=== PATIENT | female | born 1940 | race Caucasian/White ===

== ENCOUNTER 2017-09-29 11:06 | Inpatient (IN) | payer MEDICARE ==
[2017-09-29] MEDS ORDERED: ONDANSETRON 4 MG/2 ML VIAL IVP STA (12:08)
[2017-09-29] MEDS ORDERED: SODIUM CHLORIDE 0.9% 1,000 ML IV STA (12:08)
--- NOTE | 2017-09-29 12:16 | ED ---
General Adult HPI <Federico Dominguez - Last Filed: 09/29/17 15:16> - General Source: patient, family, RN notes reviewed Mode of arrival: wheelchair <Jet Dinero - Last Filed: 09/29/17 16:21> - General Chief complaint: Nausea/Vomiting/Diarrhea Stated complaint: vomiting; diarrhea; weakness Time Seen by Provider: 09/29/17 12:01 - History of Present Illness Initial comments: Patient 76-year-old female presented to the emergency room today with a chief complaint of symptoms of nausea vomiting diarrhea that started yesterday after she took Cymbalta. She states this is the first time she states this medication. She states that after she took it. Feeling nauseated and had episodes of diarrhea throughout the night. Patient states no specific abdominal pain. She states to all the vomiting she had some increased back pain due to history of chronic back pain. Patient denies any other complaints at this time. Patient denies any recent fever, chills, shortness of breath, chest pain, numbness or tingling, dysuria or hematuria, constipation, headaches or visual changes, or any other complaints. (Jet Dinero) - Related Data Home Medications Medication Instructions Recorded Confirmed Allopurinol [Zyloprim] 100 mg PO BID 11/03/14 09/29/17 Cetirizine HCl [Zyrtec] 10 mg PO DAILY 11/03/14 09/29/17 HYDROcodone/APAP 10-325MG [[place] 1 tab PO QID 11/03/14 09/29/17 10-325] Isosorbide Mononitrate ER [Imdur] 30 mg PO DAILY 11/03/14 09/29/17 Nitroglycerin Sl Tabs [Nitrostat] 0.4 mg SUBLINGUAL Q5M PRN 11/03/14 09/29/17 Ranitidine HCl [Zantac] 75 mg PO DAILY 11/03/14 09/29/17 Apixaban [Eliquis] 2.5 mg PO BID 02/02/15 09/29/17 Hydrochlorothiazide 25 mg PO DAILY 02/02/15 09/29/17 Aspirin EC [Ecotrin Low Dose] 81 mg PO DAILY 11/10/15 09/29/17 Atorvastatin Calcium [Lipitor] 80 mg PO DAILY 07/20/16 06/09/18 Furosemide [Lasix] 40 mg PO BID 11/10/15 09/29/17 Previous Rx's Medication Instructions Recorded Lisinopril [Prinivil] 20 mg PO DAILY #0 11/05/14 Allergies Allergy/AdvReac Type Severity Reaction Status Date / Time acetaminophen Allergy Unknown Verified 09/29/17 15:34 [From Darvocet-N] codeine phosphate Allergy Hallucinati Verified 09/29/17 15:34 [From Tylenol-Codeine #3] ons meperidine HCl [From Demerol] Allergy CHEST Verified 09/29/17 15:34 PAIN/Hallucinations propoxyphene Allergy Unknown Verified 09/29/17 15:34 [From Darvocet-N] Review of Systems ROS Other: All systems not noted in ROS Statement are negative. <Federico Dominguez - Last Filed: 09/29/17 15:16> ROS Other: All systems not noted in ROS Statement are negative. <Jet Dinero - Last Filed: 09/29/17 16:21> ROS Statement: Those systems with pertinent positive or pertinent negative responses have been documented in the HPI. Past Medical History Past Medical History: Chest Pain / Angina, GERD/Reflux, Hyperlipidemia, Hypertension, Pneumonia Additional Past Medical History / Comment(s): gout, neuropathy, hx migraines, irregular heartbeat, SOB, arthritis History of Any Multi-Drug Resistant Organisms: None Reported Past Surgical History: Cholecystectomy, Heart Catheterization With Stent, Hysterectomy Additional Past Surgical History / Comment(s): shane cataracts Past Anesthesia/Blood Transfusion Reactions: Motion Sickness, Postoperative Nausea & Vomiting (PONV) Date of Last Stent Placement:: unknown Past Psychological History: No Psychological Hx Reported Smoking Status: Never smoker Past Alcohol Use History: None Reported Past Drug Use History: None Reported - Past Family History Mother Family Medical History: Cancer Sister(s) Family Medical History: Deep Vein Thrombosis (DVT) Brother(s) Family Medical History: Pulmonary Embolus <Jet Dinero - Last Filed: 09/29/17 16:21> General Exam <Federico Dominguez - Last Filed: 09/29/17 15:16> <Jet Dinero - Last Filed: 09/29/17 16:21> - General Exam Comments Initial Comments: General: The patient is awake and alert, in mild distress Eye: Pupils are equal, round and reactive to light, extra-ocular movements are intact. No nystagmus. There is normal conjunctiva bilaterally. No signs of icterus. Ears, nose, mouth and throat: There are moist mucous membranes and no oral lesions. Neck: The neck is supple, there is no tenderness or JVD. Cardiovascular: There is a regular rate and rhythm. No murmur, rub or gallop is appreciated. Respiratory: Lungs are clear to auscultation, respirations are non-labored, breath sounds are equal. No wheezes, stridor, rales, or rhonchi. Gastrointestinal: Soft, non-distended, non-tender abdomen without masses or organomegaly noted. There is no rebound or guarding present. No CVA tenderness. Musculoskeletal: Normal ROM, no tenderness. Strength 5/5. Sensation intact. Pulses equal bilaterally 2+. Neurological: A&O x 3. CN II-XII intact, There are no obvious motor or sensory deficits. Coordination appears grossly intact. Speech is normal. Skin: Skin is warm and dry and no rashes or lesions are noted. Psychiatric: Cooperative, appropriate mood & affect, normal judgment. (Jet Dinero) Course <Federico Dominguez - Last Filed: 09/29/17 15:16> <Jet Dinero - Last Filed: 09/29/17 16:21> Vital Signs 09/29/17 09/29/17 09/29/17 11:41 13:10 15:51 Temperature 98.1 F 97.8 F Pulse Rate 108 H 98 99 Respiratory 22 19 19 Rate Blood Pressure 172/85 151/94 158/78 O2 Sat by Pulse 95 97 98 Oximetry - Reevaluation(s) Reevaluation #1: 09/29/17 14:41 I proceeded [id number] evaluation patient did discuss findings with her patient will be admitted I did discuss case Dr. Guaman and urology will be consulted. (Federico Dominguez) Reevaluation #2: 09/29/17 15:[address] West of the consult. (Federico Dominguez) EKG Findings - EKG Comments: EKG Findings:: EKG performed at 1258: Shows atrial fibrillation at 91 bpm. QRS 100. QT/QTC 372/457. Compared to a previous EKG on 11/03/2014 showing similar findings. <Jet Dinero - Last Filed: 09/29/17 16:21> Medical Decision Making - Lab Data Result diagrams: 09/29/17 12:30 09/29/17 12:30 <Federico Dominguez - Last Filed: 09/29/17 15:16> - Lab Data Result diagrams: 09/29/17 12:30 09/29/17 12:30 <Jet Dinero - Last Filed: 09/29/17 16:21> - Medical Decision Making CT abdomen and pelvis reviewed and shows 1. There is a 5 cm mass involving the lower pole left kidney suspicious for renal cell carcinoma. 2. Nonobstructing lower pole 5 mm left renal calculus. 3. Mild wall thickening of the stomach with few prominent small bowel loops particularly within the upper abdomen as read by radiologist Dr. Valencia. Case discussed and seen by internal physician Dr. Dominguez. He discuss case with admitting physician Dr. Guaman. Patient will be admitted to the hospital for symptoms of nausea vomiting and for further evaluation of kidney mass. (Jet Dinero) - Lab Data Lab Results 09/29/17 09/29/17 09/29/17 Range/Units 12:30 12:30 12:30 WBC 11.4 H (3.8-10.6) k/uL RBC 4.61 (3.80-5.40) m/uL Hgb 15.7 (11.4-16.0) gm/dL Hct 45.7 (34.0-46.0) % MCV 99.0 (80.0-100.0) fL MCH 34.1 (25.0-35.0) pg MCHC 34.4 (31.0-37.0) g/dL RDW 14.5 (11.5-15.5) % Plt Count 271 (150-450) k/uL Neutrophils % 90 % Lymphocytes % 6 % Monocytes % 3 % Eosinophils % 1 % Basophils % 0 % Neutrophils # 10.3 H (1.3-7.7) k/uL Lymphocytes # 0.6 L (1.0-4.8) k/uL Monocytes # 0.3 (0-1.0) k/uL Eosinophils # 0.1 (0-0.7) k/uL Basophils # 0.0 (0-0.2) k/uL PT (9.0-12.0) sec INR (<1.2) APTT (22.0-30.0) sec Sodium 141 (137-145) mmol/L Potassium 3.6 (3.5-5.1) mmol/L Chloride 100 (98-107) mmol/L Carbon Dioxide 25 (22-30) mmol/L Anion Gap 16 mmol/L BUN 17 (7-17) mg/dL Creatinine 0.73 (0.52-1.04) mg/dL Est GFR (CKD-EPI)AfAm >90 (>60 ml/min/1.73 sqM) Est GFR (CKD-EPI)NonAf 80 (>60 ml/min/1.73 sqM) Glucose 157 H (74-99) mg/dL Calcium 10.3 H (8.4-10.2) mg/dL Total Bilirubin 1.1 (0.2-1.3) mg/dL AST 27 (14-36) U/L ALT 29 (9-52) U/L Alkaline Phosphatase 147 H (38-126) U/L Total Creatine Kinase 74 (30-135) U/L CK-MB (CK-2) 1.6 (0.0-2.4) ng/mL CK-MB (CK-2) Rel Index 2.2 Troponin I <0.012 (0.000-0.034) ng/mL Total Protein 8.5 H (6.3-8.2) g/dL Albumin 4.9 (3.5-5.0) g/dL 09/29/17 Range/Units 12:30 WBC (3.8-10.6) k/uL RBC (3.80-5.40) m/uL Hgb (11.4-16.0) gm/dL Hct (34.0-46.0) % MCV (80.0-100.0) fL MCH (25.0-35.0) pg MCHC (31.0-37.0) g/dL RDW (11.5-15.5) % Plt Count (150-450) k/uL Neutrophils % % Lymphocytes % % Monocytes % % Eosinophils % % Basophils % % Neutrophils # (1.3-7.7) k/uL Lymphocytes # (1.0-4.8) k/uL Monocytes # (0-1.0) k/uL Eosinophils # (0-0.7) k/uL Basophils # (0-0.2) k/uL PT 10.7 (9.0-12.0) sec INR 1.1 (<1.2) APTT 22.7 (22.0-30.0) sec Sodium (137-145) mmol/L Potassium (3.5-5.1) mmol/L Chloride (98-107) mmol/L Carbon Dioxide (22-30) mmol/L Anion Gap mmol/L BUN (7-17) mg/dL Creatinine (0.52-1.04) mg/dL Est GFR (CKD-EPI)AfAm (>60 ml/min/1.73 sqM) Est GFR (CKD-EPI)NonAf (>60 ml/min/1.73 sqM) Glucose (74-99) mg/dL Calcium (8.4-10.2) mg/dL Total Bilirubin (0.2-1.3) mg/dL AST (14-36) U/L ALT (9-52) U/L Alkaline Phosphatase (38-126) U/L Total Creatine Kinase (30-135) U/L CK-MB (CK-2) (0.0-2.4) ng/mL CK-MB (CK-2) Rel Index Troponin I (0.000-0.034) ng/mL Total Protein (6.3-8.2) g/dL Albumin (3.5-5.0) g/dL Disposition <Federico Dominguez - Last Filed: 09/29/17 15:16> Is patient prescribed a controlled substance at d/c from ED?: No Time of Disposition: 14:50 <Jet Dinero - Last Filed: 09/29/17 16:21> Clinical Impression: Kidney mass, Nausea & vomiting Disposition: ADMITTED IP TO THIS HOSP Condition: Good
[2017-09-29 12:46] LABS: Basophils % (A) 0 %; Eosinophils # (A) 0.1 k/uL (0-0.7); Eosinophils % (A) 1 %; HCT 45.7 % (34.0-46.0); HGB 15.7 gm/dL (11.4-16.0); Lymphocytes # (A) 0.6 k/uL (1.0-4.8); Lymphocytes % (A) 6 %; MCH 34.1 pg (25.0-35.0); MCHC 34.4 g/dL (31.0-37.0); Monocytes # (A) 0.3 k/uL (0-1.0); Monocytes % (A) 3 %; Neutrophils # (A) 10.3 k/uL (1.3-7.7); Neutrophils % (A) 90 %; Platelet Count 271 k/uL (150-450); RBC 4.61 m/uL (3.80-5.40); RDW 14.5 % (11.5-15.5); WBC 11.4 k/uL (3.8-10.6)
--- NOTE | 2017-09-29 12:52 | XR ---
EXAMINATION TYPE: XR chest 2V DATE OF EXAM: 09/29/2017 COMPARISON: 11/10/2015 HISTORY: Nausea and vomiting for 2 days TECHNIQUE: Frontal and lateral views of the chest are obtained. FINDINGS: There is no focal air space opacity, pleural effusion, or pneumothorax seen. The cardiome diastinal silhouette is upper limits of normal. The osseous structures are intact. Mild acromio cla vicular arthropathy is seen bilaterally. Moderate multilevel degenerative changes of the thoracic spi ne are noted. Cholecystectomy clips reside within the right upper quadrant IMPRESSION: No acute cardiopulmonary process.
[2017-09-29 12:55] LABS: ALT 29 U/L (9-52); AST 27 U/L (14-36); Albumin 4.9 g/dL (3.5-5.0); Alkaline Phosphatase 147 U/L (38-126); Anion Gap 16 mmol/L; Blood Urea Nitrogen 17 mg/dL (7-17); Calcium 10.3 mg/dL (8.4-10.2); Carbon Dioxide 25 mmol/L (22-30); Chloride 100 mmol/L (98-107); Glucose 157 mg/dL (74-99); Potassium 3.6 mmol/L (3.5-5.1); Sodium 141 mmol/L (137-145); Total Bilirubin 1.1 mg/dL (0.2-1.3); Total Protein 8.5 g/dL (6.3-8.2)
[2017-09-29 12:56] LABS: INR 1.1 (<1.2); Partial Thromboplastin Time 22.7 sec (22.0-30.0); Prothrombin Time 10.7 sec (9.0-12.0)
--- NOTE | 2017-09-29 12:59 | XR ---
EXAMINATION TYPE: XR KUB DATE OF EXAM: 09/29/2017 12:48 PM CLINICAL HISTORY: Abdominal pain TECHNIQUE: Single supine KUB image of the abdomen is obtained. COMPARISON: None. FINDINGS: Scattered gas is seen in non-distended small bowel loops. Gas and fecal material is seen in non-distended colon. Evaluation for pneumoperitoneum is limited on the supine image. Cholecystectomy clips reside within the right upper quadrant. The lung bases are clear and the osseous structures ar e intact. IMPRESSION: Nonobstructive bowel gas pattern.
[2017-09-29 13:08] LABS: Creatine Kinase 74 U/L (30-135)
[2017-09-29] MEDS ORDERED: MORPHINE SULFATE 2 MG/ML SYRINGE IVP STA (13:16)
[2017-09-29 13:21] LABS: Creatine Kinase MB 1.6 ng/mL (0.0-2.4); Troponin I <0.012 ng/mL (0.000-0.034)
--- NOTE | 2017-09-29 14:28 | CT ---
EXAMINATION TYPE: CT abdomen pelvis w con DATE OF EXAM: 09/29/2017 COMPARISON: None HISTORY: Generalized pain, nausea, vomiting, diarrhea CT DLP: 1655 mGycm Automated exposure control for dose reduction was used. CONTRAST: CT scan of the abdomen pelvis is performed with IV Contrast, patient injected with 100 mL of Isovue 3 00. FINDINGS- LUNG BASES-subsegmental changes involving both lung bases suggestive of atelectasis or scarring. The heart is enlarged.. LIVER/GB-surgical clip in the gallbladder fossa compatible with previous cholecystectomy. PANCREAS- No gross abnormality is seen. SPLEEN- No gross abnormality is seen. ADRENALS-thickening of the left adrenal gland be associated with hyperplasia. KIDNEYS/BLADDER-there is a large mass involving the lower pole the left kidney measuring 5 cm. There is a 5 mm left renal calculus with no hydronephrosis.. BOWEL- no bowel dilatation. Mild wall thickening the stomach and be associated with gastroenteritis. There are few prominent small bowel loops. LYMPH NODES- No greater than 1cm abdominal or pelvic lymph nodes are appreciated. OSSEOUS STRUCTURES-hypertrophic and degenerative change of the spine. Diffuse circumferential disc bu lging L4-L5 with grade 1 anterolisthesis and facet arthropathy and severe canal stenosis. No destruct monico lesions are seen.. OTHER- atherosclerotic change of aorta. No evidence of aneurysm. IMPRESSION- 1. There is a 5 cm mass involving the lower pole the left kidney suspicious for renal cell carcinoma. 2. Nonobstructing lower pole 5 mm left renal calculus. 3. Mild wall thickening of the stomach with a few prominent small bowel loops particularly within the upper abdomen. Correlate for gastroenteritis.
[2017-09-29] MEDS ORDERED: LORazepam 2 MG/ML INJ IV PRN (14:53)
[2017-09-29] MEDS ORDERED: NALOXONE 0.4 MG/ML 1 ML VIAL IV PRN (14:53)
[2017-09-29] MEDS ORDERED: SODIUM CHLORIDE 0.9% 1,000 ML IV ONE (14:53)
[2017-09-29] MEDS ORDERED: DICYCLOMINE 10 MG/ML 2 ML AMP IM STA (15:05)
[2017-09-29 16:05] LABS: Appearance,Urine Clear (Clear); Bilirubin,Urine Negative (Negative); Blood,Urine Small (Negative); Color,Urine Light Yellow; Glucose,Urine (UA) Negative (Negative); Ketones,Urine Negative (Negative); Leukocyte Esterase,Urine Large (Negative); Mucus,Urine Rare /hpf; Nitrite,Urine Positive (Negative); Protein,Urine Negative (Negative); RBC,Urine 5 /hpf (0-5); Specific Gravity,Urine 1.034 (1.001-1.035); Squamous Epithelial Cell,Urine <1 /hpf (0-4); Urobilinogen,Urine <2.0 mg/dL (<2.0); WBC,Urine 36 /hpf (0-5)
[2017-09-29] MEDS ORDERED: NITROGLYCERIN SL TABS 0.4 MG TAB SUBLINGUAL PRN (17:08)
[2017-09-29 17:21] VITALS: BMI 36.3
[2017-09-29] MEDS: MORPHINE SULFATE 2 MG/ML SYRINGE IV PRN (17:37)
[2017-09-29 17:43] LABS: Amylase 49 U/L (30-110); Lipase 34 U/L (23-300)
[2017-09-29] MEDS: cefTRIAXone IN SWFI 1,000 MG/10 ML SYRINGE IVP SCH (18:35)
--- NOTE | 2017-09-29 18:46 | HP ---
HISTORY AND PHYSICAL CHIEF COMPLAINTS: Nausea, vomiting, diarrhea. HISTORY OF PRESENT ILLNESS: This 76-year-old woman with a past medical history of multiple medical problems including GERD, hypertension, hyperlipidemia, history of pneumonia, history of gout, neuropathy being followed by Dr. Philippe Miramontes in the outpatient setting also had CAD, stent. Patient complaining of bilateral leg pain and difficulty in walking. The patient was started on Cymbalta 30 mg. Currently the complaining of nausea, vomiting and diarrhea on multiple occasions. Patient came to [facility] and admitted for further evaluation and treatment. CT scan of the abdomen showed a 5 cm incidental mass in the left lower pole of the left kidney, nonobstructing lower pole 5 cm left renal calculus and mild wall thickening of the stomach also. There is no history of fevers, rigors or chills. No history of headache, loss of consciousness, seizures. PAST MEDICAL HISTORY: GERD, hypertension, hyperlipidemia, pneumonia, history of gout, neuropathy, cholecystectomy, CAD, stent. MEDICATION: Home medications are: 1. Zantac 75 mg p.o. daily. 2. Nitrostat 0.4 mg sublingual p.r.n. 3. Prinivil 20 mg daily. 4. Imdur 30 mg b.i.d. 5. Hydrochlorothiazide 25 mg p.o. 6. [place] 10 mg q.i.d. 7. Lasix 40 mg p.o. b.i.d. 8. Zyrtec 10 mg. 9. Lipitor 80 mg. 10.Ecotrin 81 mg p.o. 11.Eliquis 2.5 mg b.i.d. 12.Zyloprim 100 mg p.o. b.i.d. ALLERGIES: DARVOCET-N 100, CODEINE, MEPERIDINE, . FAMILY HISTORY: Family history of cancer in the family. SOCIAL HISTORY: No history of smoking. No history of alcohol intake. REVIEW OF SYSTEMS: ENT: Diminished hearing and vision. CARDIOVASCULAR: No angina or palpitations. RESPIRATORY: No cough or hemoptysis. GI as mentioned earlier. : As mentioned earlier. NERVOUS SYSTEM: No numbness or weakness. ALLERGY/IMMUNOLOGY: No asthma or hayfever. MUSCULOSKELETAL as mentioned earlier. DERMATOLOGY: No history of anemia. ENDOCRINE: No history of diabetes or hypothyroidism. CONSTITUTIONAL: As mentioned earlier. Dermatology: Negative. Rheumatology: Negative. PSYCHIATRY: As mentioned earlier. PHYSICAL EXAMINATION: GENERAL: Alert and oriented times three. VITAL SIGNS: Pulse is 99, blood pressure 158/70, respiration 19, temperature 97.8, pulse ox 98% on room air. HEENT: Conjunctivae normal. Oral mucosa moist. NECK is no jugular venous distention. No carotid bruit. No lymph node enlargement. CARDIOVASCULAR System: S1, S2 muffled. RESPIRATIONS: Breath sounds diminished in the bases. No rhonchi and no crackles. ABDOMEN: Soft. Mild diffuse tenderness in the upper abdomen present. No mass palpable. LEGS: No edema and no swelling. NERVOUS SYSTEM: Higher functions as mentioned earlier. Moves all 4 limbs. No focal motor or sensory deficits. LYMPHATICS: No lymph nodes palpable in neck and axilla. SKIN: No ulcer, rash or bleeding. LABS: WBC 7.4, Calcium is 10.8. UA noted. ASSESSMENT: 1. Upper abdominal pain, vomiting, possible acute gastritis. Rule out cholelithiasis. 2. Acute urinary tract infection present on admission. 3. History of gastroesophageal reflux disease. 4. Hypertension. 5. Hyperlipidemia. 6. History of pneumonia. 7. History of peripheral neuropathy and severe pain. 8. History of atrial fibrillation. 9. History of degenerative joint disease. 10.History of gout. 11.History of coronary artery disease and stent. 12.5 cm mass noted in the left pole of the left lower pole of the left kidney, possibly renal cell carcinoma. 13.Nonobstructing lower pole 5 mm left renal calculi. 14.FULL CODE. RECOMMENDATIONS AND DISCUSSION: In this 76-year-old woman continue current medications, recommend symptomatic treatment of the pain. We will initiate broad-spectrum IV antibiotics. Follow the cultures. Resume the home medications. DVT prophylaxis. Surgery and gastroenterology consultation for concern for consideration of upper endoscopies. Ultrasound will be requested. Repeat labs. Urology has been consulted from the ER and further recommendations to follow. Prognosis guarded. Copy of this dictation being forwarded to Dr. Miramontes's office who is the primary care physician. NIK / SRIDEVI: [id number] / MTDD
[2017-09-29] MEDS: APIXABAN 2.5 MG TABLET PO SCH (21:14)
[2017-09-29] MEDS: KETOROLAC 30 MG/ML 1 ML VIAL IVP PRN (22:00)
[2017-09-30] MEDS ORDERED: KETOROLAC 30 MG/ML 1 ML VIAL IVP SCH
[2017-09-30] MEDS: ONDANSETRON 4 MG/2 ML VIAL IVP PRN ×3 (01:27→23:06)
[2017-09-30] MEDS: APIXABAN 2.5 MG TABLET PO SCH ×2 (08:13→21:58)
[2017-09-30] MEDS: cefTRIAXone IN SWFI 1,000 MG/10 ML SYRINGE IVP SCH (08:13)
[2017-09-30] MEDS: ATORVASTATIN 80 MG TAB PO SCH (08:13)
[2017-09-30] MEDS: HYDROCHLOROTHIAZIDE 25 MG TAB PO SCH (08:14)
[2017-09-30] MEDS: LISINOPRIL 20 MG TAB PO SCH (08:14)
[2017-09-30] MEDS: ISOSORBIDE MONONITRATE ER 30 MG TAB.ER.24H PO SCH (08:14)
[2017-09-30] MEDS: FUROSEMIDE 40 MG TAB PO SCH (08:14)
[2017-09-30] MEDS: KETOROLAC 30 MG/ML 1 ML VIAL IVP PRN (08:16)
--- NOTE | 2017-09-30 08:23 | US ---
EXAMINATION TYPE: US abdomen limited DATE OF EXAM: 09/30/2017 COMPARISON: CT 09/29/2017 CLINICAL HISTORY: abd pain. EXAM MEASUREMENTS: Liver Length: 14.3 cm Gallbladder Wall: Surgically absent CBD: 0.6 cm Right Kidney: 10.0 x 5.0 x 4.4 cm Pancreas: Obscured by bowel gas, visualized portions wnl Liver: Heterogeneous Gallbladder: Surgically absent. Evidence for sonographic Meredith's sign: No true Meredith's sign observed CBD: wnl post cholecystectomy Right Kidney: No hydronephrosis or masses seen Difficult and limited exam. Patient could not tolerate any pressure to her abdomen area due to pain. Patient unable to take a deep breath in and hold IMPRESSION: No acute process.
[2017-09-30 09:07] LABS: Basophils % (A) 0 %; Eosinophils # (A) 0.1 k/uL (0-0.7); Eosinophils % (A) 1 %; HCT 43.8 % (34.0-46.0); HGB 14.4 gm/dL (11.4-16.0); Lymphocytes # (A) 0.7 k/uL (1.0-4.8); Lymphocytes % (A) 6 %; MCH 33.2 pg (25.0-35.0); MCHC 32.8 g/dL (31.0-37.0); MCV 101.1 fL (80.0-100.0); Macrocytosis Slight; Mean Platelet Volume 7.4; Monocytes # (A) 0.6 k/uL (0-1.0); Monocytes % (A) 6 %; Neutrophils # (A) 10.1 k/uL (1.3-7.7); Neutrophils % (A) 87 %; Platelet Count 257 k/uL (150-450); RBC 4.34 m/uL (3.80-5.40); RDW 14.5 % (11.5-15.5); WBC 11.5 k/uL (3.8-10.6)
[2017-09-30 09:11] LABS: ALT 30 U/L (9-52); AST 25 U/L (14-36); Albumin 3.9 g/dL (3.5-5.0); Alkaline Phosphatase 109 U/L (38-126); Anion Gap 15 mmol/L; Blood Urea Nitrogen 16 mg/dL (7-17); Calcium 9.6 mg/dL (8.4-10.2); Carbon Dioxide 23 mmol/L (22-30); Chloride 106 mmol/L (98-107); Glucose 136 mg/dL (74-99); Potassium 3.7 mmol/L (3.5-5.1); Sodium 144 mmol/L (137-145); Total Bilirubin 0.9 mg/dL (0.2-1.3); Total Protein 6.9 g/dL (6.3-8.2)
--- NOTE | 2017-09-30 11:50 | CONS ---
CONSULTATION DATE OF SERVICE: 09/30/17 REQUESTING PHYSICIAN: Dr. Guaman. REASON FOR CONSULTATION: Nausea, vomiting, and abdominal pain. HISTORY OF PRESENT ILLNESS: The patient is a 76-year-old pleasant white female admitted to the hospital because of complaining of abdominal discomfort associated with nausea, vomiting, diarrhea for the last 3 days duration. She had several episodes of nausea, vomiting and has bowel movements anywhere from four to five a day which are loose to watery in consistency. Around the same time she also started having some lower extremity swelling. She went to see Dr. Miramontes on an outpatient basis and her medications were recently changed about 4 days ago when she started having these symptoms. She denies any fever, chills, night sweats. She denies any rectal bleeding or melena. She came to the emergency room and a CT of the abdomen and pelvis done showed evidence of 5 cm incidental mass in the left pole of the left kidney and some thickening of the wall of the stomach. This morning, she still has some nausea, but the diarrhea has improved. PAST MEDICAL HISTORY: Significant for GERD, hypertension, hyperlipidemia, gout. PAST SURGICAL HISTORY: Cholecystectomy, cardiac cath with stent placement. MEDICATIONS: At home, Zantac, Nitrostat, Prinivil, Imdur, Hydrochlorothiazide, [place], Lasix and Lipitor, Ecotrin, Eliquis, and Zyloprim. ALLERGIES: DARVOCET, CODEINE, MEPERIDINE. FAMILY HISTORY: Unremarkable. SOCIAL HISTORY: No smoking, alcohol use. REVIEW OF SYSTEMS: Cardiopulmonary: No chest pain, shortness of breath. Genitourinary: No dysuria or hematuria. Musculoskeletal: Lower extremity swelling and neuropathy. ENT/vision: Unremarkable. Constitutional: No recent weight loss. No fevers, chills or night sweats. Endocrine: Unremarkable. Hematology unremarkable. Psychiatric unremarkable. GI: As mentioned above. PHYSICAL EXAMINATION: She appears comfortable. No apparent distress. Vital signs are stable. Blood pressure is 141/73, pulse 87, temperature 97.9. HEENT examination unremarkable. Conjunctivae pink. Sclerae anicteric. Oral cavity no lesions. Neck: No jugular venous distention or lymph node enlargement. Chest was clear to auscultation. HEART: Regular rate and rhythm. ABDOMEN: Soft. Bowel sounds are positive. No organomegaly. Extremities: No pedal edema. Skin no rashes. NEUROLOGIC: Alert and oriented x3. No focal deficits. LAB DATA: Done yesterday, WBC 11.4, hemoglobin 13.7, platelets are normal. Basic metabolic panel is within normal limits. PT, INR within normal limits. C diff reported as negative. CT of the abdomen and pelvis showed incidental 5 cm mass in the left kidney and some mild gastritis. IMPRESSION: 1. This is a lady who presents to the hospital with acute onset of abdominal discomfort associated with nausea, vomiting, diarrhea for the last 3 days duration. Most likely we are dealing with possible gastroenteritis/gastritis. She is feeling a little better this morning. 2. History of atrial fibrillation on Eliquis. 3. Urinary tract infection on broad-spectrum antibiotics. 4. CT of the abdomen showed an incidental 5 cm mass in the left kidney. RECOMMENDATION: 1. Will start her on empiric Protonix 40 mg daily. 2. Start on a clear liquid diet. 3. Antiemetics as needed. 4. Stool for cultures. 5. Continue with symptomatic and supportive care. 6. No plans on any endoscopic intervention at the present time. Thank you for this consultation. MMODL / IJN: [id number] /
--- NOTE | 2017-09-30 12:13 | P.GSCN ---
History of Present Illness Consult date: 09/30/17 History of present illness: I was asked to see this 76-year-old female who was brought into the hospital with nausea and vomiting. She came to the hospital with nausea and vomiting after starting Cymbalta. A computed tomography scan of the abdomen was obtained identifying a 5 cm solid mass emanating from the left lower pole the kidney worrisome for renal cell carcinoma. I have been asked to see the patient for this reason. There's been no hematuria. There's been no pain. There is no been no previous urologic issues. Her hemoglobin is stable. Her urinalysis did not show a lot of red blood cells. Review of Systems - Constitutional Reports anorexia - Gastrointestinal Reports abdominal pain, Reports nausea - Genitourinary Genitourinary: Reports as per HPI Past Medical History Past Medical History: Chest Pain / Angina, GERD/Reflux, Hyperlipidemia, Hypertension, Osteoarthritis (OA), Pneumonia Additional Past Medical History / Comment(s): Gout, Neuropathy, hx migraines, A- Fib, Borderline diabetic per patient History of Any Multi-Drug Resistant Organisms: None Reported Past Surgical History: Cholecystectomy, Heart Catheterization With Stent, Hysterectomy Additional Past Surgical History / Comment(s): Bilateral cats removed Past Anesthesia/Blood Transfusion Reactions: Motion Sickness, Postoperative Nausea & Vomiting (PONV) Date of Last Stent Placement:: unknown Past Psychological History: No Psychological Hx Reported Smoking Status: Never smoker Past Alcohol Use History: None Reported Past Drug Use History: None Reported - Past Family History Father Family Medical History: Diabetes Mellitus Mother Family Medical History: Cancer Additional Family Medical History / Comment(s): Ovarian cancer Sister(s) Family Medical History: Deep Vein Thrombosis (DVT) Brother(s) Family Medical History: Pulmonary Embolus Medications and Allergies Home Medications Medication Instructions Recorded Confirmed Type Allopurinol [Zyloprim] 100 mg PO BID 11/03/14 09/29/17 History Cetirizine HCl [Zyrtec] 10 mg PO DAILY 11/03/14 09/29/17 History HYDROcodone/APAP 10-325MG [[place] 1 tab PO QID 11/03/14 09/29/17 History 10-325] Isosorbide Mononitrate ER [Imdur] 30 mg PO DAILY 11/03/14 09/29/17 History Nitroglycerin Sl Tabs [Nitrostat] 0.4 mg SUBLINGUAL Q5M PRN 11/03/14 09/29/17 History Ranitidine HCl [Zantac] 75 mg PO DAILY 11/03/14 09/29/17 History Lisinopril [Prinivil] 20 mg PO DAILY #0 11/05/14 09/29/17 Rx Apixaban [Eliquis] 2.5 mg PO BID 02/02/15 09/29/17 History Hydrochlorothiazide 25 mg PO DAILY 02/02/15 09/29/17 History Aspirin EC [Ecotrin Low Dose] 81 mg PO DAILY 11/10/15 09/29/17 History Atorvastatin Calcium [Lipitor] 80 mg PO DAILY 11/10/15 09/29/17 History Furosemide [Lasix] 40 mg PO BID 11/10/15 09/29/17 History Allergies Allergy/AdvReac Type Severity Reaction Status Date / Time acetaminophen Allergy Unknown Verified 09/29/17 15:34 [From Darvocet-N] codeine phosphate Allergy Hallucinati Verified 09/29/17 15:34 [From Tylenol-Codeine #3] ons meperidine HCl [From Demerol] Allergy CHEST Verified 09/29/17 15:34 PAIN/Hallucinations propoxyphene Allergy Unknown Verified 09/29/17 15:34 [From Darvocet-N] Surgical - Exam Vital Signs Temp Pulse Resp BP Pulse Ox 98.1 F 108 H 22 172/85 95 09/29/17 11:41 09/29/17 11:41 09/29/17 11:41 09/29/17 11:41 09/29/17 11:41 - General well developed, well nourished, moderate distress - Eyes PERRL - ENT no hearing loss - Neck trachea midline - Respiratory normal expansion, normal respiratory effort - Cardiovascular Rhythm: irregularly irregular - Abdomen Abdomen: soft, non tender - Neurologic normal coordination, normal sensation - Musculoskeletal normal gait, normal posture - Psychiatric oriented to time, oriented to person, oriented to place, speech is normal, memory intact Results - Labs 09/30/17 08:05 09/30/17 08:05 Abnormal Lab Results - Last 24 Hours (Table) 09/29/17 09/29/17 09/29/17 Range/Units 12:30 12:30 15:40 WBC 11.4 H (3.8-10.6) k/uL MCV (80.0-100.0) fL Neutrophils # 10.3 H (1.3-7.7) k/uL Lymphocytes # 0.6 L (1.0-4.8) k/uL Glucose 157 H (74-99) mg/dL Calcium 10.3 H (8.4-10.2) mg/dL Alkaline Phosphatase 147 H (38-126) U/L Total Protein 8.5 H (6.3-8.2) g/dL Urine Blood Small H (Negative) Urine Nitrite Positive H (Negative) Ur Leukocyte Esterase Large H (Negative) Urine WBC 36 H (0-5) /hpf Urine Mucus Rare H (None) /hpf 09/30/17 09/30/17 Range/Units 08:05 08:05 WBC 11.5 H (3.8-10.6) k/uL MCV 101.1 H (80.0-100.0) fL Neutrophils # 10.1 H (1.3-7.7) k/uL Lymphocytes # 0.7 L (1.0-4.8) k/uL Glucose 136 H (74-99) mg/dL Calcium (8.4-10.2) mg/dL Alkaline Phosphatase (38-126) U/L Total Protein (6.3-8.2) g/dL Urine Blood (Negative) Urine Nitrite (Negative) Ur Leukocyte Esterase (Negative) Urine WBC (0-5) /hpf Urine Mucus (None) /hpf Microbiology - Last 24 Hours (Table) 09/29/17 15:40 Urine Culture - Preliminary Urine,Clean Catch Diabetes panel 09/29/17 09/30/17 Range/Units 12:30 08:05 Sodium 141 144 (137-145) mmol/L Potassium 3.6 3.7 (3.5-5.1) mmol/L Chloride 100 106 (98-107) mmol/L Carbon Dioxide 25 23 (22-30) mmol/L BUN 17 16 (7-17) mg/dL Creatinine 0.73 0.73 (0.52-1.04) mg/dL Glucose 157 H 136 H (74-99) mg/dL Calcium 10.3 H 9.6 (8.4-10.2) mg/dL AST 27 25 (14-36) U/L ALT 29 30 (9-52) U/L Alkaline Phosphatase 147 H 109 (38-126) U/L Total Protein 8.5 H 6.9 (6.3-8.2) g/dL Albumin 4.9 3.9 (3.5-5.0) g/dL Calcium panel 09/29/17 09/30/17 Range/Units 12:30 08:05 Calcium 10.3 H 9.6 (8.4-10.2) mg/dL Albumin 4.9 3.9 (3.5-5.0) g/dL Pituitary panel 09/29/17 09/30/17 Range/Units 12:30 08:05 Sodium 141 144 (137-145) mmol/L Potassium 3.6 3.7 (3.5-5.1) mmol/L Chloride 100 106 (98-107) mmol/L Carbon Dioxide 25 23 (22-30) mmol/L BUN 17 16 (7-17) mg/dL Creatinine 0.73 0.73 (0.52-1.04) mg/dL Glucose 157 H 136 H (74-99) mg/dL Calcium 10.3 H 9.6 (8.4-10.2) mg/dL Adrenal panel 09/29/17 09/30/17 Range/Units 12:30 08:05 Sodium 141 144 (137-145) mmol/L Potassium 3.6 3.7 (3.5-5.1) mmol/L Chloride 100 106 (98-107) mmol/L Carbon Dioxide 25 23 (22-30) mmol/L BUN 17 16 (7-17) mg/dL Creatinine 0.73 0.73 (0.52-1.04) mg/dL Glucose 157 H 136 H (74-99) mg/dL Calcium 10.3 H 9.6 (8.4-10.2) mg/dL Total Bilirubin 1.1 0.9 (0.2-1.3) mg/dL AST 27 25 (14-36) U/L ALT 29 30 (9-52) U/L Alkaline Phosphatase 147 H 109 (38-126) U/L Total Protein 8.5 H 6.9 (6.3-8.2) g/dL Albumin 4.9 3.9 (3.5-5.0) g/dL - Imaging CT scan - abdomen: report reviewed, image reviewed CT scan - pelvis: report reviewed, image reviewed Assessment and Plan Assessment: Impression: Nausea and vomiting secondary to either new medication (Cymbalta) or due to perhaps left renal tumor with secondary nausea and vomiting. Multiple medical problems Recommendations: A stent in the appearance of this tumor this patient would require a nephrectomy. I discussed with the patient and her family the options of an open versus a laparoscopic nephrectomy. They would prefer to have the surgery here [place] in which case an open nephrectomy would be required. She would need cardiac clearance preoperatively. From a urologic standpoint when her nausea and vomiting have subsided she can go home. We'll start looking for time for surgical care for this patient.
[2017-09-30] MEDS: MORPHINE SULFATE 2 MG/ML SYRINGE IV PRN ×3 (12:46→23:06)
[2017-09-30] MEDS ORDERED: ONDANSETRON 4 MG/2 ML VIAL ONE (14:25)
[2017-09-30] MEDS: ALPRAZolam 0.25 MG TAB PO PRN ×2 (15:51→23:06)
--- NOTE | 2017-09-30 16:17 | PN ---
PROGRESS NOTE DATE OF SERVICE: 09/30/2017 This 76-year-old woman admitted with nausea, vomiting, diarrhea, also had significant upper abdominal pain. The patient also noted to have incidental left lower pole kidney mass, possible renal cell carcinoma. The patient being closely monitored at this time. Gastroenterology following the patient closely. Abdominal ultrasound could not be done because of the patient's significant pain. Urology and Gastroenterology following the patient closely. PAST MEDICAL HISTORY: Reviewed. REVIEW OF SYSTEMS: CARDIOVASCULAR: No angina or palpitations. Respiratory: No cough. GI: As mentioned earlier. : No dysuria. Nervous system: No numbness or weakness. CURRENT MEDICATIONS ARE: 1. [place] 5 mg q.6h p.r.n. 2. Xanax 0.5 t.i.d. 3. Eliquis 2.5 mg daily. 4. Lipitor 80 mg q.h.s. 5. Rocephin 1 g IV daily. 6. Lasix 40 mg b.i.d. 7. HydroDIURIL 25 mg daily. 8. Imdur 30 mg b.i.d. 9. Zestril 20 mg daily. 10.Ativan 0.5 mg q.6h p.r.n. 12.Narcan. 13.Nitrostat 0.4 sublingual p.r.n. 14.Zofran 4 mg IV q.8h p.r.n. PHYSICAL EXAM: Patient is alert, oriented times three, pulse 87, blood pressure 140/72, respiration 16, temperature 97.2, pulse ox 94% on room air. HEENT: Conjunctivae normal. Oral mucosa moist. Neck is no jugular venous distention. No carotid bruit. No lymph node enlargement. Cardiovascular: S1, S2 muffled. Respiratory: Breath sounds diminished in the bases. ABDOMEN: Soft. Significant tenderness in the upper abdomen. No guarding. No rigidity. No mass palpable. Legs: No edema and no swelling. CENTRAL NERVOUS SYSTEM: No focal deficits. LABS: WBC 7.5, hemoglobin is 14.4. Stool OB is positive. ASSESSMENT: 1. Upper abdominal pain, vomiting possible acute gastritis. Rule out peptic ulcer disease. 2. Acute urinary tract infection, present on admission. 3. Possible left lower kidney pole mass, possibly renal cell carcinoma. 4. History of gastroesophageal reflux disease. 5. Hypertension. 6. Hyperlipidemia. 7. History of pneumonia. 8. History of peripheral neuropathy, severe pain. 9. History of atrial fibrillation. 10.History of degenerative joint disease. 11.History of gout. 12.History of coronary artery disease, stent. 13.Nonobstructive lower pole 5 mm right renal calculi. 14.FULL CODE. RECOMMENDATIONS AND DISCUSSION: Recommend to continue current medications, management and symptomatic treatment. Otherwise, at this time, I will continue the antibiotics and symptomatic treatment with Protonix. Gastroenterology evaluation appreciated. The patient is symptomatic, not better. The patient will require endoscopy. I would also recommend surgical consultation with Dr. Davis as well. Otherwise, prognosis guarded because of multiple complex medical issues. Further recommendations to follow. See orders for details. Dr. Medina's evaluation appreciated. MMBRENDANL / IJN: [id number] / MTDD
[2017-10-01] MEDS: cefTRIAXone IN SWFI 1,000 MG/10 ML SYRINGE IVP SCH (08:35)
[2017-10-01] MEDS: ATORVASTATIN 80 MG TAB PO SCH ×2 (08:43→20:14)
[2017-10-01] MEDS: ALPRAZolam 0.25 MG TAB PO PRN (08:43)
[2017-10-01] MEDS: ISOSORBIDE MONONITRATE ER 30 MG TAB.ER.24H PO SCH (08:44)
[2017-10-01] MEDS: APIXABAN 2.5 MG TABLET PO SCH ×2 (08:44→20:14)
[2017-10-01] MEDS: FUROSEMIDE 40 MG TAB PO SCH (08:44)
[2017-10-01] MEDS: HYDROCHLOROTHIAZIDE 25 MG TAB PO SCH (08:44)
[2017-10-01] MEDS: LISINOPRIL 20 MG TAB PO SCH (08:44)
[2017-10-01] MEDS: HYDROcodone/APAP 5-325MG 1 EACH TAB PO PRN ×3 (08:44→20:17)
[2017-10-01 09:10] LABS: Basophils % (A) 0 %; Eosinophils # (A) 0.2 k/uL (0-0.7); Eosinophils % (A) 2 %; HCT 44.6 % (34.0-46.0); HGB 14.3 gm/dL (11.4-16.0); Lymphocytes % (A) 9 %; MCH 33.2 pg (25.0-35.0); MCHC 32.1 g/dL (31.0-37.0); MCV 103.3 fL (80.0-100.0); Macrocytosis Slight; Monocytes # (A) 0.6 k/uL (0-1.0); Monocytes % (A) 6 %; Neutrophils # (A) 9.1 k/uL (1.3-7.7); Neutrophils % (A) 82 %; Platelet Count 224 k/uL (150-450); RBC 4.31 m/uL (3.80-5.40); RDW 14.9 % (11.5-15.5)
[2017-10-01 09:41] LABS: Potassium 3.6 mmol/L (3.5-5.1)
[2017-10-01 11:55] LABS: Hepatitis A Antibody IgM Non-Reactive (Non-Reactive); Hepatitis B Core IgM Non-Reactive (Non-Reactive)
--- NOTE | 2017-10-01 12:43 | P.GSCN ---
<Janell Scherer - Last Filed: 10/01/17 12:27> History of Present Illness Consult date: 10/01/17 Reason for Consult: Abdominal pain History of present illness: 76-year-old female being seen at the request of the attending for surgical eval for intractable abdominal pain with frequent stooling. Patient stated the pain was unbearable. Positive tenderness to the right lower quadrant patient stated the area was so sensitive that if she touched it it caused discomfort. Patient stated after taking a new medication Cymbalta developed diarrhea frequent stooling. Patient stated that she started to vomit couldn't keep anything down. In the emergency room a CAT scan of the abdomen pelvis which obtained. It showed a 5 cm mass involving the left lower pole of the kidney concerning for renal cell cancer. Urology consultation has been requested. Additionally a GI consultation has been requested by the attending. Patient was seen in consultation with recommendations reviewed. indicate symptoms patient was experiencing are likely contributed to gastroenteritis gastritis. C. diff was negative stool positive for occult blood hemoglobin 14.3 there are no plans for endoscopic intervention at this time currently patient is sitting up in a chair states the abdominal discomfort has improved states had 3 dark stools this morning no nausea no vomiting it's noted the patient could not tolerate the ultrasound of the abdomen that was attempted yesterday due to the patient not being able to have pressure applied to her abdomen it caused increased pain Past surgical history total abdominal hysterectomy, cholecystectomy open both surgeries done years ago heart catheterization with stent 5 years ago patient states she's not certain when she's had an EGD or colonoscopy Past medical history gout, atrial fibrillation, migraine, esophageal reflux, hyperlipidemia pneumonia Review of Systems Essentially unremarkable except as mentioned in the present illness Past Medical History Past Medical History: Chest Pain / Angina, GERD/Reflux, Hyperlipidemia, Hypertension, Osteoarthritis (OA), Pneumonia Additional Past Medical History / Comment(s): Gout, Neuropathy, hx migraines, A- Fib, Borderline diabetic per patient History of Any Multi-Drug Resistant Organisms: None Reported Past Surgical History: Cholecystectomy, Heart Catheterization With Stent, Hysterectomy Additional Past Surgical History / Comment(s): Bilateral cats removed Past Anesthesia/Blood Transfusion Reactions: Motion Sickness, Postoperative Nausea & Vomiting (PONV) Date of Last Stent Placement:: unknown Past Psychological History: No Psychological Hx Reported Smoking Status: Never smoker Past Alcohol Use History: None Reported Past Drug Use History: None Reported - Past Family History Father Family Medical History: Diabetes Mellitus Mother Family Medical History: Cancer Additional Family Medical History / Comment(s): Ovarian cancer Sister(s) Family Medical History: Deep Vein Thrombosis (DVT) Brother(s) Family Medical History: Pulmonary Embolus Medications and Allergies Home Medications Medication Instructions Recorded Confirmed Type Allopurinol [Zyloprim] 100 mg PO BID 11/03/14 09/29/17 History Cetirizine HCl [Zyrtec] 10 mg PO DAILY 11/03/14 09/29/17 History HYDROcodone/APAP 10-325MG [[place] 1 tab PO QID 11/03/14 09/29/17 History 10-325] Isosorbide Mononitrate ER [Imdur] 30 mg PO DAILY 11/03/14 09/29/17 History Nitroglycerin Sl Tabs [Nitrostat] 0.4 mg SUBLINGUAL Q5M PRN 11/03/14 09/29/17 History Ranitidine HCl [Zantac] 75 mg PO DAILY 11/03/14 09/29/17 History Lisinopril [Prinivil] 20 mg PO DAILY #0 11/05/14 09/29/17 Rx Apixaban [Eliquis] 2.5 mg PO BID 02/02/15 09/29/17 History Hydrochlorothiazide 25 mg PO DAILY 02/02/15 09/29/17 History Aspirin EC [Ecotrin Low Dose] 81 mg PO DAILY 11/10/15 09/29/17 History Atorvastatin Calcium [Lipitor] 80 mg PO DAILY 11/10/15 09/29/17 History Furosemide [Lasix] 40 mg PO BID 11/10/15 09/29/17 History Allergies Allergy/AdvReac Type Severity Reaction Status Date / Time acetaminophen Allergy Unknown Verified 09/29/17 15:34 [From Darvocet-N] codeine phosphate Allergy Hallucinati Verified 09/29/17 15:34 [From Tylenol-Codeine #3] ons meperidine HCl [From Demerol] Allergy CHEST Verified 09/29/17 15:34 PAIN/Hallucinations propoxyphene Allergy Unknown Verified 09/29/17 15:34 [From Darvocet-N] Surgical - Exam Vital Signs Temp Pulse Resp BP Pulse Ox 98.1 F 108 H 22 172/85 95 09/29/17 11:41 09/29/17 11:41 09/29/17 11:41 09/29/17 11:41 09/29/17 11:41 GENERAL APPEARANCE: 76-year-old female patient is alert, oriented, in no acute distress. Sitting up in a chair talkative states abdominal pain persists but significantly improved no further episodes of nausea vomiting had 3 dark stools this morning VITAL SIGNS: Reviewed HEENT: Head is normocephalic and atraumatic. Pupils are equal and reactive. The nares are patent. Oropharynx is clear without lesions. NECK: Supple without lymphadenopathy. Traches midline. HEART: S1, S2. Irregular denying chest pain LUNGS: No crackles or wheezes are heard. Good air movement bilaterally ABDOMEN: Soft, mild tenderness right lower quadrant nondistended with good bowel sounds. No peritoneal signs. No palpable organomegaly or masses. States no nausea no vomiting EXTREMITIES: Normal skin color and turgor. No cyanosis, rash, ulceration, clubbing or edema. Radial pedal pulses are 2/4 bilaterally. NEUROLOGICAL: No focal deficits. Strength and sensation are grossly intact. Results - Labs 10/01/17 08:41 10/01/17 08:41 Abnormal Lab Results - Last 24 Hours (Table) 09/30/17 10/01/17 10/01/17 Range/Units 11:26 08:41 08:41 WBC 11.0 H (3.8-10.6) k/uL MCV 103.3 H (80.0-100.0) fL Neutrophils # 9.1 H (1.3-7.7) k/uL Glucose 110 H (74-99) mg/dL Stool Occult Blood Positive H (Negative) Microbiology - Last 24 Hours (Table) 09/29/17 17:16 Blood Culture - Preliminary Blood No Growth after 24 hours 09/29/17 15:40 Urine Culture - Preliminary Urine,Clean Catch Gram Neg Bacilli 09/30/17 08:00 Stool Culture - Preliminary Stool Diabetes panel 10/01/17 Range/Units 08:41 Sodium 143 (137-145) mmol/L Potassium 3.6 (3.5-5.1) mmol/L Chloride 103 (98-107) mmol/L Carbon Dioxide 27 (22-30) mmol/L BUN 16 (7-17) mg/dL Creatinine 0.79 (0.52-1.04) mg/dL Glucose 110 H (74-99) mg/dL Calcium 9.0 (8.4-10.2) mg/dL Calcium panel 10/01/17 Range/Units 08:41 Calcium 9.0 (8.4-10.2) mg/dL Pituitary panel 10/01/17 Range/Units 08:41 Sodium 143 (137-145) mmol/L Potassium 3.6 (3.5-5.1) mmol/L Chloride 103 (98-107) mmol/L Carbon Dioxide 27 (22-30) mmol/L BUN 16 (7-17) mg/dL Creatinine 0.79 (0.52-1.04) mg/dL Glucose 110 H (74-99) mg/dL Calcium 9.0 (8.4-10.2) mg/dL Adrenal panel 10/01/17 Range/Units 08:41 Sodium 143 (137-145) mmol/L Potassium 3.6 (3.5-5.1) mmol/L Chloride 103 (98-107) mmol/L Carbon Dioxide 27 (22-30) mmol/L BUN 16 (7-17) mg/dL Creatinine 0.79 (0.52-1.04) mg/dL Glucose 110 H (74-99) mg/dL Calcium 9.0 (8.4-10.2) mg/dL Assessment and Plan Assessment: Impression Present on admission abdominal pain nausea vomiting possible due to gastroenteritis gastritis A prior history of open cholecystectomy CAT scan abdomen and pelvis show a large mass involving the left pole of the kidney measuring 5 cm with no hydronephrosis CAT scan abdomen and pelvis report indicate mild wall thickening of the stomach may be associated with gastroenteritis History of atrial fibrillation on elquis Plan Continue recommendations by GI service defer to No evidence of an acute surgical abdomen at this time Home meds as appropriate DVT and GI prophylaxis Further surgical recommendations pending The above impression and plan of care have been discussed and directed by signing physician. Janell Scherer nurse practitioner acting as scribe for signing physician. <Jet Davis - Last Filed: 10/01/17 21:37> Surgical - Exam Vital Signs Temp Pulse Resp BP Pulse Ox 98.1 F 108 H 22 172/85 95 09/29/17 11:41 09/29/17 11:41 09/29/17 11:41 09/29/17 11:41 09/29/17 11:41 Results - Labs 10/01/17 08:41 10/01/17 08:41 Abnormal Lab Results - Last 24 Hours (Table) 10/01/17 10/01/17 Range/Units 08:41 08:41 WBC 11.0 H (3.8-10.6) k/uL MCV 103.3 H (80.0-100.0) fL Neutrophils # 9.1 H (1.3-7.7) k/uL Glucose 110 H (74-99) mg/dL Microbiology - Last 24 Hours (Table) 09/29/17 17:16 Blood Culture - Preliminary Blood No Growth after 48 hours 09/29/17 15:40 Urine Culture - Final Urine,Clean Catch Escherichia coli Diabetes panel 10/01/17 Range/Units 08:41 Sodium 143 (137-145) mmol/L Potassium 3.6 (3.5-5.1) mmol/L Chloride 103 (98-107) mmol/L Carbon Dioxide 27 (22-30) mmol/L BUN 16 (7-17) mg/dL Creatinine 0.79 (0.52-1.04) mg/dL Glucose 110 H (74-99) mg/dL Calcium 9.0 (8.4-10.2) mg/dL Calcium panel 10/01/17 Range/Units 08:41 Calcium 9.0 (8.4-10.2) mg/dL Pituitary panel 10/01/17 Range/Units 08:41 Sodium 143 (137-145) mmol/L Potassium 3.6 (3.5-5.1) mmol/L Chloride 103 (98-107) mmol/L Carbon Dioxide 27 (22-30) mmol/L BUN 16 (7-17) mg/dL Creatinine 0.79 (0.52-1.04) mg/dL Glucose 110 H (74-99) mg/dL Calcium 9.0 (8.4-10.2) mg/dL Adrenal panel 10/01/17 Range/Units 08:41 Sodium 143 (137-145) mmol/L Potassium 3.6 (3.5-5.1) mmol/L Chloride 103 (98-107) mmol/L Carbon Dioxide 27 (22-30) mmol/L BUN 16 (7-17) mg/dL Creatinine 0.79 (0.52-1.04) mg/dL Glucose 110 H (74-99) mg/dL Calcium 9.0 (8.4-10.2) mg/dL Assessment and Plan Assessment: As above. Patient's pain is improved today. Pain was proceeded by severe nausea and vomiting with multiple episodes of emesis. Patient believes the pain that she was experiencing may be related to frequent vomiting and the stress that it placed on her abdominal musculature. CAT scan was reviewed and shows no definite abnormality. From my standpoint would recommend advancing diet. We'll follow along with you but no additional testing or procedures plan at this time.
--- NOTE | 2017-10-01 13:21 | PN ---
PROGRESS NOTE DATE OF SERVICE: 10/01/2017 This 76-year-old woman who was admitted with upper abdominal pain, nausea, vomiting, possible acute gastritis, also. The patient is feeling slightly better. Gastroenterology following the patient closely. Urology is following for possible renal mass at this time. No chest pain, no palpitation. PHYSICAL EXAMINATION: On exam, alert and oriented x3. Pulse 88, blood pressure 151/80, respiration 16, temperature 97.3, pulse ox 94% on room air. HEENT: Conjunctivae normal. NECK: No jugular venous distention. CARDIOVASCULAR: S1, S2 muffled. RESPIRATORY: Breath sounds diminished at the bases. A few scattered rhonchi and crackles. Abdomen is soft, obese, diffuse tenderness present. No guarding. No rigidity. No mass palpable. LEGS: No edema, no swelling. NERVOUS SYSTEM: No focal deficits. LABS: WBC 11. UA noted. Urine cultures are showing gram-negative bacilli. ASSESSMENT: 1. Upper abdominal pain, vomiting, possible acute gastritis. Rule out peptic ulcer disease. 2. Acute urinary tract infection present on admission with gram-negative bacilli. 3. Possible left lower kidney pole mass, possible renal cell carcinoma. 4. History of gastroesophageal reflux disease. 5. Hypertension. 6. Hyperlipidemia. 7. History pneumonia. 8. History of peripheral neuropathy, severe pain. 9. History atrial fibrillation. 10.History of degenerative joint disease. 11.History of gout. 12.History of coronary artery disease, stent. 13.Nonobstructive lower pole 5 mm right renal calculi. 14.FULL CODE. RECOMMENDATIONS AND DISCUSSION: In this 76-year-old woman admitted with multiple complex medical issues. We will continue to monitor, continue the antibiotics. Continue with symptomatic treatment. The patient is able to tolerate some clear liquids today. The patient was unable to keep anything down yesterday. Patient had severe pain 10/10. This patient requires more than 2 nights hospital stay for evaluation and treatment of the above mentioned multiple complex life-threatening medical issues. I would recommend inpatient admission to monitor and treat these complications considering the fact that the patient is unable to keep anything down at home and the patient has multiple issues including the possible renal cell carcinoma. The urine culture report is pending also. See orders for further details. Further recommendations to follow. MMODL / IJN: [id number] /
[2017-10-01] MEDS: ONDANSETRON 4 MG/2 ML VIAL IVP PRN (16:59)
--- NOTE | 2017-10-01 21:00 | PN ---
PROGRESS NOTE DATE OF SERVICE: 10/01/2017. HISTORY: Patient is a 72-year-old pleasant white female admitted to the hospital with abdominal pain, nausea, vomiting. She was started on IV Protonix yesterday and a clear liquid diet. She is feeling much better today. In fact, she is requesting for her diet to be advanced at this time. She reports no abdominal pain. No further episodes of nausea or vomiting. One loose bowel movement this morning, but no blood or mucus in the stool. Neurology is evaluating the patient for renal mass. PHYSICAL EXAMINATION: She appears comfortable, no apparent distress. VITAL SIGNS: Stable. Blood pressure is 151/80, pulse rate 86, temperature 97. HEENT EXAMINATION: Unremarkable. Conjunctivae pink. Sclerae anicteric. Oral cavity no lesions. NECK: No JVD or lymph node enlargement. CHEST: Clear to auscultation. HEART: Regular rate and rhythm. ABDOMEN: Soft. Bowel sounds are positive. No organomegaly. EXTREMITIES: No pedal edema. SKIN: No rashes. NEUROLOGIC: Alert and oriented x3. No focal deficits. LABS: WBC 11, hemoglobin 14, platelets are normal. Basic metabolic panel is within normal limits. IMPRESSION: 1. Acute onset of nausea, vomiting, and epigastric pain of three days duration, which appears to have resolved, possibly related to mild gastritis. Presently on Protonix 40 mg daily, doing well. 2. Urinary tract infection, on broad-spectrum antibiotics. RECOMMENDATIONS: Since the patient's abdominal symptoms have improved, we will advance diet as tolerated. Continue with current medications. No need for any endoscopy intervention. At this time we will sign off. Please call us if needed. MMODL / IJN: [id number] /
[2017-10-01] MEDS: MORPHINE SULFATE 2 MG/ML SYRINGE IV PRN (23:09)
[2017-10-02] MEDS: MORPHINE SULFATE 2 MG/ML SYRINGE IV PRN ×2 (05:15→14:44)
[2017-10-02] MEDS: APIXABAN 2.5 MG TABLET PO SCH ×2 (09:26→20:52)
[2017-10-02] MEDS: ISOSORBIDE MONONITRATE ER 30 MG TAB.ER.24H PO SCH (09:26)
[2017-10-02] MEDS: HYDROCHLOROTHIAZIDE 25 MG TAB PO SCH (09:26)
[2017-10-02] MEDS: FUROSEMIDE 40 MG TAB PO SCH (09:26)
[2017-10-02] MEDS: LISINOPRIL 20 MG TAB PO SCH (09:26)
[2017-10-02] MEDS: cefTRIAXone IN SWFI 1,000 MG/10 ML SYRINGE IVP SCH (09:27)
[2017-10-02 09:56] LABS: Basophils % (A) 0 %; Eosinophils # (A) 0.2 k/uL (0-0.7); Eosinophils % (A) 2 %; HCT 44.7 % (34.0-46.0); Lymphocytes # (A) 1.1 k/uL (1.0-4.8); Lymphocytes % (A) 10 %; MCH 33.2 pg (25.0-35.0); MCHC 33.5 g/dL (31.0-37.0); Mean Platelet Volume 7.2; Monocytes # (A) 0.7 k/uL (0-1.0); Monocytes % (A) 6 %; Neutrophils # (A) 8.9 k/uL (1.3-7.7); Neutrophils % (A) 80 %; Platelet Count 261 k/uL (150-450); RBC 4.51 m/uL (3.80-5.40); RDW 14.3 % (11.5-15.5); WBC 11.1 k/uL (3.8-10.6)
[2017-10-02 10:52] LABS: Calcium 9.3 mg/dL (8.4-10.2); Potassium 3.1 mmol/L (3.5-5.1)
[2017-10-02] MEDS: HYDROcodone/APAP 5-325MG 1 EACH TAB PO PRN (12:25)
[2017-10-02] MEDS ORDERED: Potassium Replacement Protocol 1 EACH MISC MISCELLANE PRN (12:31)
[2017-10-02] MEDS ORDERED: Magnesium Replacement Protocol 1 EACH MISC MISCELLANE PRN (12:32)
[2017-10-02] MEDS: POTASSIUM CHLORIDE ER 10 MEQ TAB.ER.PRT PO SCH ×2 (14:14→14:56)
[2017-10-02] MEDS: MAGNESIUM SULFATE-D5W PMX 1 GM in DEXTROSE/WATER 1 100ML.BAG IVPB SCH ×2 (14:40→15:45)
--- NOTE | 2017-10-02 15:47 | P.PN ---
Subjective Progress Note Date: 10/02/17 Principal diagnosis: Abdominal pain Patient states she is having some upper abdominal discomfort today. Lower abdominal pain seems to be improved. No nausea or vomiting. She did have a dark almost black colored stool today. White blood cell count 11.1. Hemoglobin stable. Objective - Vital Signs Vital signs: Vital Signs Temp 98.1 F 10/02/17 15:00 Pulse 73 10/02/17 15:00 Resp 17 10/02/17 15:00 BP 112/66 10/02/17 15:00 Pulse Ox 93 L 10/02/17 15:00 Intake & Output 10/01/17 10/02/17 10/02/17 18:59 06:59 18:59 Intake Total 450 400 Output Total 200 Balance 250 400 Weight 90 kg 90 kg Intake: Oral 450 400 Output: Urine 200 Other: Voiding Method Toilet Toilet # Voids 2 1 2 # Bowel Movements 0 0 0 - Exam Abdomen: Soft, mild distention, mild epigastric tenderness - Labs CBC & Chem 7: 10/02/17 09:22 10/02/17 09:22 Labs: Abnormal Lab Results - Last 24 Hours (Table) 10/02/17 10/02/17 10/02/17 Range/Units 05:22 09:22 09:22 WBC 11.1 H (3.8-10.6) k/uL Neutrophils # 8.9 H (1.3-7.7) k/uL Potassium 3.1 L (3.5-5.1) mmol/L Chloride 95 L (98-107) mmol/L Carbon Dioxide 31 H (22-30) mmol/L Glucose 132 H (74-99) mg/dL Magnesium 1.5 L (1.6-2.3) mg/dL Microbiology - Last 24 Hours (Table) 09/30/17 08:00 Stool Culture - Preliminary Stool 09/29/17 17:16 Blood Culture - Preliminary Blood No Growth after 48 hours 09/29/17 15:40 Urine Culture - Final Urine,Clean Catch Escherichia coli Assessment and Plan (1) Nausea & vomiting Narrative/Plan: Continue diet as tolerated. Continue antiacid therapy empirically. CAT scan reviewed. She was concerned that she had an upper abdominal hernia. No evidence of hernia on recent CAT scan. Stomach and duodenal sweep appeared normal. GI evaluating for possible endoscopy. Current Visit: Yes Status: Acute Code(s): R11.2 - NAUSEA WITH VOMITING, UNSPECIFIED SNOMED Code(s): 38011740
[2017-10-02] MEDS: PANTOPRAZOLE 40 MG/10 ML VIAL IVP SCH (16:41)
--- NOTE | 2017-10-02 16:41 | P.DS ---
Providers Date of admission: 10/01/17 14:25 Expected date of discharge: 10/02/17 Attending physician: Alfa Macias Consults: 09/29/17 14:53 Consult Physician Stat Consulting Provider: Kostas West Consult Reason/Comments: kidney mass Do you want consulting provider notified?: Yes 09/30/17 15:44 Consult Physician Routine Consulting Provider: Jet Davis Consult Reason/Comments: abd pain Do you want consulting provider notified?: Yes 10/02/17 13:18 Consult Physician Routine Consulting Provider: Loreto Beverly Consult Reason/Comments: pre-op clearance, nephrectomy Do you want consulting provider notified?: Yes Primary care physician: [facility] Course: Final Diagnoses: 1. Upper abdominal pain, with nausea, vomiting, diarrhea.possible acute gastritis, possible peptic ulcer disease. 2. Acute UTI with E. coli, present on admission 3. Left lower kidney pole mass,none obstructive, possible renal cell carcinoma 4. Gastroesophageal reflux disease 5. Chronic atrial fibrillation 6. Hypokalemia and hypomagnesemia Hospital Course:this is a 76-year-old female admitted with upper abdominal pain , nausea vomiting, diarrhea, possible acute gastritis. Evaluated by general surgery, urology and GI.abdominal ultrasound reporting no acute process. CT of abdomen and pelvis reporting 5 cm mass lower pole left kidney, suspicious for renal cell carcinoma, non-obstructing, mild wall thickening of the stomach, possible gastroenteritis.Maintained on gentle IV fluid hydration, IV antibiotics. significant clinical improvement. Cleared by all consults for discharge. Urology discussing outpatient nephrectomy.patient is being discharged home in a stable condition with guarded prognosis. Physical exam:Gen: sitting up in chair, no acute distress.CV: muffled S1, S2. LUNGS: lungs bilateral bases diminished, occasional fine scattered crackles and rhonchi.ABD: soft, obese, diffuse tenderness present. No guarding, no rigidity , no mass palpable.Positive BS.NEURO: no focal deficits. The impression and plan of care has been dictated as directed. : I performed a history and examination of this patient, discussed the same with the dictator. I agree with the dictator's note ,documented as a scribe. Any additional findings or plans will be noted. Time taken: 35 minutes Patient Condition at Discharge: Stable Plan - Discharge Summary Discharge Rx Participant: No New Discharge Prescriptions: New Omeprazole [PriLOSEC] 20 mg PO AC-BID #60 cap Cefuroxime Axetil [Ceftin] 500 mg PO BID #6 tab Continue Cetirizine HCl [Zyrtec] 10 mg PO DAILY Nitroglycerin Sl Tabs [Nitrostat] 0.4 mg SUBLINGUAL Q5M PRN PRN Reason: Chest Pain Isosorbide Mononitrate ER [Imdur] 30 mg PO DAILY Allopurinol [Zyloprim] 100 mg PO BID Lisinopril [Prinivil] 20 mg PO DAILY #0 Apixaban [Eliquis] 2.5 mg PO BID Atorvastatin Calcium [Lipitor] 80 mg PO DAILY Furosemide [Lasix] 40 mg PO BID Aspirin EC [Ecotrin Low Dose] 81 mg PO DAILY Changed HYDROcodone/APAP 10-325MG [[place] 10-325] 1 tab PO Q6H PRN #0 PRN Reason: Pain Discontinued Hydrochlorothiazide 25 mg PO DAILY Discharge Medication List Allopurinol [Zyloprim] 100 mg PO BID 11/03/14 [History] Cetirizine HCl [Zyrtec] 10 mg PO DAILY 11/03/14 [History] Isosorbide Mononitrate ER [Imdur] 30 mg PO DAILY 11/03/14 [History] Nitroglycerin Sl Tabs [Nitrostat] 0.4 mg SUBLINGUAL Q5M PRN 11/03/14 [History] Lisinopril [Prinivil] 20 mg PO DAILY #0 11/05/14 [Rx] Apixaban [Eliquis] 2.5 mg PO BID 02/02/15 [History] Aspirin EC [Ecotrin Low Dose] 81 mg PO DAILY 11/10/15 [History] Atorvastatin Calcium [Lipitor] 80 mg PO DAILY 11/10/15 [History] Furosemide [Lasix] 40 mg PO BID 11/10/15 [History] Cefuroxime Axetil [Ceftin] 500 mg PO BID #6 tab 10/02/17 [Rx] HYDROcodone/APAP 10-325MG [[place] 10-325] 1 tab PO Q6H PRN #0 10/02/17 [Rx] Omeprazole [PriLOSEC] 20 mg PO AC-BID #60 cap 10/02/17 [Rx] Follow up Appointment(s)/Referral(s): Philippe Miramontes DO [Primary Care Provider] - 10/05/17 4:20 pm (Appointment with Bree. ) Yusef Medina MD [STAFF PHYSICIAN] - 10/08/17 9:30 am (pre-op clearance) Kostas West MD [STAFF PHYSICIAN] - 10/09/17 (Office will call you with appointment time. ) Ambulatory/Diagnostic Orders: Complete Blood Count w/diff [LAB.AMB] Time Frame: 3 Days, Location: Determined By Patient Patient Instructions/Handouts: Heart Failure (DC), Nephrectomy (DC), Urinary Tract Infection in Women (DC) Activity/Diet/Wound Care/Special Instructions: Cardiac diet. Activity as tolerated.
[2017-10-02 19:18] LABS: Magnesium 2.1 mg/dL (1.6-2.3); Potassium 3.2 mmol/L (3.5-5.1)
[2017-10-02] MEDS: POTASSIUM CHLORIDE ER 20 MEQ TAB.ER PO SCH ×2 (20:52→21:39)
[2017-10-02] MEDS: ATORVASTATIN 80 MG TAB PO SCH (20:52)
[2017-10-02 23:03] VITALS: PULSE 88; RESP 18
[2017-10-03] MEDS: MORPHINE SULFATE 2 MG/ML SYRINGE IV PRN ×2 (00:14→04:06)
[2017-10-03 05:59] VITALS: BP 117/58; TEMP 98.4
[2017-10-03] MEDS: APIXABAN 2.5 MG TABLET PO SCH (07:55)
[2017-10-03] MEDS: FUROSEMIDE 40 MG TAB PO SCH (07:55)
[2017-10-03] MEDS: cefTRIAXone IN SWFI 1,000 MG/10 ML SYRINGE IVP SCH (07:55)
[2017-10-03] MEDS: LISINOPRIL 20 MG TAB PO SCH (07:55)
[2017-10-03] MEDS: ISOSORBIDE MONONITRATE ER 30 MG TAB.ER.24H PO SCH (07:55)
[2017-10-03] MEDS: PANTOPRAZOLE 40 MG/10 ML VIAL IVP SCH (07:56)
[2017-10-03] MEDS ORDERED: Potassium Replacement Protocol 1 EACH MISC MISCELLANE PRN (08:00)
[2017-10-03] MEDS: HYDROcodone/APAP 5-325MG 1 EACH TAB PO PRN ×2 (08:03→13:07)
--- NOTE | 2017-10-03 08:30 | P.PN ---
Subjective Progress Note Date: 10/03/17 Principal diagnosis: Abdominal pain Patient says her pain has finally gone away. Now complaining of leg cramps. No black stools. Objective - Vital Signs Vital signs: Vital Signs Temp 98.4 F 10/03/17 05:58 Pulse 88 10/03/17 05:58 Resp 18 10/03/17 05:58 BP 117/58 10/03/17 05:58 Pulse Ox 91 L 10/03/17 05:58 Intake & Output 10/02/17 10/03/17 10/03/17 18:59 06:59 18:59 Intake Total 400 240 Balance 400 240 Weight 90 kg Intake: Oral 400 240 Other: Voiding Method Toilet # Voids 2 1 # Bowel Movements 0 0 - Exam Abdomen nontender nondistended - Labs CBC & Chem 7: 10/02/17 09:22 10/02/17 18:00 Labs: Abnormal Lab Results - Last 24 Hours (Table) 10/02/17 10/02/17 10/02/17 Range/Units 05:22 09:22 09:22 WBC 11.1 H (3.8-10.6) k/uL Neutrophils # 8.9 H (1.3-7.7) k/uL Potassium 3.1 L (3.5-5.1) mmol/L Chloride 95 L (98-107) mmol/L Carbon Dioxide 31 H (22-30) mmol/L Glucose 132 H (74-99) mg/dL Magnesium 1.5 L (1.6-2.3) mg/dL 10/02/17 Range/Units 18:00 WBC (3.8-10.6) k/uL Neutrophils # (1.3-7.7) k/uL Potassium 3.2 L (3.5-5.1) mmol/L Chloride (98-107) mmol/L Carbon Dioxide (22-30) mmol/L Glucose (74-99) mg/dL Magnesium (1.6-2.3) mg/dL Microbiology - Last 24 Hours (Table) 09/29/17 17:16 Blood Culture - Preliminary Blood No Growth after 72 hours 09/30/17 08:00 Stool Culture - Preliminary Stool Assessment and Plan (1) Nausea & vomiting Narrative/Plan: Continue antiacids for now. Agree with plans for holding off on endoscopy unless symptoms change. We'll sign off. Please contact if needed. Current Visit: Yes Status: Acute Code(s): R11.2 - NAUSEA WITH VOMITING, UNSPECIFIED SNOMED Code(s): 90881206
[2017-10-03 09:04] LABS: Basophils % (A) 0 %; Eosinophils # (A) 0.2 k/uL (0-0.7); Eosinophils % (A) 1 %; HGB 14.7 gm/dL (11.4-16.0); Lymphocytes # (A) 1.1 k/uL (1.0-4.8); Lymphocytes % (A) 8 %; MCH 33.5 pg (25.0-35.0); MCHC 33.5 g/dL (31.0-37.0); MCV 100.2 fL (80.0-100.0); Macrocytosis Slight; Mean Platelet Volume 7.1; Monocytes # (A) 0.9 k/uL (0-1.0); Monocytes % (A) 7 %; Neutrophils % (A) 83 %; Platelet Count 240 k/uL (150-450); RBC 4.39 m/uL (3.80-5.40); RDW 15.1 % (11.5-15.5); WBC 13.2 k/uL (3.8-10.6)
--- NOTE | 2017-10-03 09:11 | P.PN ---
Subjective Progress Note Date: 10/03/17 Principal diagnosis: 76-year-old female admitted with abdominal pain nausea vomiting E. coli UTI kidney mass per CT. GI symptoms improved. Patient was seen by general surgery yesterday with reports of dark colored near black bowel movement. This morning she is tolerating a breakfast denies abdominal pain. "I feel the best I felt all week" No further black colored bowel movements. Hemoglobin 15 yesterday. Hemoccult stool was positive on 09/30/2017. Reports lower leg discomfort. Potassium 3.2. Replacement ordered. Afebrile. Objective - Vital Signs Vital signs: Vital Signs Temp 98.4 F 10/03/17 05:58 Pulse 88 10/03/17 05:58 Resp 18 10/03/17 05:58 BP 117/58 10/03/17 05:58 Pulse Ox 91 L 10/03/17 05:58 Intake & Output 10/02/17 10/03/17 10/03/17 18:59 06:59 18:59 Intake Total 400 240 Balance 400 240 Weight 90 kg Intake: Oral 400 240 Other: Voiding Method Toilet # Voids 2 1 # Bowel Movements 0 0 - Exam General appearance: The patient is alert, oriented, in no acute distress. HET: Head is normocephalic and atraumatic. Pupils are equal and reactive. Oropharynx is clear without lesions. Neck: Supple without lymphadenopathy. Trachea midline. Heart: S1 S2. Regular rate and rhythm. Lungs: No crackles or wheezes are heard. Abdomen: Soft, nontender, nondistended with bowel sounds. No peritoneal signs. No palpable organomegaly or masses. Extremities: Normal skin color and turgor. No cyanosis, rash, ulceration, clubbing, or edema. Radial and pedal pulses are 2/4 bilaterally. Neurological: No focal deficits. Strength and sensation are grossly intact. - Labs CBC & Chem 7: 10/02/17 09:22 10/02/17 18:00 Labs: Abnormal Lab Results - Last 24 Hours (Table) 10/02/17 10/02/17 10/02/17 Range/Units 05:22 09:22 09:22 WBC 11.1 H (3.8-10.6) k/uL Neutrophils # 8.9 H (1.3-7.7) k/uL Potassium 3.1 L (3.5-5.1) mmol/L Chloride 95 L (98-107) mmol/L Carbon Dioxide 31 H (22-30) mmol/L Glucose 132 H (74-99) mg/dL Magnesium 1.5 L (1.6-2.3) mg/dL 10/02/17 Range/Units 18:00 WBC (3.8-10.6) k/uL Neutrophils # (1.3-7.7) k/uL Potassium 3.2 L (3.5-5.1) mmol/L Chloride (98-107) mmol/L Carbon Dioxide (22-30) mmol/L Glucose (74-99) mg/dL Magnesium (1.6-2.3) mg/dL Microbiology - Last 24 Hours (Table) 09/29/17 17:16 Blood Culture - Preliminary Blood No Growth after 72 hours 09/30/17 08:00 Stool Culture - Preliminary Stool Assessment and Plan (1) Nausea & vomiting Current Visit: Yes Status: Acute Code(s): R11.2 - NAUSEA WITH VOMITING, UNSPECIFIED SNOMED Code(s): 42588596 (2) E. coli UTI Current Visit: Yes Status: Acute Code(s): N39.0 - URINARY TRACT INFECTION, SITE NOT SPECIFIED; B96.20 - UNSP ESCHERICHIA COLI THE CAUSE OF DISEASES [facility]ASSD [facility] SNOMED Code(s): 027651280 (3) Gastroenteritis, acute Current Visit: No Status: Acute Code(s): K52.9 - NONINFECTIVE GASTROENTERITIS AND COLITIS, UNSPECIFIED SNOMED Code(s): 47492863 (4) Chronic atrial fibrillation Current Visit: Yes Status: Chronic Code(s): I48.2 - CHRONIC ATRIAL FIBRILLATION SNOMED Code(s): 376121515 (5) Kidney mass Current Visit: Yes Status: Acute Code(s): N28.89 - OTHER SPECIFIED DISORDERS OF KIDNEY AND URETER SNOMED Code(s): 306985477 Plan: 1. Patient reports of dark colored near black bowel movement yesterday however hemoglobin remains stable at 15. BUN creatinine were also stable yesterday 16/ 0.7 respectively. No further reports of black colored bowel movements. She has been receiving Eliquis twice daily. Clinically she is much improved without nausea vomiting tolerating a regular diet. From a GI standpoint inpatient endoscopy is not indicated at this time. Discharge per medicine if CBC today is stable. Continue with her home dose Prilosec 20 mg twice daily before meals. Assessment and plan a care discussed with Dr. Medina.
[2017-10-03 09:17] LABS: Calcium 8.9 mg/dL (8.4-10.2); Magnesium 1.8 mg/dL (1.6-2.3)
[2017-10-03 09:22] LABS: Potassium 4.1 mmol/L (3.5-5.1)
--- NOTE | 2017-10-03 17:41 | P.PN ---
Subjective Progress Note Date: 10/02/17 Progress note being dictated for Dr. Macias. Interval history:this is a 76-year-old female admitted with upper abdominal pain , nausea vomiting, diarrhea, possible acute gastritis. Evaluated by general surgery, urology and GI.abdominal ultrasound reporting no acute process. CT of abdomen and pelvis reporting 5 cm mass lower pole left kidney, suspicious for renal cell carcinoma, non-obstructing, mild wall thickening of the stomach, possible gastroenteritis.Maintained on gentle IV fluid hydration, IV antibiotics. significant clinical improvement. Cleared by all consults for discharge. Urology discussing outpatient nephrectomy. Denies chest pain, palpitations or increased shortness of breath. Reports several diarrhea episodes last night, one dark stool this morning. Potassium 3.1, magnesium 1.5. Hemoglobin 15. Objective - Vital Signs Vital signs: Vital Signs Temp 98.4 F 10/03/17 05:58 Pulse 88 10/03/17 05:58 Resp 18 10/03/17 05:58 BP 117/58 10/03/17 05:58 Pulse Ox 91 L 10/03/17 05:58 Intake & Output 10/02/17 10/03/17 10/03/17 18:59 06:59 18:59 Intake Total 400 240 Balance 400 240 Weight 90 kg Intake: Oral 400 240 Other: Voiding Method Toilet # Voids 2 1 2 # Bowel Movements 0 0 - Exam PHYSICAL EXAM: VITAL SIGNS: [Temperature 98.1, pulse 73, respiratory rate 17, blood pressure 112/66, O2 sat 93%] GENERAL: Sitting up in chair, visiting with spouse and friends at bedside, no acute distress HEENT: Conjunctivae normal. eyes normal. Oral mucosa moist NECK: No JVD. No thyroid enlargement. No LNs CARDIOVASCULAR: S1, S2 muffled. No murmur RESPIRATION: Breath sounds diminished in the bases. No rhonchi or crackles. No bronchial breathing. ABDOMEN: Soft, nontender . Mild mid epigastric tenderness. No guarding. no masses palpable. Bowel sounds heard. LEGS: No edema. no swelling PSYCHIATRY: Alert and oriented -3, mood and affect normal. NERVOUS SYSTEM: Cranial N 2-12 grossly normal. Moves all 4 limbs. Diffuse weakness No focal deficits. - Labs CBC & Chem 7: 10/03/17 08:29 10/03/17 08:29 Labs: Abnormal Lab Results - Last 24 Hours (Table) 10/02/17 10/03/17 10/03/17 Range/Units 18:00 08:29 08:29 WBC 13.2 H (3.8-10.6) k/uL MCV 100.2 H (80.0-100.0) fL Neutrophils # 11.0 H (1.3-7.7) k/uL Potassium 3.2 L (3.5-5.1) mmol/L Chloride 93 L (98-107) mmol/L Carbon Dioxide 31 H (22-30) mmol/L BUN 18 H (7-17) mg/dL Glucose 164 H (74-99) mg/dL Microbiology - Last 24 Hours (Table) 09/30/17 08:00 Stool Culture - Final Stool 09/29/17 17:16 Blood Culture - Preliminary Blood No Growth after 72 hours Assessment and Plan Assessment: 1. Upper abdominal pain, with nausea, vomiting, diarrhea.possible acute gastritis, possible peptic ulcer disease. 2. Acute UTI with E. coli, present on admission 3. Left lower kidney pole mass,none obstructive, possible renal cell carcinoma 4. Gastroesophageal reflux disease 5. Chronic atrial fibrillation 6. Hypokalemia and hypomagnesemia Plan: Continue on current medication regime ,monitoring and symptomatic treatment. Potassium and magnesium supplements ordered with repeat check later this afternoon. Continue monitoring for dark stools; Patient to be discharged later today if none. Subacute rehab. Discussed as an option with PT OT consulted. Patient declining subacute rehab at this time. states that he is able to supervise and assist . The impression and plan of care has been dictated as directed. : I performed a history and examination of this patient, discussed the same with the dictator. I agree with the dictator's note ,documented as a scribe. Any additional findings or plans will be noted.
== END 2017-10-03 14:16 | disposition home or self-care (01) | DRG 392 ==
LOC: EC 11:06 → 4MS4W 14:40 → OBSVTOIN 10-01 14:25
PROVIDERS: ADMIT Hospitalist; ATTEND Hospitalist
DX: K29.00 Acute gastritis without bleeding (principal); N39.0 Urinary tract infection, site not specified; C64.2 Malignant neoplasm of left kidney, except renal pelvis; M54.9 Dorsalgia, unspecified; G89.29 Other chronic pain; N28.9 Disorder of kidney and ureter, unspecified; I25.10 Atherosclerotic heart disease of native coronary artery without angina pectoris; M10.9 Gout, unspecified; N20.0 Calculus of kidney; G62.9 Polyneuropathy, unspecified; M19.90 Unspecified osteoarthritis, unspecified site; B96.20 Unspecified Escherichia coli [E. coli] as the cause of diseases classified elsewhere; I48.2 Chronic atrial fibrillation; E83.42 Hypomagnesemia; E87.6 Hypokalemia; K27.9 Peptic ulcer, site unspecified, unspecified as acute or chronic, without hemorrhage or perforation; E78.5 Hyperlipidemia, unspecified; I10 Essential (primary) hypertension; K21.9 Gastro-esophageal reflux disease without esophagitis; Z79.82 Long term (current) use of aspirin; Z79.899 Other long term (current) drug therapy; Z88.5 Allergy status to narcotic agent; Z95.5 Presence of coronary angioplasty implant and graft; Z90.49 Acquired absence of other specified parts of digestive tract; Z90.710 Acquired absence of both cervix and uterus; Z98.42 Cataract extraction status, left eye; Z98.41 Cataract extraction status, right eye; Z87.01 Personal history of pneumonia (recurrent); Z79.01 Long term (current) use of anticoagulants; Z80.41 Family history of malignant neoplasm of ovary; Z83.3 Family history of diabetes mellitus
CPT/HCPCS: 36415; 71046; 74018; 74177; 76705; 80048; 80053; 80074; 81001; 82150; 82272; 82550; 82553; 83630; 83690; 83735; 84132; 84484; 85025; 85610; 85730; 87040; 87045; 87046; 87077; 87086; 87186; 87324; 93005; 96361; 96372; 96374; 96375; 99285

== ENCOUNTER → 2017-12-14 | Outpatient (CLI) | payer MEDICARE ==
[2017-12-14 11:48] LABS: Basophils % (A) 0 %; Eosinophils # (A) 0.4 k/uL (0-0.7); Eosinophils % (A) 6 %; HCT 43.1 % (34.0-46.0); HGB 13.2 gm/dL (11.4-16.0); Lymphocytes % (A) 15 %; MCH 31.6 pg (25.0-35.0); MCHC 30.6 g/dL (31.0-37.0); MCV 103.2 fL (80.0-100.0); Macrocytosis Slight; Mean Platelet Volume 6.7; Monocytes # (A) 0.4 k/uL (0-1.0); Monocytes % (A) 6 %; Neutrophils % (A) 71 %; Platelet Count 263 k/uL (150-450); RBC 4.18 m/uL (3.80-5.40); RDW 14.7 % (11.5-15.5)
[2017-12-14 12:05] LABS: Albumin 3.8 g/dL (3.5-5.0); Calcium 9.6 mg/dL (8.4-10.2); Potassium 4.5 mmol/L (3.5-5.1); Total Bilirubin 0.8 mg/dL (0.2-1.3); Total Protein 7.2 g/dL (6.3-8.2)
[2017-12-14 12:17] LABS: Appearance,Urine Clear (Clear); Bilirubin,Urine Negative (Negative); Blood,Urine Trace (Negative); Color,Urine Yellow; Glucose,Urine (UA) Negative (Negative); Ketones,Urine Negative (Negative); Leukocyte Esterase,Urine Moderate (Negative); Mucus,Urine Rare /hpf; Nitrite,Urine Negative (Negative); Protein,Urine Negative (Negative); RBC,Urine 5 /hpf (0-5); Specific Gravity,Urine 1.018 (1.001-1.035); Squamous Epithelial Cell,Urine 1 /hpf (0-4); Urobilinogen,Urine <2.0 mg/dL (<2.0); WBC,Urine 8 /hpf (0-5)
--- NOTE | 2017-12-14 13:27 | XR ---
EXAMINATION TYPE: XR chest 2V DATE OF EXAM: 12/14/2017 COMPARISON: Prior chest 09/29/2017 HISTORY: Shortness of breath and chest pain TECHNIQUE: Frontal and lateral views of the chest are obtained. FINDINGS: Heart is enlarged and stable. No evident pneumothorax or pleural effusion. Arthropathy present at the acromioclavicular joints. Pul monary vascularity and phoebe not significantly changed. There is prominent epicardial fat pad. Thoraci c spondylosis is noted. Surgical clips present in the upper abdomen. IMPRESSION: No acute cardiopulmonary process.
== END | disposition home or self-care (01) ==
LOC: LABPAT 11:19
PROVIDERS: ATTEND Urology
DX: Z01.818 Encounter for other preprocedural examination (principal); Z01.812 Encounter for preprocedural laboratory examination; C64.2 Malignant neoplasm of left kidney, except renal pelvis; E78.5 Hyperlipidemia, unspecified; I10 Essential (primary) hypertension; I20.0 Unstable angina; R07.9 Chest pain, unspecified; R06.02 Shortness of breath
CPT/HCPCS: 36415; 71046; 80053; 81001; 85025; 87086

== ENCOUNTER → 2017-12-19 | Outpatient (CLI) | payer MEDICARE | END | disposition home or self-care (01) | LOC: LABPAT 14:23 | PROVIDERS: ATTEND Urology | DX: Z01.812 Encounter for preprocedural laboratory examination (principal) | CPT/HCPCS: 36415; 86850; 86900; 86901 ==

== ENCOUNTER → 2018-02-06 | Outpatient (CLI) | payer MEDICARE ==
[2018-02-06 14:41] LABS: Basophils # (A) 0.1 k/uL (0-0.2); Basophils % (A) 1 %; Eosinophils # (A) 0.3 k/uL (0-0.7); Eosinophils % (A) 3 %; HCT 46.9 % (34.0-46.0); HGB 14.5 gm/dL (11.4-16.0); Lymphocytes # (A) 1.1 k/uL (1.0-4.8); Lymphocytes % (A) 11 %; MCH 32.3 pg (25.0-35.0); MCV 104.1 fL (80.0-100.0); Macrocytosis Moderate; Mean Platelet Volume 7.1; Monocytes # (A) 0.7 k/uL (0-1.0); Monocytes % (A) 7 %; Neutrophils # (A) 7.3 k/uL (1.3-7.7); Neutrophils % (A) 76 %; Platelet Count 247 k/uL (150-450); RDW 14.7 % (11.5-15.5); WBC 9.5 k/uL (3.8-10.6)
[2018-02-06 14:42] LABS: Appearance,Urine Clear (Clear); Bacteria,Urine Rare /hpf; Bilirubin,Urine Negative (Negative); Blood,Urine Trace (Negative); Color,Urine Colorless; Glucose,Urine (UA) Negative (Negative); Hyaline Casts,Urine 1 /lpf (0-2); Ketones,Urine Negative (Negative); Leukocyte Esterase,Urine Negative (Negative); Mucus,Urine Rare /hpf; Nitrite,Urine Negative (Negative); Protein,Urine Negative (Negative); RBC,Urine 1 /hpf (0-5); Specific Gravity,Urine 1.006 (1.001-1.035); Squamous Epithelial Cell,Urine <1 /hpf (0-4); Urobilinogen,Urine <2.0 mg/dL (<2.0); WBC,Urine <1 /hpf (0-5)
[2018-02-06 14:52] LABS: Albumin 3.9 g/dL (3.5-5.0); Calcium 9.6 mg/dL (8.4-10.2); Potassium 4.3 mmol/L (3.5-5.1); Total Bilirubin 0.8 mg/dL (0.2-1.3); Total Protein 7.4 g/dL (6.3-8.2)
--- NOTE | 2018-02-06 15:13 | XR ---
EXAMINATION TYPE: XR chest 2V DATE OF EXAM: 02/06/2018 COMPARISON: Prior chest x-ray 12/14/2017 HISTORY: Presurgical testing TECHNIQUE: Frontal and lateral views of the chest are obtained. FINDINGS: There is no focal air space opacity, pleural effusion, or pneumothorax seen. The cardiac silhouette size is stable, enlarged. The osseous structures are intact. There may be a spinal curva ture. Arthropathy noted in the shoulders. The aorta is dense. Prominent lung lines suggest underlying COPD. Surgical clips present in the upper abdomen. There are coronary artery calcifications and poss ibly stent. IMPRESSION: No acute cardiopulmonary process. Stable cardiomegaly.
== END | disposition home or self-care (01) ==
LOC: LABPAT 13:28
PROVIDERS: ATTEND Urology
DX: Z01.818 Encounter for other preprocedural examination (principal); Z01.812 Encounter for preprocedural laboratory examination; I51.7 Cardiomegaly; C64.2 Malignant neoplasm of left kidney, except renal pelvis
CPT/HCPCS: 36415; 71046; 80053; 81001; 85025; 87086

== ENCOUNTER 2018-02-13 06:55 | Inpatient (IN) | payer MEDICARE ==
[2018-02-08 16:06] VITALS: BMI 34.7
--- NOTE | 2018-02-12 14:03 | P.GSHP ---
History of Present Illness H&P Date: 02/13/18 77 yo female was in the hospital this summer for nausea and vomitting A ct scan was performed and a coincidental 5 cm central left renal mass was identified It is worrisome for cancer She was set up for a nephrectomy but cancelled it due to bronchitis She now comes for this surgery. She was given alternative treatment options but declined SHe was offere referral but declined , THe risks and comlications including pain, persistent nasusea and vomitting , recurrence of disease, injury to adjacent organs, transfusion among others was discussed and accepted. - Constitutional Constitutional: Reports anorexia, Reports chronic pain, Reports weakness - Gastrointestinal Gastrointestinal: Reports bloating, Reports nausea Past Medical History Past Medical History: Atrial Fibrillation, Chest Pain / Angina, GERD/Reflux, Hyperlipidemia, Hypertension, Osteoarthritis (OA), Pneumonia, Renal Disease Additional Past Medical History / Comment(s): Gout, Neuropathy, hx migraines, A- Fib, Borderline diabetic per patient, lt kidney mass History of Any Multi-Drug Resistant Organisms: None Reported Past Surgical History: Cholecystectomy, Heart Catheterization With Stent, Hysterectomy Additional Past Surgical History / Comment(s): Bilateral cataracts removed Past Anesthesia/Blood Transfusion Reactions: Motion Sickness, Postoperative Nausea & Vomiting (PONV) Date of Last Stent Placement:: unknown Smoking Status: Never smoker - Past Family History Father Family Medical History: Diabetes Mellitus Mother Family Medical History: Cancer Additional Family Medical History / Comment(s): Ovarian cancer Sister(s) Family Medical History: Deep Vein Thrombosis (DVT) Brother(s) Family Medical History: Pulmonary Embolus Medications and Allergies Home Medications Medication Instructions Recorded Confirmed Type Allopurinol [Zyloprim] 100 mg PO DAILY 11/03/14 02/08/18 History Cetirizine HCl [Zyrtec] 10 mg PO DAILY 11/03/14 02/08/18 History Isosorbide Mononitrate ER [Imdur] 30 mg PO DAILY 11/03/14 02/08/18 History Nitroglycerin Sl Tabs [Nitrostat] 0.4 mg SUBLINGUAL Q5M PRN 11/03/14 02/08/18 History Apixaban [Eliquis] 2.5 mg PO BID 02/02/15 02/08/18 History Atorvastatin Calcium [Lipitor] 80 mg PO DAILY 11/10/15 02/08/18 History Furosemide [Lasix] 40 mg PO BID 11/10/15 02/08/18 History HYDROcodone/APAP 10-325MG [[place] 1 tab PO Q6H PRN #0 10/02/17 02/08/18 Rx 10-325] Allergies Allergy/AdvReac Type Severity Reaction Status Date / Time acetaminophen Allergy Unknown Verified 02/08/18 15:56 [From Darvocet-N] codeine phosphate Allergy Hallucinati Verified 02/08/18 15:56 [From Tylenol-Codeine #3] ons duloxetine [From Cymbalta] Allergy c-diff Verified 02/08/18 15:56 meperidine HCl [From Demerol] Allergy CHEST Verified 02/08/18 15:56 PAIN/Hallucinations pregabalin [From Lyrica] Allergy Nausea & Verified 02/08/18 15:56 Vomiting propoxyphene Allergy Unknown Verified 02/08/18 15:56 [From Darvocet-N] Surgical - Exam - General well developed, well nourished - Eyes PERRL - ENT no hearing loss - Neck trachea midline - Respiratory normal expansion, normal respiratory effort - Abdomen Abdomen: soft, non tender - Integumentary no rash, no growths - Musculoskeletal normal gait, normal posture - Psychiatric oriented to time, oriented to person, oriented to place, speech is normal, memory intact Results - Imaging CT scan - abdomen: report reviewed, image reviewed CT scan - pelvis: report reviewed, image reviewed Assessment and Plan Assessment: Impression: 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
[~2018-02-13 06:55] MED LIST: LIDOCAINE 1% 20 ML VIAL (10MG/ML) FOR IV START INTRADERMA PRN; MIDAZOLAM 2 MG/2 ML VIAL IV PRN; SCOPOLAMINE 1.5MG/72HR PATCH TRANSDERM ONE; ceFAZolin IN SWFI 2 GM/20 ML SYRINGE IVP ONE
[2018-02-13] MEDS: LACTATED RINGERS 1,000 ML IV SCH (08:14)
[2018-02-13 08:17] LABS: Glucose,Whole Blood 109 mg/dL (75-99)
[2018-02-13] MEDS: DEXAMETHASONE SOD PHOSPHATE 10 MG/ML 1 ML VIAL IV ONE ×2 (08:24→16:30)
[2018-02-13] MEDS: ONDANSETRON 4 MG/2 ML VIAL IVP ONE ×2 (08:24→16:30)
[2018-02-13] MEDS ORDERED: SODIUM CHLORIDE 0.9% 500 ML 500 ML IV ONE (09:30)
[2018-02-13] MEDS ORDERED: LACTATED RINGERS 1,000 ML IV ONE ×3 (10:48→12:02)
[2018-02-13] MEDS ORDERED: NITROGLYCERIN SL TABS 0.4 MG TAB SUBLINGUAL PRN (12:08)
--- NOTE | 2018-02-13 12:20 | P.OP ---
Date of Procedure: 02/13/18 Preoperative Diagnosis: Left renal carcinoma Postoperative Diagnosis: Same Procedure(s) Performed: Left radical nephrectomy Anesthesia: EMILY Surgeon: Kostas West Debt Recovery Officer #1: Gilbret Fuchs Estimated Blood Loss (ml): 1,200 Pathology: other (Kidney) Condition: stable Disposition: PACU Indications for Procedure: The patient is 77. She is admitted to the hospital for persistent nausea and vomiting. She had a computed tomography scan identified a 5 cm left renal mass. There is no evidence of metastases. She comes for a left radical nephrectomy as the tumor is too deep and large to do a successful partial Description of Procedure: The patient is brought to the operating suite. She is given a successful general endotracheal anesthesia. She declined epidural for perioperative pain control. A left subcostal incision is made. The oblique and rectus fascias are opened. The peritoneum was opened up. It is noted that the patient is quite large. I incise the base of the colon and reflecting it medially. I followed over Gerota's fascia. I make retraction the Bookwalter retractor such that I can identify the kidney the aorta medially the renal vein. The spleen is seen in the left upper quadrant and the somewhat medial placed. After adequate retraction and make an incision down onto the aorta and I followed the aorta superiorly up to the renal vein. I moved laterally and identify the gonadal vein and taken between 2-0 silk ties. I identified the left adrenal vein and taken between 2-[address] a 2-0 silk tie around the renal vein. The left renal artery is seen posterior to the left renal vein. A 2-0 silk ties placed around this. I then take the renal vein between 2-0 silk ties and 2-0 silk ligatures and it is transected. I do the same then for the left renal artery. I dissected the perirenal tissue off the body wall using hemoclips both superior and inferior to the renal vein. I March inferiorly detaching the Gerota's off the peritoneum. The ureters taken between hemoclips. The gonadal vein again is taken between hemoclips. I then marched inferior to the adrenal gland making sure not to injure it. I incised the peritoneum anterior to Gerota's fascia. I detached gerotas from the peritoneum. I detach gerotas frpm the left body wall and I deliver the kidney from the wound. It is noted the patient is very deep. The tissue somewhat inflamed. The blood loss is approximately thousand cc. Bleeding was controlled electrocautery. I move up and look at the spleen and there is a small little tear in the capsule in the medial superior spleen. Surgicell is placed and the spleen is watch for 15 minutes and it controls the bleeding. A Nghia-Lira drain is brought through separate stab incision and placed in the left upper quadrant. The abdominal wound was closed in 3 layers of #1 Vicryl. The skin is stapled. Blood loss was 1200 mL. Patient tolerated procedure well and will be placed in the hospital
[2018-02-13] MEDS ORDERED: METOPROLOL TARTRATE 5 MG/5 ML VIAL IVP ONE (12:42)
[2018-02-13] MEDS ORDERED: ACETAMINOPHEN IV (For NPO) 1,000 MG/100 ML VIAL IVPB ONE ×2 (12:50)
[2018-02-13] MEDS: HYDROmorphone 0.5 MG/0.5 ML SYRINGE IVP PRN ×3 (13:02→14:19)
[2018-02-13] MEDS ORDERED: MIDAZOLAM 2 MG/2 ML VIAL IVP ONE (13:29)
[2018-02-13 14:30] LABS: Glucose,Whole Blood 195 mg/dL (75-99)
[2018-02-13] MEDS: DEXTROSE 5%-0.45% NACL 1,000 ML IV SCH (15:44)
[2018-02-13] MEDS: HYDROmorphone PCA 5 MG/25 ML SYRINGE IV PRN (15:46)
[2018-02-13 17:00] LABS: Glucose,Whole Blood 224 mg/dL (75-99)
[2018-02-13] MEDS: FUROSEMIDE 40 MG TAB PO SCH (20:02)
[2018-02-13 20:59] LABS: Glucose,Whole Blood 278 mg/dL (75-99)
[2018-02-14] MEDS: DEXTROSE 5%-0.45% NACL 1,000 ML IV SCH ×3 (00:01→18:21)
[2018-02-14] MEDS: ONDANSETRON 4 MG/2 ML VIAL IVP PRN ×2 (01:59→17:07)
[2018-02-14] MEDS: LACTATED RINGERS 1,000 ML IV SCH (04:06)
--- NOTE | 2018-02-14 06:31 | P.PN ---
Subjective Progress Note Date: 02/14/18 The patient is in her first postoperative day from a left radical nephrectomy. She complains of nausea and pain is suspected. Urine output is good. Her dressing is dry. We will continue with recuperation including incentive spirometry and ambulation. Objective - Vital Signs Vital signs: Vital Signs Temp 97.9 F 02/14/18 01:51 Pulse 95 02/14/18 01:51 Resp 18 02/14/18 01:51 BP 146/86 02/14/18 01:51 Pulse Ox 93 L 02/14/18 01:51 Intake & Output 02/13/18 02/13/18 02/14/18 06:59 18:59 06:59 Intake Total 3500 1600 Output Total 1675 980 Balance 1825 620 Intake: IV 3500 Intake, IV Titration 1600 Amount Dextrose 5%-0.45% NaCl 1, 1600 000 ml @ 100 mls/hr IV . Q10H [facility] Rx#:[id number] Output: Drainage 50 130 Left Abdomen 50 130 Urine 425 850 Estimated Blood Loss 1200 Other: Voiding Method Indwelling Catheter Indwelling Catheter - Labs Labs: Abnormal Lab Results - Last 24 Hours (Table) 02/13/18 02/13/18 02/13/18 Range/Units 08:10 14:27 16:48 POC Glucose (mg/dL) 109 H 195 H 224 H (75-99) mg/dL 02/13/18 Range/Units 20:48 POC Glucose (mg/dL) 278 H (75-99) mg/dL
[2018-02-14 07:20] LABS: Glucose,Whole Blood 334 mg/dL (75-99)
[2018-02-14 08:03] LABS: Calcium 8.5 mg/dL (8.4-10.2); Potassium 4.2 mmol/L (3.5-5.1)
[2018-02-14 08:19] LABS: Basophils # (A) 0.1 k/uL (0-0.2); Basophils % (A) 0 %; Eosinophils % (A) 0 %; Lymphocytes # (A) 0.8 k/uL (1.0-4.8); Lymphocytes % (A) 5 %; MCH 33.1 pg (25.0-35.0); MCHC 32.4 g/dL (31.0-37.0); MCV 102.2 fL (80.0-100.0); Macrocytosis Slight; Mean Platelet Volume 7.3; Monocytes # (A) 1.5 k/uL (0-1.0); Monocytes % (A) 9 %; Neutrophils # (A) 14.3 k/uL (1.3-7.7); Neutrophils % (A) 85 %; Platelet Count 215 k/uL (150-450); RBC 3.62 m/uL (3.80-5.40); RDW 14.3 % (11.5-15.5); WBC 16.9 k/uL (3.8-10.6)
[2018-02-14] MEDS ORDERED: ATORVASTATIN 80 MG TAB PO SCH (09:00)
[2018-02-14] MEDS: HYDROmorphone PCA 5 MG/25 ML SYRINGE IV PRN (10:05)
[2018-02-14] MEDS: ISOSORBIDE MONONITRATE ER 30 MG TAB.ER.24H PO SCH (10:55)
[2018-02-14] MEDS: LORATADINE 10 MG TAB PO SCH (10:55)
[2018-02-14] MEDS: FUROSEMIDE 40 MG TAB PO SCH ×2 (10:55→17:07)
[2018-02-14] MEDS: ALLOPURINOL 100 MG TAB PO SCH (10:55)
[2018-02-14] MEDS: HYDROcodone/APAP 10-325MG 1 EACH TAB PO PRN ×2 (13:42→18:38)
[2018-02-14 16:38] LABS: Hemoglobin A1C 6.8 % (4.0-6.0)
[2018-02-14] MEDS: PANTOPRAZOLE 40 MG/10 ML VIAL IVP SCH (18:20)
[2018-02-14] MEDS: ATORVASTATIN 80 MG TAB PO SCH (21:53)
[2018-02-15] MEDS: LACTATED RINGERS 1,000 ML IV SCH (03:22)
[2018-02-15] MEDS: HYDROmorphone PCA 5 MG/25 ML SYRINGE IV PRN ×2 (03:56→22:05)
[2018-02-15] MEDS: DEXTROSE 5%-0.45% NACL 1,000 ML IV SCH ×3 (05:14→22:15)
[2018-02-15] MEDS: PANTOPRAZOLE 40 MG/10 ML VIAL IVP SCH ×2 (07:39→21:51)
[2018-02-15] MEDS: LORATADINE 10 MG TAB PO SCH (07:41)
[2018-02-15] MEDS: ISOSORBIDE MONONITRATE ER 30 MG TAB.ER.24H PO SCH (07:41)
[2018-02-15] MEDS: FUROSEMIDE 40 MG TAB PO SCH ×2 (07:41→15:33)
[2018-02-15] MEDS: ALLOPURINOL 100 MG TAB PO SCH (07:41)
[2018-02-15] MEDS: HYDROcodone/APAP 10-325MG 1 EACH TAB PO PRN (15:33)
--- NOTE | 2018-02-15 18:20 | P.PN ---
Progress Note - Text Progress Note Date: 02/15/18 The patient is one day post left radical nephrectomy. She is afebrile and normotensive. Her pain appears to be relatively well controlled. She has been up in a chair several times. She denies any shortness of breath. She has been tolerating liquids but says she's not very hungry. Urine draining from her Capps catheter is clear. Drainage from the Nghia-Lira drain has been approximately 30 mL per shift. Abdomen-soft. Incision is dry. Impression: Patient appears to be doing well overall following her left radical nephrectomy. Her diet and level of activity will be gradually increased. Her Capps catheter and Nghia-Lira drain will probably be removed in the morning.
[2018-02-15] MEDS: ATORVASTATIN 80 MG TAB PO SCH (21:51)
[2018-02-16] MEDS: LACTATED RINGERS 1,000 ML IV SCH (07:18)
[2018-02-16] MEDS: LORATADINE 10 MG TAB PO SCH (10:45)
[2018-02-16] MEDS: ISOSORBIDE MONONITRATE ER 30 MG TAB.ER.24H PO SCH (10:46)
[2018-02-16] MEDS: PANTOPRAZOLE 40 MG/10 ML VIAL IVP SCH ×2 (10:46→21:05)
[2018-02-16] MEDS: FUROSEMIDE 40 MG TAB PO SCH ×2 (10:46→17:16)
[2018-02-16] MEDS: ALLOPURINOL 100 MG TAB PO SCH (10:46)
[2018-02-16] MEDS: DEXTROSE 5%-0.45% NACL 1,000 ML IV SCH ×2 (10:48→19:41)
--- NOTE | 2018-02-16 11:33 | P.PN ---
Progress Note - Text Progress Note Date: 02/16/18 The patient is 2 days post left radical nephrectomy. She is afebrile. She denies any shortness of breath or wheezing. She continues to have moderate abdominal pain and says this has only been tolerable with the use of IV narcotics. She is tolerating liquids but says that she is not ready to begin solid food. Her urine output is clear. There has been minimal drainage from the Nghia-Lira drain and I removed it. Abdomen: Soft-incision is uninflamed. Impression: Overall the patient continues to improve. Hopefully she will be able to begin solid foods later today. Her Capps catheter has been removed which will also help in allowing her to ambulate better.
[2018-02-16] MEDS: HYDROcodone/APAP 10-325MG 1 EACH TAB PO PRN (18:56)
[2018-02-16] MEDS: HYDROmorphone PCA 5 MG/25 ML SYRINGE IV PRN (19:36)
[2018-02-16] MEDS: ATORVASTATIN 80 MG TAB PO SCH (21:05)
[2018-02-17] MEDS: HYDROcodone/APAP 10-325MG 1 EACH TAB PO PRN ×4 (01:22→22:33)
[2018-02-17] MEDS: LACTATED RINGERS 1,000 ML IV SCH (04:15)
[2018-02-17] MEDS: DEXTROSE 5%-0.45% NACL 1,000 ML IV SCH ×2 (06:17→12:52)
[2018-02-17] MEDS: ALLOPURINOL 100 MG TAB PO SCH (09:15)
[2018-02-17] MEDS: LORATADINE 10 MG TAB PO SCH (09:15)
[2018-02-17] MEDS: FUROSEMIDE 40 MG TAB PO SCH ×2 (09:15→14:39)
[2018-02-17] MEDS: PANTOPRAZOLE 40 MG/10 ML VIAL IVP SCH (09:15)
[2018-02-17] MEDS: ISOSORBIDE MONONITRATE ER 30 MG TAB.ER.24H PO SCH (09:15)
--- NOTE | 2018-02-17 09:43 | P.DS ---
Providers Date of admission: 02/14/18 17:32 Expected date of discharge: 02/17/18 Attending physician: Kostas West Primary care physician: [facility] Course: The patient is a 77-year-old female was recently discovered to have a mass in the lower pole of the left kidney consistent with renal cell carcinoma. She was admitted for the purpose of left radical nephrectomy. The surgery was performed on the date of admission. Patient's postoperative pain was controlled with IV dilated. A Nghia-Lira drain was placed in the perinephric space and was removed on 02/16. Her catheter was also removed on . She was discharged on 02/17 at which time she was ambulatory and tolerating regular diet. Her incision appeared to be healing well. The pathology report was pending at the time of discharge. Plan - Discharge Summary Discharge Rx Participant: No New Discharge Prescriptions: No Action Cetirizine HCl [Zyrtec] 10 mg PO DAILY Nitroglycerin Sl Tabs [Nitrostat] 0.4 mg SUBLINGUAL Q5M PRN PRN Reason: Chest Pain Isosorbide Mononitrate ER [Imdur] 30 mg PO DAILY Allopurinol [Zyloprim] 100 mg PO DAILY Apixaban [Eliquis] 2.5 mg PO BID Atorvastatin Calcium [Lipitor] 80 mg PO DAILY Furosemide [Lasix] 40 mg PO BID HYDROcodone/APAP 10-325MG [[place] 10-325] 1 tab PO Q6H PRN #0 PRN Reason: Pain Discharge Medication List Allopurinol [Zyloprim] 100 mg PO DAILY 11/03/14 [History] Cetirizine HCl [Zyrtec] 10 mg PO DAILY 11/03/14 [History] Isosorbide Mononitrate ER [Imdur] 30 mg PO DAILY 11/03/14 [History] Nitroglycerin Sl Tabs [Nitrostat] 0.4 mg SUBLINGUAL Q5M PRN 11/03/14 [History] Apixaban [Eliquis] 2.5 mg PO BID 02/02/15 [History] Atorvastatin Calcium [Lipitor] 80 mg PO DAILY 11/10/15 [History] Furosemide [Lasix] 40 mg PO BID 11/10/15 [History] HYDROcodone/APAP 10-325MG [[place] 10-325] 1 tab PO Q6H PRN #0 10/02/17 [Rx] Follow up Appointment(s)/Referral(s): Kostas West MD [STAFF PHYSICIAN] - 02/21/18 Discharge Disposition: HOME SELF-CARE Pending Studies Pending Results: Pathology report
[2018-02-17] MEDS: ONDANSETRON 4 MG/2 ML VIAL IVP PRN (12:40)
[2018-02-17] MEDS ORDERED: MAG HYDROX/AL HYDROX/SIMETH 30 ML CUP PO ONE (14:46)
[2018-02-17] MEDS: ATORVASTATIN 80 MG TAB PO SCH (20:40)
[2018-02-17] MEDS ORDERED: PANTOPRAZOLE 40 MG TABLET PO SCH (21:00)
[2018-02-18 00:36] VITALS: RESP 17
[2018-02-18] MEDS: DEXTROSE 5%-0.45% NACL 1,000 ML IV SCH ×2 (02:25→08:03)
[2018-02-18] MEDS: HYDROcodone/APAP 10-325MG 1 EACH TAB PO PRN (04:59)
[2018-02-18 07:46] VITALS: BP 124/78; PULSE 76; TEMP 98.1
[2018-02-18] MEDS: LACTATED RINGERS 1,000 ML IV SCH (07:56)
[2018-02-18] MEDS: LORATADINE 10 MG TAB PO SCH (08:00)
[2018-02-18] MEDS: ALLOPURINOL 100 MG TAB PO SCH (08:00)
[2018-02-18] MEDS: ISOSORBIDE MONONITRATE ER 30 MG TAB.ER.24H PO SCH (08:00)
[2018-02-18] MEDS: FUROSEMIDE 40 MG TAB PO SCH (08:00)
== END 2018-02-18 10:50 | disposition home or self-care (01) | DRG 657 ==
LOC: OR 06:55 → 4SSUR 12:42 → OR 02-14 17:32 → 4SSUR 02-14 17:32
PROVIDERS: ADMIT Urology; ATTEND Urology
PROC: 0W3G0ZZ Control Bleeding in Peritoneal Cavity, Open Approach (ICD-10-PCS; 2018-02-13)
PROC: 0TT10ZZ Resection of Left Kidney, Open Approach (ICD-10-PCS; principal; 2018-02-13 08:45)
DX: C64.2 Malignant neoplasm of left kidney, except renal pelvis (principal); D78.11 Accidental puncture and laceration of the spleen during a procedure on the spleen; G89.18 Other acute postprocedural pain; Y83.6 Removal of other organ (partial) (total) as the cause of abnormal reaction of the patient, or of later complication, without mention of misadventure at the time of the procedure; Y92.234 Operating room of hospital as the place of occurrence of the external cause; K21.9 Gastro-esophageal reflux disease without esophagitis; I48.91 Unspecified atrial fibrillation; I10 Essential (primary) hypertension; E78.5 Hyperlipidemia, unspecified; M19.90 Unspecified osteoarthritis, unspecified site; M10.9 Gout, unspecified; G43.909 Migraine, unspecified, not intractable, without status migrainosus; R73.03 Prediabetes; G62.9 Polyneuropathy, unspecified; Z90.710 Acquired absence of both cervix and uterus; Z90.49 Acquired absence of other specified parts of digestive tract; Z95.5 Presence of coronary angioplasty implant and graft; Z83.3 Family history of diabetes mellitus; Z80.41 Family history of malignant neoplasm of ovary; Z79.01 Long term (current) use of anticoagulants; Z79.899 Other long term (current) drug therapy; Z88.6 Allergy status to analgesic agent; Z88.5 Allergy status to narcotic agent; Z88.8 Allergy status to other drugs, medicaments and biological substances
CPT/HCPCS: 80048; 83036; 85025; 86850; 86900; 86901; 88305; 88307; 94760; 94762

== ENCOUNTER 2018-05-14 16:35 | Observation (INO) | payer MEDICARE ==
[2018-05-14] MEDS ORDERED: SODIUM CHLORIDE 0.9% 1,000 ML IV STA (16:43)
[2018-05-14] MEDS ORDERED: SODIUM CHLORIDE 0.9% 500 ML 500 ML IV STA (16:43)
[2018-05-14] MEDS ORDERED: MORPHINE SULFATE 4 MG/ML SYRINGE IV STA (16:43)
--- NOTE | 2018-05-14 16:55 | ED ---
Chest Pain HPI - General Chief Complaint: Chest Pain Stated Complaint: Chest pain Time Seen by Provider: 05/14/18 16:43 Source: patient, RN notes reviewed, old records reviewed Mode of arrival: wheelchair Limitations: no limitations - History of Present Illness Initial Comments: This is a 69-year-old female the ER for evaluation. She presents today for evaluation regards to chest pain. Patient has chest pain. Patient's very emotional during questioning secondary to being emotional, poor strain at the time. Patient does have history of chest pain history of heart disease. Patient has history of A. fib hypertension diabetes. No modifying factors for symptoms at home patient states chest pain is left-sided radiating to her back. MD Complaint: chest pain -: hour(s) Onset: during rest, awoke with symptoms Pain Location: left chest Pain Radiation: LUE, back Severity: moderate Severity scale (1-10): 5 Quality: tightness, aching Consistency: constant Improves With: nothing Worsens With: nothing Other Symptoms: palpitations Treatments Prior to Arrival: none - Related Data Home Medications Medication Instructions Recorded Confirmed Cetirizine HCl [Zyrtec] 10 mg PO DAILY 11/03/14 05/14/18 Isosorbide Mononitrate ER [Imdur] 30 mg PO DAILY 11/03/14 05/14/18 Nitroglycerin Sl Tabs [Nitrostat] 0.4 mg SUBLINGUAL Q5M PRN 11/03/14 05/14/18 Apixaban [Eliquis] 2.5 mg PO BID 02/02/15 05/14/18 Furosemide [Lasix] 40 mg PO DAILY 11/10/15 05/14/18 Hydrochlorothiazide [Hydrodiuril] 25 mg PO DAILY 05/14/18 05/14/18 Lisinopril [Prinivil] 5 mg PO BID 05/14/18 05/14/18 Ranitidine HCl [Zantac] 75 mg PO DAILY 05/14/18 05/14/18 Previous Rx's Medication Instructions Recorded HYDROcodone/APAP 10-325MG [[place] 1 tab PO Q6H PRN #0 10/02/17 10-325] Allergies Allergy/AdvReac Type Severity Reaction Status Date / Time codeine phosphate Allergy Hallucinati Verified 05/14/18 17:13 [From Tylenol-Codeine #3] ons duloxetine [From Cymbalta] Allergy c-diff Verified 05/14/18 17:13 meperidine HCl [From Demerol] Allergy CHEST Verified 05/14/18 17:13 PAIN/Hallucinations pregabalin [From Lyrica] Allergy Nausea & Verified 05/14/18 17:13 Vomiting propoxyphene Allergy Unknown Verified 05/14/18 17:13 [From Darvocet-N] Review of Systems ROS Statement: Those systems with pertinent positive or pertinent negative responses have been documented in the HPI. ROS Other: All systems not noted in ROS Statement are negative. EKG Findings - EKG Comments: EKG Findings:: EKG shows A. fib with RVR rate of 119, QRS 90, QTc 455 Past Medical History Past Medical History: Atrial Fibrillation, Chest Pain / Angina, GERD/Reflux, Hyperlipidemia, Hypertension, Osteoarthritis (OA), Pneumonia Additional Past Medical History / Comment(s): Gout, Neuropathy, hx migraines, A- Fib, Borderline diabetic per patient History of Any Multi-Drug Resistant Organisms: None Reported Past Surgical History: Cholecystectomy, Heart Catheterization With Stent, Hysterectomy Additional Past Surgical History / Comment(s): Bilateral cats removed, left nephrectomy Past Anesthesia/Blood Transfusion Reactions: Motion Sickness, Postoperative Nausea & Vomiting (PONV) Date of Last Stent Placement:: unknown Past Psychological History: No Psychological Hx Reported Smoking Status: Never smoker Past Alcohol Use History: None Reported Past Drug Use History: None Reported - Past Family History Father Family Medical History: Diabetes Mellitus Mother Family Medical History: Cancer Additional Family Medical History / Comment(s): Ovarian cancer Sister(s) Family Medical History: Deep Vein Thrombosis (DVT) Brother(s) Family Medical History: Pulmonary Embolus General Exam Limitations: no limitations General appearance: alert, in no apparent distress Head exam: Present: atraumatic, normocephalic, normal inspection Eye exam: Present: normal appearance, PERRL, EOMI. Absent: scleral icterus, conjunctival injection, periorbital swelling ENT exam: Present: normal exam, mucous membranes moist Neck exam: Present: normal inspection. Absent: tenderness, meningismus, lymphadenopathy Respiratory exam: Present: normal lung sounds bilaterally. Absent: respiratory distress, wheezes, rales, rhonchi, stridor Cardiovascular Exam: Present: tachycardia, irregular rhythm, normal heart sounds. Absent: systolic murmur, diastolic murmur, rubs, gallop, clicks GI/Abdominal exam: Present: soft, normal bowel sounds. Absent: distended, tenderness, guarding, rebound, rigid Extremities exam: Present: normal inspection, full ROM, normal capillary refill. Absent: tenderness, pedal edema, joint swelling, calf tenderness Back exam: Present: normal inspection Neurological exam: Present: alert, oriented X3, CN II-XII intact Psychiatric exam: Present: normal affect, normal mood Skin exam: Present: warm, dry, intact, normal color. Absent: rash Course Vital Signs 05/14/18 05/14/18 05/14/18 16:37 18:02 19:30 Temperature 97.9 F Pulse Rate 74 96 98 Respiratory 20 20 18 Rate Blood Pressure 138/90 119/81 123/96 O2 Sat by Pulse 95 96 97 Oximetry - Reevaluation(s) Reevaluation #1: 05/14/18 20:37 Medical record is reviewed Reevaluation #2: 05/14/18 20:37 Patient is showing some improvement heart rate control Chest Pain MDM - MDM 77 female the ER for evaluation of chest pain chest pain anterior chest pain, patient will be admitted, patient is also in A. fib with RVR replacement rate control, patient is on [place] no need for anticoagulation Critical Care Time Critical Care Time: Yes Total Critical Care Time: 31 Disposition Clinical Impression: Chronic atrial fibrillation, Chest pain, Atrial fibrillation with RVR Disposition: ADMITTED IP TO THIS HOSP Condition: Fair Is patient prescribed a controlled substance at d/c from ED?: No Referrals: Philippe Miramontes DO [Primary Care Provider] - 1-2 days
[2018-05-14 17:34] LABS: Basophils % (A) 0 %; Eosinophils # (A) 0.3 k/uL (0-0.7); Eosinophils % (A) 2 %; HCT 42.4 % (34.0-46.0); HGB 14.1 gm/dL (11.4-16.0); Lymphocytes % (A) 8 %; MCH 33.8 pg (25.0-35.0); MCHC 33.2 g/dL (31.0-37.0); MCV 101.9 fL (80.0-100.0); Macrocytosis Slight; Monocytes # (A) 0.7 k/uL (0-1.0); Monocytes % (A) 6 %; Neutrophils # (A) 10.2 k/uL (1.3-7.7); Neutrophils % (A) 82 %; Platelet Count 296 k/uL (150-450); RBC 4.16 m/uL (3.80-5.40); RDW 15.4 % (11.5-15.5); WBC 12.5 k/uL (3.8-10.6)
[2018-05-14 17:50] LABS: D-Dimer 0.36 mg/L FEU (<0.60); Partial Thromboplastin Time 23.5 sec (22.0-30.0); Prothrombin Time 10.4 sec (9.0-12.0)
[2018-05-14 18:21] LABS: Albumin 4.1 g/dL (3.5-5.0); Calcium 10.1 mg/dL (8.4-10.2); Magnesium 2.1 mg/dL (1.6-2.3); Potassium 5.4 mmol/L (3.5-5.1); Total Bilirubin 0.9 mg/dL (0.2-1.3); Total Protein 7.7 g/dL (6.3-8.2)
[2018-05-14 18:29] LABS: Creatine Kinase 32 U/L (30-135)
--- NOTE | 2018-05-14 18:40 | XR ---
EXAMINATION: XR chest 2V DATE AND TIME: 05/14/2018 5:46 PM CLINICAL INDICATION: PHH; Chest Pain TECHNIQUE: Departmental protocol COMPARISON: 02/06/2018 FINDINGS: The lungs are clear. The pleural spaces are negative. The cardiac silhouette is moderately markedly enlarged. The aortic ectasia is more conspicuous on the present study. The skeletal structures and soft tissues are negative for acute findings. Results discussed with the ordering provider just now in order to help expedite management decision garfield ferguson. 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
[2018-05-14 18:43] LABS: Creatine Kinase MB 0.4 ng/mL (0.0-2.4); Troponin I <0.012 ng/mL (0.000-0.034)
--- NOTE | 2018-05-14 20:27 | CT ---
EXAMINATION TYPE: CT angio thor/abd pel aorta with contrast and with 3-D reconstruction renderings DATE OF EXAM: 05/14/2018 HISTORY: left arm numbess and chest pain TECHNIQUE: Departmental CTA scan of the thorax, abdomen and pelvis is performed with IV Contrast, pat ient injected with 80 mL of Isovue 370. 3-D reconstructions. Automated Exposure Control for Dose Redu ction was utilized. CT DLP: 1981.4 mGycm. COMPARISON: 09/29/2017 PRECONTRAST FINDINGS: Axial and sagittal and coronal sequences were obtained without intravenous cont rast, of the chest and abdomen and pelvis. This precontrast CT examination of the aorta is negative f or evidence of intramural hematoma or leak. CHEST CTA FINDINGS: VASCULATURE: The thoracic aorta is ectatic, but not aneurysmal. There are no acute thoracic aorta fin dings. The origins of the great vasculature are unremarkable. The pulmonary arterial tree is widely patent, without evidence of pulmonary embolism. There are extensive coronary artery calcifications with moderate cardiomegaly, with LAE. No pericardi al effusion. The airways are unremarkable. There is volume loss of the left lower lobe with partial airlessness posteriorly and medially, likely atelectasis. The lungs are otherwise clear and well-expanded. The pleural spaces are negative. Thoracic skeletal structures are unremarkable. ABDOMEN AND PELVIS CTA FINDINGS: VASCULATURE: The abdominal aorta shows atherosclerotic nonaneurysmal changes. The right renal artery and mesenteric arterial structures are widely patent. The left kidney is absent. The aortoiliac infl ow is widely patent and the bilateral iliac, common femoral, and visualized superficial/profunda femo ral arterial systems are widely patent. LIVER/GB: No significant abnormality is appreciated. PANCREAS: No significant abnormality is seen. SPLEEN: No significant abnormality is seen. ADRENALS: No significant abnormality is seen. KIDNEYS: No significant abnormality is seen. Absent left kidney. BOWEL: No significant abnormality is seen. GENITAL ORGANS: No gross abnormality seen. LYMPH NODES: No greater than 1cm abdominal or pelvic lymph nodes are appreciated. OSSEOUS STRUCTURES: No significant abnormality is seen. IMPRESSION: CHEST: No definite acute process; partial left lower lobe atelectasis noted. ABDOMEN AND PELVIS: No acute process.
[2018-05-14] MEDS ORDERED: ASPIRIN 81 MG PO STA (20:35)
[2018-05-14] MEDS ORDERED: MORPHINE SULFATE 4 MG/ML SYRINGE IV PRN (20:35)
[2018-05-14] MEDS ORDERED: NITROGLYCERIN SL TABS 0.4 MG TAB SUBLINGUAL PRN (20:35)
[2018-05-14] MEDS ORDERED: DILTIAZEM DRIP BOLUS FROM BAG 1 MG SOLN IV ONE (20:38)
[2018-05-14] MEDS ORDERED: DILTIAZEM 50 MG in SODIUM CHLORIDE 0.9% 40 ML IV SCH (20:45)
[2018-05-14] MEDS: METOPROLOL TARTRATE 50 MG TAB PO SCH (23:21)
[2018-05-14 23:27] LABS: Creatine Kinase 25 U/L (30-135)
[2018-05-14 23:40] LABS: Creatine Kinase MB 0.5 ng/mL (0.0-2.4); Troponin I <0.012 ng/mL (0.000-0.034)
[2018-05-15] MEDS: HYDROcodone/APAP 10-325MG 1 EACH TAB PO PRN ×4 (00:10→22:03)
[2018-05-15 06:45] LABS: Cholesterol 113 mg/dL (<200); HDL Cholesterol 44 mg/dL (40-60); LDL Cholesterol,Calculated 43 mg/dL (0-99); Triglycerides 132 mg/dL (<150)
[2018-05-15 07:03] LABS: Creatine Kinase MB 0.4 ng/mL (0.0-2.4); Troponin I 0.014 ng/mL (0.000-0.034)
[2018-05-15] MEDS: FUROSEMIDE 40 MG TAB PO SCH (08:23)
[2018-05-15] MEDS: METOPROLOL TARTRATE 50 MG TAB PO SCH (08:23)
[2018-05-15] MEDS: ATORVASTATIN 80 MG TAB PO SCH (08:23)
[2018-05-15] MEDS: ASPIRIN 325 MG TAB PO SCH (08:23)
[2018-05-15] MEDS: ISOSORBIDE MONONITRATE ER 30 MG TAB.ER.24H PO SCH (08:24)
[2018-05-15] MEDS ORDERED: LISINOPRIL 5 MG TAB PO SCH (09:00)
[2018-05-15] MEDS ORDERED: HYDROCHLOROTHIAZIDE 25 MG TAB PO SCH (09:00)
[2018-05-15] MEDS: APIXABAN 2.5 MG TABLET PO SCH ×2 (09:29→22:04)
[2018-05-15 10:13] LABS: Calcium 9.4 mg/dL (8.4-10.2); Potassium 4.6 mmol/L (3.5-5.1)
--- NOTE | 2018-05-15 11:03 | ECHOF ---
Referral Reason:cp MEASUREMENTS -------- HEIGHT: 154.9 cm WEIGHT: 81.2 kg BP: 122/77 RVIDd: 2.2 cm (< 3.3) IVSd: 1.5 cm (0.6 - 1.1) LVIDd: 4.5 cm (3.9 - 5.3) LVPWd: 1.2 cm (0.6 - 1.1) IVSs: 1.8 cm LVIDs: 3.0 cm LVPWs: 1.8 cm LA Diam: 3.7 cm (2.7 - 3.8) LAESV Index (A-L): 36.12 ml/m Ao Diam: 2.8 cm (2.0 - 3.7) AV Cusp: 1.9 cm (1.5 - 2.6) MV EXCURSION: 23.384 mm (> 18.000) MV EF SLOPE: 114 mm/s (70 - 150) EPSS: 0.9 cm RAP: 5.00 mmHg RVSP: 32.12 mmHg FINDINGS -------- Atrial fibrillation. Suboptimal image quality - poor subcostal views. The left ventricular size is normal. There is moderate concentric left ventricular hypertrophy. O verall left ventricular systolic function is mild-moderately impaired with, an EF between 40 - 45 %. The right ventricle is normal in size. LA is moderately dilated 34-39 ml/m2 The right atrium is normal in size. Aortic valve is trileaflet and is mildly thickened. There is trace to mild mitral regurgitation. Mild tricuspid regurgitation present. Right ventricular systolic pressure is normal at < 35 mmHg. Trace/mild (physiologic) pulmonic regurgitation. The aortic root size is normal. IVC Not well visulized. There is no pericardial effusion. CONCLUSIONS -------- 1. Atrial fibrillation. 2. Suboptimal image quality - poor subcostal views. 3. The left ventricular size is normal. 4. Overall left ventricular systolic function is mild-moderately impaired with, an EF between 40 - 45 %. 5. The right ventricle is normal in size. 6. LA is moderately dilated 34-39 ml/m2 7. The right atrium is normal in size. 8. Aortic valve is trileaflet and is mildly thickened. 9. There is trace to mild mitral regurgitation. 10. Mild tricuspid regurgitation present. 11. Right ventricular systolic pressure is normal at < 35 mmHg. 12. Trace/mild (physiologic) pulmonic regurgitation. 13. The aortic root size is normal. 14. IVC Not well visulized. 15. There is no pericardial effusion. REGIONAL CRA: Doris Frey RDCS
[2018-05-15] MEDS: PANTOPRAZOLE 40 MG/10 ML VIAL IVP SCH (13:00)
--- NOTE | 2018-05-15 13:43 | P.CRDCN ---
History of Present Illness History of present illness: This is a pleasant 77-year-old female past medical history significant for chronic persistent atrial fibrillation on long-term anticoagulation, coronary artery disease status post stenting to the LAD 2008, hypertension, dyslipidemia and gastroesophageal reflux disease. She follows in the office with Dr. Medina. We've been asked to see her in consultation for chest pain. She states for the previous one week she has been coughing significantly and bringing up a significant amount of yellowish-green sputum. She states she is feeling "buckets". Starting a couple of days ago she started with a sharp pain in the chest every time she coughed or moved her torso. The pain is reproducible with deep inspiration, cough or on light palpation. She denies significant shortness of breath, no dizziness, no palpitations, no nausea , no vomiting and no diaphoresis. EKG on admission reveals atrial fibrillation with rapid ventricular response heart rate 119. She received a one-time dose of IV Cardizem in the emergency department rate has been controlled ever since. Telemetry tracings indicate she continues to be nature fibrillation with controlled ventricular response. Chest x-ray is negative for acute cardiopulmonary process with evidence of aortic ectasia. CT angiogram of the thorax and abdomen reveals thoracic aorta is ectatic but not aneurysmal, no acute dissection. There is evidence of left lower lobe atelectasis. Current cardiac medications include Eliquis 2.5 mg twice a day, Lasix 40 mg daily, Imdur 30 mg daily and lisinopril 5 mg twice a day. Most recent stress test in the office was Lexiscan stress test done 09/2017 was negative for reversible cardiac ischemia. Most recent echocardiogram obtained in the office 09/2017 reveals impaired LV systolic function with EF 40-45%, severely dilated left atrium and mild MR> At the time of my exam: CONSTITUTIONAL: Denies fever. Denies chills. EYES: Denies blurred vision. Denies vision changes. Denies eye pain. EARS, NOSE, MOUTH & THROAT: Denies headache. Denies sore throat. Denies ear pain. CARDIOVASCULAR: Complains of reproducible and pleuritic chest pain. Denies shortness of breath. Denies orthopnea. Denies PND. Denies palpitations. RESPIRATORY: Complains of productive cough. GASTROINTESTINAL: Denies abdominal pain. Denies diarrhea. Denies constipation. Denies nausea. Denies vomiting. MUSCULOSKELETAL: Denies myalgias. INTEGUMENTARY: Denies pruitis. Denies rash. NEUROLOGIC: Denies numbness. Denies tingling. Denies weakness. PSYCHIATRIC: Denies anxiety. Denies depression. ENDOCRINE: Denies fatigue. Denies weight change. Denies polydipsia. Denies polyurina. GENITOURINARY: Denies burning, hematuria or urgency with micturation. HEMATOLOGIC: Denies history of anemia. Denies bleeding. Blood pressure 105/64 heart rate 67 afebrile maintaining oxygen saturation on room air GENERAL: This is a 77-year-old female in no apparent distress at the time of my examination. HEENT: Head is atraumatic, normocephalic. Pupils are equal, round. Sclerae anicteric. Conjunctivae are clear. Mucous membranes of the mouth are moist. Neck is supple. There is no jugular venous distention. No carotid bruit is heard. LUNGS: Clear to auscultation no wheezes, rales or rhonchi. No chest wall tenderness is noted on palpation or with deep breathing. HEART: Irregular rate and rhythm without murmurs, rubs or gallops. S1 and S2 heard. ABDOMEN: Soft, nontender. Bowel sounds are heard. No organomegaly noted. EXTREMITIES: No evidence of peripheral edema and no calf tenderness noted. VASCULAR: Radial and dorsalis pedis pulses palpated, no evidence of clubbing. NEUROLOGIC: Patient is awake, alert and oriented x3. ASSESSMENT Pleuritic chest pain. An acute coronary event has been ruled out. Leukocytosis Hyperkalemia, resolved. Atrial fibrillation with rapid ventricular response on admission, currently resolved. On long-term anticoagulation in the form of Eliquis. History of coronary artery disease s/p stenting to LAD 2008. Hypertension Dyslipidemia History of ischemic cardiomyopathy. Chronic systolic heart failure, currently euvolemic. PLAN Echocardiogram has been obtained and reviewed, no changes from previous study. Continue with beta chaim that was ordered in the ED on admission as well as lisinopril, atorvastatin, aspirin, imdur and lasix. Eliquis dose should be at 5 mg BID in this lady with normal kidney function, BMI 33 and age less than 80. Ongoing medical management of possible pneumonia with productive cough, leukocytosis and severe congestion. No further cardiac work-up at this time. Follow up with Dr. Medina up on discharge, we will continue to follow as needed. Thank you kindly for this consultation. Nurse Practitioner note has been reviewed, I agree with a documented findings and plan of care. Patient was seen and examined. Past Medical History Past Medical History: Atrial Fibrillation, Chest Pain / Angina, GERD/Reflux, Hyperlipidemia, Hypertension, Osteoarthritis (OA), Pneumonia Additional Past Medical History / Comment(s): Gout, Neuropathy, hx migraines, A- Fib, Borderline diabetic per patient History of Any Multi-Drug Resistant Organisms: C-DIFF Date of last positivie culture/infection: September 2017 MDRO Source:: stool Past Surgical History: Cholecystectomy, Heart Catheterization With Stent, Hysterectomy Additional Past Surgical History / Comment(s): Bilateral cats removed, left nephrectomy Past Anesthesia/Blood Transfusion Reactions: Motion Sickness, Postoperative Nausea & Vomiting (PONV) Date of Last Stent Placement:: unknown Past Psychological History: No Psychological Hx Reported Smoking Status: Never smoker Past Alcohol Use History: None Reported Past Drug Use History: None Reported - Past Family History Father Family Medical History: Diabetes Mellitus Mother Family Medical History: Cancer Additional Family Medical History / Comment(s): Ovarian cancer Sister(s) Family Medical History: Deep Vein Thrombosis (DVT) Brother(s) Family Medical History: Pulmonary Embolus Medications and Allergies Home Medications Medication Instructions Recorded Confirmed Type Cetirizine HCl [Zyrtec] 10 mg PO DAILY 11/03/14 05/14/18 History Isosorbide Mononitrate ER [Imdur] 30 mg PO DAILY 11/03/14 05/14/18 History Nitroglycerin Sl Tabs [Nitrostat] 0.4 mg SUBLINGUAL Q5M PRN 11/03/14 05/14/18 History Apixaban [Eliquis] 2.5 mg PO BID 02/02/15 05/14/18 History Furosemide [Lasix] 40 mg PO DAILY 11/10/15 05/14/18 History HYDROcodone/APAP 10-325MG [Medon 1 tab PO Q6H PRN #0 10/02/17 05/14/18 Rx 10-325] Lisinopril [Prinivil] 5 mg PO BID 05/14/18 05/14/18 History Ranitidine HCl [Zantac] 75 mg PO DAILY 05/14/18 05/14/18 History Omeprazole [PriLOSEC] 20 mg PO AC-BID #60 capsule. 05/15/18 Rx traMADol HCL [Ultram] 50 mg PO Q4HR PRN 3 Days #18 tab 05/15/18 Rx Allergies Allergy/AdvReac Type Severity Reaction Status Date / Time codeine phosphate Allergy Hallucinati Verified 05/14/18 17:13 [From Tylenol-Codeine #3] ons duloxetine [From Cymbalta] Allergy c-diff Verified 05/14/18 17:13 meperidine HCl [From Demerol] Allergy CHEST Verified 05/14/18 17:13 PAIN/Hallucinations pregabalin [From Lyrica] Allergy Nausea & Verified 05/14/18 17:13 Vomiting propoxyphene Allergy Unknown Verified 05/14/18 17:13 [From Darvocet-N] Physical Exam Vitals: Vital Signs Temp Pulse Pulse Resp BP BP BP 05/15/18 08:00 97.8 F 70 18 122/77 05/15/18 04:00 97.9 F 65 18 103/63 05/14/18 23:55 76 16 05/14/18 23:16 98.2 F 76 16 110/55 05/14/18 22:22 85 18 05/14/18 22:10 97.4 F L 85 18 137/84 05/14/18 21:41 97.6 F 05/14/18 21:16 75 18 117/72 05/14/18 21:07 101 H 18 126/82 05/14/18 19:30 98 18 123/96 05/14/18 18:02 96 20 119/81 05/14/18 16:37 97.9 F 74 20 138/90 Pulse Ox 05/15/18 08:00 97 05/15/18 04:00 98 05/14/18 23:55 05/14/18 23:16 96 05/14/18 22:22 05/14/18 22:10 97 05/14/18 21:41 05/14/18 21:16 95 05/14/18 21:07 96 05/14/18 19:30 97 05/14/18 18:02 96 05/14/18 16:37 95 Intake and Output 05/14/18 05/15/18 05/15/18 22:59 06:59 14:59 Other: Voiding Method Toilet Toilet Weight 81.193 kg Results 05/14/18 17:14 05/15/18 05:37 Cardiac Enzymes 05/14/18 05/14/18 05/14/18 Range/Units 17:14 17:14 22:38 AST 34 (14-36) U/L CK-MB (CK-2) 0.4 0.5 (0.0-2.4) ng/mL Troponin I <0.012 <0.012 (0.000-0.034) ng/mL 05/15/18 Range/Units 05:37 AST (14-36) U/L CK-MB (CK-2) 0.4 (0.0-2.4) ng/mL Troponin I 0.014 (0.000-0.034) ng/mL Coagulation 05/14/18 Range/Units 17:14 PT 10.4 (9.0-12.0) sec APTT 23.5 (22.0-30.0) sec Lipids 05/15/18 Range/Units 05:37 Triglycerides 132 (<150) mg/dL Cholesterol 113 (<200) mg/dL HDL Cholesterol 44 (40-60) mg/dL CBC 05/14/18 Range/Units 17:14 WBC 12.5 H (3.8-10.6) k/uL RBC 4.16 (3.80-5.40) m/uL Hgb 14.1 (11.4-16.0) gm/dL Hct 42.4 (34.0-46.0) % Plt Count 296 (150-450) k/uL Comprehensive Metabolic Panel 05/14/18 Range/Units 17:14 Sodium 138 (137-145) mmol/L Potassium 5.4 H (3.5-5.1) mmol/L Chloride 103 (98-107) mmol/L Carbon Dioxide 25 (22-30) mmol/L BUN 33 H (7-17) mg/dL Creatinine 1.04 (0.52-1.04) mg/dL Glucose 120 H (74-99) mg/dL Calcium 10.1 (8.4-10.2) mg/dL AST 34 (14-36) U/L ALT 30 (9-52) U/L Alkaline Phosphatase 130 H (38-126) U/L Total Protein 7.7 (6.3-8.2) g/dL Albumin 4.1 (3.5-5.0) g/dL Current Medications Generic Name Dose Route Start Last Admin Trade Name Freq PRN Reason Stop Dose Admin Hydrocodone Bitart/Acetaminophen 1 each 05/14/18 22:55 05/15/18 00:10 Medon 10 PO 1 each Q6H PRN Administration Pain Aspirin 325 mg 05/15/18 09:00 Aspirin PO DAILY [facility] Atorvastatin Calcium 80 mg 05/15/18 09:00 Lipitor PO DAILY [facility] Metoprolol Tartrate 50 mg 05/14/18 22:00 05/14/18 23:21 Lopressor PO 50 mg BID [facility] Administration Morphine Sulfate 4 mg 05/14/18 20:35 Morphine Sulfate (Inj) IV Q4HR PRN Chest Pain Nitroglycerin 0.4 mg 05/14/18 20:35 Nitrostat SUBLINGUAL Q5M PRN Chest Pain Intake and Output 05/14/18 05/15/18 05/15/18 22:59 06:59 14:59 Other: Voiding Method Toilet Toilet Weight 81.193 kg 05/14/18 17:14 05/14/18 17:14
--- NOTE | 2018-05-15 14:32 | P.DS ---
Providers Date of admission: 05/14/18 20:35 Attending physician: Alfa Guaman Consults: 05/14/18 20:35 Consult Physician Urgent Consulting Provider: Zoran Magallanes Consult Reason/Comments: cp Do you want consulting provider notified?: Yes Primary care physician: Philippe [facility]he [facility] [place] [facility] Course: Patient was cleared from cardiology perspective will be discharged today, please refer to my HPI for further details Patient Condition at Discharge: Fair Plan - Discharge Summary Discharge Rx Participant: No New Discharge Prescriptions: New Omeprazole [PriLOSEC] 20 mg PO AC-BID #60 capsule. traMADol HCL [Ultram] 50 mg PO Q4HR PRN 3 Days #18 tab PRN Reason: Pain Metoprolol Tartrate [Lopressor] 25 mg PO BID #180 tab Discontinued Hydrochlorothiazide [Hydrodiuril] 25 mg PO DAILY No Action Cetirizine HCl [Zyrtec] 10 mg PO DAILY Nitroglycerin Sl Tabs [Nitrostat] 0.4 mg SUBLINGUAL Q5M PRN PRN Reason: Chest Pain Isosorbide Mononitrate ER [Imdur] 30 mg PO DAILY Apixaban [Eliquis] 2.5 mg PO BID Furosemide [Lasix] 40 mg PO DAILY HYDROcodone/APAP 10-325MG [[place]ellerose 10-325] 1 tab PO Q6H PRN #0 PRN Reason: Pain Ranitidine HCl [Zantac] 75 mg PO DAILY Lisinopril [Prinivil] 5 mg PO BID Discharge Medication List Cetirizine HCl [Zyrtec] 10 mg PO DAILY 11/03/14 [History] Isosorbide Mononitrate ER [Imdur] 30 mg PO DAILY 11/03/14 [History] Nitroglycerin Sl Tabs [Nitrostat] 0.4 mg SUBLINGUAL Q5M PRN 11/03/14 [History] Apixaban [Eliquis] 2.5 mg PO BID 02/02/15 [History] Furosemide [Lasix] 40 mg PO DAILY 11/10/15 [History] HYDROcodone/APAP 10-325MG [[place]ellerose 10-325] 1 tab PO Q6H PRN #0 10/02/17 [Rx] Lisinopril [Prinivil] 5 mg PO BID 05/14/18 [History] Ranitidine HCl [Zantac] 75 mg PO DAILY 05/14/18 [History] Metoprolol Tartrate [Lopressor] 25 mg PO BID #180 tab 05/15/18 [Rx] Omeprazole [PriLOSEC] 20 mg PO AC-BID #60 capsule. 05/15/18 [Rx] traMADol HCL [Ultram] 50 mg PO Q4HR PRN 3 Days #18 tab 05/15/18 [Rx] Follow up Appointment(s)/Referral(s): Philippe Miramontes DO [Primary Care Provider] - 3 Days Yusef Medina MD [STAFF PHYSICIAN] - 05/30/18 4:15 pm (Follow up appointment made at [facility] with Dr. Medina in 2 weeks.) Jose Vega MD [STAFF PHYSICIAN] - 1 Week Patient Instructions/Handouts: A-fib (Atrial Fibrillation) (DC), Chest Pain (DC ), Gastroesophageal Reflux Disease (DC) Discharge Disposition: HOME SELF-CARE
--- NOTE | 2018-05-15 14:32 | P.HPIM ---
History of Present Illness 77-year-old presents female came in with the complaints of chest pain moderate to severe in nature reproducible significant improved compared to yesterday. Patient has clear-cut [place] skeletal pain patient pain gets worse sometimes with deep breathing because of which patient did underwent extensive evaluation patient was admitted to ruled out a acute coronary syndromes, Patient Was Evaluated Cardiology. And the Patient the Pain Is Much Severe after She Eats She Feels like Her Chest Is Being Ripped of Whenever She Tries to Swallow and patient had a CAT scan of the chest which did not show any pulmonary embolism area did provided dissection. Patient the had an echocardiogram showed an ejection fraction of 40-45%. Patient was evaluated by cardiology and cleared for discharge. Patient had a stress test in September 2017 which did not show any inducible ischemia ejection fraction of around 40-45%. Patient does have chronic atrial fibrillation and is on Eliquis Review of Systems REVIEW OF SYSTEMS: CONSTITUTIONAL: No fever, no malaise, no fatigue. HEENT: No recent visual problems or hearing problems. Denied any sore throat. CARDIOVASCULAR: No corthopnea, PND, no palpitations, no syncope. PULMONARY: No shortness of breath, no cough, no hemoptysis. GASTROINTESTINAL: No diarrhea, no nausea, no vomiting, no abdominal pain. NEUROLOGICAL: No headaches, no weakness, no numbness. HEMATOLOGICAL: Denies any bleeding or petechiae. GENITOURINARY: Denies any burning micturition, frequency, or urgency. MUSCULOSKELETAL/RHEUMATOLOGICAL: Denies any joint pain, swelling, or any muscle pain. ENDOCRINE: Denies any polyuria or polydipsia. The rest of the 14-point review of systems is negative. Past Medical History Past Medical History: Atrial Fibrillation, Chest Pain / Angina, GERD/Reflux, Hyperlipidemia, Hypertension, Osteoarthritis (OA), Pneumonia Additional Past Medical History / Comment(s): Gout, Neuropathy, hx migraines, A- Fib, Borderline diabetic per patient History of Any Multi-Drug Resistant Organisms: C-DIFF Date of last positivie culture/infection: September 2017 MDRO Source:: stool Past Surgical History: Cholecystectomy, Heart Catheterization With Stent, Hysterectomy Additional Past Surgical History / Comment(s): Bilateral cats removed, left nephrectomy Past Anesthesia/Blood Transfusion Reactions: Motion Sickness, Postoperative Nausea & Vomiting (PONV) Date of Last Stent Placement:: unknown Past Psychological History: No Psychological Hx Reported Smoking Status: Never smoker Past Alcohol Use History: None Reported Past Drug Use History: None Reported - Past Family History Father Family Medical History: Diabetes Mellitus Mother Family Medical History: Cancer Additional Family Medical History / Comment(s): Ovarian cancer Sister(s) Family Medical History: Deep Vein Thrombosis (DVT) Brother(s) Family Medical History: Pulmonary Embolus Medications and Allergies Home Medications Medication Instructions Recorded Confirmed Type Cetirizine HCl [Zyrtec] 10 mg PO DAILY 11/03/14 05/14/18 History Isosorbide Mononitrate ER [Imdur] 30 mg PO DAILY 11/03/14 05/14/18 History Nitroglycerin Sl Tabs [Nitrostat] 0.4 mg SUBLINGUAL Q5M PRN 11/03/14 05/14/18 History Apixaban [Eliquis] 2.5 mg PO BID 02/02/15 05/14/18 History Furosemide [Lasix] 40 mg PO DAILY 11/10/15 05/14/18 History HYDROcodone/APAP 10-325MG [[place] 1 tab PO Q6H PRN #0 10/02/17 05/14/18 Rx 10-325] Lisinopril [Prinivil] 5 mg PO BID 05/14/18 05/14/18 History Ranitidine HCl [Zantac] 75 mg PO DAILY 05/14/18 05/14/18 History Metoprolol Tartrate [Lopressor] 25 mg PO BID #180 tab 05/15/18 Rx Omeprazole [PriLOSEC] 20 mg PO AC-BID #60 capsule. 05/15/18 Rx traMADol HCL [Ultram] 50 mg PO Q4HR PRN 3 Days #18 tab 05/15/18 Rx Allergies Allergy/AdvReac Type Severity Reaction Status Date / Time codeine phosphate Allergy Hallucinati Verified 05/14/18 17:13 [From Tylenol-Codeine #3] ons duloxetine [From Cymbalta] Allergy c-diff Verified 05/14/18 17:13 meperidine HCl [From Demerol] Allergy CHEST Verified 05/14/18 17:13 PAIN/Hallucinations pregabalin [From Lyrica] Allergy Nausea & Verified 05/14/18 17:13 Vomiting propoxyphene Allergy Unknown Verified 01/22/19 17:13 [From Darvocet-N] Physical Exam Vitals: Vital Signs Temp Pulse Pulse Resp BP BP BP 05/15/18 11:39 97.5 F L 67 18 105/64 05/15/18 11:04 05/15/18 08:00 97.8 F 70 18 122/77 05/15/18 04:00 97.9 F 65 18 103/63 05/14/18 23:55 76 16 05/14/18 23:16 98.2 F 76 16 110/55 05/14/18 22:22 85 18 05/14/18 22:10 97.4 F L 85 18 137/84 05/14/18 21:41 97.6 F 05/14/18 21:16 75 18 117/72 05/14/18 21:07 101 H 18 126/82 05/14/18 19:30 98 18 123/96 05/14/18 18:02 96 20 119/81 05/14/18 16:37 97.9 F 74 20 138/90 Pulse Ox 05/15/18 11:39 95 05/15/18 11:04 94 L 05/15/18 08:00 97 05/15/18 04:00 98 05/14/18 23:55 05/14/18 23:16 96 05/14/18 22:22 05/14/18 22:10 97 05/14/18 21:41 05/14/18 21:16 95 05/14/18 21:07 96 05/14/18 19:30 97 05/14/18 18:02 96 05/14/18 16:37 95 Intake and Output 05/14/18 05/15/18 05/15/18 22:59 06:59 14:59 Intake Total 260 Balance 260 Intake: Intake, IV Titration 160 Amount Sodium Chloride 0.9% 1, 160 000 ml @ 100 mls/hr IV . Q10H STA Rx#:[id number] Oral 100 Other: Voiding Method Toilet Toilet Toilet Weight 81.193 kg PHYSICAL EXAMINATION: GENERAL: The patient is alert and oriented x3, not in any acute distress. Well developed, well nourished. HEENT: Pupils are round and equally reacting to light. EOMI. No scleral icterus. No conjunctival pallor. Normocephalic, atraumatic. No pharyngeal erythema. No thyromegaly. CARDIOVASCULAR: S1 and S2 present. No murmurs, rubs, or gallops. A since chest pain is reproducible in nature PULMONARY: Chest is clear to auscultation, no wheezing or crackles. ABDOMEN: Soft, nontender, nondistended, normoactive bowel sounds. No palpable organomegaly. MUSCULOSKELETAL: No joint swelling or deformity. EXTREMITIES: No cyanosis, clubbing, or pedal edema. NEUROLOGICAL: Gross neurological examination did not reveal any focal deficits. SKIN: No rashes. Results CBC & Chem 7: 05/14/18 17:14 05/15/18 05:37 Labs: Abnormal Lab Results - Last 24 Hours (Table) 05/14/18 05/14/18 05/14/18 Range/Units 17:14 17:14 22:38 WBC 12.5 H (3.8-10.6) k/uL MCV 101.9 H (80.0-100.0) fL Neutrophils # 10.2 H (1.3-7.7) k/uL Potassium 5.4 H (3.5-5.1) mmol/L BUN 33 H (7-17) mg/dL Creatinine (0.52-1.04) mg/dL Glucose 120 H (74-99) mg/dL Alkaline Phosphatase 130 H (38-126) U/L Total Creatine Kinase 25 L (30-135) U/L 05/15/18 05/15/18 Range/Units 05:37 05:37 WBC (3.8-10.6) k/uL MCV (80.0-100.0) fL Neutrophils # (1.3-7.7) k/uL Potassium (3.5-5.1) mmol/L BUN 31 H (7-17) mg/dL Creatinine 1.17 H (0.52-1.04) mg/dL Glucose 106 H (74-99) mg/dL Alkaline Phosphatase (38-126) U/L Total Creatine Kinase 23 L (30-135) U/L Thrombosis Risk Factor Assmnt - Choose All That Apply Any of the Below Risk Factors Present?: Yes Each Factor Represents 1 point: Obesity (BMI >25) Other Risk Factors: Yes Each Risk Factor Represents 3 Points: Age 75 years or older Other congenital or acquired thrombophilia - If yes, enter type in comment: No Thrombosis Risk Factor Assessment Total Risk Factor Score: 4 Thrombosis Risk Factor Assessment Level: Moderate Risk Assessment and Plan Plan: Chest pain: Musculo-skeletal clearly reproducible I do not believe patient has pleuritic chest pain. Patient will need nonsteroidal anti-inflammatory is although her kidney function is borderline patient is chronic kidney disease stage II because of which patient will be prescribed tramadol. -Possibly esophagitis or gastritis: For which patient will be prescribed to Prilosec patient may need upper GI endoscopy as an outpatient, will set up a follow-up with axle and frame mechanic an outpatient. 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
[2018-05-15] MEDS ORDERED: METOPROLOL TARTRATE 25 MG TAB PO SCH (21:00)
[2018-05-15] MEDS: LISINOPRIL 5 MG TAB PO SCH (22:03)
[2018-05-16] MEDS: HYDROcodone/APAP 10-325MG 1 EACH TAB PO PRN ×2 (04:35→11:49)
[2018-05-16] MEDS: LISINOPRIL 5 MG TAB PO SCH (08:48)
[2018-05-16] MEDS: ATORVASTATIN 80 MG TAB PO SCH (08:48)
[2018-05-16] MEDS: PANTOPRAZOLE 40 MG/10 ML VIAL IVP SCH (08:48)
[2018-05-16] MEDS: APIXABAN 2.5 MG TABLET PO SCH (08:48)
[2018-05-16] MEDS: ISOSORBIDE MONONITRATE ER 30 MG TAB.ER.24H PO SCH (08:49)
[2018-05-16] MEDS: FUROSEMIDE 40 MG TAB PO SCH (08:49)
[2018-05-16] MEDS: ASPIRIN 325 MG TAB PO SCH (08:49)
[2018-05-16] MEDS ORDERED: MORPHINE ORAL SOLN 10 MG/5 ML CUP PO PRN (10:16)
[2018-05-16 11:50] VITALS: BP 124/67; PULSE 80; RESP 16; TEMP 97.9
--- NOTE | 2018-05-16 12:27 | P.DS ---
Providers Date of admission: 05/14/18 20:35 Attending physician: Alfa Guaman Consults: 05/14/18 20:35 Consult Physician Urgent Consulting Provider: Zoran Magallanes Consult Reason/Comments: cp Do you want consulting provider notified?: Yes [facility] Course: Patient was admitted with chest pain, rule out a concurrent syndromes patient chest pain is probably secondary to esophagitis. Patient's symptoms improved with Prilosec will be discharged today patient had 2 second sinus pauses today secondary to beta chaim which was discontinued. Patient is clinically doing well and will be discharged today. PHYSICAL EXAMINATION: GENERAL: The patient is alert and oriented x3, not in any acute distress. Well developed, well nourished. HEENT: Pupils are round and equally reacting to light. EOMI. No scleral icterus. No conjunctival pallor. Normocephalic, atraumatic. No pharyngeal erythema. No thyromegaly. CARDIOVASCULAR: S1 and S2 present. No murmurs, rubs, or gallops. PULMONARY: Chest is clear to auscultation, no wheezing or crackles. ABDOMEN: Soft, nontender, nondistended, normoactive bowel sounds. No palpable organomegaly. MUSCULOSKELETAL: No joint swelling or deformity. EXTREMITIES: No cyanosis, clubbing, or pedal edema. NEUROLOGICAL: Gross neurological examination did not reveal any focal deficits. SKIN: No rashes. Assessment and Plan Plan: Chest pain: Musculo-skeletal clearly reproducible I do not believe patient has pleuritic chest pain. Patient will need nonsteroidal anti-inflammatory is although her kidney function is borderline patient is chronic kidney disease stage II because of which patient will be prescribed tramadol. -Possibly esophagitis or gastritis: For which patient will be prescribed to Prilosec patient may need upper GI endoscopy as an outpatient, will set up a follow-up with fire technician an outpatient. 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 Patient Condition at Discharge: Fair Plan - Discharge Summary Discharge Rx Participant: No New Discharge Prescriptions: New Omeprazole [PriLOSEC] 20 mg PO AC-BID #60 capsule. traMADol HCL [Ultram] 50 mg PO Q4HR PRN 3 Days #18 tab PRN Reason: Pain Discontinued Hydrochlorothiazide [Hydrodiuril] 25 mg PO DAILY No Action Cetirizine HCl [Zyrtec] 10 mg PO DAILY Nitroglycerin Sl Tabs [Nitrostat] 0.4 mg SUBLINGUAL Q5M PRN PRN Reason: Chest Pain Isosorbide Mononitrate ER [Imdur] 30 mg PO DAILY Apixaban [Eliquis] 2.5 mg PO BID Furosemide [Lasix] 40 mg PO DAILY HYDROcodone/APAP 10-325MG [[place] 10-325] 1 tab PO Q6H PRN #0 PRN Reason: Pain Ranitidine HCl [Zantac] 75 mg PO DAILY Lisinopril [Prinivil] 5 mg PO BID Discharge Medication List Cetirizine HCl [Zyrtec] 10 mg PO DAILY 11/03/14 [History] Isosorbide Mononitrate ER [Imdur] 30 mg PO DAILY 11/03/14 [History] Nitroglycerin Sl Tabs [Nitrostat] 0.4 mg SUBLINGUAL Q5M PRN 11/03/14 [History] Apixaban [Eliquis] 2.5 mg PO BID 02/02/15 [History] Furosemide [Lasix] 40 mg PO DAILY 11/10/15 [History] HYDROcodone/APAP 10-325MG [[place] 10-325] 1 tab PO Q6H PRN #0 10/02/17 [Rx] Lisinopril [Prinivil] 5 mg PO BID 05/14/18 [History] Ranitidine HCl [Zantac] 75 mg PO DAILY 05/14/18 [History] Omeprazole [PriLOSEC] 20 mg PO AC-BID #60 capsule. 05/15/18 [Rx] traMADol HCL [Ultram] 50 mg PO Q4HR PRN 3 Days #18 tab 05/15/18 [Rx] Follow up Appointment(s)/Referral(s): Philippe Miramontes DO [Primary Care Provider] - 3 Days Yusef Medina MD [STAFF PHYSICIAN] - 05/30/18 4:15 pm (Follow up appointment made at [facility] with Dr. Medina in 2 weeks.) Jose Vega MD [STAFF PHYSICIAN] - 1 Week Patient Instructions/Handouts: A-fib (Atrial Fibrillation) (DC), Chest Pain (DC ), Gastroesophageal Reflux Disease (DC) Discharge Disposition: HOME SELF-CARE
== END 2018-05-16 12:54 | disposition home or self-care (01) ==
LOC: EC 16:35 → 1SOBS 20:35
PROVIDERS: ADMIT Hospitalist; ATTEND Hospitalist
DX: R07.89 Other chest pain (principal); I48.2 Chronic atrial fibrillation; I13.0 Hypertensive heart and chronic kidney disease with heart failure and stage 1 through stage 4 chronic kidney disease, or unspecified chronic kidney disease; I50.22 Chronic systolic (congestive) heart failure; N18.2 Chronic kidney disease, stage 2 (mild); I48.1 Persistent atrial fibrillation; E78.5 Hyperlipidemia, unspecified; I77.810 Thoracic aortic ectasia; M19.90 Unspecified osteoarthritis, unspecified site; R73.03 Prediabetes; M10.9 Gout, unspecified; G43.909 Migraine, unspecified, not intractable, without status migrainosus; G62.9 Polyneuropathy, unspecified; J98.11 Atelectasis; E87.5 Hyperkalemia; D72.829 Elevated white blood cell count, unspecified; I25.10 Atherosclerotic heart disease of native coronary artery without angina pectoris; I25.5 Ischemic cardiomyopathy; Z16.24 Resistance to multiple antibiotics; E66.9 Obesity, unspecified; Z68.33 Body mass index [BMI] 33.0-33.9, adult; Z79.01 Long term (current) use of anticoagulants; Z79.899 Other long term (current) drug therapy; Z88.5 Allergy status to narcotic agent; Z88.8 Allergy status to other drugs, medicaments and biological substances; Z95.5 Presence of coronary angioplasty implant and graft; Z90.49 Acquired absence of other specified parts of digestive tract; Z90.710 Acquired absence of both cervix and uterus; Z90.5 Acquired absence of kidney; Z98.42 Cataract extraction status, left eye; Z98.41 Cataract extraction status, right eye; Z83.3 Family history of diabetes mellitus; Z80.41 Family history of malignant neoplasm of ovary; Z82.49 Family history of ischemic heart disease and other diseases of the circulatory system; Z83.2 Family history of diseases of the blood and blood-forming organs and certain disorders involving the immune mechanism
CPT/HCPCS: 96361 ×3; 96375 ×2; 96376; 96374; 99291; 36415; 94760; 93005; 93306; 85379; 80061; 80053; 80048; 82550 ×2; 82553 ×2; 83690; 83735; 84484 ×2; 85025; 85610; 85730; 71046; 71275; 74174; G0378 ×3; J2270; C9113 ×2; Q9967

== ENCOUNTER 2018-06-06 09:14 | Day surgery (SDC) | payer MEDICARE ==
[2018-06-04 13:52] VITALS: BMI 32.7
[~2018-06-06 09:14] MED LIST changes: +GLYCOPYRROLATE 0.2 MG/ML 2 ML VIAL ONE; +LIDOCAINE 1% INJ 10MG/ML (20 ML MDV) ONE; +MIDAZOLAM (PF) 2 MG/2 ML VIAL IV PRN; -MIDAZOLAM 2 MG/2 ML VIAL IV PRN; +MIDAZOLAM 2 MG/2 ML VIAL ONE; +PROPOFOL 10 MG/ML 20 ML VIAL IV ONE; -SCOPOLAMINE 1.5MG/72HR PATCH TRANSDERM ONE; -ceFAZolin IN SWFI 2 GM/20 ML SYRINGE IVP ONE; +fentaNYL (PF) 50 MCG/ML 2 ML AMP ONE
[2018-06-06 09:40] VITALS: RESP 16; TEMP 98.2
[2018-06-06] MEDS: LACTATED RINGERS 1,000 ML IV SCH ×2 (10:01→10:03)
[2018-06-06 10:06] LABS: Glucose,Whole Blood 104 mg/dL (75-99)
--- NOTE | 2018-06-06 10:26 | P.PCN ---
Date of Procedure: 06/06/18 Description of Procedure: BRIEF HISTORY: 69-year-old female who presents for outpatient endoscopic evaluation after complaints of abdominal pain and dysphagia. The patient had been hospitalized for complaints of chest pain with a negative cardiac evaluation. At that time she was started on omeprazole 40 mg twice daily. She reports improvement in her symptoms on PPI therapy. However the patient's complaints of some esophageal dysphagia with the sensation of food, and is stuck in her food pipe. She also reports occasional morning nausea. No signs or symptoms of GI bleeding. PROCEDURE PERFORMED: Esophagogastroduodenoscopy. PREOPERATIVE DIAGNOSIS: GERD, esophageal dysphagia ESTIMATED BLOOD LOSS: Minimal. IV sedation per anesthesia. PROCEDURE: After informed consent was obtained, the patient was brought into the endoscopy unit. IV sedation was administered by Anesthesia under continuous monitoring. Initially the Olympus GIF-190 video endoscope was inserted into the mouth. Esophagus intubated without any difficulty. It was gradually advanced into the stomach and duodenum and carefully examined. The bulb and the second part of the duodenum appeared normal. The scope at this time was withdrawn to the stomach, adequately insufflated with air, and upon careful examination, mucosa of the antrum, body, cardia and the fundus appeared grossly normal with some mild scattered erythema in the antrum and body suggestive of mild gastritis which was biopsied. The scope was then withdrawn into the esophagus. The GE junction was located at 40 cm from the incisors. The esophagus appeared normal, but was somewhat tortuous in appearance. Mid esophagus biopsies were taken given complaints of solid food dysphagia. There were no erosions or ulcerations seen and the patient tolerated the procedure well. IMPRESSION: 1. Mild scattered gastritis antrum and body, biopsied. 2. Mid esophageal biopsies. RECOMMENDATIONS: The findings of this examination were discussed with the patient and her . Okay to resume diet. Continue PPI therapy. Await pathology from biopsies. Follow up in GI clinic as previously scheduled.
[2018-06-06 11:23] VITALS: BP 163/89; PULSE 81
== END 2018-06-06 12:06 | disposition home or self-care (01) ==
LOC: ORWHC2ENDO 09:14
PROVIDERS: ATTEND Internal Medicine
DX: K29.50 Unspecified chronic gastritis without bleeding (principal); K21.0 Gastro-esophageal reflux disease with esophagitis; I25.10 Atherosclerotic heart disease of native coronary artery without angina pectoris; E78.5 Hyperlipidemia, unspecified; I10 Essential (primary) hypertension; I48.91 Unspecified atrial fibrillation; G62.9 Polyneuropathy, unspecified; G43.909 Migraine, unspecified, not intractable, without status migrainosus; M19.90 Unspecified osteoarthritis, unspecified site; Z79.01 Long term (current) use of anticoagulants; Z79.82 Long term (current) use of aspirin; Z79.899 Other long term (current) drug therapy; Z85.528 Personal history of other malignant neoplasm of kidney; Z90.5 Acquired absence of kidney; Z90.710 Acquired absence of both cervix and uterus; Z88.5 Allergy status to narcotic agent; Z88.8 Allergy status to other drugs, medicaments and biological substances
CPT/HCPCS: 88305; 43239; J2250; J2001; J3010; J2704

== ENCOUNTER → 2018-10-17 | Outpatient (CLI) | payer MEDICARE ==
--- NOTE | 2018-10-18 08:14 | CT ---
EXAMINATION TYPE: CT abdomen pelvis wo con DATE OF EXAM: 10/17/2018 COMPARISON: 09/29/2017 HISTORY: Left side kidney and bladder cancer. CT DLP: 978.9 mGycm Examination of the solid and hollow viscera is limited given the lack of contrast. FINDINGS: LUNG BASES: No evidence for nodule. No evidence for infiltrate. Glucose coronary artery calcifications. LIVER/GB: The gallbladder is surgically absent. No space-occupying hepatic lesion. PANCREAS: No pancreatic mass identified. No inflammatory process seen. SPLEEN: No evidence for splenomegaly. No intrasplenic lesions seen. ADRENALS: No adrenal nodules identified. No evidence for thickening. KIDNEYS: The left kidney is surgically absent with the left renal fossa being free of mass lesion. No evidence for renal mass. No nephrolithiasis. No hydronephrosis. BOWEL: Appendix has a normal appearance. No evidence of bowel obstruction. No inflammatory process. Lymph nodes: No evidence for adenopathy greater than 1 cm. Abdominal aorta: Atheromatous changes seen. No evidence for aneurysm. Genital organs: No significant abnormality. Other: Degenerative changes lumbar spine. Grade 1 anterolisthesis L4 and L5. IMPRESSION: 1. Left-sided nephrectomy changes without evidence for metastatic disease or recurrent disease. 2. Cardiomegaly with coronary artery calcification.
== END | disposition home or self-care (01) ==
LOC: RADCTMAIN 14:49
PROVIDERS: ATTEND Urology
DX: C64.2 Malignant neoplasm of left kidney, except renal pelvis (principal); D49.4 Neoplasm of unspecified behavior of bladder; Z90.5 Acquired absence of kidney; I51.7 Cardiomegaly; I25.10 Atherosclerotic heart disease of native coronary artery without angina pectoris; Z88.5 Allergy status to narcotic agent; Z88.6 Allergy status to analgesic agent
CPT/HCPCS: 74176

== ENCOUNTER 2018-11-29 08:41 | Inpatient (IN) | payer MEDICARE ==
--- NOTE | 2018-11-29 09:14 | ED ---
Fall HPI - General Chief Complaint: Fall Stated Complaint: Fall Time Seen by Provider: 11/29/18 08:42 Source: patient, EMS, RN notes reviewed, old records reviewed Mode of arrival: EMS - History of Present Illness Initial Comments: This is a 77-year-old female the ER for evaluation. Today patient presents for evaluation regards to fall. Patient had troponin fall last night EMS called thousand put her back in bed she does have some mild left hip. The time. Pain is worse more severe today. Patient denies any other complaints aside from a severe left hip pain. Patient was not amateur this morning secondary to severe pain that she woke up with. Patient's blood thinners MD Complaint: fall -: days(s) Fall From: standing When Fall Occurred: 24 hours ENERGY PROFESSIONAL Fall Witnessed: yes, by bystander (EMS) Place Fall Occurred: home Loss of Consciousness: none Prolonged Down Time?: yes Symptoms Prior to Fall: none Location: pelvis Location - Extremities: Left: Leg Severity: moderate, severe Severity scale (1-10): 6 Quality: sharp Context: tripped/slipped Associated Symptoms: denies - Related Data Home Medications Medication Instructions Recorded Confirmed Cetirizine HCl [Zyrtec] 10 mg PO DAILY 11/03/14 11/29/18 Isosorbide Mononitrate ER [Imdur] 30 mg PO DAILY 11/03/14 11/29/18 Nitroglycerin Sl Tabs [Nitrostat] 0.4 mg SUBLINGUAL Q5M PRN 11/03/14 11/29/18 Furosemide [Lasix] 40 mg PO DAILY 11/10/15 11/29/18 Lisinopril [Prinivil] 5 mg PO BID 05/14/18 11/29/18 Ranitidine HCl [Zantac] 75 mg PO DAILY 05/14/18 11/29/18 Allopurinol [Zyloprim] 100 mg PO DAILY 11/29/18 11/29/18 Apixaban [Eliquis] 2.5 mg PO BID 11/29/18 11/29/18 Aspirin 81 mg PO DAILY 11/29/18 11/29/18 Atorvastatin Calcium [Lipitor] 80 mg PO HS 11/29/18 11/29/18 Omeprazole [PriLOSEC] 40 mg PO AC-BID 11/29/18 11/29/18 Previous Rx's Medication Instructions Recorded HYDROcodone/APAP 10-325MG [[place] 1 tab PO Q6H PRN #0 10/02/17 10-325] Allergies Allergy/AdvReac Type Severity Reaction Status Date / Time propoxyphene Allergy Unknown Verified 11/29/18 08:55 [From Darvocet-N] codeine phosphate AdvReac Hallucinati Verified 11/29/18 08:55 [From Tylenol-Codeine #3] ons duloxetine [From Cymbalta] AdvReac c-diff Verified 11/29/18 08:55 meperidine HCl [From Demerol] AdvReac CHEST Verified 11/29/18 08:55 PAIN/Hallucinations pregabalin [From Lyrica] AdvReac Nausea & Verified 11/29/18 08:55 Vomiting Review of Systems ROS Statement: Those systems with pertinent positive or pertinent negative responses have been documented in the HPI. ROS Other: All systems not noted in ROS Statement are negative. Past Medical History Past Medical History: Atrial Fibrillation, Cancer, Chest Pain / Angina, GERD/Reflux, Hyperlipidemia, Hypertension, Osteoarthritis (OA), Pneumonia Additional Past Medical History / Comment(s): Gout, Neuropathy, hx migraines, A- Fib, Borderline diabetic per patient, hx kidney cancer History of Any Multi-Drug Resistant Organisms: C-DIFF Date of last positivie culture/infection: September 2017 MDRO Source:: stool Past Surgical History: Cholecystectomy, Heart Catheterization With Stent, Hysterectomy Additional Past Surgical History / Comment(s): Bilateral cataracts removed, left nephrectomy Past Anesthesia/Blood Transfusion Reactions: Motion Sickness, Postoperative Nausea & Vomiting (PONV) Date of Last Stent Placement:: unknown Past Psychological History: No Psychological Hx Reported Smoking Status: Never smoker Past Alcohol Use History: None Reported Past Drug Use History: None Reported - Past Family History Father Family Medical History: Diabetes Mellitus Mother Family Medical History: Cancer Additional Family Medical History / Comment(s): Ovarian cancer Sister(s) Family Medical History: Deep Vein Thrombosis (DVT) Brother(s) Family Medical History: Pulmonary Embolus General Exam Limitations: no limitations General appearance: alert, in no apparent distress Head exam: Present: atraumatic, normocephalic, normal inspection Eye exam: Present: normal appearance, PERRL, EOMI. Absent: scleral icterus, conjunctival injection, periorbital swelling ENT exam: Present: normal exam, mucous membranes moist Neck exam: Present: normal inspection. Absent: tenderness, meningismus, lymphadenopathy Respiratory exam: Present: normal lung sounds bilaterally. Absent: respiratory distress, wheezes, rales, rhonchi, stridor Cardiovascular Exam: Present: regular rate, normal rhythm, normal heart sounds. Absent: systolic murmur, diastolic murmur, rubs, gallop, clicks GI/Abdominal exam: Present: soft, normal bowel sounds. Absent: distended, tenderness, guarding, rebound, rigid Extremities exam: Present: normal inspection, full ROM, normal capillary refill. Absent: tenderness, pedal edema, joint swelling, calf tenderness Back exam: Present: normal inspection Neurological exam: Present: alert, oriented X3, CN II-XII intact Psychiatric exam: Present: normal affect, normal mood Skin exam: Present: warm, dry, intact, normal color. Absent: rash Course Vital Signs 11/29/18 11/29/18 11/29/18 08:50 09:30 11:30 Temperature 98.0 F Pulse Rate 114 H 107 H 112 H Respiratory 20 20 22 Rate Blood Pressure 136/86 139/86 145/68 O2 Sat by Pulse 95 99 95 Oximetry 11/29/18 12:49 Temperature Pulse Rate 89 Respiratory 18 Rate Blood Pressure 139/86 O2 Sat by Pulse 96 Oximetry - Reevaluation(s) Reevaluation #1: 11/29/18 11:26 medical records reviewed Reevaluation #2: 11/29/18 11:26 Patient does have current pain control Medical Decision Making - Medical Decision Making 77 female the ER for evaluation presented for evaluation regards to fall. Fall with left hip pain. Patient having chronic left hip pain intractable left hip pain unable to control. A. fib with RVR, patient be admitted for pain control and PTOT - Lab Data Result diagrams: 11/29/18 09:10 11/29/18 09:10 Lab Results 11/29/18 11/29/18 11/29/18 Range/Units 09:10 09:10 09:10 WBC 13.8 H (3.8-10.6) k/uL RBC 3.98 (3.80-5.40) m/uL Hgb 13.4 (11.4-16.0) gm/dL Hct 40.8 (34.0-46.0) % MCV 102.6 H (80.0-100.0) fL MCH 33.6 (25.0-35.0) pg MCHC 32.8 (31.0-37.0) g/dL RDW 14.4 (11.5-15.5) % Plt Count 219 (150-450) k/uL Neutrophils % 88 % Lymphocytes % 5 % Monocytes % 5 % Eosinophils % 1 % Basophils % 0 % Neutrophils # 12.1 H (1.3-7.7) k/uL Lymphocytes # 0.7 L (1.0-4.8) k/uL Monocytes # 0.7 (0-1.0) k/uL Eosinophils # 0.2 (0-0.7) k/uL Basophils # 0.0 (0-0.2) k/uL Macrocytosis Slight PT (9.0-12.0) sec INR (<1.2) APTT (22.0-30.0) sec Sodium 138 (137-145) mmol/L Potassium 4.6 (3.5-5.1) mmol/L Chloride 104 (98-107) mmol/L Carbon Dioxide 26 (22-30) mmol/L Anion Gap 8 mmol/L BUN 35 H (7-17) mg/dL Creatinine 1.47 H (0.52-1.04) mg/dL Est GFR (CKD-EPI)AfAm 39 (>60 ml/min/1.73 sqM) Est GFR (CKD-EPI)NonAf 34 (>60 ml/min/1.73 sqM) Glucose 147 H (74-99) mg/dL Plasma Lactic Acid John 1.8 (0.7-2.0) mmol/L Calcium 9.4 (8.4-10.2) mg/dL Phosphorus 2.9 (2.5-4.5) mg/dL Magnesium 2.0 (1.6-2.3) mg/dL Total Bilirubin 1.0 (0.2-1.3) mg/dL AST 22 (14-36) U/L ALT 22 (9-52) U/L Alkaline Phosphatase 138 H (38-126) U/L Creatine Kinase 55 (30-135) U/L Troponin I (0.000-0.034) ng/mL NT-Pro-B Natriuret Pep pg/mL Total Protein 7.4 (6.3-8.2) g/dL Albumin 4.0 (3.5-5.0) g/dL 11/29/18 11/29/18 11/29/18 Range/Units 09:10 09:10 09:10 WBC (3.8-10.6) k/uL RBC (3.80-5.40) m/uL Hgb (11.4-16.0) gm/dL Hct (34.0-46.0) % MCV (80.0-100.0) fL MCH (25.0-35.0) pg MCHC (31.0-37.0) g/dL RDW (11.5-15.5) % Plt Count (150-450) k/uL Neutrophils % % Lymphocytes % % Monocytes % % Eosinophils % % Basophils % % Neutrophils # (1.3-7.7) k/uL Lymphocytes # (1.0-4.8) k/uL Monocytes # (0-1.0) k/uL Eosinophils # (0-0.7) k/uL Basophils # (0-0.2) k/uL Macrocytosis PT 10.6 (9.0-12.0) sec INR 1.0 (<1.2) APTT 20.4 L (22.0-30.0) sec Sodium (137-145) mmol/L Potassium (3.5-5.1) mmol/L Chloride (98-107) mmol/L Carbon Dioxide (22-30) mmol/L Anion Gap mmol/L BUN (7-17) mg/dL Creatinine (0.52-1.04) mg/dL Est GFR (CKD-EPI)AfAm (>60 ml/min/1.73 sqM) Est GFR (CKD-EPI)NonAf (>60 ml/min/1.73 sqM) Glucose (74-99) mg/dL Plasma Lactic Acid John (0.7-2.0) mmol/L Calcium (8.4-10.2) mg/dL Phosphorus (2.5-4.5) mg/dL Magnesium (1.6-2.3) mg/dL Total Bilirubin (0.2-1.3) mg/dL AST (14-36) U/L ALT (9-52) U/L Alkaline Phosphatase (38-126) U/L Creatine Kinase (30-135) U/L Troponin I <0.012 (0.000-0.034) ng/mL NT-Pro-B Natriuret Pep 1490 pg/mL Total Protein (6.3-8.2) g/dL Albumin (3.5-5.0) g/dL - EKG Data -: EKG Interpreted by Me (EKG shows A. fib with RVR 109, QRS 90, QTc 463) - Radiology Data Radiology results: report reviewed (CT brain C-spine, x-ray pelvis left hip x- ray chest and left knee is negative for traumatic injury), image reviewed Disposition Clinical Impression: Fall, Atrial fibrillation with RVR, Left hip pain Disposition: ADMITTED IP TO THIS HOSP Condition: Good Is patient prescribed a controlled substance at d/c from ED?: No Referrals: Philippe Miramontes DO [Primary Care Provider] - 1-2 days
--- NOTE | 2018-11-29 09:30 | XR ---
EXAMINATION TYPE: XR chest 1V DATE OF EXAM: 11/29/2018 COMPARISON: Chest x-ray May 14, 2018. HISTORY: Follow-up treated with chest pain. TECHNIQUE: Single AP portable frontal semiupright view of the chest is obtained. FINDINGS: There is chronic parenchymal change with persistent lateral left basilar opacity. Right l nancie remains clear. No pleural effusion or pneumothorax seen bilaterally. The cardiac silhouette size remains enlarged. The osseous structures are intact. IMPRESSION: Cardiomegaly and chronic changes without new acute pulmonary process clearly seen.
[2018-11-29 09:37] LABS: Basophils % (A) 0 %; Eosinophils # (A) 0.2 k/uL (0-0.7); Eosinophils % (A) 1 %; HCT 40.8 % (34.0-46.0); HGB 13.4 gm/dL (11.4-16.0); Lymphocytes # (A) 0.7 k/uL (1.0-4.8); Lymphocytes % (A) 5 %; MCH 33.6 pg (25.0-35.0); MCHC 32.8 g/dL (31.0-37.0); MCV 102.6 fL (80.0-100.0); Macrocytosis Slight; Mean Platelet Volume 7.3; Monocytes # (A) 0.7 k/uL (0-1.0); Monocytes % (A) 5 %; Neutrophils # (A) 12.1 k/uL (1.3-7.7); Neutrophils % (A) 88 %; Platelet Count 219 k/uL (150-450); RBC 3.98 m/uL (3.80-5.40); RDW 14.4 % (11.5-15.5); WBC 13.8 k/uL (3.8-10.6)
[2018-11-29 09:46] LABS: Prothrombin Time 10.6 sec (9.0-12.0)
[2018-11-29 09:47] LABS: Calcium 9.4 mg/dL (8.4-10.2); Phosphorus 2.9 mg/dL (2.5-4.5); Potassium 4.6 mmol/L (3.5-5.1); Total Protein 7.4 g/dL (6.3-8.2)
[2018-11-29 09:58] LABS: Partial Thromboplastin Time 20.4 sec (22.0-30.0)
[2018-11-29] MEDS ORDERED: MORPHINE SULFATE 4 MG/ML SYRINGE IVP STA (10:20)
--- NOTE | 2018-11-29 10:58 | CT ---
EXAMINATION TYPE: CT brain thaddeus mathews DATE OF EXAM: 11/29/2018 COMPARISON: HISTORY: fall today. Trauma And pain CT DLP: 1326.8 mGycm Automated exposure control for dose reduction was used. TECHNIQUE: CT scan of the head and cervical spine are performed without contrast. FINDINGS: There is no acute intracranial hemorrhage, mass effect, or midline shift identified. The ventricles and sulci are within normal limits in size. The globes are intact and the visualized sin uses are clear. There are cerebral vascular calcifications present. Periventricular white matter show s patchy low attenuation. Cervical spine is visualized in its entirety from C1 through upper thoracic levels and demonstrates s atisfactory alignment without evidence of acute fracture or dislocation. Prevertebral soft tissue ap pears within normal limits. There is multilevel spondylosis. Minimal retrolisthesis grade 1 C3-4, an terolisthesis grade 1 C5-6. Loss of disc height present C6-7. There is multilevel facet arthropathy. Multilevel foraminal encroachment also noted. The C1-C2 articulation is unremarkable. IMPRESSION: 1. There is no acute fracture or dislocation evident in the cervical spine. 2. No acute intracranial hemorrhage, mass effect, or midline shift is seen.
--- NOTE | 2018-11-29 11:15 | XR ---
EXAMINATION TYPE: XR knee limited LT DATE OF EXAM: 11/29/2018 CLINICAL HISTORY: Left knee pain. TECHNIQUE: Frontal and lateral views of the left knee are obtained. COMPARISON: None. FINDINGS: There is no acute fracture/dislocation evident in the left knee. Meniscal calcifications a re present. Mild to moderate narrowing medial tibiofemoral compartment. Large suprapatellar joint ef fusion is seen with bulging of the distal quadriceps tendon. [place] osseous structures are deminerali zed. IMPRESSION: Large suprapatellar joint effusion without acute fracture identified. Demineralization an d degenerative changes are present.
--- NOTE | 2018-11-29 11:45 | XR ---
EXAMINATION TYPE: XR Hip LT and AP Pelvis DATE OF EXAM: 11/29/2018 COMPARISON: CT 10/17/2018 HISTORY: Pain TECHNIQUE: A single AP view of the pelvis is obtained. Two views of the left hip are obtained. FINDINGS: There is no acute fracture/dislocation evident in the pelvis. The hip and sacroiliac join ts appear symmetric and unremarkable. The overlying soft tissue appears unremarkable. Two views of left hip show no acute fracture or dislocation. No focal lytic or sclerotic lesion seen in the proximal left femur. The overlying soft tissue is unremarkable. Surgical clips are present in the region overlying the left ilium. Degenerative disc changes are present in the visualized spine . Bone mineralization is reduced. Mild marginal spurring present within the hips. Some soft tissue ca lcification shows a nonaggressive appearance within the proximal left thigh posteriorly, possible inj ection granuloma. IMPRESSION: There is no acute fracture or dislocation in the pelvis or left hip. Mild osteoarthritic changes suspected. Degenerative disc changes noted incidentally within the lumbar spine. Osteopenia.
[2018-11-29] MEDS ORDERED: DILTIAZEM DRIP BOLUS FROM BAG 1 MG SOLN IV ONE (12:12)
[2018-11-29] MEDS ORDERED: DILTIAZEM 125 MG in SODIUM CHLORIDE 0.9% 100 ML IV SCH (12:15)
[2018-11-29] MEDS ORDERED: DILTIAZEM 5 MG/ML 5 ML VIAL IVP STA (12:52)
--- NOTE | 2018-11-29 13:31 | CT ---
EXAMINATION TYPE: CT hip LT wo con DATE OF EXAM: 11/29/2018 COMPARISON: Pelvic and left hip x-ray earlier today. CT abdomen and pelvis October 17, 2018 HISTORY: Pain CT DLP: 565.8 mGycm Automated exposure control for dose reduction was used. FINDINGS: Demineralization is redemonstrated. There is some spurring from the greater trochanter again seen. No acute displaced fracture is evident. [id number] axial joint space loss with mild acetabular sp urring is redemonstrated. No groin adenopathy. No groin hernia. Muscle bulk maintained. No suspicious focal fluid collection is seen. IMPRESSION: NO ACUTE FRACTURE OR DISLOCATION IN THE LEFT HIP. FINDINGS CORRELATE WITH SAME DAY X-RAY.
[2018-11-29] MEDS ORDERED: SODIUM CHLORIDE 0.9% 1,000 ML IV ONE (13:38)
[2018-11-29] MEDS: MORPHINE SULFATE 4 MG/ML SYRINGE IVP PRN ×2 (14:35→18:23)
[2018-11-29 17:11] LABS: Appearance,Urine Clear (Clear); Bilirubin,Urine Negative (Negative); Blood,Urine Small (Negative); Color,Urine Yellow; Glucose,Urine (UA) Negative (Negative); Ketones,Urine Negative (Negative); Leukocyte Esterase,Urine Large (Negative); Mucus,Urine Rare /hpf; Nitrite,Urine Negative (Negative); Protein,Urine Trace (Negative); RBC,Urine 10 /hpf (0-5); Specific Gravity,Urine 1.022 (1.001-1.035); Squamous Epithelial Cell,Urine 4 /hpf (0-4); Urobilinogen,Urine <2.0 mg/dL (<2.0); WBC,Urine 26 /hpf (0-5)
[2018-11-29] MEDS ORDERED: NITROGLYCERIN SL TABS 0.4 MG TAB SUBLINGUAL PRN (20:10)
[2018-11-29] MEDS ORDERED: cloNIDine HCL 0.1 MG TAB PO PRN (20:15)
[2018-11-29] MEDS ORDERED: hydrALAZINE HCL 20 MG/ML 1 ML VIAL IVP PRN (20:15)
--- NOTE | 2018-11-29 21:17 | CT ---
EXAMINATION TYPE: CT thor lumbar spine wo con DATE OF EXAM: 11/29/2018 COMPARISON: 05/14/2018 HISTORY: Left hip pain, fall injury CT DLP: 2396.3 mGycm Automated exposure control for dose reduction was used. FINDINGS: The thoracic vertebra have fairly normal alignment. There is a 2 mm anterior subluxation of L4 in rel ation L5. There is 10% compression deformity of the superior endplate of L3 vertebra. There is 15% de pression of the superior endplate of T11 that appears old. There is no thoracic paraspinal mass. Post erior elements are intact. There is patchy infiltrate and atelectasis in the posterior lung basilio wi th pleural thickening. There is spurring in the mid and lower thoracic spine. IMPRESSION: THERE IS MILD COMPRESSION FRACTURE OF L3 THAT APPEARS ACUTE AND IS A CHANGE COMPARED TO OLD EXAM. THERE IS MILD COMPRESSION FRACTURE OF T11 UNCHANGED. MULTILEVEL HYPERTROPHIC DEGENERATIVE DISC CHANGE S. 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
--- NOTE | 2018-11-29 21:25 | CT ---
EXAMINATION TYPE: CT abdomen pelvis wo con DATE OF EXAM: 11/29/2018 COMPARISON: 10/17/2018 HISTORY: Left hip pain, fall injury CT DLP: 2396.3 mGycm Automated exposure control for dose reduction was used. TECHNIQUE: Helical acquisition of images was performed from the lung bases through the pelvis. FINDINGS: There is some scarring and subsegmental atelectasis at the lung bases. Heart is enlarged. Liver shows no focal defect. There are clips from cholecystectomy. There is no evidence of pancreatic mass. Spleen appears normal. There is left-sided nephrectomy. Right kidney shows normal size and con tour. There is no hydronephrosis. There is coronary artery calcification. There is no retroperitoneal adenopathy. Bladder distends smoothly. There is no free fluid in the pelvis. There is 10% compressio n fracture superior endplate of L3 that appears acute. There is no inguinal hernia. The bony pelvis is intact. Abdominal aorta is atheromatous. There is no mesenteric edema. There is no ascites or free air. There is no sign of a bowel obstruction. IMPRESSION: NO ACUTE ABNORMALITY WITHIN THE ABDOMEN AND PELVIS. SCARRING AND SUBSEGMENTAL ATELECTASIS AT THE LUNG BASES. ACUTE COMPRESSION FRACTURE L3. Mild subcutaneous density over the lower buttocks consistent w ith bruising.
[2018-11-29] MEDS: HYDROmorphone 1 MG/ML 1 ML SYRINGE IVP PRN (21:29)
[2018-11-29] MEDS: ATORVASTATIN 80 MG TAB PO SCH (21:34)
[2018-11-29] MEDS: LISINOPRIL 5 MG TAB PO SCH (21:34)
--- NOTE | 2018-11-29 23:22 | HP ---
HISTORY AND PHYSICAL DATE OF SERVICE: 11/29/2018 CHIEF COMPLAINT: Back pain, leg pain and fall. HISTORY OF PRESENT ILLNESS: This 77-year-old woman with a past medical history of multiple medical problems including history of atrial fibrillation, history of GERD, hypertension, hyperlipidemia, history of DJD, history of C difficile, history of gout, history of CAD stent being followed by Dr. Philippe Miramontes in the outpatient setting apparently slipped and fell last night at home and the patient apparently is complaining of back pain. Now the patient complains of severe pain on the left leg and high sensitivity in the both legs and the patient was taken to [facility] and admitted for further evaluation and treatment. There is no history of fever, rigors, or chills. No history of headache, loss of consciousness or seizures. PAST MEDICAL HISTORY: History of atrial fibrillation, history of GERD, hypertension, history of DJD, history of gout, neuropathy. MEDICATIONS: Home medications are: 1. Prilosec 40 mg p.o. b.i.d. 2. Lasix 40 mg daily. 3. Lipitor 80 mg q.h.s. 4. Eliquis 2.5 mg b.i.d. 5. Zantac 75 mg p.o. daily. 6. Nitrostat 0.4 mg p.r.n. 7. Prinivil 5 mg p.o. b.i.d. 8. Zyrtec 10 mg. 9. Aspirin 81 mg p.o. daily. 10.Imdur 30 mg p.o. daily. 11.[place] 10 mg q.6h p.r.n. 12.Zyloprim 100 mg p.o. daily. ALLERGIES: DARVOCET-N 100, CODEINE, CYMBALTA, DEMEROL, DECAF. FAMILY HISTORY: History of ovarian cancer in the family. SOCIAL HISTORY: No history of smoking. No history of alcohol intake. REVIEW OF SYSTEMS: ENT diminished vision. Diminished hearing. CARDIOVASCULAR: No angina. RESPIRATION: No cough. No hemoptysis. GI as mentioned earlier. no dysuria or hematuria. CENTRAL NERVOUS SYSTEM: As mentioned earlier. ALLERGIES: No asthma or hayfever. MUSCULOSKELETAL as mentioned earlier. HEMATOLOGY/ONCOLOGY: No history of anemia. ENDOCRINE: No history of diabetes or hypothyroidism. CONSTITUTIONAL: As mentioned earlier. DERMATOLOGY: Negative. RHEUMATOLOGY negative. PSYCHIATRY as mentioned. PHYSICAL EXAMINATION: Alert and oriented times three. Pulse 86, blood pressure 164/114, respiration 20, temperature 99.2, pulse ox 94% on 2 L. HEENT: Conjunctivae normal. Oral mucosa moist. NECK is no jugular venous distention. No carotid bruit. No lymph node enlargement. Cardiovascular system: S1, S2. No S4, no S3. pressure in the bases. No rhonchi. No crackles. ABDOMEN: Soft, obese, nontender. No mass palpable. No guarding. No rigidity. LEGS: Significant pain and tenderness and exquisite hypersensitive to both legs. Minimal movements noted. Reflexes are diminished. No sensory abnormalities noted. NERVOUS SYSTEM as mentioned earlier, otherwise upper limbs normal. Lower limbs as mentioned earlier skin no ulcer rash. Lymphatics: No lymph nodes palpable in the neck, axillae or groin. JOINTS: No active deforming arthropathy. LABS: WBC 13.8, hemoglobin 13.4, sodium 130, potassium 4.2, creatinine is 1.47. UA noted. ASSESSMENT: 1. Fall and back pain, rule out contusion. 2. Gait dysfunction because of severe pain and fall. 3. Increased creatinine with acute renal failure possibly prerenal renal failure. 4. Increased WBC. 5. Possible urinary tract infection present on admission. 6. Atrial fibrillation. 7. History of gastroesophageal reflux disease. 8. Hypertension. 9. Hyperlipidemia. 10.History of degenerative joint disease. 11.History of gout. 12.History of neuropathy. 13.History of kidney cancer. 14.History of C difficile colitis. 15.History of CAD-stent. RECOMMENDATIONS AND DISCUSSION: In this 77-year-old woman who presented to the [facility] with multiple medical issues, we will monitor the patient closely. Continue the current management. We will offer symptomatic treatment of the pain. I would also recommend a CT scan of the lumbosacral spine and continue to monitor. X-ray of the hip did not show any acute fracture. Also recommend evaluation by Dr. Rapp for the back pain. Otherwise, overall prognosis guarded. Repeat labs will be ordered. See orders for details and I will hold the anticoagulants for now and further recommendations to follow. Thank you for this consultation. MMODL / IJN: [id number] /
[2018-11-30] MEDS: HYDROmorphone 1 MG/ML 1 ML SYRINGE IVP PRN ×4 (00:29→15:29)
[2018-11-30] MEDS: HYDROcodone/APAP 10-325MG 1 EACH TAB PO PRN ×4 (02:34→19:29)
[2018-11-30] MEDS: ISOSORBIDE MONONITRATE ER 30 MG TAB.ER.24H PO SCH (08:06)
[2018-11-30] MEDS: LISINOPRIL 5 MG TAB PO SCH ×2 (08:07→19:29)
[2018-11-30] MEDS: PANTOPRAZOLE 40 MG TABLET PO SCH ×2 (08:07→17:26)
[2018-11-30] MEDS: FUROSEMIDE 40 MG TAB PO SCH (08:07)
[2018-11-30] MEDS: LORATADINE 10 MG TAB PO SCH (08:07)
[2018-11-30] MEDS: FAMOTIDINE 20 MG TAB PO SCH (08:07)
[2018-11-30] MEDS: ALLOPURINOL 100 MG TAB PO SCH (08:08)
[2018-11-30 08:31] LABS: Basophils % (A) 0 %; Eosinophils % (A) 0 %; HCT 43.7 % (34.0-46.0); HGB 13.5 gm/dL (11.4-16.0); Lymphocytes # (A) 0.6 k/uL (1.0-4.8); Lymphocytes % (A) 4 %; MCH 32.7 pg (25.0-35.0); MCHC 30.9 g/dL (31.0-37.0); MCV 105.9 fL (80.0-100.0); Macrocytosis Moderate; Mean Platelet Volume 7.2; Monocytes # (A) 1.2 k/uL (0-1.0); Monocytes % (A) 7 %; Neutrophils # (A) 14.6 k/uL (1.3-7.7); Neutrophils % (A) 88 %; Platelet Count 235 k/uL (150-450); RBC 4.12 m/uL (3.80-5.40); RDW 14.8 % (11.5-15.5); WBC 16.7 k/uL (3.8-10.6)
[2018-11-30 08:43] LABS: Calcium 8.6 mg/dL (8.4-10.2); Potassium 4.7 mmol/L (3.5-5.1)
[2018-11-30] MEDS: DIAZEPAM 5 MG/ML 2 ML INJ IVP PRN ×2 (11:27→23:06)
--- NOTE | 2018-11-30 11:45 | P.CNOR ---
History of Present Illness - HPI Consult date: 11/30/18 History of present illness: This is a 77-year-old female who is admitted after a fall at home. Patient states that she slipped on water on the floor in her home and fell to the ground. Patient states that she used her walker to get to her bedroom, but was then transferred to the emergency room via EMS for further evaluation. Today patient complains of lower back pain and pain in the left knee. Patient states that she has pain in the entire left lower extremity, but especially in the left knee. Patient denies any change in bowel or bladder function and she denies any saddle anesthesia. Patient states that the lower extremities are especially sensitive and she has trouble tolerating any blankets on her feet due to sensitivity and pain. Patient complains of muscle spasms in the left lower extremity. Patient states that she thinks she has seen Dr. Rapp in the past for her back, but she denies having any previous back braces or surgery. Patient's past medical history significant for atrial fibrillation, history of renal cell carcinoma, neuropathy, GERD, hyperlipidemia and hypertension. Patient denies any fever/chills, numbness, weakness, tingling, abdominal pain, shortness of breath or chest pain. Review of Systems See HPI. Past Medical History Past Medical History: Atrial Fibrillation, Cancer, Chest Pain / Angina, GERD/Reflux, Hyperlipidemia, Hypertension, Osteoarthritis (OA), Pneumonia Additional Past Medical History / Comment(s): Gout, Neuropathy, hx migraines, A- Fib, Borderline diabetic per patient, hx kidney cancer History of Any Multi-Drug Resistant Organisms: C-DIFF Year Discovered:: September 2017 MDRO Source:: stool Past Surgical History: Cholecystectomy, Heart Catheterization With Stent, Hysterectomy Additional Past Surgical History / Comment(s): Bilateral cataracts removed, left nephrectomy Past Anesthesia/Blood Transfusion Reactions: Motion Sickness, Postoperative Nausea & Vomiting (PONV) Date of Last Stent Placement:: unknown Past Psychological History: No Psychological Hx Reported Smoking Status: Never smoker Past Alcohol Use History: None Reported Past Drug Use History: None Reported - Past Family History Father Family Medical History: Diabetes Mellitus Mother Family Medical History: Cancer Additional Family Medical History / Comment(s): Ovarian cancer Sister(s) Family Medical History: Deep Vein Thrombosis (DVT) Brother(s) Family Medical History: Pulmonary Embolus Medications and Allergies Home Medications Medication Instructions Recorded Confirmed Type Cetirizine HCl [Zyrtec] 10 mg PO DAILY 11/03/14 11/29/18 History Isosorbide Mononitrate ER [Imdur] 30 mg PO DAILY 11/03/14 11/29/18 History Nitroglycerin Sl Tabs [Nitrostat] 0.4 mg SUBLINGUAL Q5M PRN 11/03/14 11/29/18 History Furosemide [Lasix] 40 mg PO DAILY 11/10/15 11/29/18 History HYDROcodone/APAP 10-325MG [[place] 1 tab PO Q6H PRN #0 10/02/17 11/29/18 Rx 10-325] Lisinopril [Prinivil] 5 mg PO BID 05/14/18 11/29/18 History Ranitidine HCl [Zantac] 75 mg PO DAILY 05/14/18 11/29/18 History Allopurinol [Zyloprim] 100 mg PO DAILY 11/29/18 11/29/18 History Apixaban [Eliquis] 2.5 mg PO BID 11/29/18 11/29/18 History Aspirin 81 mg PO DAILY 11/29/18 11/29/18 History Atorvastatin Calcium [Lipitor] 80 mg PO HS 11/29/18 11/29/18 History Omeprazole [PriLOSEC] 40 mg PO AC-BID 11/29/18 11/29/18 History Allergies Allergy/AdvReac Type Severity Reaction Status Date / Time propoxyphene Allergy Unknown Verified 11/29/18 08:55 [From Darvocet-N] codeine phosphate AdvReac Hallucinati Verified 11/29/18 08:55 [From Tylenol-Codeine #3] ons duloxetine [From Cymbalta] AdvReac c-diff Verified 11/29/18 08:55 meperidine HCl [From Demerol] AdvReac CHEST Verified 11/29/18 08:55 PAIN/Hallucinations pregabalin [From Lyrica] AdvReac Nausea & Verified 11/29/18 08:55 Vomiting Physical Examination On exam patient is lying flat in bed in no acute distress. Patient does appear uncomfortable due to pain in the knee and lower back. Patient is alert and oriented. Patient has significant tenderness over the left knee. Left lower extremity is very sensitive to light touch. There is mild swelling over the left knee. There is no erythema or ecchymosis and skin is intact. Patient has limited range of motion of the left knee due to pain. There is no tenderness to palpation over the right lower extremity and patient has full range of motion of the right lower extremity without pain or difficulty. Sensation is intact bilaterally. Dorsalis pedis pulses are 2+ bilaterally. Bilateral lower extremities are warm and well perfused. Neurovascular status and circulatory status are intact. Results A CT of the thoracic and lumbar spine dated 11/29/2018 shows: 1. There is mild compression fracture of L3 that appears acute and is a change compared to old exam. 2.There is mild compression fracture of T11 unchanged. Multilevel hypertrophic degenerative disc changes. Degenerative first degree L4-[address] and x-rays of the left hip dated 11/29/2018 as negative for any fracture or dislocation. X-rays of the left knee dated 11/29/2017 show a large suprapatellar joint effusion without acute fracture identified. Demineralization and degenerative changes are present. A CT of the brain and C-spine dated 11/29/2018 shows: 1. There is no acute fracture or dislocation evident in the cervical spine. 2. No acute intracranial hemorrhage, mass effect, or midline shift is seen. - Labs Labs: Abnormal Lab Results - Last 24 Hours (Table) 11/29/18 11/30/18 11/30/18 Range/Units 16:50 07:52 07:52 WBC 16.7 H (3.8-10.6) k/uL MCV 105.9 H (80.0-100.0) fL MCHC 30.9 L (31.0-37.0) g/dL Neutrophils # 14.6 H (1.3-7.7) k/uL Lymphocytes # 0.6 L (1.0-4.8) k/uL Monocytes # 1.2 H (0-1.0) k/uL BUN 30 H (7-17) mg/dL Creatinine 1.29 H (0.52-1.04) mg/dL Glucose 162 H (74-99) mg/dL Urine Protein Trace H (Negative) Urine Blood Small H (Negative) Ur Leukocyte Esterase Large H (Negative) Urine RBC 10 H (0-5) /hpf Urine WBC 26 H (0-5) /hpf Urine Mucus Rare H (None) /hpf H & H 11/29/18 11/30/18 Range/Units 09:10 07:52 Hgb 13.4 13.5 (11.4-16.0) gm/dL Hct 40.8 43.7 (34.0-46.0) % Coagulation 11/29/18 Range/Units 09:10 INR 1.0 (<1.2) Result Diagrams: 11/30/18 07:52 11/30/18 07:52 Assessment and Plan Assessment: Atrial fibrillation History of renal cell carcinoma GERD Hyperlipidemia Hypertension (1) Compression fracture of L3 vertebra Current Visit: Yes Status: Acute Code(s): S32.030A - [place]EDGE COMPRESSION FRACTURE OF THIRD LUMBAR VERTEBRA, INIT SNOMED Code(s): 546289600 (2) Left knee pain Current Visit: Yes Status: Acute Code(s): M25.562 - PAIN IN LEFT KNEE SNOMED Code(s): 64576337 (3) Fall Current Visit: Yes Status: Acute Code(s): W19.XXXA - UNSPECIFIED FALL, INITIAL ENCOUNTER SNOMED Code(s): 4604024 Plan: 1. Imaging is reviewed. An MRI of the left knee is pending. Recommend knee immobilizer to left lower extremity. 2. Valium as needed for muscle spasms. 3. LSO to brace for L3 compression fracture is ordered. 4. Appreciate input from internal medicine. 5. Further recommendations pending MRI results. Will continue to follow closely.
--- NOTE | 2018-11-30 17:02 | PN ---
PROGRESS NOTE DATE OF SERVICE: 11/30/2018. This 77-year-old woman was admitted with a fall and complaining of severe hip and back pain. The patient evaluated by Orthopedic surgery also, Dr. Rapp. CT showed mild compression fracture of L3 acute and mild compression fracture of T11, which is unchanged. X-ray showed large effusion without any acute abnormality and abdominal and pelvis CT scan showed compression fracture of L3. The patient complaining of severe pain. PAST MEDICAL HISTORY: Reviewed. REVIEW OF SYSTEMS: CARDIOVASCULAR: No angina or palpitations. RESPIRATORY: As mentioned earlier. GI as mentioned earlier. no dysuria. NERVOUS SYSTEM as mentioned earlier. CURRENT MEDICATIONS: Reviewed and include: 1. [place] 10 mg q.6h p.r.n. 2. Zyloprim 100 mg daily. 3. Lipitor 80 mg q.h.s. 4. Rocephin 1 g daily. 5. Catapres 0.1 q.4 p.r.n. 6. Valium 5 mg q.6 p.r.n. 7. Pepcid 20 mg p.o. 8. Lasix 40 mg. 9. Apresoline 10 mg q.4 p.r.n. 10.Dilaudid 1 mg and 0.5 mg. 11.Imdur 30 mg p.o. 12.Zestril 5 mg p.o. b.i.d. 13.Claritin. 14.Nitrostat. 15.Protonix. PHYSICAL EXAM: Patient is alert, oriented x3. Pulse is 80. Blood pressure is 124/78, respiration 18, temperature 98.5, pulse ox 98% on room air. HEENT: Conjunctivae normal. Oral mucosa moist. NECK is no jugular venous distention. No carotid bruit. No lymph node enlargement. CARDIOVASCULAR system: S1, S2 muffled. No S3, no S4. RESPIRATIONS: Breath sounds diminished in the bases. A few scattered rhonchi and crackles. ABDOMEN: Soft, obese, nontender. No mass palpable. LEGS: Movement of the left leg is extremely painful. Otherwise significant diffuse weakness present. NERVOUS SYSTEM: Otherwise normal. SKIN: No ulcers, rashes or bleeding. JOINTS: No active deforming arthropathy. Significant tenderness in the back also present. LABS: WBC 16.7, hemoglobin 13.5, sodium 140, potassium 4.7. Creatinine is 1.29. ASSESSMENT: 1. Fall and back pain possibly L3 fracture compression, acute. 2. Gait dysfunction because of severe pain and fall. 3. Left knee suprapatellar effusion. 4. Increased creatinine with acute renal failure possibly prerenal acute renal failure and acute tubular necrosis. 5. Increased WBC. 6. Urinary tract infection, present on admission. 7. Atrial fibrillation, rate controlled. 8. History of gastroesophageal reflux disease. 9. Hypertension. 10.Hyperlipidemia. 11.History of degenerative joint disease. 12.History of gout. 13.History of neuropathy. 14.History of kidney cancer. 15.History of C difficile colitis. 16.History of coronary artery disease/ stent. RECOMMENDATIONS AND DISCUSSION: Recommend to continue current medications, monitoring, management and symptomatic treatment. Otherwise, at this time, I would recommend continue the pain medications. I would also recommend a uric acid estimation. Otherwise, I would continue the pain medications. Orthopedic evaluation. Possible evaluation of the left knee also. See orders for further details. Guarded prognosis because of multiple complex medical issues. Further recommendations to follow. See orders for details. MMODL / IJN: [id number] / MTDD
[2018-11-30] MEDS: ATORVASTATIN 80 MG TAB PO SCH (19:29)
[2018-12-01] MEDS: HYDROcodone/APAP 10-325MG 1 EACH TAB PO PRN ×3 (01:11→12:34)
[2018-12-01] MEDS: DIAZEPAM 5 MG/ML 2 ML INJ IVP PRN ×2 (05:28→11:29)
[2018-12-01] MEDS: FAMOTIDINE 20 MG TAB PO SCH (07:04)
[2018-12-01] MEDS: LORATADINE 10 MG TAB PO SCH (07:04)
[2018-12-01] MEDS: ISOSORBIDE MONONITRATE ER 30 MG TAB.ER.24H PO SCH (07:04)
[2018-12-01] MEDS: FUROSEMIDE 40 MG TAB PO SCH (07:04)
[2018-12-01] MEDS: LISINOPRIL 5 MG TAB PO SCH ×2 (07:04→20:37)
[2018-12-01] MEDS: ALLOPURINOL 100 MG TAB PO SCH (07:05)
[2018-12-01] MEDS: PANTOPRAZOLE 40 MG TABLET PO SCH ×2 (07:05→17:40)
[2018-12-01 07:45] LABS: Basophils % (A) 0 %; Eosinophils # (A) 0.2 k/uL (0-0.7); Eosinophils % (A) 1 %; HCT 41.6 % (34.0-46.0); HGB 12.9 gm/dL (11.4-16.0); Hypochromasia Slight; Lymphocytes # (A) 0.7 k/uL (1.0-4.8); Lymphocytes % (A) 5 %; MCH 33.1 pg (25.0-35.0); MCV 106.6 fL (80.0-100.0); Macrocytosis Moderate; Mean Platelet Volume 7.4; Monocytes # (A) 1.1 k/uL (0-1.0); Monocytes % (A) 8 %; Neutrophils # (A) 12.2 k/uL (1.3-7.7); Neutrophils % (A) 84 %; Platelet Count 205 k/uL (150-450); RDW 14.7 % (11.5-15.5); WBC 14.5 k/uL (3.8-10.6)
[2018-12-01 07:58] LABS: Calcium 9.1 mg/dL (8.4-10.2); Potassium 4.7 mmol/L (3.5-5.1)
--- NOTE | 2018-12-01 09:19 | P.PN ---
Subjective Progress Note Date: 12/01/18 This is a 77-year-old female who was admitted after a fall. Patient complains of back pain and left knee pain. Patient states that her pain has slightly improved today, but the left lower extremity is still very sensitive and painful. Patient denies any new symptoms or complaints today. Objective - Vital Signs Vital signs: Vital Signs Temp 97.9 F 12/01/18 05:10 Pulse 102 H 12/01/18 05:10 Resp 18 12/01/18 05:10 BP 153/90 12/01/18 05:10 Pulse Ox 96 12/01/18 05:10 Intake & Output 11/30/18 12/01/18 12/01/18 18:59 06:59 18:59 Intake Total 50 Output Total 400 200 Balance -400 -150 Intake: Oral 50 Output: Urine 400 200 Other: Voiding Method Incontinent Incontinent Incontinent - Exam On exam patient is lying comfortably in bed in no acute distress. The left lower extremity is very sensitive to light touch. There is tenderness to palpation over the left knee along with moderate swelling. There is no erythema or ecchymosis and skin is intact. Dorsalis pedis pulse is 2+. Patient is able to wiggle the toes. Patient has limited range of motion of the left lower extremity due to significant pain with slight movements and light touch. Sensation is intact. Calves are soft and nontender to palpation. Neurovascular status circulatory status are intact. Patient was rolled with assistance onto her right side for closer examination of the back, and this caused significant pain in the left lower extremity. There is no obvious step-off or deformity of the cervical, thoracic or lumbar spine. There is no swelling or erythema. - Labs CBC & Chem 7: 12/01/18 07:06 12/01/18 07:06 Labs: Abnormal Lab Results - Last 24 Hours (Table) 12/01/18 12/01/18 Range/Units 07:06 07:06 WBC 14.5 H (3.8-10.6) k/uL MCV 106.6 H (80.0-100.0) fL Neutrophils # 12.2 H (1.3-7.7) k/uL Lymphocytes # 0.7 L (1.0-4.8) k/uL Monocytes # 1.1 H (0-1.0) k/uL BUN 31 H (7-17) mg/dL Creatinine 1.22 H (0.52-1.04) mg/dL Glucose 131 H (74-99) mg/dL Assessment and Plan Assessment: Atrial fibrillation History of renal cell carcinoma GERD Hyperlipidemia Hypertension (1) Compression fracture of L3 vertebra Current Visit: Yes Status: Acute Code(s): S32.030A - [place] COMPRESSION FRACTURE OF THIRD LUMBAR VERTEBRA, INIT SNOMED Code(s): 467660455 (2) Left knee pain Current Visit: Yes Status: Acute Code(s): M25.562 - PAIN IN LEFT KNEE SNOMED Code(s): 92405856 (3) Fall Current Visit: Yes Status: Acute Code(s): W19.XXXA - UNSPECIFIED FALL, INITIAL ENCOUNTER SNOMED Code(s): 3880458 Plan: 1. MRI of the left knee was not able to be done yesterday and MRI is not available on Sunday. MRI of the left is scheduled to be done on 12/02/2018 2. Patient has been unable to tolerate the knee immobilizer due to skin sensitivity of the left lower extremity. 3. LSO to brace for L3 compression fracture is ordered. 4. Appreciate input from internal medicine. 5. Further recommendations pending MRI results. Will continue to follow closely.
[2018-12-01] MEDS: HYDROmorphone 1 MG/ML 1 ML SYRINGE IVP PRN ×3 (09:22→20:37)
[2018-12-01] MEDS ORDERED: methylPREDNISolone SOD SUCCI 125 MG/2 ML VIAL IV STA (13:02)
[2018-12-01] MEDS: ATORVASTATIN 80 MG TAB PO SCH (20:37)
[2018-12-01] MEDS: HEPARIN SODIUM,PORCINE 5,000 UNIT/ML 1 ML VIAL SQ SCH (20:37)
--- NOTE | 2018-12-01 21:00 | PN ---
PROGRESS NOTE DATE OF SERVICE: 12/01/2018. This 77-year-old woman was admitted with fall and back pain possibly has L3 compression fracture. The patient still has significant pain of the leg. Orthopedic surgery is following the patient closely. Neurology evaluation in progress. A thoracic lumbar spine CT scan was done yesterday which was reviewed. MRI of the back has been ordered at this time by Orthopedic surgery. PAST MEDICAL HISTORY: Reviewed. REVIEW OF SYSTEMS: Cardiovascular system as mentioned earlier. GI no nausea or vomiting. no dysuria. Central nervous system: As mentioned earlier. Musculoskeletal: As mentioned earlier. CURRENT MEDICATIONS: Reviewed and include: 1. Zyloprim 100 mg p.o. daily. 2. Lipitor 80 mg q.h.s. 3. Rocephin 1 g IV daily. 4. Catapres 0.1 q.4 p.r.n. 5. Valium 5 mg q.6 p.r.n. 6. Pepcid 20 mg p.o. daily. 7. Lasix 40 mg p.o. daily. 8. Apresoline 10 mg q.4 p.r.n. 9. Dilaudid 0.5 mg q.3 p.r.n. 10.Imdur 30 mg p.o. daily. 11.Zestril 5 mg p.o. b.i.d. 12.Claritin 10 mg p.o. daily. 13.Medrol Dosepak 25 mg p.o. daily. 14.Percocet 5 q.6h. 15.Protonix 40 mg p.o. b.i.d. PHYSICAL EXAMINATION: Patient is alert, oriented x2. Pulse is 102. Blood pressure 153/90, respiration 18, temperature 96.9, pulse ox 98% on 2 L. HEENT: Conjunctivae normal. Oral mucosa moist. NECK is no jugular venous distention. No carotid bruit. No lymph node enlargement. Cardiovascular: S1, S2 muffled. RESPIRATIONS: Breath sounds diminished in the bases. A few scattered rhonchi and crackles. ABDOMEN: Soft, nontender. LEGS: Significant pain on movement of the left leg present. Right leg patient is able to lift from the ground. NERVOUS SYSTEM could not be tested because of severe pain in the left leg. Skin: No ulcer. No rash. No bleeding. Joints: No active deforming arthropathy. LABS: WBC 14.7 and sodium 113, potassium 4.7. Creatinine is 1.22. UA noted. ASSESSMENT: 1. Fall and back pain, possible L3 compression fracture, acute. 2. Gait dysfunction, possibly because of severe pain and fall. 3. Left knee suprapatellar effusion. 4. Increased creatinine with acute renal failure possibly prerenal acute renal failure and acute tubular necrosis. 5. Increased WBC. 6. Urinary tract infection present on admission. 7. Atrial fibrillation, rate controlled. 8. History of gastroesophageal reflux disease. 9. Hypertension. 10.Hyperlipidemia. 11.History of degenerative joint disease. 12.History of gout. 13.History of neuropathy. 14.History of kidney cancer. 15.History of C difficile colitis. 16.History of coronary artery disease/ stent. RECOMMENDATIONS AND DISCUSSION: Recommend to continue current medications, management and symptomatic treatment. Otherwise, at this time, I recommend continue with the current medications, continue with symptomatic treatment. Continue the pain medication. DVT prophylaxis. Otherwise, steroids has been empirically given by Orthopedic surgery followed by a Medrol Dosepak. We will continue to monitor. Patient is also on empiric antibiotics. Further recommendations to follow. MMODL / IJN: [id number] /
[2018-12-02] MEDS: oxyCODONE-APAP 5-325MG 1 EACH TAB PO PRN ×2 (00:19→21:07)
[2018-12-02] MEDS: FUROSEMIDE 40 MG TAB PO SCH (08:42)
[2018-12-02] MEDS: ALLOPURINOL 100 MG TAB PO SCH (08:42)
[2018-12-02] MEDS: ISOSORBIDE MONONITRATE ER 30 MG TAB.ER.24H PO SCH (08:42)
[2018-12-02] MEDS: FAMOTIDINE 20 MG TAB PO SCH (08:42)
[2018-12-02] MEDS: LORATADINE 10 MG TAB PO SCH (08:42)
[2018-12-02] MEDS: PANTOPRAZOLE 40 MG TABLET PO SCH ×2 (08:42→17:35)
[2018-12-02] MEDS: LISINOPRIL 5 MG TAB PO SCH ×2 (08:42→21:07)
[2018-12-02] MEDS: HEPARIN SODIUM,PORCINE 5,000 UNIT/ML 1 ML VIAL SQ SCH ×3 (08:43→21:13)
[2018-12-02] MEDS ORDERED: methylPREDNISolone 4 MG TAB TAPER PO SCH (09:00)
[2018-12-02 09:54] LABS: Basophils % (A) 0 %; Eosinophils % (A) 0 %; HCT 41.9 % (34.0-46.0); HGB 13.2 gm/dL (11.4-16.0); Lymphocytes # (A) 0.6 k/uL (1.0-4.8); Lymphocytes % (A) 4 %; MCH 33.4 pg (25.0-35.0); MCHC 31.6 g/dL (31.0-37.0); MCV 105.9 fL (80.0-100.0); Macrocytosis Moderate; Mean Platelet Volume 8.4; Monocytes # (A) 0.7 k/uL (0-1.0); Monocytes % (A) 5 %; Neutrophils # (A) 12.3 k/uL (1.3-7.7); Neutrophils % (A) 90 %; Platelet Count 229 k/uL (150-450); RBC 3.96 m/uL (3.80-5.40); RDW 15.4 % (11.5-15.5); WBC 13.7 k/uL (3.8-10.6)
[2018-12-02 10:10] LABS: Calcium 9.5 mg/dL (8.4-10.2); Potassium 4.6 mmol/L (3.5-5.1)
[2018-12-02] MEDS: HYDROmorphone 1 MG/ML 1 ML SYRINGE IVP PRN ×3 (11:09→23:42)
--- NOTE | 2018-12-02 11:18 | MR ---
EXAMINATION TYPE: MR knee LT wo con DATE OF EXAM: 12/02/2018 COMPARISON: X-ray dated 11/29/2018 HISTORY: Left knee pain TECHNIQUE: Multiplanar, multisequence imaging of the left knee is performed without IV contrast. FINDINGS: Exam is severely limited due to motion artifact. There is a large suprapatellar lipohemarthrosis. There is extensive marrow edema involving the latera l femoral condyle with findings compatible with acute fracture extending to the articular surface. Mi nimal displacement noted. Assessment of the menisci and ligaments are markedly limited due to motion artifact. Grossly findings are suspicious for a complex tear involving the posterior horn the medial meniscus as well as a tear involving the anterior horn of the lateral meniscus. There is poor definition of the anterior cruciate ligament suggestive of tear posterior cruciate liga ment is intact Diffuse soft tissue edema noted. Grossly patellar cartilage is maintained. Grossly no medial collateral and lateral collateral ligaments are intact. Patellar and quadriceps ten dons grossly intact. Marrow edema along the inferior pole of the patella with no definite fracture li ne. There is edema within the posterior margins of the vastus medialis and lateralis suggestive of intram uscular strain. IMPRESSION: 1. Large area of marrow edema involving the lateral femoral condyle with lipohemarthrosis. Minimally displaced fracture extending to the articular surface of the lateral fact the femur noted. Osteochond ritis a less likely consideration. No free fragments. 2. Limited assessment of the menisci and ligaments due to significant motion artifact. Findings are c ompatible with a complex tear involving the posterior horn the medial meniscus. Anterior horn lateral meniscus also suspected. 3. Poor definition of the ACL on the sagittal images could be on the basis of motion artifact. [place] l images demonstrate normal insertion and origin of the ligament. Given the limitation exam ACL injur y with need to be correlated clinically for exclusion. 4. Bone contusion inferior patella. 5. Intramuscular strain and vastus medialis and lateralis.
--- NOTE | 2018-12-02 13:01 | P.PN ---
Progress Note - Text Progress Note Date: 12/02/18 Patient is a pleasant 77-year-old male who is seen and examined at bedside for further evaluation in regards to her lumbar spine. Patient is a examined by orthopedics over the weekend after a recent fall. She states she fell on her buttocks. She was brought to the hospital by EMS on 11/29/2018. Since her admission she has not had any improvement of her symptoms. She states she is unsure how much lumbar pain she has as she is unable to get out of bed or ambulate since her admittance. Her most significant complaint is severe pain down the left lower extremity. She feels she fell on her buttocks but is unsure if she had a part of her left lower extremity. She denies any specific pain or weakness of the right lower extremity. She continues with significant difficulty with any active range of motion of the left lower extremity. She significant weight tender with even light palpation over the entire left lower extremity. She has difficulty with active range of motion of the left lower extremity. She states her left lower extremity is painful with even the touch of the bed sheets. Imaging of the left hip and knee have been negative for acute fracture. She is currently planned to have an MRI of the left knee performed today. Consultation has also been placed with pain management. Patient has not had any significant change or improvement of her symptoms since her. An LSO brace has been prescribed for her L3 fracture. She states she has previously seen Dr. Rapp in the outpatient setting for further evaluation in regards to her low back pain and states surgical intervention would require rods and screws and the patient and Dr. Rapp were not planning to proceed forward with any surgical intervention. Physical exam: Patient is awake, alert, and oriented 3 Vital signs stable Good chest excursion with deep inspiration and expiration Examination of lumbar spine is unable to be performed as patient is currently unable to roll or move while lying in bed due to severe left lower extremity leg pain Patient is lying comfortably in bed Dorsiflexion, plantarflexion, and extensor hallucis longus positive sustained on the right Significant pain with even light palpation entire left lower extremity Patient is unable to perform any significant active range of motion left lower extremity Pain with any palpation of the left hip and thigh Appears to be Neurovascularly intact for the bilateral lower extremities Pertinent studies: X-ray of the left hip and pelvis taken on 11/29/2018: No acute fracture dislocation in the pelvis or left hip; mild osteoarthritic changes suspected; osteopenia X-rays left knee taken on 11/29/2018: Large suprapatellar joint effusion without evidence of fracture identified; mild to moderate narrowing medial tibiofemoral compartment CT of the left hip taken on 11/29/2018: No evidence of fracture dislocation in the left hip; findings correlate with x-rays performed on the same day; demineralization redemonstrated CT of the thoracic and lumbar spine taken on 11/29/2018: Chronic T11 compression fracture deformity with approximately 15% height loss; evidence of acute L3 compression fracture deformity which has changes compared to previous study taken on 05/14/2017; L4-5 spondylolisthesis Assessment: Acute, severe, debilitating left lower extremity pain and weakness Acute left knee pain Large left suprapatellar Status post fall Acute L3 compression fracture deformity with approximately 10% Chronic T11 superior endplate compression fracture deformity with approximately 15% height loss L4-5 spondylolisthesis Plan: 1. Patient is experiencing significant left lower extremity pain and weakness and difficulty with any active range of motion of the left lower extremity following her recent fall. She states she fell on her buttocks but is unsure if she landed on her left lower extremity. She does have evidence of suprapatellar effusion on x-ray of the left knee. She is currently scheduled for an MRI of the left knee today. She was also found to have an L3 compression fracture deformity. An LSO brace has been ordered. It is difficult to determine the severity of her pain in regards her L3 fracture as she's been unable to ambulate or get out of bed since her minutes to the hospital due to her left lower extremity. Her symptoms are atypical that she has significant pain with any palpation left lower extremity even with light palpation or with contact with the bed sheets. She is able to minimally wiggle the toes of left foot. She is unable to perform any active dorsiflexion or plantarflexion or active range of motion with aggressive left lower extremity. She appears to be neurovascularly intact in the left lower extremity. At this time consultation has been placed with pain management. We'll currently wait for further evaluation and recommendations from pain management. Patient is also waiting for delivery of LSO brace. We will wait for results following the MRI of the left knee. Following previous evaluation assessment in the outpatient setting, we are not currently planning for acute surgical intervention in regards to her lumbosacral spine. We will continue to follow patient will follow-up with a plan of care proceeding forward depending on further imaging and further assessment by other medical providers. 2. Patient will be discussed in detail with Dr. Dano Rapp 3. Patient currently wait for consultation with pain management 4. Patient will continue to be seen by medicine for her other medical diagnoses
--- NOTE | 2018-12-02 13:36 | P.PN ---
Subjective Progress Note Date: 12/02/18 This is a 77-year-old female who was admitted after a fall. Patient complains of back pain and left knee pain. Patient states that the left lower extremity is still very sensitive and painful. Patient denies any new symptoms or complaints today. Objective - Vital Signs Vital signs: Vital Signs Temp 97.6 F 12/02/18 04:10 Pulse 81 12/02/18 04:10 Resp 20 12/02/18 04:10 BP 139/81 12/02/18 04:10 Pulse Ox 97 12/02/18 04:10 Intake & Output 12/01/18 12/02/18 12/02/18 18:59 06:59 18:59 Intake Total 500 Output Total 800 350 Balance -800 150 Intake: Oral 500 Output: Urine 800 350 Other: Voiding Method Incontinent Incontinent Incontinent - Exam On exam patient is lying comfortably in bed in no acute distress. The left lower extremity is very sensitive to light touch. There is tenderness to palpation over the left knee along with moderate swelling. There is no erythema or ecchymosis and skin is intact. Dorsalis pedis pulse is 2+. Patient is able to wiggle the toes. Patient has limited range of motion of the left lower extremity due to significant pain with slight movements and light touch. Sensation is intact. Calves are soft and nontender to palpation. Neurovascular status circulatory status are intact. - Labs CBC & Chem 7: 12/02/18 09:00 12/02/18 09:00 Labs: Abnormal Lab Results - Last 24 Hours (Table) 12/02/18 12/02/18 Range/Units 09:00 09:00 WBC 13.7 H (3.8-10.6) k/uL MCV 105.9 H (80.0-100.0) fL Neutrophils # 12.3 H (1.3-7.7) k/uL Lymphocytes # 0.6 L (1.0-4.8) k/uL BUN 32 H (7-17) mg/dL Creatinine 1.29 H (0.52-1.04) mg/dL Glucose 211 H (74-99) mg/dL Assessment and Plan Assessment: Atrial fibrillation History of renal cell carcinoma GERD Hyperlipidemia Hypertension (1) Compression fracture of L3 vertebra Current Visit: Yes Status: Acute Code(s): S32.030A - WEDGE COMPRESSION FRACTURE OF THIRD LUMBAR VERTEBRA, INIT SNOMED Code(s): 362592965 (2) Left knee pain Current Visit: Yes Status: Acute Code(s): M25.562 - PAIN IN LEFT KNEE SNOMED Code(s): 52919957 (3) Fall Current Visit: Yes Status: Acute Code(s): W19.XXXA - UNSPECIFIED FALL, INITIAL ENCOUNTER SNOMED Code(s): 9368565 (4) Closed fracture of lateral condyle of left femur Current Visit: Yes Status: Acute Code(s): S72.422A - DISP FX OF LATERAL CONDYLE OF LEFT FEMUR, INIT FOR CLOS FX SNOMED Code(s): 933823701 Plan: 1. MRI of the left knee is reviewed showin. Large area of marrow edema involving the lateral femoral condyle with li pohemarthrosis. Minimally displaced fracture extending to the articular surf stephany of the lateral fact the femur noted. Osteochondritis a less likely consideration. No free fragments. 2. Limited assessment of the menisci and ligaments due to significant motion artifact. Findings are compatible with a complex tear involving the posterior horn the medial meniscus. Anterior horn lateral meniscus also suspected. 3. Poor definition of the ACL on the sagittal images could be on the basis of motion artifact. Coronal images demonstrate normal insertion and origin of the ligament. Given the limitation exam ACL injury with need to be correlated clinically for exclusion. 4. Bone contusion inferior patella. 5. Intramuscular strain and vastus medialis and lateralis. 2. Non-operative treatment is recommended at this time. Recommend toe-touch weightbearing with knee immobilizer to left lower extremity. 3. LSO brace when out of bed as tolerated. 4. Appreciate input from internal medicine. 5. Physical therapy for mobilization. 6. Will continue to follow the patient closely.
[2018-12-02] MEDS ORDERED: LIDOCAINE 2% INJ 20 MG/ML (20 ML MDV) SQ STA (13:38)
--- NOTE | 2018-12-02 14:18 | P.CNNES ---
History of Present Illness Consult date: 12/02/18 Reason for Consult: back pain Chief complaint: back pain History of Present Illness: REFERRING PHYSICIAN: Dr. Alfa Guaman HISTORY OF PRESENT ILLNESS: Thank you for allowing me to evaluate Ms. Maite Garces. Ms. Garces is a 77 year-old woman with PMHx of atrial fibrillation, GERD, hypertension, gout, neuropathy, degenerative joint disease, renal cancer, who presented after a fall last Sunday, consulted neurology for back pain. Patient states that she slipped and fell in her house. She fell her buttock, did not hit her head and did not lose consciousness. Patient came to the hospital right away. Patient noted that she was having significant pain in her lower extremities, and she was barely able to move much of her left lower extremity. During eval, patient is very anxious and concerned about any possible examination on will have to do on her lower extremities as patient reports her legs, especially her left leg, is sensitive to all types of touch. Patient denies any headache, nausea, vomiting, dizziness, double vision/blurry vision. Patient has a diaper on. She states that she is able to sense that her bladder is full. She knows when she is going. Patient has not had a bowel movement since her fall on Sunday. PAST MEDICAL HISTORY: atrial fibrillation, GERD, hypertension, gout, neuropathy, degenerative joint disease, renal cancer PAST SURGICAL HISTORY: Cholecystectomy, hysterectomy, cardiac stent placement, nephrectomy HOME MEDICATIONS: Prilosec 40 mg by mouth twice a day, Lasix 40 mg daily, Lipitor 80 mg, Eliquis 2.5 mg twice a day, Zantac 75, Nitrostat, Prinivil, Zyrtec, aspirin, Imdur, Hoffman, Zyloprim ALLERGIES: Codeine, duloxetine, meperidine, pregabalin, propoxyphene SOCIAL HISTORY: No history of smoking. No history of alcohol or drug abuse. FAMILY HISTORY: Ovarian cancer REVIEW OF SYSTEMS: The 14 systems are reviewed and no additional points are identified compared to the review of systems documented history and physical PHYSICAL EXAMINATION: VITAL SIGNS:temperature 97.6 pulse rate 81 respiratory rate 20 blood pressure 139/81 O2 saturation 97% on 2 L of nasal cannula GEN.: In distress, mostly cooperative but very anxious HEENT: NCAT, sclera without icterus NECK: Supple SKIN AND EXTREMITIES: Warm to touch, no edema NEURO: MENTAL STATUS: Patient alert and oriented to self, place, time. Able to name the current president. Speech fluent, able to name and repeat, following all commands readily. CRANIAL NERVES II THROUGH XII: II: Pupils are equal and reactive to light symmetrically. Visual basilio are intact. III, IV, : No ptosis. Extraocular movements full. No nystagmus. V: Facial sensation intact from V1-3. VII. No clear facial asymmetry. VIII: Hearing intact to finger rub bilaterally. IX, X: Symmetric palate elevation. XII: Shoulder shrug intact. XII: Tongue midline without fasciculation or atrophy. MOTOR: Normal bulk/tone. No pronator drift or tremor. Strength is 5/5 in bilateral upper extremity. Patient is able to move her right foot but refuses to undergo exam with resistance. With her left lower sidhu, patient is unable to even move her foot or toes. Patient states that "it will move when it wants to as I have noticed some spasms." SENSORY: Limited exam last patient refusing to cooperate with this portion of the exam due to significant sensitivity to any touch. Even placing her sheet on her legs causes anxiety and patient. Patient with increased sensitivity even to light touch up to the T11/12 level in her trunk. REFLEXES: Unable to check reflexes as patient refusing any touch with the reflex hammer. Patient agreed to allow me to slightly stroke her right foot first. Patient is started tearing up complaining of pain, limited try to displace my finger on her left foot, patient became more tearful. COORDINATION: Finger to nose intact. No dysmetria. GAIT: Deferred as patient with significant pain DIAGNOSTIC TESTING: LABORATORY: WBC 14.5 local control 0.9 platelets 205 PT 10.6 INR 1.0 sodium 139 potassium 4.7 chloride 105 bicarb 24 BUN 31 creatinine1.2 to glucose 131 AST 22 ALT 22 Urine analysis large LeukEsterase urine WBC 26 negative nitrite IMAGING: CT head and C-spine without contrast 11/29/2018: there is no acute fracture or dislocation evident in the cervical spine. No acute intracranial hemorrhage mass effect or midline shift is noted CT hip left without contrast 11/29/2018: fracture or dislocations in the left hip. CT of abdomen/pelvis without contrast 11/29/2018: neurology within the abdomen and pelvis. Scarring or subsegmental atelectasis at the lung bases. Acute compression fracture of L3. Mild subcutaneous density over the lower buttocks consistent with bruising CT T-spine and lumbar spine without contrast 11/29/2018: There is mild compression fracture of L3 that appears acute and is a change compared to exam. There is mild compression fracture of T11 unchanged. Multilevel hypertrophic degenerative disc changes. Degenerative first-degree L4 to 5 spondylolisthesis unchanged. MRI of the left knee: Large area of edema involving the lateral femoral condyle with lipohemarthrosis. Minimally displaced fracture extending start another surface of the lateral femur. ASSESSMENT and RECOMMENDATIONS: Ms. Garces is a 77 year-old woman with PMHx of atrial fibrillation, GERD, hypertension, gout, neuropathy, degenerative joint disease, renal cancer, who presented after a fall last Sunday, consulted neurology for back pain. Her pain began after her fall on Sunday. On imaging, patient found with an acute co mpression fracture of L3. Patient also with a mild compression fracture of T11. Patient's sensation deficits noted above could be from both T11 and L3 compression fracture found on imaging. Orthopedic surgery is following, recommend nonoperative treatment. Her back pain along with lower extremity pain with unclear etiology. Pain management per primary team. Neurology will sign off at this time. Past Medical History Past Medical History: Atrial Fibrillation, Cancer, Chest Pain / Angina, GERD/Reflux, Hyperlipidemia, Hypertension, Osteoarthritis (OA), Pneumonia Additional Past Medical History / Comment(s): Gout, Neuropathy, hx migraines, A- Fib, Borderline diabetic per patient, hx kidney cancer History of Any Multi-Drug Resistant Organisms: C-DIFF Date of last positivie culture/infection: September 2017 MDRO Source:: stool Past Surgical History: Cholecystectomy, Heart Catheterization With Stent, Hysterectomy Additional Past Surgical History / Comment(s): Bilateral cataracts removed, left nephrectomy Past Anesthesia/Blood Transfusion Reactions: Motion Sickness, Postoperative Nausea & Vomiting (PONV) Date of Last Stent Placement:: unknown Past Psychological History: No Psychological Hx Reported Smoking Status: Never smoker Past Alcohol Use History: None Reported Past Drug Use History: None Reported - Past Family History Father Family Medical History: Diabetes Mellitus Mother Family Medical History: Cancer Additional Family Medical History / Comment(s): Ovarian cancer Sister(s) Family Medical History: Deep Vein Thrombosis (DVT) Brother(s) Family Medical History: Pulmonary Embolus Medications and Allergies Home Medications Medication Instructions Recorded Confirmed Type Cetirizine HCl [Zyrtec] 10 mg PO DAILY 11/03/14 11/29/18 History Isosorbide Mononitrate ER [Imdur] 30 mg PO DAILY 11/03/14 11/29/18 History Nitroglycerin Sl Tabs [Nitrostat] 0.4 mg SUBLINGUAL Q5M PRN 11/03/14 11/29/18 History Furosemide [Lasix] 40 mg PO DAILY 11/10/15 11/29/18 History HYDROcodone/APAP 10-325MG [Hoffman 1 tab PO Q6H PRN #0 10/02/17 11/29/18 Rx 10-325] Lisinopril [Prinivil] 5 mg PO BID 05/14/18 11/29/18 History Ranitidine HCl [Zantac] 75 mg PO DAILY 05/14/18 11/29/18 History Allopurinol [Zyloprim] 100 mg PO DAILY 11/29/18 11/29/18 History Apixaban [Eliquis] 2.5 mg PO BID 11/29/18 11/29/18 History Aspirin 81 mg PO DAILY 11/29/18 11/29/18 History Atorvastatin Calcium [Lipitor] 80 mg PO HS 11/29/18 11/29/18 History Omeprazole [PriLOSEC] 40 mg PO AC-BID 11/29/18 11/29/18 History Allergies Allergy/AdvReac Type Severity Reaction Status Date / Time propoxyphene Allergy Unknown Verified 11/29/18 08:55 [From Darvocet-N] codeine phosphate AdvReac Hallucinati Verified 11/29/18 08:55 [From Tylenol-Codeine #3] ons duloxetine [From Cymbalta] AdvReac c-diff Verified 11/29/18 08:55 meperidine HCl [From Demerol] AdvReac CHEST Verified 11/29/18 08:55 PAIN/Hallucinations pregabalin [From Lyrica] AdvReac Nausea & Verified 11/29/18 08:55 Vomiting Physical Examination - Vital Signs Vital Signs: Vital Signs Temp Pulse Resp BP BP Pulse Ox 12/02/18 04:10 97.6 F 81 20 139/81 97 12/01/18 21:25 98.3 F 99 20 132/81 97 12/01/18 16:00 18 12/01/18 15:00 97.9 F 102 H 18 145/94 95 Intake and Output 12/01/18 12/02/18 12/02/18 22:59 06:59 14:59 Intake Total 300 200 Output Total 350 Balance 300 -150 Intake: Oral 300 200 Output: Urine 350 Other: Voiding Method Incontinent Results - Laboratory Findings CBC and BMP: 12/02/18 09:00 12/02/18 09:00 Abnormal Lab Findings: Abnormal Labs 11/29/18 11/29/18 11/29/18 09:10 09:10 09:10 WBC 13.8 H MCV 102.6 H MCHC Neutrophils # 12.1 H Lymphocytes # 0.7 L Monocytes # APTT 20.4 L BUN 35 H Creatinine 1.47 H Glucose 147 H Alkaline Phosphatase 138 H Urine Protein Urine Blood Ur Leukocyte Esterase Urine RBC Urine WBC Urine Mucus 11/29/18 11/30/18 11/30/18 16:50 07:52 07:52 WBC 16.7 H MCV 105.9 H MCHC 30.9 L Neutrophils # 14.6 H Lymphocytes # 0.6 L Monocytes # 1.2 H APTT BUN 30 H Creatinine 1.29 H Glucose 162 H Alkaline Phosphatase Urine Protein Trace H Urine Blood Small H Ur Leukocyte Esterase Large H Urine RBC 10 H Urine WBC 26 H Urine Mucus Rare H 12/01/18 12/01/18 07:06 07:06 WBC 14.5 H MCV 106.6 H MCHC Neutrophils # 12.2 H Lymphocytes # 0.7 L Monocytes # 1.1 H APTT BUN 31 H Creatinine 1.22 H Glucose 131 H Alkaline Phosphatase Urine Protein Urine Blood Ur Leukocyte Esterase Urine RBC Urine WBC Urine Mucus
--- NOTE | 2018-12-02 16:34 | P.PAINCN ---
History of Present Illness - Reason for Consult Consult date: 12/02/18 - History of Present Illness This is a 77-year-old female who is admitted after a fall at home. Patient states that she slipped on water on the floor in her home and fell to the ground. Patient states that she used her walker to get to her bedroom, but was then transferred to the emergency room via EMS for further evaluation. Today patient complains of lower back pain and pain in the left lower extremity. Patient states that she has pain in the entire left lower extremity, but especially in the left knee. She is unable to move her left lower extremity and has been unable to bear weight on it since the fall. Patient denies any change in bowel or bladder function and she denies any saddle anesthesia. Patient states that the lower extremities are especially sensitive and she has trouble t olerating any blankets on her feet due to sensitivity and pain. Patient complains of muscle spasms in the left lower extremity. She has undergone a CT lumbar spine and was evaluated by orthopedics, who recommended conservative management and involvement of pain management. Her current pain medications include Dilaudid 0.5 mg to 1 mg every 3 when necessary and Percocet 5 mg 1-2 tablets every 6 when necessary. She also takes Eliquis at home, but has not received any doses while inpatient, last dose was 11/29/2018. Patient's past medical history significant for atrial fibrillation, history of renal cell carcinoma, neuropathy, GERD, hyperlipidemia and hypertension. Patient denies any fever/chills, numbness, weakness, tingling, abdominal pain, shortness of breath or chest pain. In addition to above, 13-point review of systems is also negative for chest pain, shortness of breath, changes in vision, changes in hearing, abdominal pain, diarrhea, extreme fatigue, malaise, fever, skin changes, homicidal or suicidal ideation, or bowel or bladder incontinence. Physical exam: Vital Signs: Reviewed in EMR GENERAL: Well appearing, in no acute distress PSYCH: Mood is tearful. Awake, alert, and oriented SKIN: Skin color, texture, turgor normal, no rashes or lesions HEENT: Normocephalic, atraumatic. EOM intact CV: No pedal edema RESP: Respirations are unlabored, no audible wheezing GI: Abdomen non-distended MUSCULOSKELETAL: Patient unable to move left hip, left knee, left ankle due to pain, and is unwilling to allow me to passively move her leg. She is able to move left toes. Right side full ROM. Exquisite tenderness to light touch in left entire foot. NEUR: Cranial nerves are grossly intact. Imaging: CT lumbar spine shows acute compression fracture at L310% loss of height. Anterolisthesis of L4 on L5 resulting in moderate spinal canal stenosis and right greater than left moderate to severe neural foraminal stenosis. Assessment: 1. Lumbar radiculopathy 2. Lumbar compression fracture 3. A. fib on Eliquis, last dose 11/29/2018 Plan: 1. Procedures: We'll schedule left sided L4-5 transforaminal epidural steroid injection tomorrow. Hold heparin on day of procedure and nothing by mouth from midnight 2. Medications: Per primary team Disposition: for above-mentioned procedure Past Medical History Past Medical History: Atrial Fibrillation, Cancer, Chest Pain / Angina, GERD/Reflux, Hyperlipidemia, Hypertension, Osteoarthritis (OA), Pneumonia Additional Past Medical History / Comment(s): Gout, Neuropathy, hx migraines, A- Fib, Borderline diabetic per patient, hx kidney cancer History of Any Multi-Drug Resistant Organisms: C-DIFF Year Discovered:: September 2017 MDRO Source:: stool Past Surgical History: Cholecystectomy, Heart Catheterization With Stent, Hysterectomy Additional Past Surgical History / Comment(s): Bilateral cataracts removed, left nephrectomy Past Anesthesia/Blood Transfusion Reactions: Motion Sickness, Postoperative Nausea & Vomiting (PONV) Date of Last Stent Placement:: unknown Past Psychological History: No Psychological Hx Reported Smoking Status: Never smoker Past Alcohol Use History: None Reported Past Drug Use History: None Reported - Past Family History Father Family Medical History: Diabetes Mellitus Mother Family Medical History: Cancer Additional Family Medical History / Comment(s): Ovarian cancer Sister(s) Family Medical History: Deep Vein Thrombosis (DVT) Brother(s) Family Medical History: Pulmonary Embolus Medications and Allergies Home Medications Medication Instructions Recorded Confirmed Type Cetirizine HCl [Zyrtec] 10 mg PO DAILY 11/03/14 11/29/18 History Isosorbide Mononitrate ER [Imdur] 30 mg PO DAILY 11/03/14 11/29/18 History Nitroglycerin Sl Tabs [Nitrostat] 0.4 mg SUBLINGUAL Q5M PRN 11/03/14 11/29/18 History Furosemide [Lasix] 40 mg PO DAILY 11/10/15 11/29/18 History HYDROcodone/APAP 10-325MG [Ronks 1 tab PO Q6H PRN #0 10/02/17 11/29/18 Rx 10-325] Lisinopril [Prinivil] 5 mg PO BID 05/14/18 11/29/18 History Ranitidine HCl [Zantac] 75 mg PO DAILY 05/14/18 11/29/18 History Allopurinol [Zyloprim] 100 mg PO DAILY 11/29/18 11/29/18 History Apixaban [Eliquis] 2.5 mg PO BID 11/29/18 11/29/18 History Aspirin 81 mg PO DAILY 11/29/18 11/29/18 History Atorvastatin Calcium [Lipitor] 80 mg PO HS 11/29/18 11/29/18 History Omeprazole [PriLOSEC] 40 mg PO AC-BID 11/29/18 11/29/18 History Allergies Allergy/AdvReac Type Severity Reaction Status Date / Time propoxyphene Allergy Unknown Verified 11/29/18 08:55 [From Darvocet-N] codeine phosphate AdvReac Hallucinati Verified 11/29/18 08:55 [From Tylenol-Codeine #3] ons duloxetine [From Cymbalta] AdvReac c-diff Verified 11/29/18 08:55 meperidine HCl [From Demerol] AdvReac CHEST Verified 11/29/18 08:55 PAIN/Hallucinations pregabalin [From Lyrica] AdvReac Nausea & Verified 11/29/18 08:55 Vomiting Physical Exam Vitals: Vital Signs Temp Pulse Resp BP BP Pulse Ox 12/02/18 13:55 98.5 F 94 18 157/88 97 12/02/18 04:10 97.6 F 81 20 139/81 97 12/01/18 21:25 98.3 F 99 20 132/81 97 Intake and Output 12/02/18 12/02/18 12/02/18 06:59 14:59 22:59 Intake Total 200 Output Total 350 Balance -150 Intake: Oral 200 Output: Urine 350 Other: Voiding Method Incontinent Incontinent # Voids 3 Results CBC & Chem 7: 12/02/18 09:00 12/02/18 09:00 Labs: Abnormal Lab Results - Last 24 Hours (Table) 12/02/18 12/02/18 Range/Units 09:00 09:00 WBC 13.7 H (3.8-10.6) k/uL MCV 105.9 H (80.0-100.0) fL Neutrophils # 12.3 H (1.3-7.7) k/uL Lymphocytes # 0.6 L (1.0-4.8) k/uL BUN 32 H (7-17) mg/dL Creatinine 1.29 H (0.52-1.04) mg/dL Glucose 211 H (74-99) mg/dL PQRS Measure Charge Sheet PQRS Narrative: Smoking Status Never smoker Do You Want the Pneumonia Vaccine Up to Date Vaccine AT THIS TIME? Blood Pressure [Left Arm] 157/88 Blood Pressure [Right Arm] 132/81 Blood Pressure 164/109 Pain Intensity [Left Hip] 0 Pain Intensity 8 Pain Scale Used Numeric (1 - 10) Scale Used Numeric (1 - 10) Home Medications: Ambulatory Orders Cetirizine HCl [Zyrtec] 10 mg PO DAILY 11/03/14 Isosorbide Mononitrate ER [Imdur] 30 mg PO DAILY 11/03/14 Nitroglycerin Sl Tabs [Nitrostat] 0.4 mg SUBLINGUAL Q5M PRN 11/03/14 Furosemide [Lasix] 40 mg PO DAILY 11/10/15 HYDROcodone/APAP 10-325MG [Ronks 10-325] 1 tab PO Q6H PRN #0 10/02/17 Lisinopril [Prinivil] 5 mg PO BID 05/14/18 Ranitidine HCl [Zantac] 75 mg PO DAILY 05/14/18 Allopurinol [Zyloprim] 100 mg PO DAILY 11/29/18 Apixaban [Eliquis] 2.5 mg PO BID 11/29/18 Aspirin 81 mg PO DAILY 11/29/18 Atorvastatin Calcium [Lipitor] 80 mg PO HS 11/29/18 Omeprazole [PriLOSEC] 40 mg PO AC-BID 11/29/18
[2018-12-02 17:28] LABS: Glucose,Whole Blood 344 mg/dL (75-99)
[2018-12-02] MEDS: COLCHICINE 0.6 MG EACH PO SCH (17:35)
[2018-12-02] MEDS: INSULIN ASPART (NovoLOG) 100 UNIT/ML VIAL SQ SCH ×2 (17:35→21:07)
[2018-12-02] MEDS: methylPREDNISolone SOD SUCCI 125 MG/2 ML VIAL IV SCH ×2 (17:35→23:38)
--- NOTE | 2018-12-02 18:43 | PN ---
PROGRESS NOTE DATE OF SERVICE: 12/02/2018. This 77-year-old woman admitted with severe back pain and leg pain after L3 fracture and knee MRI showed evidence of lateral femoral condyle, marrow edema and as well as minimally displaced fracture extending to the articular area also. Orthopedic surgery is planning conservative line of management. PT/OT evaluating the patient. Pain management has also been consulted. PAST MEDICAL HISTORY: Reviewed. REVIEW OF SYSTEMS: CARDIOVASCULAR: No angina. No palpitations. RESPIRATIONS: As mentioned earlier. GASTROINTESTINAL: As mentioned earlier. : No dysuria. NERVOUS SYSTEM: No numbness or weakness. CURRENT MEDICATIONS: 1. Zyloprim 100 mg p.o. daily. 2. Lipitor 80 mg q.h.s. 3. Rocephin 1 g Q 24 hours. 4. Catapres 0.1 q.4 p.r.n. 5. Valium 5 mg q.6 p.r.n. 6. Pepcid 20 mg daily. 7. Lasix 40 mg p.o. daily. 8. Heparin 5000 subcu b.i.d. 9. Apresoline 10 mg IV q.4 p.r.n. 10.Dilaudid 0.5 mg q.3 p.r.n. 11.Imdur 30 mg. 12.Zestril 5 mg p.o. b.i.d. 13.Claritin 10 mg p.o. daily. 14.Medrol Dosepak daily. 15.Nitrostat. 16.Percocet p.r.n. 17.Protonix 40 mg p.o. b.i.d. PHYSICAL EXAMINATION: Patient is alert, oriented x2. Pulse 94, blood pressure 157/88, respiration 18, temperature is 98.5, pulse ox 97% on room air. HEENT is conjunctivae normal. NECK: No JVD. CARDIOVASCULAR: S1, S2 muffled. RESPIRATORY: Breath sounds diminished in the bases. Bilateral scattered rhonchi and crackles. ABDOMEN: Soft, nontender. No mass. LEGS: Movement of the left leg is extremely painful, right leg patient cranial nerves 2 thru 12 intact move better at this time. NERVOUS SYSTEM: Otherwise no other focal deficits. LABS: WBC 13.6, hemoglobin 13.2, and creatinine is 1.29. ASSESSMENT: 1. Fall and back pain, L3 compression fracture, acute. 2. Minimally displaced acute distal femoral fracture extending to the joint in the MRI. 3. Gait dysfunction, possibly because of severe pain and fall. 4. Left knee suprapatellar effusion. 5. Increased creatinine with acute renal failure possibly prerenal, acute renal failure with acute tubular necrosis. 6. Increased WBC. 7. Urinary tract infection, present on admission. 8. Atrial fibrillation, rate controlled. 9. History of gastroesophageal reflux disease. 10.Hypertension. 11.Hyperlipidemia. 12.History of degenerative joint disease. 13.History of gout. 14.History of neuropathy. 15.History of kidney cancer. 16.History of Clostridium difficile colitis. 17.History of coronary artery disease/ stent. RECOMMENDATIONS AND DISCUSSION: Continue current medication, continue symptomatic treatment. Otherwise at this time, I recommend continue the current medications. The patient has empiric antibiotics. I would recommend IV steroids also. See orders for details. Further recommendations to follow. PT/OT evaluation, possible ECF rehab. Pain management. MMBRENDANL / PRETTYN: [id number] /
[2018-12-02 21:01] LABS: Glucose,Whole Blood 225 mg/dL (75-99)
[2018-12-02] MEDS: ATORVASTATIN 80 MG TAB PO SCH (21:07)
[2018-12-03] MEDS: methylPREDNISolone SOD SUCCI 125 MG/2 ML VIAL IV SCH ×2 (05:38→12:47)
[2018-12-03] MEDS: oxyCODONE-APAP 5-325MG 1 EACH TAB PO PRN ×2 (06:24→17:23)
[2018-12-03] MEDS: HEPARIN SODIUM,PORCINE 5,000 UNIT/ML 1 ML VIAL SQ SCH ×2 (06:44→22:05)
[2018-12-03] MEDS: ISOSORBIDE MONONITRATE ER 30 MG TAB.ER.24H PO SCH (07:04)
[2018-12-03] MEDS: FUROSEMIDE 40 MG TAB PO SCH (07:04)
[2018-12-03] MEDS: LISINOPRIL 5 MG TAB PO SCH ×2 (07:04→22:05)
[2018-12-03] MEDS: PANTOPRAZOLE 40 MG TABLET PO SCH ×2 (07:04→17:20)
[2018-12-03] MEDS: LORATADINE 10 MG TAB PO SCH (07:04)
[2018-12-03] MEDS: ALLOPURINOL 100 MG TAB PO SCH (07:04)
[2018-12-03] MEDS: FAMOTIDINE 20 MG TAB PO SCH (07:04)
[2018-12-03 07:08] LABS: Glucose,Whole Blood 156 mg/dL (75-99)
[2018-12-03] MEDS: COLCHICINE 0.6 MG EACH PO SCH (07:08)
[2018-12-03] MEDS: INSULIN ASPART (NovoLOG) 100 UNIT/ML VIAL SQ SCH ×4 (07:34→22:05)
[2018-12-03] MEDS ORDERED: IV FLUID CONTINUATION 1,000 ML IV ONE (11:21)
--- NOTE | 2018-12-03 11:43 | P.PN ---
Progress Note - Text Progress Note Date: 12/03/18 Patient is a pleasant 77-year-old male who is seen and examined at bedside for follow-up evaluation in regards to her lumbar spine. Patient was a examined by orthopedics over the weekend after a recent fall. She states she fell on her buttocks. She was brought to the hospital by EMS on 11/29/2018. Since mincing examined yesterday and MRI of the left knee was performed which showed evidence of a large area of marrow edema involving the lateral femoral condyle and minimally displaced fracture extending into the articular surface of the lateral aspect of the femur. She also underwent aspiration of the left knee with 58 mL of blood removed. Patient states her left knee pain has improved since that time. She has also been seen and examined by pain management who is currently planning for an injection today. Patient feels her symptoms have had improvement and she is now able to roll over in bed. She was able to sleep on her side. She is experiencing significant back pain at approximately the fracture site of L3. She has had some increased range of motion left lower extremity but continues to have significant pain in the left lower extremity. She is still unable to ambulate on the left lower extremity. She denies any specific pain or weakness of the right lower extremity. Imaging of the left hip and knee have been negative for acute fracture. An LSO brace has been prescribed for her L3 fracture. This brace has been delivered to the bedside. She states she has previously seen Dr. Rapp in the outpatient setting for further evaluation in regards to her low back pain and states surgical intervention would require rods and screws and the patient and Dr. Rapp were not planning to proceed forward with any surgical intervention. Physical exam: Patient is awake, alert, and oriented 3 Vital signs stable Good chest excursion with deep inspiration and expiration Examination of lumbar spine shows no evidence of erythema, laceration, bruising, or obvious sign of infection Significant pain with palpation along the midline of the mid to lower lumbar spine Patient is able to roll over on her side in bed Patient is lying comfortably in bed Dorsiflexion, plantarflexion, and extensor hallucis longus positive sustained on the right Significant pain with even light palpation entire left lower extremity with some improvement as compared to yesterday Patient is able to wiggle toes of the left lower extremity and perform small movements with dorsiflexion and plantar flexion on the left Unable to lift left lower extremity off the bed Evidence of a dressing over the left anterior knee Pain with any palpation of the left hip and thigh Appears to be Neurovascularly intact for the bilateral lower extremities Pertinent studies: MRI of the left knee taken on 12/02/2018: Large area of marrow edema involving the lateral femoral condyle; minimally displaced fracture extending into the articular surface of the lateral aspect of the femur X-ray of the left hip and pelvis taken on 11/29/2018: No acute fracture dislocation in the pelvis or left hip; mild osteoarthritic changes suspected; osteopenia X-rays left knee taken on 11/29/2018: Large suprapatellar joint effusion without evidence of fracture identified; mild to moderate narrowing medial tibiofemoral compartment CT of the left hip taken on 11/29/2018: No evidence of fracture dislocation in the left hip; findings correlate with x-rays performed on the same day; demineralization redemonstrated CT of the thoracic and lumbar spine taken on 11/29/2018: Chronic T11 compression fracture deformity with approximately 15% height loss; evidence of acute L3 compression fracture deformity which has changes compared to previous study take n on 05/14/2017; L4-5 spondylolisthesis Assessment: Acute, severe, debilitating left lower extremity pain and weakness Acute left knee pain Large left suprapatellar effusion; status post aspiration with 58 mL of blood removed Large area of marrow edema involving the left lateral femoral condyle Minimally displaced fracture extending into the articular surface of the lateral aspect of the left femur Status post fall Acute L3 compression fracture deformity with approximately 10% height loss Chronic T11 superior endplate compression fracture deformity with approximately 15% height loss L4-5 spondylolisthesis Plan: 1. We will continue conservative treatment regards to her L3 compression fracture deformity. She was also found to have an L3 compression fracture deformity. An LSO brace has been ordered and delivered. After increased movement in bed, she is having significant pain in her L3 fracture site. We discussed with her brace, she should wear this brace while sitting upright at greater than 45, during increase activity, and during ambulation. The brace does not have to be worn in bed or while bathing. In regards to her back pain and L3 fracture, we'll plan to see her in the outpatient setting approximately 2-3 weeks for further evaluation. We're not currently planning for any acute surgical intervention in regards to her lumbosacral spine. 2. In regards to her left knee, patient continues to experience significant left lower extremity pain and weakness and difficulty with any active range of motion of the left lower extremity following her recent fall. She was found to have significant findings on her MRI of the left knee. She underwent aspiration of the left knee. She has had some improvement of her left knee and left lower extremity pain since that time ut her pain does continue to be present. We will plan have her continue following with Dr. Adams for further treatment and evaluation regards to her left knee. 3. She has been seen and examined by pain management who is currently planning for an injection at her lumbar spine today at the level of L4-5. 4. Patient will continue to be seen by medicine for her other medical diagnoses
--- NOTE | 2018-12-03 12:20 | P.PCN ---
Date of Procedure: 12/03/18 Procedure(s) Performed: PREOPERATIVE DIAGNOSIS:1- Lumbar radiculopathy in left L4-5 distribution. 2- lumbar degenerative disc disease. 3-lumbar compression fracture POSTOPERATIVE DIAGNOSIS: Same as preoperative diagnoses PROCEDURE 1. Transforaminal epidural steroid injection under fluoroscopic guidance at left L4-5 level. (Fluoroscopy images stored on file in the radiology Department ) 2. Lumbar epidurogram : ANESTHESIA: Local with 1% lidocaine 3 ml , moderate sedation with intravenous Versed 1 mg and fentanyle 100 micrograms EBL: Minimal PROCEDURE INDICATION: The patient with low back pain and radiculopathy symptoms unresponsive to conservative treatment. PROCEDURE DESCRIPTION / TECHNIQUE: The patient was seen and identified in the preoperative area. Risks, benefits, complications, and alternatives were discussed with the patient. The patient agreed to proceed with the procedure and signed the consent. IV was started, and vital signs were stable. Patient was taken to the OR and time out was completed. The patient was placed in the prone position on procedure table and a pillow was placed under the abdomen to reduce lumbar lordosis. The lumbosacral area was prepped and draped in the usual sterile fashion. Critical pause was taken. Vital signs were closely monitored during the procedure. Conscious sedation was used during the procedure to decrease patient s anxiety. Using oblique fluoroscopy, the chin of the ``Willian dog at left L4-5 level was identified, and the skin and deeper tissues just below was localized with 1% lidocaine. Subsequently, a 22-gauge 5-inch spinal needle was advanced under a tunneled view fluoroscopic guidance just underneath the chin of the ``Willian dog at the left L4-5. Under lateral fluoroscopy, the needle was then advanced to the posterior border of the L4-5 interforaminal space. After negative aspiration of CSF and blood and with no paresthesias, 1 mL Isovue 200 contrast dye was injected excellent epidurogram and outlining of the nerve root Subsequently, 3 mL of block solution containing 40 mg Depo-medrol and 2 mL of Lidocaine 1% was injected. Needle was removed . At the end of the procedure, skin was cleansed, and bandages were applied. COMPLICATIONS:none DISPOSITION / PLANS: The patient was placed in a supine position and transferred to the recovery area in a stable condition for observation. There was no evidence of lower extremity motor or sensory deficit after the procedure. Patient was discharged from the recovery room after meeting discharge criteria. Home discharge instructions were given to the patient by the staff. The patient was reexamined prior to discharge.
[2018-12-03 12:45] LABS: Glucose,Whole Blood 182 mg/dL (75-99)
--- NOTE | 2018-12-03 13:56 | P.PN ---
Subjective Progress Note Date: 12/03/18 This is a 77-year-old female who was admitted after a fall. Patient complains of back pain and left knee pain. Patient reports some improvement in left knee pain today, but continues to have pain and sensitivity in the left lower leg. Patient denies any new symptoms or complaints today. Objective - Vital Signs Vital signs: Vital Signs Temp 97.5 F L 12/03/18 12:51 Pulse 91 12/03/18 12:51 Resp 20 12/03/18 12:51 BP 135/87 12/03/18 12:51 Pulse Ox 90 L 12/03/18 12:51 Intake & Output 12/02/18 12/03/18 12/03/18 18:59 06:59 18:59 Intake Total 700 Output Total 350 300 Balance -350 -300 700 Intake: IV 700 Output: Urine 350 300 Other: Voiding Method Incontinent Incontinent Incontinent # Voids 3 # Bowel Movements 0 - Exam On exam patient is lying comfortably in bed in no acute distress. The left lower extremity is very sensitive to light touch. There is tenderness to palpation over the left knee along with moderate swelling. There is no erythema or ecchymosis and skin is intact. Dorsalis pedis pulse is 2+. Patient is able to wiggle the toes. Patient has limited range of motion of the left lower extremity due to significant pain with slight movements and light touch. Sensation is intact. Calves are soft and nontender to palpation. Neurovascular status circulatory status are intact. - Labs CBC & Chem 7: 12/02/18 09:00 12/02/18 09:00 Labs: Abnormal Lab Results - Last 24 Hours (Table) 12/02/18 12/02/18 12/03/18 Range/Units 17:25 20:59 07:06 POC Glucose (mg/dL) 344 H 225 H 156 H (75-99) mg/dL 12/03/18 Range/Units 12:43 POC Glucose (mg/dL) 182 H (75-99) mg/dL Assessment and Plan Assessment: Atrial fibrillation History of renal cell carcinoma GERD Hyperlipidemia Hypertension (1) Compression fracture of L3 vertebra Current Visit: Yes Status: Acute Code(s): S32.030A - WEDGE COMPRESSION FRACTURE OF THIRD LUMBAR VERTEBRA, INIT SNOMED Code(s): 159388318 (2) Left knee pain Current Visit: Yes Status: Acute Code(s): M25.562 - PAIN IN LEFT KNEE SNOMED Code(s): 66374613 (3) Fall Current Visit: Yes Status: Acute Code(s): W19.XXXA - UNSPECIFIED FALL, INITIAL ENCOUNTER SNOMED Code(s): 2895808 (4) Closed fracture of lateral condyle of left femur Current Visit: Yes Status: Acute Code(s): S72.422A - DISP FX OF LATERAL CONDYLE OF LEFT FEMUR, INIT FOR CLOS FX SNOMED Code(s): 523998493 Plan: 1. MRI of the left knee is reviewed showin. Large area of marrow edema involving the lateral femoral condyle with lipohemarthrosis. Minimally displaced fracture extending to the articular surf stephany of the lateral fact the femur noted. Osteochondritis a less likely consideration. No free fragments. 2. Limited assessment of the menisci and ligaments due to significant motion artifact. Findings are compatible with a complex tear involving the posterior horn the medial meniscus. Anterior horn lateral meniscus also suspected. 3. Poor definition of the ACL on the sagittal images could be on the basis of motion artifact. Coronal images demonstrate normal insertion and origin of the ligament. Given the limitation exam ACL injury with need to be correlated clinically for exclusion. 4. Bone contusion inferior patella. 5. Intramuscular strain and vastus medialis and lateralis. 2. Non-operative treatment is recommended at this time. Recommend toe-touch weightbearing with knee immobilizer to left lower extremity. 3. LSO brace when out of bed as tolerated. 4. Appreciate input from internal medicine and pain management. 5. Physical therapy for mobilization. 6. Will continue to follow the patient closely.
--- NOTE | 2018-12-03 15:31 | FL ---
Fluoroscopy HISTORY: Pain 3 seconds fluoroscopy time supplied to the referring clinician. 1 intraoperative C-arm images docume nt the procedure. See dictated report from anesthesia.
[2018-12-03 16:41] LABS: Glucose,Whole Blood 171 mg/dL (75-99)
[2018-12-03 20:37] LABS: Glucose,Whole Blood 261 mg/dL (75-99)
[2018-12-03 22:00] LABS: Glucose,Whole Blood 216 mg/dL (75-99)
[2018-12-03] MEDS: ATORVASTATIN 80 MG TAB PO SCH (22:05)
[2018-12-03] MEDS: predniSONE 20 MG TAB PO SCH (22:06)
--- NOTE | 2018-12-03 23:57 | P.PN ---
Subjective Progress Note Date: 12/03/18 Principal diagnosis: This is a 77 year old female that was admitted for recent fall with severe pain of the left lower extremity and is being closely monitored. Patient went to have an injection in the level of the L4-5 for her back pain and left lower extremity pain that is currently uncontrolled. PT/OT are following and patient was refusing any movement earlier due to the intense amount of pain she is experiencing. Pain management is following. Patient denies any shortness of breath, chest pain, or palpitations at this time. Patient states severe pain to the left knee and lower extremity to the lightest of touches. Guarded prognosis. Objective - Vital Signs Vital signs: Vital Signs Temp 97.5 F L 12/03/18 12:51 Pulse 79 12/03/18 13:48 Resp 20 12/03/18 12:51 BP 149/92 12/03/18 13:48 Pulse Ox 92 L 12/03/18 13:48 Intake & Output 12/02/18 12/03/18 12/03/18 18:59 06:59 18:59 Intake Total 700 Output Total 350 300 Balance -350 -300 700 Intake: IV 700 Output: Urine 350 300 Other: Voiding Method Incontinent Incontinent Incontinent # Voids 3 3 # Bowel Movements 0 - Exam Gen: This is a 77 year old female in mild distress due to the left lower extremity pain and discomfort. Vital signs are stable. Temp is 97.5F, BP is 145/92, pulse is 79, resp are 18, and 02 is 96% on room air. HEENT: Head is atraumatic, normocephalic. Pupils equal, round. Sclerae is anicteric. NECK: Supple. No JVD. No lymphadenopathy. No thyromegaly. LUNGS: diminished breath sounds otherwise clear to auscultation. No wheezes or rhonchi. No intercostal retractions. HEART: Regular rate and rhythm. No murmur. ABDOMEN: Soft. Bowel sounds are present. No masses. No tenderness. EXTREMITIES: No pedal edema. No calf tenderness. severe left leg pain with light touch or movement. No swelling noted to the lower extremity with mild swelling of the left knee noted on exam. NEUROLOGICAL: Patient is awake, alert and oriented x3. Cranial nerves 2 through 12 are grossly intact. Gait is deferred. - Labs CBC & Chem 7: 12/02/18 09:00 12/02/18 09:00 Labs: Abnormal Lab Results - Last 24 Hours (Table) 12/02/18 12/02/18 12/03/18 Range/Units 17:25 20:59 07:06 POC Glucose (mg/dL) 344 H 225 H 156 H (75-99) mg/dL 12/03/18 Range/Units 12:43 POC Glucose (mg/dL) 182 H (75-99) mg/dL Assessment and Plan Assessment: Fall, back pain, L3 compression fracture, acute Minimally displaced acute distal femoral fracture extending to the joint on the MRI Gait dysfunction, possibly because of severe pain and fall Left knee suprapatellar effusion Increased creatinine with acute renal failure possibly prerenal, acute renal failure with acute tubular necrosis, current creatinine is 1.29 Increased WBC, 13.7 Urinary tract infection, present on admission; on IV rocephin Atrial fibrillation, rate controlled History of gastroesophageal reflux disease Hypertension Hyperlipidemia History of degenerative joint disease History of gout History of neuropathy History of kidney cancer History of C. diff colitis History of coronary artery disease/stent Recommendations and discussion: Continue current medications and symptomatic treatment. Patient is currently on empiric antibiotics. Patient will be switched to oral steroids. Further recommendations to follow. PT/OT are following and will attempt to work with the patient in the morning. May possibly benefit from ECF rehab. Pain management at this time. Guarded prognosis.
[2018-12-04 07:19] LABS: Glucose,Whole Blood 164 mg/dL (75-99)
[2018-12-04] MEDS: LORATADINE 10 MG TAB PO SCH (07:29)
[2018-12-04] MEDS: COLCHICINE 0.6 MG EACH PO SCH (07:29)
[2018-12-04] MEDS: predniSONE 20 MG TAB PO SCH ×2 (07:29→21:47)
[2018-12-04] MEDS: LISINOPRIL 5 MG TAB PO SCH ×2 (07:29→21:47)
[2018-12-04] MEDS: PANTOPRAZOLE 40 MG TABLET PO SCH ×2 (07:29→17:32)
[2018-12-04] MEDS: ALLOPURINOL 100 MG TAB PO SCH (07:29)
[2018-12-04] MEDS: FAMOTIDINE 20 MG TAB PO SCH (07:29)
[2018-12-04] MEDS: FUROSEMIDE 40 MG TAB PO SCH (07:29)
[2018-12-04] MEDS: HEPARIN SODIUM,PORCINE 5,000 UNIT/ML 1 ML VIAL SQ SCH ×2 (07:30→21:47)
[2018-12-04] MEDS: ISOSORBIDE MONONITRATE ER 30 MG TAB.ER.24H PO SCH (07:30)
[2018-12-04] MEDS: INSULIN ASPART (NovoLOG) 100 UNIT/ML VIAL SQ SCH ×4 (07:30→21:47)
[2018-12-04] MEDS: oxyCODONE-APAP 5-325MG 1 EACH TAB PO PRN ×3 (07:37→22:26)
--- NOTE | 2018-12-04 09:16 | P.PN ---
Progress Note - Text Progress Note Date: 12/04/18 The patient is seen and examined today at bedside. She feels her legs have made some improvement but is still hypersensitive at her bilateral lower extremity is worse on the left than the right. She underwent evacuation of hemarthrosis with Lorrie Grider with orthopedics 2 days ago and feels that helps to some degree. She underwent epidural steroid injection yesterday with Dr. Moreno and feels that helped to some degree as well. She still unable to get up and able and unable to move her legs well as she has severe sensitivity her bilateral lower extremities. Her imaging is again removed and she does have some lumbar degeneration with evidence of stenosis without obvious instability. She does not have a specific radicular pattern to her lower extremities. Imaging does show a bony contusion at her left femur and that is being managed with Dr. Adams Is difficult to fully ascertain the nature of her lower extremity symptoms. It does not appear to be radicular in pattern. She has hypersensitivity of her skin and I discussed with her the possibility of trying Neurontin or gabapentin. She feels that she had trouble with that medication in the past and I would defer that medication to her primary care physician or the medicine service for management of her neuropathy. I do not plan any surgical intervention for her lumbar spine at this point. Hopefully we can start her with some mobilization and therapy to weightbearing left lower extremity as she becomes able.
[2018-12-04] MEDS: HYDROmorphone 0.5 MG/0.5 ML SYRINGE IVP PRN (10:41)
--- NOTE | 2018-12-04 11:23 | P.PN ---
Subjective Progress Note Date: 12/04/18 Principal diagnosis: Lumbar compression fracture. Nondisplaced distal femoral condyle fracture left knee. This is a 69-year-old female who we're following regarding her nondisplaced femoral condyle fracture left knee. She had aspiration of the knee to evacuate the hemarthrosis which she states has improved her knee pain. She continues to have significant skin sensitivity to the lower leg and foot. She is also being followed by Dr. Rapp for a lumbar compression fracture. Physical therapy is in the room right now attempting to get her out of bed. She has not yet worn the knee immobilizer. Objective - Vital Signs Vital signs: Vital Signs Temp 97.4 F L 12/04/18 05:40 Pulse 81 12/04/18 05:40 Resp 16 12/04/18 05:40 BP 159/108 12/04/18 05:40 Pulse Ox 94 L 12/04/18 05:40 Intake & Output 12/03/18 12/04/18 12/04/18 18:59 06:59 18:59 Intake Total 700 Output Total 600 Balance 100 Intake: IV 700 Output: Urine 600 Other: Voiding Method Incontinent Incontinent # Voids 2 # Bowel Movements 0 - Exam This is a pleasant 77-year-old female in mild distress due to pain and anxiety. Exam of the lower extremity reveals trace effusion to the left knee. No erythema or ecchymosis. She will not allow me to even touch the foot or lower leg. She is adamant that I do not even feel for a pulse. She is able to wiggle her toes and move foot and ankle. I was able to check her capillary refill which is less than 3 seconds. The patient screamed out in pain from just touching her big toe. - Labs CBC & Chem 7: 12/02/18 09:00 12/02/18 09:00 Labs: Abnormal Lab Results - Last 24 Hours (Table) 12/03/18 12/03/18 12/03/18 Range/Units 12:43 16:39 20:36 POC Glucose (mg/dL) 182 H 171 H 261 H (75-99) mg/dL 12/03/18 12/04/18 Range/Units 21:59 07:08 POC Glucose (mg/dL) 216 H 164 H (75-99) mg/dL Assessment and Plan (1) Closed fracture of lateral condyle of left femur Current Visit: Yes Status: Acute Code(s): S72.422A - DISP FX OF LATERAL CONDYLE OF LEFT FEMUR, INIT FOR CLOS FX SNOMED Code(s): 025163048 (2) Fall Current Visit: Yes Status: Acute Code(s): W19.XXXA - UNSPECIFIED FALL, INITIAL ENCOUNTER SNOMED Code(s): 2412168 (3) Congestive heart failure Current Visit: No Status: Acute Code(s): I50.9 - HEART FAILURE, UNSPECIFIED SNOMED Code(s): 34647929 Plan: The clinical findings are discussed with the patient and her family. The nurse and physical therapy assisted me in getting the knee immobilizer in place. The patient was able to tolerate the brace being placed. She is encouraged to get up with physical therapy to change position and prevent skin breakdown. She may be discharged from an orthopedic standpoint. Follow-up in 2 weeks with x-ray.
[2018-12-04 11:54] LABS: Glucose,Whole Blood 172 mg/dL (75-99)
--- NOTE | 2018-12-04 13:22 | CDI ---
Documentation Clarification Form Date: 12/04/2018 1:06:15 PM From: Basilia Rees RN CCDS Admit Date: 12/02/2018 2:40:00 PM Patient Name: Maite Garces Visit Number: [id number] Discharge Date: ATTENTION: The Clinical Documentation Specialists (CDI) and [facility] Coding Staff appreciate your assistance in clarifying documentation. Please respond to the clarification below the line at the bottom and electronically sign. The CDI & [facility] Coding staff will review the response and follow-up if needed. Please note: Queries are made part of the Legal Health Record. If you have any questions, please contact the author of this message via ITS. Dr. Alfa Guaman CHF is documented in the Orthopedic progress note 12/04/18 History/Risk Factors: 77 year old female presents to the ED after a fall with back pain . Medical History Atrial fibrillation , GERD, HTN, Hyperlipidemia , DJD, Gout, CAD Clinical Indicators: VS/Pulse OX: 136/86 114 98.0 20 95% ra BNP: 1490 Echocardiogram Results: From 05/15/2018 - Overall left ventricular systolic function is moderately impaired with, an EF between 40-45% Chest X Ray:11/29/2018 Cardiomegaly and chronic changes without new acute pulmonary process clearly seen Treatment: Lasix 40 mg po daily , Imdur 30mg po, Lisinopril In your professional opinion, can you please clarify the acuity and type of CHF if known? Chronic Systolic Heart Failure Unable to Determine Other, please specify (Last Revision: July 2017) Chronic Systolic Heart Failure MTDD
[2018-12-04] MEDS: GABAPENTIN 100 MG CAP PO SCH ×2 (15:56→21:46)
--- NOTE | 2018-12-04 16:51 | P.PN ---
Subjective Progress Note Date: 12/04/18 Principal diagnosis: This is a 77 year old female that was admitted for recent fall with severe pain of the left lower extremity and is being closely monitored. Patient went to have an injection in the level of the L4-5 for her back pain and left lower extremity pain that is currently uncontrolled. PT/OT are following and patient was refusing any movement earlier due to the intense amount of pain she is experiencing. Pain management is following. Patient denies any shortness of breath, chest pain, or palpitations at this time. Patient states severe pain to the left knee and lower extremity to the lightest of touches. Guarded prognosis. 12/05/2018 Patient is sitting in the bed in an upright position today in no acute distress. Patient states that her pain has gotten slightly better but is still having severe sensitivity and discomfort in the left lower extremity. Patient is able to move the extremity more today. Patient did have an epidural injection yesterday and states that it helped minimally. Awaiting a knee immobilizer so that PT and OT can work with her today. Patient denies any chest pain, shortness of breath, or palpitations at this time. Patient is afebrile. Patient is able to move the left foot and wiggle the toes. Patient denies any numbness or tingling to the left lower extremity. Patient is still having some discomfort in the left knee. Discussed with the patient today about possible rehab and working with test case developer. A prior authorization will be needed. Guarded prognosis. Objective - Vital Signs Vital signs: Vital Signs Temp 97.8 F 12/04/18 14:21 Pulse 92 12/04/18 14:21 Resp 16 12/04/18 14:21 BP 143/87 12/04/18 14:21 Pulse Ox 96 12/04/18 14:21 Intake & Output 12/03/18 12/04/18 12/04/18 18:59 06:59 18:59 Intake Total 700 Output Total 600 900 Balance 100 -900 Intake: IV 700 Output: Urine 600 900 Other: Voiding Method Incontinent Incontinent # Voids 2 # Bowel Movements 0 1 - Exam Gen: This is a 77 year old female in mild distress due to the left lower extremity pain and discomfort. Vital signs are stable. HEENT: Head is atraumatic, normocephalic. Pupils equal, round. Sclerae is anicteric. NECK: Supple. No JVD. No lymphadenopathy. No thyromegaly. LUNGS: diminished breath sounds otherwise clear to auscultation. No wheezes or rhonchi. No intercostal retractions. HEART: Regular rate and rhythm. No murmur. ABDOMEN: Soft. Bowel sounds are present. No masses. No tenderness. EXTREMITIES: No pedal edema. No calf tenderness. Moderate left leg pain with light touch or movement. No swelling noted to the lower extremity with mild swelling of the left knee noted on exam but has improved since yesterday. NEUROLOGICAL: Patient is awake, alert and oriented x3. Cranial nerves 2 through 12 are grossly intact. Gait is deferred. - Labs CBC & Chem 7: 12/02/18 09:00 12/02/18 09:00 Labs: Abnormal Lab Results - Last 24 Hours (Table) 12/03/18 12/03/18 12/04/18 Range/Units 20:36 21:59 07:08 POC Glucose (mg/dL) 261 H 216 H 164 H (75-99) mg/dL 12/04/18 Range/Units 11:52 POC Glucose (mg/dL) 172 H (75-99) mg/dL Assessment and Plan Assessment: Fall, back pain, L3 compression fracture, acute Minimally displaced acute distal femoral fracture extending to the joint on the MRI Gait dysfunction, possibly because of severe pain and fall Left knee suprapatellar effusion Increased creatinine with acute renal failure possibly prerenal, acute renal failure with acute tubular necrosis, current creatinine is 1.29 Increased WBC Urinary tract infection, present on admission; on IV rocephin Atrial fibrillation, rate controlled History of gastroesophageal reflux disease Hypertension Hyperlipidemia History of degenerative joint disease History of gout History of neuropathy History of kidney cancer History of C. diff colitis History of coronary artery disease/stent Recommendations and discussion: Continue current medications and symptomatic treatment. Patient is currently on empiric antibiotics. Patient will be switched to oral steroids. Gabapentin was ordered. Further recommendations to follow. PT/OT are following. May possibly benefit from ECF rehab. A prior authorization will be needed. Pain management at this time. Guarded prognosis.
[2018-12-04 17:19] LABS: Glucose,Whole Blood 194 mg/dL (75-99)
[2018-12-04 20:34] LABS: Glucose,Whole Blood 228 mg/dL (75-99)
[2018-12-04] MEDS: ATORVASTATIN 80 MG TAB PO SCH (21:47)
[2018-12-05] MEDS: HYDROmorphone 1 MG/ML 1 ML SYRINGE IVP PRN (01:13)
[2018-12-05 07:17] LABS: Glucose,Whole Blood 146 mg/dL (75-99)
[2018-12-05] MEDS: INSULIN ASPART (NovoLOG) 100 UNIT/ML VIAL SQ SCH ×4 (07:37→20:22)
[2018-12-05] MEDS: HEPARIN SODIUM,PORCINE 5,000 UNIT/ML 1 ML VIAL SQ SCH ×2 (07:37→20:22)
[2018-12-05] MEDS: FAMOTIDINE 20 MG TAB PO SCH (07:38)
[2018-12-05] MEDS: GABAPENTIN 100 MG CAP PO SCH ×3 (07:38→20:22)
[2018-12-05] MEDS: ISOSORBIDE MONONITRATE ER 30 MG TAB.ER.24H PO SCH (07:38)
[2018-12-05] MEDS: PANTOPRAZOLE 40 MG TABLET PO SCH ×2 (07:38→17:12)
[2018-12-05] MEDS: LISINOPRIL 5 MG TAB PO SCH ×2 (07:38→20:22)
[2018-12-05] MEDS: FUROSEMIDE 40 MG TAB PO SCH (07:38)
[2018-12-05] MEDS: ALLOPURINOL 100 MG TAB PO SCH (07:38)
[2018-12-05] MEDS: LORATADINE 10 MG TAB PO SCH (07:39)
[2018-12-05] MEDS: predniSONE 20 MG TAB PO SCH ×2 (07:39→20:22)
[2018-12-05] MEDS: COLCHICINE 0.6 MG EACH PO SCH (07:45)
--- NOTE | 2018-12-05 08:55 | P.PN ---
Subjective Progress Note Date: 12/05/18 Principal diagnosis: Lumbar compression fracture. Nondisplaced distal femoral condyle fracture left knee. This is a 69-year-old female who we're following regarding her nondisplaced femoral condyle fracture left knee. She had aspiration of the knee to evacuate the hemarthrosis which she states has improved her knee pain. She continues to have significant skin sensitivity to the lower leg and foot. She is also being followed by Dr. Rapp for a lumbar compression fracture. She has A knee immobilizer on since yesterday. She states her pain is slightly improved today. Objective - Vital Signs Vital signs: Vital Signs Temp 98.2 F 12/05/18 05:00 Pulse 83 12/05/18 05:00 Resp 18 12/05/18 05:00 BP 112/87 12/05/18 05:00 Pulse Ox 94 L 12/05/18 05:00 Intake & Output 12/04/18 12/05/18 12/05/18 18:59 06:59 18:59 Intake Total 370 Output Total 900 Balance -900 370 Intake: Intake, IV Titration 370 Amount IV Fluid Continuation 1, 160 000 ml @ 0 mls/hr IV .[facility] Rx#:[id number] cefTRIAXone 1 gm In 210 Sodium Chloride 0.9% 50 ml @ 100 mls/hr IVPB Q24HR [facility] Rx#:[id number] Output: Urine 900 Other: Voiding Method Incontinent Incontinent # Bowel Movements 1 - Exam This is a pleasant 77-year-old female in no acute distress. Her anxiety is improved today. Exam of the lower extremities reveals that her knee immobilizer is in place. She has full foot and ankle motion without difficulty or pain. Neurovascular status to the lower extremity is intact. - Labs CBC & Chem 7: 12/02/18 09:00 12/02/18 09:00 Labs: Abnormal Lab Results - Last 24 Hours (Table) 12/04/18 12/04/18 12/04/18 Range/Units 11:52 17:10 20:23 POC Glucose (mg/dL) 172 H 194 H 228 H (75-99) mg/dL 12/05/18 Range/Units 07:15 POC Glucose (mg/dL) 146 H (75-99) mg/dL Assessment and Plan (1) Closed fracture of lateral condyle of left femur Current Visit: Yes Status: Acute Code(s): S72.422A - DISP FX OF LATERAL CONDYLE OF LEFT FEMUR, INIT FOR CLOS FX SNOMED Code(s): 783513970 (2) Fall Current Visit: Yes Status: Acute Code(s): W19.XXXA - UNSPECIFIED FALL, INITIAL ENCOUNTER SNOMED Code(s): 1711666 (3) Congestive heart failure Current Visit: No Status: Acute Code(s): I50.9 - HEART FAILURE, UNSPECIFIED SNOMED Code(s): 86997708 Plan: The clinical findings are discussed with the patient. She may be discharged to rehab today if cleared medically. She is to follow-up in our office in 2 weeks for reevaluation and x-ray. She is toe-touch weightbearing to the left lower extremity with walker.
[2018-12-05] MEDS: oxyCODONE-APAP 5-325MG 1 EACH TAB PO PRN ×2 (11:16→21:09)
[2018-12-05 11:41] LABS: Glucose,Whole Blood 191 mg/dL (75-99)
[2018-12-05 17:07] LABS: Glucose,Whole Blood 209 mg/dL (75-99)
[2018-12-05] MEDS: HYDROmorphone 0.5 MG/0.5 ML SYRINGE IVP PRN (19:20)
[2018-12-05] MEDS: ATORVASTATIN 80 MG TAB PO SCH (20:22)
[2018-12-05 20:36] LABS: Glucose,Whole Blood 180 mg/dL (75-99)
--- NOTE | 2018-12-05 23:17 | P.PN ---
Subjective Progress Note Date: 12/05/18 Principal diagnosis: This is a 77 year old female that was admitted for recent fall with severe pain of the left lower extremity and is being closely monitored. Patient went to have an injection in the level of the L4-5 for her back pain and left lower extremity pain that is currently uncontrolled. PT/OT are following and patient was refusing any movement earlier due to the intense amount of pain she is experiencing. Pain management is following. Patient denies any shortness of breath, chest pain, or palpitations at this time. Patient states severe pain to the left knee and lower extremity to the lightest of touches. Guarded prognosis. 12/04/2018 Patient is sitting in the bed in an upright position today in no acute distress. Patient states that her pain has gotten slightly better but is still having severe sensitivity and discomfort in the left lower extremity. Patient is able to move the extremity more today. Patient did have an epidural injection yesterday and states that it helped minimally. Awaiting a knee immobilizer so that PT and OT can work with her today. Patient denies any chest pain, shortness of breath, or palpitations at this time. Patient is afebrile. Patient is able to move the left foot and wiggle the toes. Patient denies any numbness or tingling to the left lower extremity. Patient is still having some discomfort in the left knee. Discussed with the patient today about possible rehab and working with gearcase assembler. A prior authorization will be needed. Guarded prognosis. 12/05/2018 Patient is in bed with a knee immobilizer to the left leg. Patient is stating that she is still having severe pain at times and is having pain in the left foot especially in the toes. Patient has been working with PT/OT but has made minimal improvement. Patient denies any shortness of breath, chest pain, or palpitations. Patient is currently wearing oxygen via NC at 2 liters. Patient does not wear home 02. Oxygen saturation is 97% on 2 liters. Will remove the 02 and reassess oxygen status. Patient has been urinating using the purewick device and states that she had a bowel movement this morning. Patient will be going to rehab at [facility] upon discharge. Prior authorization is pending. Guarded prognosis. Objective - Vital Signs Vital signs: Vital Signs Temp 98.0 F 12/05/18 21:00 Pulse 85 12/05/18 21:00 Resp 16 12/05/18 21:00 BP 140/89 12/05/18 21:00 Pulse Ox 97 12/05/18 21:00 Intake & Output 12/05/18 12/05/18 12/06/18 06:59 18:59 06:59 Intake Total 370 Balance 370 Intake: Intake, IV Titration 370 Amount IV Fluid Continuation 1, 160 000 ml @ 0 mls/hr IV .[facility] Rx#:[id number] cefTRIAXone 1 gm In 210 Sodium Chloride 0.9% 50 ml @ 100 mls/hr IVPB Q24HR [facility] Rx#:[id number] Other: Voiding Method Incontinent Bedside Commode Bedside Commode Bedpan # Voids 4 # Bowel Movements 2 - Exam Gen: This is a 77 year old female in mild distress due to the left lower extremity pain and discomfort. Vital signs are stable. HEENT: Head is atraumatic, normocephalic. Pupils equal, round. Sclerae is anicteric. NECK: Supple. No JVD. No lymphadenopathy. No thyromegaly. LUNGS: diminished breath sounds otherwise clear to auscultation. No wheezes or rhonchi. No intercostal retractions. HEART: Regular rate and rhythm. No murmur. ABDOMEN: Soft. Bowel sounds are present. No masses. No tenderness. EXTREMITIES: No pedal edema. No calf tenderness. Moderate left leg pain with light touch or movement. No swelling noted to the lower extremity. A long knee immobilizer noted on the left leg. NEUROLOGICAL: Patient is awake, alert and oriented x3. Cranial nerves 2 through 12 are grossly intact. Gait is deferred. - Labs CBC & Chem 7: 12/02/18 09:00 12/02/18 09:00 Labs: Abnormal Lab Results - Last 24 Hours (Table) 12/05/18 12/05/18 12/05/18 Range/Units 07:15 11:38 17:05 POC Glucose (mg/dL) 146 H 191 H 209 H (75-99) mg/dL 12/05/18 Range/Units 20:15 POC Glucose (mg/dL) 180 H (75-99) mg/dL Assessment and Plan Assessment: Fall, back pain, L3 compression fracture, acute Minimally displaced acute distal femoral fracture extending to the joint on the MRI Gait dysfunction, possibly because of severe pain and fall Left knee suprapatellar effusion Increased creatinine with acute renal failure possibly prerenal, acute renal failure with acute tubular necrosis Increased WBC Urinary tract infection, present on admission; on IV rocephin Atrial fibrillation, rate controlled History of gastroesophageal reflux disease Hypertension Hyperlipidemia History of degenerative joint disease History of gout History of neuropathy History of kidney cancer History of C. diff colitis History of coronary artery disease/stent Recommendations and discussion: Continue current medications and symptomatic treatment. Patient is currently on empiric antibiotics. Further recommendations to follow. PT/OT are following. May possibly benefit from ECF rehab. Awaiting authorization for [facility] [place]. A prior authorization has been started. Pain management at this time. Guarded prognosis.
[2018-12-06] MEDS: oxyCODONE-APAP 5-325MG 1 EACH TAB PO PRN ×2 (05:06→15:07)
[2018-12-06 07:20] LABS: Glucose,Whole Blood 160 mg/dL (75-99)
[2018-12-06] MEDS: HEPARIN SODIUM,PORCINE 5,000 UNIT/ML 1 ML VIAL SQ SCH (07:45)
[2018-12-06] MEDS: PANTOPRAZOLE 40 MG TABLET PO SCH (07:46)
[2018-12-06] MEDS: COLCHICINE 0.6 MG EACH PO SCH (07:46)
[2018-12-06] MEDS: INSULIN ASPART (NovoLOG) 100 UNIT/ML VIAL SQ SCH ×2 (07:46→12:36)
[2018-12-06] MEDS: ALLOPURINOL 100 MG TAB PO SCH (07:46)
[2018-12-06] MEDS: ISOSORBIDE MONONITRATE ER 30 MG TAB.ER.24H PO SCH (07:47)
[2018-12-06] MEDS: GABAPENTIN 100 MG CAP PO SCH ×2 (07:47→15:10)
[2018-12-06] MEDS: FUROSEMIDE 40 MG TAB PO SCH (07:47)
[2018-12-06] MEDS: predniSONE 20 MG TAB PO SCH (07:47)
[2018-12-06] MEDS: FAMOTIDINE 20 MG TAB PO SCH (07:47)
[2018-12-06] MEDS: LORATADINE 10 MG TAB PO SCH (07:47)
[2018-12-06] MEDS: LISINOPRIL 5 MG TAB PO SCH (07:47)
[2018-12-06] MEDS: HYDROmorphone 1 MG/ML 1 ML SYRINGE IVP PRN (08:01)
[2018-12-06 10:34] LABS: Potassium 5.2 mmol/L (3.5-5.1)
[2018-12-06 12:12] LABS: Glucose,Whole Blood 178 mg/dL (75-99)
--- NOTE | 2018-12-06 13:51 | P.DS ---
Providers Date of admission: 12/02/18 14:40 Expected date of discharge: 12/06/18 Attending physician: Alfa Guaman Consults: 11/29/18 20:12 Consult Physician Routine Consulting Provider: Britany Rapp Consult Reason/Comments: back pain weakness Do you want consulting provider notified?: Yes 11/30/18 04:33 Consult Physician Routine Consulting Provider: Enma Jacques Consult Reason/Comments: back/leg pain Do you want consulting provider notified?: Yes, Notify in am 12/01/18 13:06 Consult to Anesthesia Routine Consulting Provider: Anesthesia,Services Consult Reason/Comments: eval and possible epidural pain management Primary care physician: [facility] Course: Final diagnosis Fall, back pain, L3 compression fracture, acute Minimally displaced acute distal femur fracture extending to the joint Gait dysfunction Left knee suprapatellar effusion Increased creatinine with acute renal failure possibly prerenal, acute renal failure with acute tubular necrosis Increased WBC Urinary tract infection, present on admission Atrial fibrillation, rate controlled History of GERD History of degenerative joint disease Hypertension Hyperlipidemia line history of gout History of neuropathy next line history of kidney cancer History of C. diff colitis History of coronary artery disease/stent Discharge disposition Patient being discharged in a stable condition with guarded prognosis to [facility] for rehabilitation and to work with PT/OT for strength and mobility. Total time taken is 30 minutes. History of present illness This is a 77-year-old female who was admitted with recent fall with severe pain of the left lower extremity. Patient underwent an epidural injection at the level of L4-L5. PT/OT were following closely during hospitalization and patient would benefit from rehab at this time for her weakness and inability to get up due to extreme pain. Patient denies any shortness of breath, chest pain, or palpitations at this time. Patient denies any nausea or vomiting and tolerating diet. Patient remains afebrile. Patient is to wear a knee immobilizer to the left knee to aid in assistance of getting up. Patient is currently stable with some improvement and will be going to [facility] this afternoon. Prognosis is guarded. On exam vital signs are stable. Cardio S1 and S2 are normal. Respiratory system is clear to auscultation. Abdomen is soft and nontender. Nervous system shows no focal deficits with moderate diffuse weakness noted to the left lower extremity. Please refer to medication reconciliation sheet for a list of medications. Patient Condition at Discharge: Good Plan - Discharge Summary New Discharge Prescriptions: New Colchicine [Colcrys] 0.6 mg PO DAILY 3 Days #3 each Gabapentin [Neurontin] 200 mg PO TID #9 cap INSULIN ASPART (NovoLOG) [NovoLOG (formulary)] 0 unit SQ ACHS vial predniSONE 20 mg PO BID #0 tab Continue Cetirizine HCl [Zyrtec] 10 mg PO DAILY Nitroglycerin Sl Tabs [Nitrostat] 0.4 mg SUBLINGUAL Q5M PRN PRN Reason: Chest Pain Isosorbide Mononitrate ER [Imdur] 30 mg PO DAILY Furosemide [Lasix] 40 mg PO DAILY Ranitidine HCl [Zantac] 75 mg PO DAILY Lisinopril [Prinivil] 5 mg PO BID Allopurinol [Zyloprim] 100 mg PO DAILY Apixaban [Eliquis] 2.5 mg PO BID Aspirin 81 mg PO DAILY Atorvastatin Calcium [Lipitor] 80 mg PO HS Omeprazole [PriLOSEC] 40 mg PO AC-BID HYDROcodone/APAP 10-325MG [[place] 10-325] 1 tab PO Q6H PRN #6 tab PRN Reason: Pain Discharge Medication List Cetirizine HCl [Zyrtec] 10 mg PO DAILY 11/03/14 [History] Isosorbide Mononitrate ER [Imdur] 30 mg PO DAILY 11/03/14 [History] Nitroglycerin Sl Tabs [Nitrostat] 0.4 mg SUBLINGUAL Q5M PRN 11/03/14 [History] Furosemide [Lasix] 40 mg PO DAILY 11/10/15 [History] Lisinopril [Prinivil] 5 mg PO BID 05/14/18 [History] Ranitidine HCl [Zantac] 75 mg PO DAILY 05/14/18 [History] Allopurinol [Zyloprim] 100 mg PO DAILY 11/29/18 [History] Apixaban [Eliquis] 2.5 mg PO BID 11/29/18 [History] Aspirin 81 mg PO DAILY 11/29/18 [History] Atorvastatin Calcium [Lipitor] 80 mg PO HS 11/29/18 [History] Omeprazole [PriLOSEC] 40 mg PO AC-BID 11/29/18 [History] Colchicine [Colcrys] 0.6 mg PO DAILY 3 Days #3 each 12/06/18 [Rx] Gabapentin [Neurontin] 200 mg PO TID #9 cap 12/06/18 [Rx] HYDROcodone/APAP 10-325MG [[place] 10-325] 1 tab PO Q6H PRN #6 tab 12/06/18 [Rx] INSULIN ASPART (NovoLOG) [NovoLOG (formulary)] 0 unit SQ ACHS vial 12/06/18 [Rx] predniSONE 20 mg PO BID #0 tab 12/06/18 [Rx] Follow up Appointment(s)/Referral(s): Lawrence Gooden PAC [PHYSICIAN BOTANICAL TECHNICAL OFFICER] - 3 Weeks (Patient may follow-up with Lawrence Gooden PA-C or Dr. Dano Rapp at [facility] in 2-3 weeks following discharge. ) Rayshawn Adams MD [STAFF PHYSICIAN] - 2 Weeks Philippe Miramontes DO [Primary Care Provider] - 1-2 days Silvino Jett [NON-STAFF] - As Needed Ambulatory/Diagnostic Orders: Basic Metabolic Panel [LAB.AMB] Time Frame: 3 Days, Location: None Selected Activity/Diet/Wound Care/Special Instructions: 1. Patient may wear LSO brace for comfort and support while sitting upright at greater than 45, while working with therapy, and while ambulating; patient does not have to wear the brace while lying in bed or bathing 2. Patient should avoid excessive bending, twisting, and lifting; no lifting greater than 10 pounds 3. Maintain knee immobilizer when up. May have off while in bed for gentle range of motion of the knee. 4. Toe-touch weightbearing only left lower extremity. SCHEDULED FOR REPEAT LEFT TRANSFORAMINAL EPIDURAL STEROID INJECTION 12/17/18, 08:30 ARRIVAL-PLEASE CHECK IN ON [facility] 2ND FLOOR Discharge/Stand Alone Forms: [facility] Diary, [facility]lian[facility] Instructions Discharge Disposition: TRANSFER TO SNF/ECF
[2018-12-06 15:03] VITALS: BP 148/79; PULSE 70; RESP 16; TEMP 97.8
== END 2018-12-06 17:17 | DRG 551 ==
LOC: EC 08:41 → 4MS4W 13:38 → OBSVTOIN 12-02 14:40
PROVIDERS: ADMIT Hospitalist; ATTEND Hospitalist
PROC: 0S9D3ZX Drainage of Left Knee Joint, Percutaneous Approach, Diagnostic (ICD-10-PCS; principal; 2018-12-02)
PROC: 3E0U33Z Introduction of Anti-inflammatory into Joints, Percutaneous Approach (ICD-10-PCS; 2018-12-03)
PROC: 3E0U3BZ Introduction of Anesthetic Agent into Joints, Percutaneous Approach (ICD-10-PCS; 2018-12-03)
DX: S32.038A Other fracture of third lumbar vertebra, initial encounter for closed fracture (principal); N17.0 Acute kidney failure with tubular necrosis; S72.422A Displaced fracture of lateral condyle of left femur, initial encounter for closed fracture; S22.088A Other fracture of T11-T12 vertebra, initial encounter for closed fracture; N39.0 Urinary tract infection, site not specified; I50.22 Chronic systolic (congestive) heart failure; M25.062 Hemarthrosis, left knee; W01.0XXA Fall on same level from slipping, tripping and stumbling without subsequent striking against object, initial encounter; E78.5 Hyperlipidemia, unspecified; G62.9 Polyneuropathy, unspecified; G89.29 Other chronic pain; I11.0 Hypertensive heart disease with heart failure; I25.10 Atherosclerotic heart disease of native coronary artery without angina pectoris; I48.91 Unspecified atrial fibrillation; K21.9 Gastro-esophageal reflux disease without esophagitis; M10.9 Gout, unspecified; M43.16 Spondylolisthesis, lumbar region; M51.16 Intervertebral disc disorders with radiculopathy, lumbar region; Z79.01 Long term (current) use of anticoagulants; Z79.82 Long term (current) use of aspirin; Z79.899 Other long term (current) drug therapy; Z80.41 Family history of malignant neoplasm of ovary; Z83.3 Family history of diabetes mellitus; Z85.528 Personal history of other malignant neoplasm of kidney; Z86.19 Personal history of other infectious and parasitic diseases; Z90.5 Acquired absence of kidney; Z90.710 Acquired absence of both cervix and uterus; Z95.5 Presence of coronary angioplasty implant and graft
CPT/HCPCS: 36415; 64483; 70450; 71045; 72125; 72128; 72131; 73502; 74176; 80048; 80053; 81001; 82550; 83605; 83735; 83880; 84100; 84484; 84550; 85025; 85610; 85730; 93005; 94760; 96361; 96374; 96375; 96376; 99285

== ENCOUNTER 2018-12-13 18:08 | Inpatient (IN) | payer MEDICARE ==
[2018-12-13] MEDS ORDERED: SODIUM CHLORIDE 0.9% 500 ML 500 ML IV STA (19:11)
[2018-12-13] MEDS ORDERED: ONDANSETRON 4 MG/2 ML VIAL IVP STA (19:11)
[2018-12-13 19:22] LABS: Basophils # (A) 0.2 k/uL (0-0.2); Basophils % (A) 1 %; Eosinophils # (A) 0.2 k/uL (0-0.7); Eosinophils % (A) 1 %; HCT 48.1 % (34.0-46.0); HGB 15.5 gm/dL (11.4-16.0); Lymphocytes # (A) 0.8 k/uL (1.0-4.8); Lymphocytes % (A) 3 %; MCH 33.2 pg (25.0-35.0); MCHC 32.3 g/dL (31.0-37.0); MCV 102.6 fL (80.0-100.0); Macrocytosis Slight; Mean Platelet Volume 7.8; Monocytes # (A) 1.5 k/uL (0-1.0); Monocytes % (A) 6 %; Neutrophils # (A) 23.3 k/uL (1.3-7.7); Neutrophils % (A) 89 %; Platelet Count 335 k/uL (150-450); RBC 4.69 m/uL (3.80-5.40); RDW 14.8 % (11.5-15.5); WBC 26.1 k/uL (3.8-10.6)
--- NOTE | 2018-12-13 19:38 | XR ---
EXAMINATION TYPE: XR chest 2V DATE OF EXAM: 12/13/2018 COMPARISON: 11/29/2018 HISTORY: Chest pain TECHNIQUE: Frontal and lateral views of the chest are obtained. FINDINGS: There is no heart failure. There is elevated right diaphragm. Lungs appear clear of consol idation. There is mild atelectasis right lung base. IMPRESSION: There is new mild atelectasis right lung base compared to old exam. No heart failure see n.
[2018-12-13 19:53] LABS: INR 0.9 (<1.2); Prothrombin Time 10.1 sec (9.0-12.0)
[2018-12-13 19:54] LABS: Partial Thromboplastin Time 16.6 sec (22.0-30.0)
[2018-12-13 20:20] LABS: Albumin 3.4 g/dL (3.5-5.0); Calcium 9.4 mg/dL (8.4-10.2); Magnesium 2.7 mg/dL (1.6-2.3); Total Bilirubin 0.5 mg/dL (0.2-1.3); Total Protein 6.4 g/dL (6.3-8.2)
[2018-12-13 20:58] LABS: Appearance,Urine Clear (Clear); Bilirubin,Urine Negative (Negative); Blood,Urine Negative (Negative); Color,Urine Light Yellow; Glucose,Urine (UA) Negative (Negative); Ketones,Urine Negative (Negative); Leukocyte Esterase,Urine Trace (Negative); Nitrite,Urine Negative (Negative); Protein,Urine Negative (Negative); RBC,Urine 1 /hpf (0-5); Specific Gravity,Urine 1.014 (1.001-1.035); Squamous Epithelial Cell,Urine <1 /hpf (0-4); Urobilinogen,Urine <2.0 mg/dL (<2.0); WBC,Urine 8 /hpf (0-5)
[2018-12-13] MEDS: HEPARIN SOD,PORK IN 0.45% NACL 25,000 UNIT in 0.45% NACL 1 250ML.BAG IV SCH (21:19)
--- NOTE | 2018-12-13 21:51 | ED ---
Chest Pain HPI - General Chief Complaint: Chest Pain Stated Complaint: chest pain Time Seen by Provider: 12/13/18 18:52 Source: patient, family Mode of arrival: EMS - History of Present Illness Initial Comments: Patient complains of chest pain. Pain was in the middle of the chest. The pain does not radiate anywhere. There were no exacerbating or relieving factors. She took no medicine for this. She had some diaphoresis. She has no nausea or vomiting currently. She has no focal weakness. - Related Data Home Medications Medication Instructions Recorded Confirmed Cetirizine HCl [Zyrtec] 10 mg PO DAILY 11/03/14 12/13/18 Isosorbide Mononitrate ER [Imdur] 30 mg PO DAILY 11/03/14 12/13/18 Nitroglycerin Sl Tabs [Nitrostat] 0.4 mg SUBLINGUAL Q5M PRN 11/03/14 12/13/18 Furosemide [Lasix] 40 mg PO DAILY 11/10/15 12/13/18 Allopurinol [Zyloprim] 100 mg PO DAILY 11/29/18 12/13/18 Apixaban [Eliquis] 2.5 mg PO BID 11/29/18 12/13/18 Aspirin 81 mg PO HS 11/29/18 12/13/18 Atorvastatin Calcium [Lipitor] 80 mg PO HS@199911/29/18 12/13/18 Gabapentin [Neurontin] 100 mg PO BID@0700,1900 12/13/18 12/13/18 HYDROcodone/APAP 10-325MG [[place] 1 tab PO Q4H PRN 12/13/18 12/13/18 10-325] INSULIN ASPART (NovoLOG) [NovoLOG See Protocol SQ ACHS 12/13/18 12/13/18 (formulary)] Lisinopril [Zestril] 10 mg PO BID 12/13/18 12/13/18 Omeprazole [PriLOSEC] 40 mg PO BID@0700,1600 12/13/18 12/13/18 methylPREDNISolone [Medrol] 4 mg PO BID 12/13/18 12/13/18 methylPREDNISolone [Medrol] 4 mg PO ONCE 12/13/18 12/13/18 Allergies Allergy/AdvReac Type Severity Reaction Status Date / Time propoxyphene Allergy Unknown Verified 12/13/18 18:37 [From Darvocet-N] codeine phosphate AdvReac Hallucinati Verified 12/13/18 18:37 [From Tylenol-Codeine #3] ons duloxetine [From Cymbalta] AdvReac c-diff Verified 12/13/18 18:37 meperidine HCl [From Demerol] AdvReac CHEST Verified 12/13/18 18:37 PAIN/Hallucinations pregabalin [From Lyrica] AdvReac Nausea & Verified 12/13/18 18:37 Vomiting Review of Systems ROS Statement: Those systems with pertinent positive or pertinent negative responses have been documented in the HPI. ROS Other: All systems not noted in ROS Statement are negative. EKG Findings - EKG Comments: EKG Findings:: Twelve-lead EKG shows ventricular rate 114 bpm, no P waves, normal QRSs, no ST elevation or depression, interpreted by me as atrial fibrillation Past Medical History Past Medical History: Atrial Fibrillation, Cancer, Chest Pain / Angina, Diabetes Mellitus, GERD/Reflux, Hyperlipidemia, Hypertension, Osteoarthritis (OA), Pneumonia Additional Past Medical History / Comment(s): Gout, Neuropathy, hx migraines, hx kidney cancer. History of Any Multi-Drug Resistant Organisms: C-DIFF Date of last positivie culture/infection: September 2017 MDRO Source:: stool Past Surgical History: Cholecystectomy, Heart Catheterization With Stent, Hysterectomy Additional Past Surgical History / Comment(s): Bilateral cataracts removed, left nephrectomy. Past Anesthesia/Blood Transfusion Reactions: Motion Sickness, Postoperative Nausea & Vomiting (PONV) Date of Last Stent Placement:: unknown Past Psychological History: No Psychological Hx Reported Smoking Status: Never smoker Past Alcohol Use History: None Reported Past Drug Use History: None Reported - Past Family History Father Family Medical History: Diabetes Mellitus Mother Family Medical History: Cancer Additional Family Medical History / Comment(s): Ovarian cancer. Sister(s) Family Medical History: Deep Vein Thrombosis (DVT) Brother(s) Family Medical History: Pulmonary Embolus General Exam General appearance: alert, in no apparent distress Head exam: Present: atraumatic, normocephalic, normal inspection Eye exam: Present: normal appearance, PERRL, EOMI. Absent: scleral icterus, conjunctival injection, periorbital swelling ENT exam: Present: normal exam, mucous membranes moist Neck exam: Present: normal inspection. Absent: tenderness, meningismus, lymphadenopathy Respiratory exam: Present: normal lung sounds bilaterally. Absent: respiratory distress, wheezes, rales, rhonchi, stridor Cardiovascular Exam: Present: regular rate, normal rhythm, normal heart sounds. Absent: systolic murmur, diastolic murmur, rubs, gallop, clicks GI/Abdominal exam: Present: soft, normal bowel sounds. Absent: distended, tenderness, guarding, rebound, rigid Extremities exam: Present: normal inspection, full ROM, normal capillary refill. Absent: tenderness, pedal edema, joint swelling, calf tenderness Back exam: Present: normal inspection Neurological exam: Present: alert, oriented X3, CN II-XII intact Psychiatric exam: Present: normal affect, normal mood Skin exam: Present: warm, dry, intact, normal color. Absent: rash Course Vital Signs 12/13/18 12/13/18 12/13/18 18:16 19:09 20:45 Temperature 98.3 F 97.8 F Pulse Rate 112 H 85 Pulse Rate [ 112 H Grips ] Respiratory 18 18 Rate Blood Pressure 115/75 129/92 O2 Sat by Pulse 93 L 96 Oximetry Chest Pain MDM - MDM Patient presents with chest pain. She has a positive troponin. I ordered IV heparin. I consult to cardiology. Patient will be admitted to the hospital. Critical Care Time Critical Care Time: Yes Total Critical Care Time: 35 Disposition Clinical Impression: Chest pain Disposition: ADMITTED IP TO THIS HOSP Referrals: Philippe Miramontes DO [Primary Care Provider] - 1-2 days
[2018-12-13] MEDS ORDERED: NALOXONE 0.4 MG/ML 1 ML VIAL IV PRN (21:52)
[2018-12-13] MEDS ORDERED: ONDANSETRON 4 MG/2 ML VIAL IVP PRN (21:52)
[2018-12-13] MEDS ORDERED: MORPHINE SULFATE 4 MG/ML SYRINGE IV STA (22:13)
[2018-12-13 23:27] VITALS: BMI 44.9
[2018-12-14] MEDS: MORPHINE SULFATE 4 MG/ML SYRINGE IV PRN ×5 (04:37→22:28)
[2018-12-14] MEDS ORDERED: NITROGLYCERIN SL TABS 0.4 MG TAB SUBLINGUAL ONE (05:54)
[2018-12-14] MEDS: INSULIN ASPART (NovoLOG) 100 UNIT/ML VIAL SQ SCH ×4 (06:47→22:28)
[2018-12-14 06:54] LABS: Glucose,Whole Blood 117 mg/dL (75-99)
[2018-12-14] MEDS: ISOSORBIDE MONONITRATE ER 30 MG TAB.ER.24H PO SCH (08:35)
[2018-12-14] MEDS ORDERED: IOPAMIDOL-300 CONTRAST 30 ML VIAL (ORAL USE) PO PRN (08:45)
[2018-12-14] MEDS ORDERED: LISINOPRIL 10 MG TAB PO SCH (09:00)
[2018-12-14] MEDS ORDERED: FUROSEMIDE 40 MG TAB PO SCH (09:00)
[2018-12-14] MEDS: PANTOPRAZOLE 40 MG TABLET PO SCH (09:06)
[2018-12-14] MEDS: IOPAMIDOL-300 CONTRAST 30 ML VIAL (ORAL USE) PO PRN ×2 (09:06→09:52)
--- NOTE | 2018-12-14 09:10 | P.CRDCN ---
History of Present Illness Consult date: 12/14/18 Requesting physician: Alfa Guaman Reason for Consult (text): NSTEMI Chief complaint: epigastric pain History of present illness: This is a pleasant 77-year-old female patient who follows regularly with Dr. Mcbride in the office. She has a history of CAD with prior stenting of the LAD and 2009, chronic persistent atrial fibrillation for which she is on Eliquis, hypertension, hyperlipidemia, borderline diabetes, neuropathy, cholecystectomy, and gastric reflux. She was recently admitted earlier this month after sustaining a fall with multiple musculoskeletal injuries and has been in [facility] for rehab. She presented via EMS after finishing therapy yesterday and developing a significant burning sensation in her Epigastric area that radiated to her back. She also complained of some left arm numbness but did notice some popping in her shoulder during therapy. She did break out in a sweat and was clammy according to her. She says the discomfort started around 2 PM yesterday and lasted past 5 PM. She was apparently given nitroglycerin without relief. Laboratory values on admission showed a white blood cell count 26,000, she has been on steroids following most recent hospitalization. Other laboratory values show a sodium of 135, potassium 6, BUN of 71 and creatinine 1. 43. Troponins were minimally elevated at 0.04, 0.046 and 0.045. Initial EKG showed atrial fibrillation with a heart rate of [address]-T wave abnormalities. Subsequent EKG from this morning shows atrial fibrillation with controlled ventricular response with ST-T wave changes laterally. Chest x-ray showed new mild atelectasis right lung base. Home medications included Medrol 4 mg by mouth twice a day, omeprazole 40 mg by mouth twice a day, lisinopril 10 mg by mouth twice a day, isosorbide 30 mg by mouth daily, NovoLog sliding scale, [place] 103 25 every 4 hours as needed for pain, Neurontin 100 mg by mouth twice a day, Lasix 40 mg daily, cetirizine 10 mg by mouth daily, atorvastatin 80 mg by mouth daily at bedtime, aspirin 81 mg by mouth daily at bedtime, Eliquis 2.5 mg by mouth twice a day, and allopurinol 100 mg by mouth daily. Upon examination patient is resting comfortably in bed. She continues to complain of a dull ache across her chest as well as burning in the epigastric area pain in the chest is reproducible worsening with palpation. Epigastric discomfort also worsened with palpation. She has no further complaints of diaphoresis or left arm numbness. She's had no shortness of breath, dizziness, lightheadedness, orthopnea, edema or syncope. She does complain of occasional rapid heartbeat. Past Medical History Past Medical History: Atrial Fibrillation, Cancer, Chest Pain / Angina, Diabetes Mellitus, GERD/Reflux, Hyperlipidemia, Hypertension, Osteoarthritis (OA), Pneumonia Additional Past Medical History / Comment(s): Gout, Neuropathy, hx migraines, hx kidney cancer. History of Any Multi-Drug Resistant Organisms: C-DIFF Date of last positivie culture/infection: September 2017 MDRO Source:: stool Past Surgical History: Cholecystectomy, Heart Catheterization With Stent, Hysterectomy Additional Past Surgical History / Comment(s): Bilateral cataracts removed, left nephrectomy. Past Anesthesia/Blood Transfusion Reactions: Motion Sickness, Postoperative Nausea & Vomiting (PONV) Date of Last Stent Placement:: unknown Past Psychological History: No Psychological Hx Reported Smoking Status: Never smoker Past Alcohol Use History: None Reported Past Drug Use History: None Reported - Past Family History Father Family Medical History: Diabetes Mellitus Mother Family Medical History: Cancer Additional Family Medical History / Comment(s): Ovarian cancer. Sister(s) Family Medical History: Deep Vein Thrombosis (DVT) Brother(s) Family Medical History: Pulmonary Embolus Medications and Allergies Home Medications Medication Instructions Recorded Confirmed Type Cetirizine HCl [Zyrtec] 10 mg PO DAILY 11/03/14 12/13/18 History Isosorbide Mononitrate ER [Imdur] 30 mg PO DAILY 11/03/14 12/13/18 History Nitroglycerin Sl Tabs [Nitrostat] 0.4 mg SUBLINGUAL Q5M PRN 11/03/14 12/13/18 Hi story Furosemide [Lasix] 40 mg PO DAILY 11/10/15 12/13/18 History Allopurinol [Zyloprim] 100 mg PO DAILY 11/29/18 12/13/18 History Apixaban [Eliquis] 2.5 mg PO BID 11/29/18 12/13/18 History Aspirin 81 mg PO HS 11/29/18 12/13/18 History Atorvastatin Calcium [Lipitor] 80 mg PO HS@2000 11/29/18 12/13/18 History Gabapentin [Neurontin] 100 mg PO BID@0700,1900 12/13/18 12/13/18 History HYDROcodone/APAP 10-325MG [[place] 1 tab PO Q4H PRN 12/13/18 12/13/18 History 10-325] INSULIN ASPART (NovoLOG) [NovoLOG See Protocol SQ ACHS 12/13/18 12/13/18 History (formulary)] Lisinopril [Zestril] 10 mg PO BID 12/13/18 12/13/18 History Omeprazole [PriLOSEC] 40 mg PO BID@0700,1600 12/13/18 12/13/18 History methylPREDNISolone [Medrol] 4 mg PO BID 12/13/18 12/13/18 History methylPREDNISolone [Medrol] 4 mg PO ONCE 12/13/18 12/13/18 History Allergies Allergy/AdvReac Type Severity Reaction Status Date / Time propoxyphene Allergy Unknown Verified 12/13/18 18:37 [From Darvocet-N] codeine phosphate AdvReac Hallucinati Verified 12/13/18 18:37 [From Tylenol-Codeine #3] ons duloxetine [From Cymbalta] AdvReac c-diff Verified 12/13/18 18:37 meperidine HCl [From Demerol] AdvReac CHEST Verified 12/13/18 18:37 PAIN/Hallucinations pregabalin [From Lyrica] AdvReac Nausea & Verified 12/13/18 18:37 Vomiting Physical Exam Vitals: Vital Signs Temp Pulse Pulse Resp BP BP Pulse Ox 12/14/18 08:17 97.6 F 69 18 112/57 98 12/14/18 04:00 97.4 F L 75 18 125/84 95 12/14/18 00:00 97.6 F 72 18 132/65 97 12/13/18 23:12 97.6 F 72 18 132/65 97 12/13/18 22:50 98.7 F 90 18 129/87 98 12/13/18 22:10 100 18 110/78 96 12/13/18 20:45 97.8 F 85 18 129/92 96 12/13/18 19:09 112 H 12/13/18 18:16 98.3 F 112 H 18 115/75 93 L Intake and Output 08/23/19 08/24/19 08/24/19 22:59 06:59 14:59 Other: Voiding Method Bedpan # Voids 1 1 Weight 91.626 kg 92 kg PHYSICAL EXAMINATION: HEENT: Head is atraumatic, normocephalic. Pupils equal, round. Neck is supple. There is no elevated jugular venous pressure. HEART EXAMINATION: Heart sounds irregularly irregular, S1 and S2 with a systolic murmur. CHEST EXAMINATION: Lungs are clear to auscultation anteriorly. Chest wall tenderness is noted on palpation or with deep breathing. ABDOMEN: Soft, significant tenderness and guarding noted upon palpation. Bowel sounds are heard. No organomegaly noted. EXTREMITIES: 2+ peripheral pulses with no evidence of peripheral edema and no calf tenderness noted. Brace noted to left lower extremity. NEUROLOGIC patient is awake, alert and oriented x3. . Results 12/13/18 18:45 12/13/18 20:00 Cardiac Enzymes 12/13/18 12/13/18 12/14/18 Range/Units 18:45 20:00 00:21 AST 26 (14-36) U/L Troponin I 0.040 H* 0.046 H* (0.000-0.034) ng/mL 12/14/18 Range/Units 06:37 AST (14-36) U/L Troponin I 0.045 H* (0.000-0.034) ng/mL Coagulation 12/13/18 12/14/18 Range/Units 18:45 02:40 PT 10.1 (9.0-12.0) sec APTT 16.6 L 75.9 H (22.0-30.0) sec CBC 12/13/18 Range/Units 18:45 WBC 26.1 H (3.8-10.6) k/uL RBC 4.69 (3.80-5.40) m/uL Hgb 15.5 (11.4-16.0) gm/dL Hct 48.1 H (34.0-46.0) % Plt Count 335 (150-450) k/uL Comprehensive Metabolic Panel 12/13/18 Range/Units 20:00 Sodium 135 L (137-145) mmol/L Potassium 6.0 H (3.5-5.1) mmol/L Chloride 98 (98-107) mmol/L Carbon Dioxide 28 (22-30) mmol/L BUN 71 H (7-17) mg/dL Creatinine 1.43 H (0.52-1.04) mg/dL Glucose 209 H (74-99) mg/dL Calcium 9.4 (8.4-10.2) mg/dL AST 26 (14-36) U/L ALT 56 H (9-52) U/L Alkaline Phosphatase 144 H (38-126) U/L Total Protein 6.4 (6.3-8.2) g/dL Albumin 3.4 L (3.5-5.0) g/dL Current Medications Generic Name Dose Route Start Last Admin Trade Name Freq PRN Reason Stop Dose Admin Aspirin 81 mg 12/14/18 21:00 Aspirin PO HS [facility] Atorvastatin Calcium 80 mg 12/14/18 20:00 Lipitor PO HS@2000 RUDY Furosemide 40 mg 12/14/18 09:00 Lasix PO DAILY [facility] Heparin Sodium/Sodium Chloride 250 mls @ 10.079 mls/hr 12/13/18 20:30 21:19 25,000 unit/ Sodium Chloride IV 11 units/kg/hr .Q24H [facility] 10.079 mls/hr Administration Protocol 11 UNITS/KG/HR Insulin Aspart 0 unit 12/14/18 07:30 12/14/18 06:47 Novolog SQ Not Given ACHS [facility] Protocol Isosorbide Mononitrate 30 mg 12/14/18 09:00 Imdur PO DAILY [facility] Lisinopril 10 mg 12/14/18 09:00 Zestril PO BID [facility] Morphine Sulfate 4 mg 12/13/18 21:52 12/14/18 04:37 Morphine Sulfate (Inj) IV 4 mg Q4HR PRN Administration Severe Pain Naloxone HCl 0.2 mg 12/13/18 21:52 Narcan IV Q2M PRN Opioid Reversal Ondansetron HCl 4 mg 12/13/18 21:52 Zofran IVP Q8HR PRN Nausea And Vomiting Intake and Output 12/13/18 12/14/18 12/14/18 22:59 06:59 14:59 Other: Voiding Method Bedpan # Voids 1 1 Weight 91.626 kg 92 kg 12/13/18 18:45 12/13/18 20:00 EKG Interpretations (text) Initial Atrial fibrillation with nonspecific ST-T wave abnormalities Subsequent atrial fibrillation with lateral ST-T wave changes Assessment and Plan Assessment: #1 symptoms of epigastric burning and significant abdominal tenderness on palpation, computed tomography scan ordered by primary #2 symptoms of chest discomfort, with minimally elevated troponins, not consistent with acute coronary syndrome, pain is reproducible and appears to be musculoskeletal in origin #3 history of CAD with prior stenting of the LAD in 2008 #4 chronic persistent atrial fibrillation #5 hypertension #6 hyperlipidemia #7 recent fall with multiple musculoskeletal injuries Plan: From cardiology's perspective, we will obtain a 2-D echo with Doppler to assess LV systolic function. We will hold lisinopril in view of hyperkalemia and follow lytes BUN and creatinine. Hold Lasix. Await computed tomography scan results. Depending on results of computed tomography scan, may discontinue heparin tomorrow and resume patient's Eliquis. Repeat EKG tomorrow. We will continue to follow patient for further recommendations accordingly. O[employer] FIELD PU[employer]ER note has been reviewed, I agree with a documented findings and plan of care. Patient was seen and examined.
--- NOTE | 2018-12-14 10:54 | CT ---
EXAMINATION TYPE: CT abdomen pelvis wo con DATE OF EXAM: 12/14/2018 COMPARISON: 11/29/2018 INDICATION: Left sided pain DLP: 879.6 mGycm, Automated exposure control for dose reduction was used. CONTRAST: 0 mL of Isovue 300. Study performed with Oral Contrast TECHNIQUE: Axial images were obtained from above the diaphragm to the pubic rami in the axial plane a t 5 mm thick sections. Reconstructed images are reviewed on the computer in the coronal plane. FINDINGS: Limited CT sections are obtained the lung bases. There is streak opacity and thickening along the po sterior medial right lung base.. Note is made of moderate coronary artery calcification. CT ABDOMEN: Liver: Normal Spleen: Normal Pancreas: Atrophic Adrenal glands: The adrenal glands are normal. Gallbladder: Surgically absent Kidneys: Left kidney is surgically absent. No recurrent masses within the renal bed is evident. There is a small cyst on the posterior lateral right kidney measuring 0.9 cm and -11 Hounsfield units. N o hydronephrosis is present. No cysts are present. Delayed images were obtained through the kidney s, which remain unremarkable. Aorta: Vascular calcification is within the aorta. Inferior vena cava: Normal. CT PELVIS: Loops of bowel within the abdomen and pelvis are normal. There are loops of bowel which are incom pletely distended or lack oral contrast limiting their evaluation. Appendix: Normal as visualized. Urinary bladder: Normal. Genitourinary structures: Uterus and ovaries are not identified. Adnexal regions appear clear. Osseous structures: No suspicious lytic or sclerotic lesions. Facet degenerative changes at sacroilia c joint degenerative changes are present. Compression deformity at superior endplate L3 and a grade 1 spondylolisthesis of L4 on L5 is stable. IMPRESSIONS: 1. Post left nephrectomy changes. No recurrent masses are evident.
[2018-12-14 11:49] LABS: Glucose,Whole Blood 103 mg/dL (75-99)
[2018-12-14 12:12] LABS: Basophils # (A) 0.2 k/uL (0-0.2); Basophils % (A) 1 %; Eosinophils # (A) 0.4 k/uL (0-0.7); Eosinophils % (A) 2 %; HCT 47.3 % (34.0-46.0); HGB 15.4 gm/dL (11.4-16.0); Lymphocytes # (A) 1.6 k/uL (1.0-4.8); Lymphocytes % (A) 8 %; MCH 33.1 pg (25.0-35.0); MCHC 32.5 g/dL (31.0-37.0); Macrocytosis Slight; Mean Platelet Volume 7.4; Monocytes # (A) 1.2 k/uL (0-1.0); Monocytes % (A) 6 %; Neutrophils # (A) 16.6 k/uL (1.3-7.7); Neutrophils % (A) 82 %; Platelet Count 315 k/uL (150-450); RBC 4.64 m/uL (3.80-5.40); RDW 14.5 % (11.5-15.5); WBC 20.2 k/uL (3.8-10.6)
--- NOTE | 2018-12-14 12:35 | ECHOF ---
Referral Reason:chest pain MEASUREMENTS -------- HEIGHT: 157.5 cm WEIGHT: 91.6 kg BP: 112/57 RVIDd: 2.3 cm (< 3.3) IVSd: 1.3 cm (0.6 - 1.1) LVIDd: 3.8 cm (3.9 - 5.3) LVPWd: 1.4 cm (0.6 - 1.1) IVSs: 1.7 cm LVIDs: 2.7 cm LVPWs: 1.8 cm LA Diam: 3.1 cm (2.7 - 3.8) LAESV Index (A-L): 27.86 ml/m Ao Diam: 2.6 cm (2.0 - 3.7) AV Cusp: 1.8 cm (1.5 - 2.6) MV EXCURSION: 23.688 mm (> 18.000) MV EF SLOPE: 128 mm/s (70 - 150) EPSS: 0.8 cm RAP: 5.00 mmHg RVSP: 24.48 mmHg FINDINGS -------- Atrial fibrillation. This was a technically adequate study. The left ventricular size is normal. There is moderate concentric left ventricular hypertrophy. O verall left ventricular systolic function is low-normal with, an EF between 50 - 55 %. The right ventricle is normal in size. Normal LA size by volume 22+/-6 ml/m2. The right atrial size is normal. Interatrial and interventricular septum intact. The aortic valve is trileaflet and appears structurally normal. The mitral valve is normal. Mild mitral regurgitation is present. Mild tricuspid regurgitation present. Right ventricular systolic pressure is normal at < 35 mmHg. Trace/mild (physiologic) pulmonic regurgitation. The aortic root size is normal. IVC Not well visulized. Echo free space may represent effusion or a pericardial fat pad. CONCLUSIONS -------- 1. Atrial fibrillation. 2. This was a technically adequate study. 3. The left ventricular size is normal. 4. There is moderate concentric left ventricular hypertrophy. 5. Overall left ventricular systolic function is low-normal with, an EF between 50 - 55 %. 6. Normal LA size by volume 22+/-6 ml/m2. 7. The aortic valve is trileaflet and appears structurally normal. 8. The mitral valve is normal. 9. Mild mitral regurgitation is present. 10. Mild tricuspid regurgitation present. 11. Right ventricular systolic pressure is normal at < 35 mmHg. 12. Trace/mild (physiologic) pulmonic regurgitation. 13. The aortic root size is normal. 14. IVC Not well visulized. 15. Echo free space may represent effusion or a pericardial fat pad. HALL MONITOR: Doris Frey RDCS
[2018-12-14 12:55] LABS: Calcium 9.5 mg/dL (8.4-10.2); Potassium 5.6 mmol/L (3.5-5.1)
[2018-12-14 16:55] LABS: Glucose,Whole Blood 125 mg/dL (75-99)
[2018-12-14] MEDS: HEPARIN SOD,PORK IN 0.45% NACL 25,000 UNIT in 0.45% NACL 1 250ML.BAG IV SCH (18:14)
[2018-12-14 21:08] LABS: Glucose,Whole Blood 179 mg/dL (75-99)
--- NOTE | 2018-12-14 21:55 | P.HPIM ---
History of Present Illness H&P Date: 12/14/18 Chief Complaint: Chest pain Patient is a 77-year-old female with a known history of chronic atrial fibrillation on anticoagulation with Eliquis, coronary artery disease with h istory of stent placement, hypertension, diabetes type 2, osteoarthritis and peripheral neuropathy came to ER with the complaints of chest pain. Patient was brought to the hospital by EMS and was complaining of chest pain and epigastric pain radiating to the left retrosternal started around 2 PM yesterday. Pain lasted until 5 PM. Nitroglycerin did not really the pain. Patient was discharged from the hospital on 12/06/2018, was admitted to the hospital status post fall and L3 compression fractures as well as acute left distal femur fracture and suprapatellar effusion status post aspiration. Patient was sent to rehab. Patient was on Medrol Dosepak tapering course and is left with one last day. Patient also felt left arm numbness and shoulder pain as well. Denied any nausea or vomiting. Patient did have diaphoresis. Pain has been constant. No aggravating or relieving factors. No associated shortness of breath. No worsening leg swelling. Patient was found have troponin level elevated at 0.04, 0.046 and 0.045 EKG showed atrial fibrillation with [address]-T wave changes. Chest x-ray showed mild right lower lobe atelectasis. No infiltrate noted. Patient is currently complaining of abdominal pain mainly left-sided and is tender to palpation and reproducible. No rigidity. CT chest showed no acute abnormality. Previous nephrectomy changes noted otherwise. No nausea vomiting or diarrhea. No constipation. Patient did have last bowel movement yesterday. Patient otherwise denied any orthopnea or PND. Patient has left lower extremity stabilizer place. Sodium 135, potassium 6 with mild hemolysis, BUN 71 and creatinine 1.43 Review of Systems Constitutional: Patient denies any fever or chills . No generalized weakness or weight loss. Abdomen: Patient denied nausea vomiting and diarrhea and abdominal pain. Tenderness of the abdomen. Cardiovascular: Is complaining of chest pain, epigastric pain and left retrosternal pain. No shortness of breath no palpitations.. Respiratory: patient denied any cough is from production. No shortness of breath Neurologic: Patient denied any numbness or tingling headache. Musculoskeletal: Patient denies any complaints of joint swelling or deformity. Left lower activity pain Skin: Negative Psychiatric: Negative Endocrine: No heat or cold intolerance. No recent weight gain. Genitourinary: No dysuria or hematuria. All other 14 point ROS negative except the above Past Medical History Past Medical History: Atrial Fibrillation, Cancer, Chest Pain / Angina, Diabetes Mellitus, GERD/Reflux, Hyperlipidemia, Hypertension, Osteoarthritis (OA), Pneumonia Additional Past Medical History / Comment(s): Gout, Neuropathy, hx migraines, hx kidney cancer. History of Any Multi-Drug Resistant Organisms: C-DIFF Date of last positivie culture/infection: September 2017 MDRO Source:: stool Past Surgical History: Cholecystectomy, Heart Catheterization With Stent, Hysterectomy Additional Past Surgical History / Comment(s): Bilateral cataracts removed, left nephrectomy. Past Anesthesia/Blood Transfusion Reactions: Motion Sickness, Postoperative Nausea & Vomiting (PONV) Date of Last Stent Placement:: unknown Past Psychological History: No Psychological Hx Reported Smoking Status: Never smoker Past Alcohol Use History: None Reported Past Drug Use History: None Reported - Past Family History Father Family Medical History: Diabetes Mellitus Mother Family Medical History: Cancer Additional Family Medical History / Comment(s): Ovarian cancer. Sister(s) Family Medical History: Deep Vein Thrombosis (DVT) Brother(s) Family Medical History: Pulmonary Embolus Medications and Allergies Home Medications Medication Instructions Recorded Confirmed Type Cetirizine HCl [Zyrtec] 10 mg PO DAILY 11/03/14 12/13/18 History Isosorbide Mononitrate ER [Imdur] 30 mg PO DAILY 11/03/14 12/13/18 History Nitroglycerin Sl Tabs [Nitrostat] 0.4 mg SUBLINGUAL Q5M PRN 11/03/14 12/13/18 History Furosemide [Lasix] 40 mg PO DAILY 11/10/15 12/13/18 History Allopurinol [Zyloprim] 100 mg PO DAILY 11/29/18 12/13/18 History Apixaban [Eliquis] 2.5 mg PO BID 11/29/18 12/13/18 History Aspirin 81 mg PO HS 11/29/18 12/13/18 History Atorvastatin Calcium [Lipitor] 80 mg PO HS@2000 11/29/18 12/13/18 History Gabapentin [Neurontin] 100 mg PO BID@0700,1900 12/13/18 12/13/18 History HYDROcodone/APAP 10-325MG [[place] 1 tab PO Q4H PRN 12/13/18 12/13/18 History 10-325] INSULIN ASPART (NovoLOG) [NovoLOG See Protocol SQ ACHS 12/13/18 12/13/18 History (formulary)] Lisinopril [Zestril] 10 mg PO BID 12/13/18 12/13/18 History Omeprazole [PriLOSEC] 40 mg PO BID@0700,1600 12/13/18 12/13/18 History methylPREDNISolone [Medrol] 4 mg PO BID 12/13/18 12/13/18 History methylPREDNISolone [Medrol] 4 mg PO ONCE 12/13/18 12/13/18 History Allergies Allergy/AdvReac Type Severity Reaction Status Date / Time propoxyphene Allergy Unknown Verified 12/13/18 18:37 [From Darvocet-N] codeine phosphate AdvReac Hallucinati Verified 12/13/18 18:37 [From Tylenol-Codeine #3] ons duloxetine [From Cymbalta] AdvReac c-diff Verified 12/13/18 18:37 meperidine HCl [From Demerol] AdvReac CHEST Verified 12/13/18 18:37 PAIN/Hallucinations pregabalin [From Lyrica] AdvReac Nausea & Verified 12/13/18 18:37 Vomiting Physical Exam Vitals: Vital Signs Temp Pulse Pulse Pulse Resp BP BP 12/14/18 20:00 97.8 F 76 16 103/66 12/14/18 16:00 97.7 F 77 20 112/63 12/14/18 15:52 18 12/14/18 12:00 98.5 F 60 18 116/62 12/14/18 08:17 97.6 F 69 18 112/57 12/14/18 08:00 69 18 12/14/18 04:00 97.4 F L 75 18 125/84 12/14/18 00:00 97.6 F 72 18 132/65 12/13/18 23:12 97.6 F 72 18 132/65 12/13/18 22:50 98.7 F 90 18 129/87 12/13/18 22:10 100 18 110/78 Pulse Ox 12/14/18 20:00 95 12/14/18 16:00 95 12/14/18 15:52 12/14/18 12:00 95 12/14/18 08:17 98 12/14/18 08:00 12/14/18 04:00 95 12/14/18 00:00 97 12/13/18 23:12 97 12/13/18 22:50 98 12/13/18 22:10 96 Intake and Output 12/14/18 12/14/18 12/14/18 06:59 14:59 22:59 Intake Total 340.938 329.819 Output Total 250 200 Balance 90.938 129.819 Intake: Intake, IV Titration 140.938 69.819 Amount Heparin Sod,Pork in 0.45% 140.938 69.819 NaCl 25,000 unit In 0.45 % NaCl 1 250ml.bag @ 11 UNITS/KG/HR 10.079 mls/hr IV .[facility]H [facility] Rx#: [id number] Oral 200 260 Output: Urine 250 200 Other: Voiding Method Bedpan Bedpan Bedpan # Voids 1 1 1 # Bowel Movements 1 Weight 92 kg PHYSICAL EXAMINATION: Patient is lying in the bed comfortably, no acute distress, awake alert and oriented.. HEENT: Normocephalic. Neck is supple. Pupils reactive. Nostrils clear. Oral cavity is moist. Ears reveal no drainage. Neck reveals no JVD, carotid bruits, or thyromegaly. CHEST EXAMINATION: Trachea is central. Chest wall tenderness. Symmetrical expansion. Bibasilar diminished air entry. Lung basilio clear to auscultation and percussion. CARDIAC: Normal S1, S2 with no gallops. No murmurs . Irregular rhythm. ABDOMEN: Soft. Tenderness on the left side of the abdomen. reducible. Tenderness even with light touch. No guarding no rigidity. Bowel sounds normal. No organomegaly. No abdominal bruits. Extremities: reveal no edema. No clubbing or cyanosis patient does have a sore bilateral feet. Neurologically awake, alert, oriented x3 with well-coordinated movements. No focal deficits noted Skin: No rash or skin lesions. Psychiatric: Coperative. Nonsuicidal Musculoskeletal: No joint swelling or deformity. Normal range of motion. Left lower extremity stabilized in place. Results CBC & Chem 7: 12/14/18 11:43 08/24/19 11:43 Labs: Abnormal Lab Results - Last 24 Hours (Table) 12/14/18 12/14/18 12/14/18 Range/Units 00:21 02:40 06:31 WBC (3.8-10.6) k/uL Hct (34.0-46.0) % MCV (80.0-100.0) fL Neutrophils # (1.3-7.7) k/uL Monocytes # (0-1.0) k/uL APTT 75.9 H (22.0-30.0) sec Sodium (137-145) mmol/L Potassium (3.5-5.1) mmol/L BUN (7-17) mg/dL Creatinine (0.52-1.04) mg/dL Glucose (74-99) mg/dL POC Glucose (mg/dL) 117 H (75-99) mg/dL Troponin I 0.046 H* (0.000-0.034) ng/mL 12/14/18 12/14/18 12/14/18 Range/Units 06:37 08:59 11:43 WBC 20.2 H (3.8-10.6) k/uL Hct 47.3 H (34.0-46.0) % MCV 102.0 H (80.0-100.0) fL Neutrophils # 16.6 H (1.3-7.7) k/uL Monocytes # 1.2 H (0-1.0) k/uL APTT (22.0-30.0) sec Sodium (137-145) mmol/L Potassium (3.5-5.1) mmol/L BUN (7-17) mg/dL Creatinine (0.52-1.04) mg/dL Glucose (74-99) mg/dL POC Glucose (mg/dL) (75-99) mg/dL Troponin I 0.045 H* 0.039 H* (0.000-0.034) ng/mL 12/14/18 12/14/18 12/14/18 Range/Units 11:43 11:46 16:53 WBC (3.8-10.6) k/uL Hct (34.0-46.0) % MCV (80.0-100.0) fL Neutrophils # (1.3-7.7) k/uL Monocytes # (0-1.0) k/uL APTT (22.0-30.0) sec Sodium 135 L (137-145) mmol/L Potassium 5.6 H (3.5-5.1) mmol/L BUN 66 H (7-17) mg/dL Creatinine 1.14 H (0.52-1.04) mg/dL Glucose 114 H (74-99) mg/dL POC Glucose (mg/dL) 103 H 125 H (75-99) mg/dL Troponin I (0.000-0.034) ng/mL 12/14/18 Range/Units 21:07 WBC (3.8-10.6) k/uL Hct (34.0-46.0) % MCV (80.0-100.0) fL Neutrophils # (1.3-7.7) k/uL Monocytes # (0-1.0) k/uL APTT (22.0-30.0) sec Sodium (137-145) mmol/L Potassium (3.5-5.1) mmol/L BUN (7-17) mg/dL Creatinine (0.52-1.04) mg/dL Glucose (74-99) mg/dL POC Glucose (mg/dL) 179 H (75-99) mg/dL Troponin I (0.000-0.034) ng/mL Thrombosis Risk Factor Assmnt - DVT/VTE Prophylaxis DVT/VTE Prophylaxis: Pharmacologic Prophylaxis ordered - Choose All That Apply Any of the Below Risk Factors Present?: Yes Each Factor Represents 1 point: Obesity (BMI >25) Other Risk Factors: Yes Each Risk Factor Represents 2 Points: Patient confined to bed Each Risk Factor Represents 3 Points: Age 75 years or older Other congenital or acquired thrombophilia - If yes, enter type in comment: Yes Each Risk Factor Represents 5 Points: Hip, pelvis, or leg fracture (< 1 month) Thrombosis Risk Factor Assessment Total Risk Factor Score: 11 Thrombosis Risk Factor Assessment Level: High Risk Assessment and Plan Assessment: Chest pain. Mainly epigastric and is reproducible. Likely musculoskeletal versus acute gastritis with steroids. CT abdomen pelvis showed no acute process. Mildly elevated troponin level. Unlikely acute NV. Chest pain is likely musculoskeletal . Leukocytosis. Due to steroids and reactive as well. Trending down with on antibiotics. Follow and rule out any infection. Chest x-ray, UA negative. Hyperkalemia with mild hemolysis. Repeat potassium level V.6. Hyperglycemia with uncontrolled diabetes type 2 Chronic atrial fibrillation on anticoagulation with Eliquis Coronary artery disease with exertion placement Recent fall with L3 compression fracture and minimally displaced left distal femur fracture. Discharged to rehab on 12/06/2018 Left knee suprapatellar effusion Acute Kidney injury most likely prerenal. Patient also prerenal azotemia secondary to steroids. Lasix and lisinopril on hold. GERD BN joint disease Hypertension Hyperlipidemia History of renal cancer status post nephrectomy Bilateral peripheral neuropathy psychiatric diabetes History of C. diff Plan: Agent will be continued on telemetry monitoring. Patient was started on heparin drip cardiology is planning for now and [place] at this time. 2-D echocardiogram w as ordered. Patient be continued on pain management, bowel regimen and encourage incentive spirometry. Continue with insulin sliding scale and other home medications. Further admissions based on the clinical course. Discussed with family at bedside in detail. Time with Patient: Greater than 30
[2018-12-14] MEDS: ASPIRIN 81 MG PO SCH (22:28)
[2018-12-14] MEDS: ATORVASTATIN 80 MG TAB PO SCH (22:28)
[2018-12-15 03:26] LABS: Potassium 5.7 mmol/L (3.5-5.1)
[2018-12-15 06:26] LABS: Glucose,Whole Blood 121 mg/dL (75-99)
[2018-12-15] MEDS: INSULIN ASPART (NovoLOG) 100 UNIT/ML VIAL SQ SCH ×4 (06:27→21:40)
[2018-12-15] MEDS: GABAPENTIN 100 MG CAP PO SCH ×2 (06:31→17:23)
[2018-12-15] MEDS: PANTOPRAZOLE 40 MG TABLET PO SCH (06:31)
[2018-12-15] MEDS: MORPHINE SULFATE 4 MG/ML SYRINGE IV PRN ×4 (06:37→17:26)
[2018-12-15] MEDS: ISOSORBIDE MONONITRATE ER 30 MG TAB.ER.24H PO SCH (09:36)
[2018-12-15] MEDS: ALLOPURINOL 100 MG TAB PO SCH (09:36)
[2018-12-15 10:46] LABS: Glucose,Whole Blood 125 mg/dL (75-99)
[2018-12-15] MEDS ORDERED: DEXTROSE 50% SYRINGE 50 ML IVP STA (11:34)
[2018-12-15] MEDS ORDERED: INSULIN REGULAR 100 UNIT/ML VIAL SQ ONE (11:34)
[2018-12-15] MEDS ORDERED: DEXTROSE 10 % IN WATER 250 ML IV ONE (11:36)
[2018-12-15 11:58] LABS: HCT 43.1 % (34.0-46.0); HGB 14.1 gm/dL (11.4-16.0); MCH 33.2 pg (25.0-35.0); MCHC 32.6 g/dL (31.0-37.0); MCV 101.9 fL (80.0-100.0); Macrocytosis Slight; Mean Platelet Volume 7.9; Platelet Count 278 k/uL (150-450); RBC 4.23 m/uL (3.80-5.40); RDW 15.6 % (11.5-15.5); WBC 15.8 k/uL (3.8-10.6)
[2018-12-15 11:59] LABS: Glucose,Whole Blood 113 mg/dL (75-99)
--- NOTE | 2018-12-15 12:30 | P.PN ---
Subjective Progress Note Date: 12/15/18 This is a pleasant 77-year-old female patient who follows regularly with Dr. Mcbride in the office. She has a history of CAD with prior stenting of the LAD and 2009, chronic persistent atrial fibrillation for which she is on Eliquis, hypertension, hyperlipidemia, borderline diabetes, neuropathy, cholecystectomy, and gastric reflux. She was recently admitted earlier this month after sustaining a fall with multiple musculoskeletal injuries and has been in [facility] for rehab. She presented via EMS after finishing therapy yesterday and developing a significant burning sensation in her Epigastric area that radiated to her back. She also complained of some left arm numbness but did notice some popping in her shoulder during therapy. She did break out in a sweat and was clammy according to her. She says the discomfort started around 2 PM yesterday and lasted past 5 PM. She was apparently given nitroglycerin without relief. Laboratory values on admission showed a white blood cell count 26,000, she has been on steroids following most recent hospitalization. Other laboratory values show a sodium of 135, potassium 6, BUN of 71 and creatinine 1.43. Troponins were minimally elevated at 0.04, 0.046 and 0.045. Initial EKG showed atrial fibrillation with a heart rate of [address]-T wave abnormalities. Subsequent EKG from this morning shows atrial fibrillation with controlled ventricular response with ST-T wave changes laterally. Chest x-ray showed new mild atelectasis right lung base. Home medications included Medrol 4 mg by mouth twice a day, omeprazole 40 mg by mouth twice a day, lisinopril 10 mg by mouth twice a day, isosorbide 30 mg by mouth daily, NovoLog sliding scale, [place] 103 25 every 4 hours as needed for pain, Neurontin 100 mg by mouth twice a day, Lasix 40 mg daily, cetirizine 10 mg by mouth daily, atorvastatin 80 mg by mouth daily at bedtime, aspirin 81 mg by mouth daily at bedtime, Eliquis 2.5 mg by mouth twice a day, and allopurinol 100 mg by mouth daily. Upon examination patient is resting comfortably in bed. She continues to complain of a dull ache across her chest as well as burning in the epigastric area pain in the chest is reproducible worsening with palpation. Epigastric discomfort also worsened with palpation. She has no further complaints of diaphoresis or left arm numbness. She's had no shortness of breath, dizziness, lightheadedness, orthopnea, edema or syncope. She does complain of occasional rapid heartbeat. 12/15/18 - upon examination, patient is resting comfortably in bed. She denies further complaints of chest discomfort but continues to complain of upper abdominal and epigastric discomfort worsened with palpation. Computed tomography scan of the abdomen and pelvis done yesterday showed no acute abnor malities with post left for nephrectomy changes, no recurrent masses evident. She remains on IV heparin. Laboratory values show BUN of 77 and creatinine 1.51 which are worsened since yesterday despite holding lisinopril and Lasix. Potassium is somewhat better 5.7. Objective - Vital Signs Vital signs: Vital Signs Temp 97.7 F 12/15/18 03:37 Pulse 76 12/15/18 03:37 Resp 16 12/15/18 03:37 BP 116/77 12/15/18 03:37 Pulse Ox 95 12/15/18 03:37 Intake & Output 12/14/18 12/15/18 12/15/18 18:59 06:59 18:59 Intake Total 670.757 103.05 360 Output Total 450 300 Balance 220.757 103.05 60 Weight 112 kg Intake: Intake, IV Titration 210.757 103.05 Amount Heparin Sod,Pork in 0.45% 210.757 103.05 NaCl 25,000 unit In 0.45 % NaCl 1 250ml.bag @ 11 UNITS/KG/HR 10.079 mls/hr IV .Q24H [facility] Rx#: [id number] Oral 460 360 Output: Urine 450 300 Other: Voiding Method Bedpan Bedpan # Voids 1 1 1 # Bowel Movements 1 - Exam PHYSICAL EXAMINATION: HEENT: Head is atraumatic, normocephalic. Pupils equal, round. Neck is supple. There is no elevated jugular venous pressure. HEART EXAMINATION: Heart sounds irregularly irregular, S1 and S2 with a systolic murmur. CHEST EXAMINATION: Lungs are clear to auscultation. Mild Chest wall tenderness is noted on palpation. ABDOMEN: Soft, significant tenderness upon palpation of RUQ, LUQ, and epigastric area. Bowel sounds are heard. No organomegaly noted. EXTREMITIES: 2+ peripheral pulses with no evidence of peripheral edema and no calf tenderness noted. Brace noted to left lower extremity. NEUROLOGIC patient is awake, alert and oriented x3. - Labs CBC & Chem 7: 12/15/18 11:32 12/15/18 02:59 Labs: Abnormal Lab Results - Last 24 Hours (Table) 12/14/18 12/14/18 12/14/18 Range/Units 11:43 16:53 21:07 WBC (3.8-10.6) k/uL MCV (80.0-100.0) fL RDW (11.5-15.5) % APTT (22.0-30.0) sec Sodium 135 L (137-145) mmol/L Potassium 5.6 H (3.5-5.1) mmol/L BUN 66 H (7-17) mg/dL Creatinine 1.14 H (0.52-1.04) mg/dL Glucose 114 H (74-99) mg/dL POC Glucose (mg/dL) 125 H 179 H (75-99) mg/dL 12/15/18 12/15/18 12/15/18 Range/Units 02:59 02:59 06:25 WBC (3.8-10.6) k/uL MCV (80.0-100.0) fL RDW (11.5-15.5) % APTT >200.0 H* (22.0-30.0) sec Sodium 134 L (137-145) mmol/L Potassium 5.7 H (3.5-5.1) mmol/L BUN 77 H (7-17) mg/dL Creatinine 1.51 H (0.52-1.04) mg/dL Glucose 138 H (74-99) mg/dL POC Glucose (mg/dL) 121 H (75-99) mg/dL 12/15/18 12/15/18 12/15/18 Range/Units 10:43 11:32 11:32 WBC 15.8 H (3.8-10.6) k/uL MCV 101.9 H (80.0-100.0) fL RDW 15.6 H (11.5-15.5) % APTT 89.6 H (22.0-30.0) sec Sodium (137-145) mmol/L Potassium (3.5-5.1) mmol/L BUN (7-17) mg/dL Creatinine (0.52-1.04) mg/dL Glucose (74-99) mg/dL POC Glucose (mg/dL) 125 H (75-99) mg/dL 12/15/18 Range/Units 11:51 WBC (3.8-10.6) k/uL MCV (80.0-100.0) fL RDW (11.5-15.5) % APTT (22.0-30.0) sec Sodium (137-145) mmol/L Potassium (3.5-5.1) mmol/L BUN (7-17) mg/dL Creatinine (0.52-1.04) mg/dL Glucose (74-99) mg/dL POC Glucose (mg/dL) 113 H (75-99) mg/dL Assessment and Plan Assessment: #1 symptoms of epigastric burning and significant abdominal tenderness on pa lpation, likely acute gastritis due to steroids #2 symptoms of chest discomfort, with minimally elevated troponins, not consistent with acute coronary syndrome, pain is reproducible and appears to be musculoskeletal in origin #3 history of CAD with prior stenting of the LAD in 2008 #4 chronic persistent atrial fibrillation #5 hypertension #6 hyperlipidemia #7 recent fall with multiple musculoskeletal injuries Plan: From cardiology's perspective, we will resume Eliquis once ok with primary. The patient may require further GI evaluation. Continue to monitor renal function, electrolytes. We will continue to follow patient for further recommendations accordingly. AVICULTURIST note has been reviewed, I agree with a documented findings and plan of care. Patient was seen and examined.
[2018-12-15] MEDS: SODIUM CHLORIDE 0.9% 1,000 ML IV SCH (14:26)
--- NOTE | 2018-12-15 15:22 | US ---
EXAMINATION TYPE: US venous doppler duplex LE DATE OF EXAM: 12/15/2018 1:57 PM COMPARISON: US 2013 CLINICAL HISTORY: recent hip fx, bilal. knee pain, R/O DVT. Bilateral leg pain, exam done portable SIDE PERFORMED: Bilateral TECHNIQUE: The lower extremity deep venous system is examined utilizing real time linear array sonog yoon with graded compression, doppler sonography and color-flow sonography. VESSELS IMAGED: External Iliac Vein (EIV) Common Femoral Vein Deep Femoral Vein Greater Saphenous Vein * Femoral Vein Popliteal Vein Small Saphenous Vein * Proximal Calf Veins (* superficial vessels) Right Leg: Appears negative for DVT Left Leg: Appears negative for DVT IMPRESSION: No evidence of deep venous thrombosis in both legs.
[2018-12-15 16:54] LABS: Glucose,Whole Blood 149 mg/dL (75-99)
[2018-12-15] MEDS: HEPARIN SOD,PORK IN 0.45% NACL 25,000 UNIT in 0.45% NACL 1 250ML.BAG IV SCH (19:28)
[2018-12-15 21:15] LABS: Glucose,Whole Blood 167 mg/dL (75-99)
[2018-12-15] MEDS: ATORVASTATIN 80 MG TAB PO SCH (21:39)
[2018-12-15] MEDS: ASPIRIN 81 MG PO SCH (21:39)
[2018-12-16] MEDS: MORPHINE SULFATE 4 MG/ML SYRINGE IV PRN ×3 (00:14→12:12)
[2018-12-16] MEDS: SODIUM CHLORIDE 0.9% 1,000 ML IV SCH ×2 (02:33→18:11)
[2018-12-16] MEDS: INSULIN ASPART (NovoLOG) 100 UNIT/ML VIAL SQ SCH ×4 (06:24→21:45)
[2018-12-16 06:25] LABS: Glucose,Whole Blood 119 mg/dL (75-99)
[2018-12-16] MEDS: PANTOPRAZOLE 40 MG TABLET PO SCH (06:27)
[2018-12-16] MEDS: GABAPENTIN 100 MG CAP PO SCH ×2 (06:27→17:59)
[2018-12-16 07:28] LABS: Basophils # (A) 0.1 k/uL (0-0.2); Basophils % (A) 1 %; Eosinophils # (A) 0.2 k/uL (0-0.7); Eosinophils % (A) 2 %; HCT 42.8 % (34.0-46.0); HGB 13.7 gm/dL (11.4-16.0); Lymphocytes # (A) 1.3 k/uL (1.0-4.8); Lymphocytes % (A) 10 %; MCH 33.5 pg (25.0-35.0); MCV 104.6 fL (80.0-100.0); Macrocytosis Moderate; Mean Platelet Volume 7.5; Monocytes # (A) 1.1 k/uL (0-1.0); Monocytes % (A) 9 %; Neutrophils # (A) 10.1 k/uL (1.3-7.7); Neutrophils % (A) 78 %; Platelet Count 216 k/uL (150-450); RBC 4.09 m/uL (3.80-5.40); RDW 14.5 % (11.5-15.5); WBC 12.9 k/uL (3.8-10.6)
[2018-12-16 08:03] LABS: Calcium 8.9 mg/dL (8.4-10.2); Potassium 5.8 mmol/L (3.5-5.1)
[2018-12-16] MEDS ORDERED: HEPARIN SODIUM,PORCINE 5,000 UNIT/ML 1 ML VIAL IV STA (08:11)
[2018-12-16] MEDS: ISOSORBIDE MONONITRATE ER 30 MG TAB.ER.24H PO SCH (09:12)
[2018-12-16] MEDS: ALLOPURINOL 100 MG TAB PO SCH (09:12)
[2018-12-16 11:33] LABS: Hemoglobin A1C 7.5 % (4.0-6.0)
--- NOTE | 2018-12-16 11:57 | P.PN ---
Subjective Progress Note Date: 12/16/18 This is a pleasant 77-year-old female patient who follows regularly with Dr. Mcbride in the office. She has a history of CAD with prior stenting of the LAD and 2009, chronic persistent atrial fibrillation for which she is on Eliquis, hypertension, hyperlipidemia, borderline diabetes, neuropathy, cholecystectomy, and gastric reflux. She was recently admitted earlier this month after sustaining a fall with multiple musculoskeletal injuries and has been in [facility] for rehab. She presented via EMS after finishing therapy yesterday and developing a significant burning sensation in her Epigastric area that radiated to her back. She also complained of some left arm numbness but did notice some popping in her shoulder during therapy. She did break out in a sweat and was clammy according to her. She says the discomfort started around 2 PM yesterday and lasted past 5 PM. She was apparently given nitroglycerin without relief. Laboratory values on admission showed a white blood cell count 26,000, she has been on steroids following most recent hospitalization. Other laboratory values show a sodium of 135, potassium 6, BUN of 71 and creatinine 1.43. Troponins were minimally elevated at 0.04, 0.046 and 0.045. Initial EKG showed atrial fibrillation with a heart rate of [address]-T wave abnormalities. Subsequent EKG from this morning shows atrial fibrillation with controlled ventricular response with ST-T wave changes laterally. Chest x-ray showed new mild atelectasis right lung base. Home medications included Medrol 4 mg by mouth twice a day, omeprazole 40 mg by mouth twice a day, lisinopril 10 mg by mouth twice a day, isosorbide 30 mg by mouth daily, NovoLog sliding scale, [facility] 103 25 every 4 hours as needed for pain, Neurontin 100 mg by mouth twice a day, Lasix 40 mg daily, cetirizine 10 mg by mouth daily, atorvastatin 80 mg by mouth daily at bedtime, aspirin 81 mg by mouth daily at bedtime, Eliquis 2.5 mg by mouth twice a day, and allopurinol 100 mg by mouth daily. Upon examination patient is resting comfortably in bed. She continues to complain of a dull ache across her chest as well as burning in the epigastric area pain in the chest is reproducible worsening with palpation. Epigastric discomfort also worsened with palpation. She has no further complaints of diaphoresis or left arm numbness. She's had no shortness of breath, dizziness, lightheadedness, orthopnea, edema or syncope. She does complain of occasional rapid heartbeat. 12/16/2018 Patient was seen and examined this morning, complaining of generalized aches and pains in bilateral legs, her troponins came back at 0.04, 0.04, 0.03, echo showed a normal left ventricular systolic function. We will discontinue the IV heparin today and resume her Eliquis, increasing the dose of 5 mg one tablet by mouth twice a day. Blood pressure this morning 126/56, heart rate in the 80s, 96% on 2 L. White blood cell count 12.9, hemoglobin 13.7, platelet count 216. Sodium 134, potassium 5.8, BUN 57 and creatinine 1. Objective - Vital Signs Vital signs: Vital Signs Temp 98.1 F 12/16/18 04:00 Pulse 86 12/16/18 04:00 Resp 16 12/16/18 04:00 BP 127/59 12/16/18 04:00 Pulse Ox 96 12/16/18 04:00 Intake & Output 12/15/18 12/16/18 12/16/18 18:59 06:59 18:59 Intake Total 164.591 6952.361 69.332 Output Total 300 1250 Balance 681.252 429.361 69.332 Weight 112.5 kg Intake: IV 1000 Sodium Chloride 0.9% 1, 1000 000 ml @ 75 mls/hr IV . [id number] RUDY Rx#:[id number] Intake, IV Titration 61.252 29.361 69.332 Amount Heparin Sod,Pork in 0.45% 61.252 29.361 69.332 NaCl 25,000 unit In 0.45 % NaCl 1 250ml.bag @ 11 UNITS/KG/HR 10.079 mls/hr IV .Q24H RUDY Rx#: [id number] Oral 920 650 Output: Urine 300 1250 Other: Voiding Method Bedpan Indwelling Catheter # Voids 1 - Exam PHYSICAL EXAMINATION: HEENT: Head is atraumatic, normocephalic. Pupils equal, round. Neck is supple. There is no elevated jugular venous pressure. HEART EXAMINATION: Heart sounds irregularly irregular, S1 and S2 with a systolic murmur. CHEST EXAMINATION: Lungs are clear to auscultation anteriorly. Chest wall tenderness is noted on palpation or with deep breathing. ABDOMEN: Soft, significant tenderness and guarding noted upon palpation. Bowel sounds are heard. No organomegaly noted. EXTREMITIES: 2+ peripheral pulses with no evidence of peripheral edema and no calf tenderness noted. Brace noted to left lower extremity. NEUROLOGIC patient is awake, alert and oriented x3. - Labs CBC & Chem 7: 12/16/18 05:59 12/16/18 05:59 Labs: Abnormal Lab Results - Last 24 Hours (Table) 12/15/18 12/15/18 12/15/18 Range/Units 02:59 11:32 11:32 WBC 15.8 H (3.8-10.6) k/uL MCV 101.9 H (80.0-100.0) fL RDW 15.6 H (11.5-15.5) % Neutrophils # (1.3-7.7) k/uL Monocytes # (0-1.0) k/uL APTT 89.6 H (22.0-30.0) sec Sodium (137-145) mmol/L Potassium (3.5-5.1) mmol/L BUN (7-17) mg/dL Creatinine (0.52-1.04) mg/dL Glucose (74-99) mg/dL POC Glucose (mg/dL) (75-99) mg/dL Hemoglobin A1c 7.5 H (4.0-6.0) % 12/15/18 12/15/18 12/15/18 Range/Units 11:51 16:36 16:36 WBC (3.8-10.6) k/uL MCV (80.0-100.0) fL RDW (11.5-15.5) % Neutrophils # (1.3-7.7) k/uL Monocytes # (0-1.0) k/uL APTT 66.2 H (22.0-30.0) sec Sodium (137-145) mmol/L Potassium 5.5 H (3.5-5.1) mmol/L BUN (7-17) mg/dL Creatinine (0.52-1.04) mg/dL Glucose (74-99) mg/dL POC Glucose (mg/dL) 113 H (75-99) mg/dL Hemoglobin A1c (4.0-6.0) % 12/15/18 12/15/18 12/15/18 Range/Units 16:50 19:42 21:13 WBC (3.8-10.6) k/uL MCV (80.0-100.0) fL RDW (11.5-15.5) % Neutrophils # (1.3-7.7) k/uL Monocytes # (0-1.0) k/uL APTT (22.0-30.0) sec Sodium (137-145) mmol/L Potassium 5.6 H (3.5-5.1) mmol/L BUN (7-17) mg/dL Creatinine (0.52-1.04) mg/dL Glucose (74-99) mg/dL POC Glucose (mg/dL) 149 H 167 H (75-99) mg/dL Hemoglobin A1c (4.0-6.0) % 12/16/18 12/16/18 12/16/18 Range/Units 05:59 05:59 05:59 WBC 12.9 H (3.8-10.6) k/uL MCV 104.6 H (80.0-100.0) fL RDW (11.5-15.5) % Neutrophils # 10.1 H (1.3-7.7) k/uL Monocytes # 1.1 H (0-1.0) k/uL APTT 42.6 H (22.0-30.0) sec Sodium 134 L (137-145) mmol/L Potassium 5.8 H (3.5-5.1) mmol/L BUN 57 H (7-17) mg/dL Creatinine 1.24 H (0.52-1.04) mg/dL Glucose 113 H (74-99) mg/dL POC Glucose (mg/dL) (75-99) mg/dL Hemoglobin A1c (4.0-6.0) % 12/16/18 Range/Units 06:24 WBC (3.8-10.6) k/uL MCV (80.0-100.0) fL RDW (11.5-15.5) % Neutrophils # (1.3-7.7) k/uL Monocytes # (0-1.0) k/uL APTT (22.0-30.0) sec Sodium (137-145) mmol/L Potassium (3.5-5.1) mmol/L BUN (7-17) mg/dL Creatinine (0.52-1.04) mg/dL Glucose (74-99) mg/dL POC Glucose (mg/dL) 119 H (75-99) mg/dL Hemoglobin A1c (4.0-6.0) % Assessment and Plan Plan: Assessment: #1 symptoms of epigastric burning and significant abdominal tenderness on palpation, computed tomography scan ordered by primary #2 symptoms of chest discomfort, with minimally elevated troponins, not consistent with acute coronary syndrome, pain is reproducible and appears to be musculoskeletal in origin #3 history of CAD with prior stenting of the LAD in 2008 #4 chronic persistent atrial fibrillation #5 hypertension #6 hyperlipidemia #7 recent fall with multiple musculoskeletal injuries Plan We'll discontinue the IV heparin today and resume the patient's Eliquis at a dose of 5 mg one tablet by mouth twice a day. Would also recommend the patient to have her Capps catheter removed. Echocardiogram with Doppler study revealed an ejection fraction of 50-55%. Discharged once cleared by primary. DNP note has been reviewed, I agree with a documented findings and plan of care. Patient was seen and examined.
[2018-12-16 12:04] LABS: Glucose,Whole Blood 111 mg/dL (75-99)
[2018-12-16] MEDS: APIXABAN 5 MG TAB PO SCH ×2 (13:20→20:08)
[2018-12-16] MEDS ORDERED: HYDROcodone/APAP 10-325MG 1 EACH TAB PO PRN (14:15)
[2018-12-16 17:29] LABS: Glucose,Whole Blood 145 mg/dL (75-99)
--- NOTE | 2018-12-16 17:45 | P.PN ---
Subjective Progress Note Date: 12/15/18 Principal diagnosis: Elevated troponin level possible non-ST elevated NC Generalized body aches Peripheral neuropathy Patient is a 77-year-old female with a known history of chronic atrial fibrillation on anticoagulation with Eliquis, coronary artery disease with history of stent placement, hypertension, diabetes type 2, osteoarthritis and peripheral neuropathy came to ER with the complaints of chest pain. Patient was brought to the hospital by EMS and was complaining of chest pain and epigastric pain radiating to the left retrosternal started around 2 PM yesterday. Pain lasted until 5 PM. Nitroglycerin did not really the pain. Patient was discharged from the hospital on 12/06/2018, was admitted to the hospital status post fall and L3 compression fractures as well as acute left distal femur fracture and suprapatellar effusion status post aspiration. Patient was sent to rehab. Patient was on Medrol Dosepak tapering course and is left with one last day. Patient also felt left arm numbness and shoulder pain as well. Denied any nausea or vomiting. Patient did have diaphoresis. Pain has been constant. No aggravating or relieving factors. No associated sh ortness of breath. No worsening leg swelling. Patient was found have troponin level elevated at 0.04, 0.046 and 0.045 EKG showed atrial fibrillation with [address]-T wave changes. Chest x-ray showed mild right lower lobe atelectasis. No infiltrate noted. Patient is currently complaining of abdominal pain mainly left-sided and is tender to palpation and reproducible. No rigidity. CT chest showed no acute abnormality. Previous nephrectomy changes noted otherwise. No nausea vomiting or diarrhea. No constipation. Patient did have last bowel movement yesterday. Patient otherwise denied any orthopnea or PND. Patient has left lower extremity stabilizer place. Sodium 135, potassium 6 with mild hemolysis, BUN 71 and creatinine 1.43 12/15/2018 Patient denied any complaints of chest pain or shortness of breath today. Patient's potassium level is elevated at 5.8 and insulin/D50 was given. Still complaining of abdominal tenderness with palpation and bilateral feet tenderness even with touching. Otherwise patient is being continued on heparin drip due to elevated troponin level. Cardiology is on board. No acute intervention recommended at this time. Otherwise patient is being continued on pain management and bowel regimen. WBC is trending down to 15.8 today No fever no chills. No other acute overnight issues. current medications reviewed. Objective - Vital Signs Vital signs: Vital Signs Temp 97.7 F 12/15/18 03:37 Pulse 76 12/15/18 03:37 Resp 16 12/15/18 03:37 BP 116/77 12/15/18 03:37 Pulse Ox 95 12/15/18 03:37 Intake & Output 12/14/18 12/15/18 12/15/18 18:59 06:59 18:59 Intake Total 670.757 103.05 360 Output Total 450 300 Balance 220.757 103.05 60 Weight 112 kg Intake: Intake, IV Titration 210.757 103.05 Amount Heparin Sod,Pork in 0.45% 210.757 103.05 NaCl 25,000 unit In 0.45 % NaCl 1 250ml.bag @ 11 UNITS/KG/HR 10.079 mls/hr IV .Q24H RUDY Rx#: [id number] Oral 460 360 Output: Urine 450 300 Other: Voiding Method Bedpan Bedpan # Voids 1 1 1 # Bowel Movements 1 - Exam PHYSICAL EXAMINATION: Patient is lying in the bed comfortably, no acute distress, awake alert and oriented.. HEENT: Normocephalic. Neck is supple. Pupils reactive. Nostrils clear. Oral cavity is moist. Ears reveal no drainage. Neck reveals no JVD, carotid bruits, or thyromegaly. CHEST EXAMINATION: Trachea is central. Chest wall tenderness. Symmetrical expansion. Bibasilar diminished air entry. Lung basilio clear to auscultation and percussion. CARDIAC: Normal S1, S2 with no gallops. No murmurs . Irregular rhythm. ABDOMEN: Soft. Tenderness on the left side of the abdomen. reducible. Tenderness even with light touch. No guarding no rigidity. Bowel sounds normal. No organomegaly. No abdominal bruits. Extremities: reveal no edema. No clubbing or cyanosis patient does have a sore bilateral feet. Neurologically awake, alert, oriented x3 with well-coordinated movements. No focal deficits noted Skin: No rash or skin lesions. Psychiatric: Coperative. Nonsuicidal Musculoskeletal: No joint swelling or deformity. Normal range of motion. - Labs CBC & Chem 7: 12/16/18 05:59 12/16/18 05:59 Labs: Abnormal Lab Results - Last 24 Hours (Table) 12/14/18 12/14/18 12/14/18 Range/Units 11:43 11:43 11:46 WBC 20.2 H (3.8-10.6) k/uL Hct 47.3 H (34.0-46.0) % MCV 102.0 H (80.0-100.0) fL Neutrophils # 16.6 H (1.3-7.7) k/uL Monocytes # 1.2 H (0-1.0) k/uL APTT (22.0-30.0) sec Sodium 135 L (137-145) mmol/L Potassium 5.6 H (3.5-5.1) mmol/L BUN 66 H (7-17) mg/dL Creatinine 1.14 H (0.52-1.04) mg/dL Glucose 114 H (74-99) mg/dL POC Glucose (mg/dL) 103 H (75-99) mg/dL 12/14/18 12/14/18 12/15/18 Range/Units 16:53 21:07 02:59 WBC (3.8-10.6) k/uL Hct (34.0-46.0) % MCV (80.0-100.0) fL Neutrophils # (1.3-7.7) k/uL Monocytes # (0-1.0) k/uL APTT >200.0 H* (22.0-30.0) sec Sodium (137-145) mmol/L Potassium (3.5-5.1) mmol/L BUN (7-17) mg/dL Creatinine (0.52-1.04) mg/dL Glucose (74-99) mg/dL POC Glucose (mg/dL) 125 H 179 H (75-99) mg/dL 12/15/18 12/15/18 12/15/18 Range/Units 02:59 06:25 10:43 WBC (3.8-10.6) k/uL Hct (34.0-46.0) % MCV (80.0-100.0) fL Neutrophils # (1.3-7.7) k/uL Monocytes # (0-1.0) k/uL APTT (22.0-30.0) sec Sodium 134 L (137-145) mmol/L Potassium 5.7 H (3.5-5.1) mmol/L BUN 77 H (7-17) mg/dL Creatinine 1.51 H (0.52-1.04) mg/dL Glucose 138 H (74-99) mg/dL POC Glucose (mg/dL) 121 H 125 H (75-99) mg/dL Assessment and Plan Assessment: Chest pain. Mainly epigastric and is reproducible. Likely musculoskeletal versus acute gastritis with steroids. CT abdomen pelvis showed no acute process. Mildly elevated troponin level. Unlikely acute NC. Chest pain is likely musculoskeletal . Leukocytosis. Due to steroids and reactive as well. Trending down without antibiotics. Follow and rule out any infection. Chest x-ray, UA negative. Hyperkalemia likely due to acute kidney injury.. Hyperglycemia with uncontrolled diabetes type 2 Chronic atrial fibrillation on anticoagulation with Eliquis Coronary artery disease with exertion placement Recent fall with L3 compression fracture and minimally displaced left distal femur fracture. Discharged to rehab on 12/06/2018 Left knee suprapatellar effusion Acute Kidney injury most likely prerenal. Patient also prerenal azotemia secondary to steroids. Lasix and lisinopril on hold. GERD BN joint disease Hypertension Hyperlipidemia History of renal cancer status post nephrectomy Bilateral peripheral neuropathy psychiatric diabetes History of C. diff Plan: Patient will be continued on telemetry monitoring. Patient was started on heparin drip cardiology is planning for now and [place] at this time. 2-D echocardiogram was ordered. Patient be continued on pain management, bowel regimen and encourage incentive spirometry. Continue with insulin sliding scale and other home medications. Further admissions based on the clinical course. Discussed with family at bedside in detail. Time with Patient: Greater than 30
--- NOTE | 2018-12-16 17:47 | P.PN ---
Subjective Progress Note Date: 12/16/18 Principal diagnosis: Elevated troponin level possible non-ST elevated IN Generalized body aches Peripheral neuropathy Patient is a 77-year-old female with a known history of chronic atrial fibrillation on anticoagulation with Eliquis, coronary artery disease with history of stent placement, hypertension, diabetes type 2, osteoarthritis and peripheral neuropathy came to ER with the complaints of chest pain. Patient was brought to the hospital by EMS and was complaining of chest pain and epigastric pain radiating to the left retrosternal started around 2 PM yesterday. Pain lasted until 5 PM. Nitroglycerin did not really the pain. Patient was discharged from the hospital on 12/06/2018, was admitted to the hospital status post fall and L3 compression fractures as well as acute left distal femur fracture and suprapatellar effusion status post aspiration. Patient was sent to rehab. Patient was on Medrol Dosepak tapering course and is left with one last day. Patient also felt left arm numbness and shoulder pain as well. Denied any nausea or vomiting. Patient did have diaphoresis. Pain has been constant. No aggravating or relieving factors. No associated sh ortness of breath. No worsening leg swelling. Patient was found have troponin level elevated at 0.04, 0.046 and 0.045 EKG showed atrial fibrillation with [address]-T wave changes. Chest x-ray showed mild right lower lobe atelectasis. No infiltrate noted. Patient is currently complaining of abdominal pain mainly left-sided and is tender to palpation and reproducible. No rigidity. CT chest showed no acute abnormality. Previous nephrectomy changes noted otherwise. No nausea vomiting or diarrhea. No constipation. Patient did have last bowel movement yesterday. Patient otherwise denied any orthopnea or PND. Patient has left lower extremity stabilizer place. Sodium 135, potassium 6 with mild hemolysis, BUN 71 and creatinine 1.43 12/15/2018 Patient denied any complaints of chest pain or shortness of breath today. Patient's potassium level is elevated at 5.8 and insulin/D50 was given. Still complaining of abdominal tenderness with palpation and bilateral feet tenderness even with touching. Otherwise patient is being continued on heparin drip due to elevated troponin level. Cardiology is on board. No acute intervention recommended at this time. Otherwise patient is being continued on pain management and bowel regimen. WBC is trending down to 15.8 today No fever no chills. No other acute overnight issues. 12/16/2018 Patient says that her bilateral leg pain and abdominal pain/soreness is improving. Requesting her pain medications to be changed to every 5 hours. No fever no chills. WBC count is trending down to 12.9 today. Otherwise production level is still high at 5.8. Patient is being continued on IV hydration. Creatinine level improved. 2-D echocardiogram showed normal left ventricle systolic function. Cardiology is planning to change heparin IV to a Eliquis today. Patient will be continued on PT OT and anticipate discharge back to be In the next 24-48 hours. current medications reviewed. Objective - Vital Signs Vital signs: Vital Signs Temp 98.0 F 12/16/18 12:00 Pulse 77 12/16/18 12:00 Resp 18 12/16/18 12:00 BP 111/59 12/16/18 12:00 Pulse Ox 98 12/16/18 12:00 Intake & Output 12/15/18 12/16/18 12/16/18 18:59 06:59 18:59 Intake Total 801.241 1062.361 69.332 Output Total 300 1250 500 Balance 681.252 429.361 -430.668 Weight 112.5 kg Intake: IV 1000 Sodium Chloride 0.9% 1, 1000 000 ml @ 75 mls/hr IV . [id number] RUDY Rx#:[id number] Intake, IV Titration 61.252 29.361 69.332 Amount Heparin Sod,Pork in 0.45% 61.252 29.361 69.332 NaCl 25,000 unit In 0.45 % NaCl 1 250ml.bag @ 11 UNITS/KG/HR 10.079 mls/hr IV .Q24H RUDY Rx#: [id number] Oral 920 650 Output: Urine 300 1250 500 Other: Voiding Method Bedpan Indwelling Catheter Indwelling Catheter # Voids 1 - Exam PHYSICAL EXAMINATION: Patient is lying in the bed comfortably, no acute distress, awake alert and oriented.. HEENT: Normocephalic. Neck is supple. Pupils reactive. Nostrils clear. Oral cavity is moist. Ears reveal no drainage. Neck reveals no JVD, carotid bruits, or thyromegaly. CHEST EXAMINATION: Trachea is central. Chest wall tenderness. Symmetrical expansion. Bibasilar diminished air entry. Lung basilio clear to auscultation and percussion. CARDIAC: Normal S1, S2 with no gallops. No murmurs . Irregular rhythm. ABDOMEN: Soft. Tenderness on the left side of the abdomen. reducible. Tenderness even with light touch. No guarding no rigidity. Bowel sounds normal. No organomegaly. No abdominal bruits. Extremities: reveal no edema. No clubbing or cyanosis patient does have a sore bilateral feet. Neurologically awake, alert, oriented x3 with well-coordinated movements. No focal deficits noted Skin: No rash or skin lesions. Psychiatric: Coperative. Nonsuicidal Musculoskeletal: No joint swelling or deformity. Normal range of motion. - Labs CBC & Chem 7: 12/16/18 05:59 12/16/18 05:59 Labs: Abnormal Lab Results - Last 24 Hours (Table) 12/15/18 12/15/18 12/15/18 Range/Units 02:59 19:42 21:13 WBC (3.8-10.6) k/uL MCV (80.0-100.0) fL Neutrophils # (1.3-7.7) k/uL Monocytes # (0-1.0) k/uL APTT (22.0-30.0) sec Sodium (137-145) mmol/L Potassium 5.6 H (3.5-5.1) mmol/L BUN (7-17) mg/dL Creatinine (0.52-1.04) mg/dL Glucose (74-99) mg/dL POC Glucose (mg/dL) 167 H (75-99) mg/dL Hemoglobin A1c 7.5 H (4.0-6.0) % 12/16/18 12/16/18 12/16/18 Range/Units 05:59 05:59 05:59 WBC 12.9 H (3.8-10.6) k/uL MCV 104.6 H (80.0-100.0) fL Neutrophils # 10.1 H (1.3-7.7) k/uL Monocytes # 1.1 H (0-1.0) k/uL APTT 42.6 H (22.0-30.0) sec Sodium 134 L (137-145) mmol/L Potassium 5.8 H (3.5-5.1) mmol/L BUN 57 H (7-17) mg/dL Creatinine 1.24 H (0.52-1.04) mg/dL Glucose 113 H (74-99) mg/dL POC Glucose (mg/dL) (75-99) mg/dL Hemoglobin A1c (4.0-6.0) % 12/16/18 12/16/18 12/16/18 Range/Units 06:24 11:46 16:59 WBC (3.8-10.6) k/uL MCV (80.0-100.0) fL Neutrophils # (1.3-7.7) k/uL Monocytes # (0-1.0) k/uL APTT (22.0-30.0) sec Sodium (137-145) mmol/L Potassium (3.5-5.1) mmol/L BUN (7-17) mg/dL Creatinine (0.52-1.04) mg/dL Glucose (74-99) mg/dL POC Glucose (mg/dL) 119 H 111 H 145 H (75-99) mg/dL Hemoglobin A1c (4.0-6.0) % Assessment and Plan Assessment: Chest pain. Mainly epigastric and is reproducible. Likely musculoskeletal versus acute gastritis with steroids. CT abdomen pelvis showed no acute process. Mildly elevated troponin level. Unlikely acute IN. Chest pain is likely musculoskeletal . Leukocytosis. Due to steroids and reactive as well. Trending down without antibiotics. Follow and rule out any infection. Chest x-ray, UA negative. Hyperkalemia likely due to acute kidney injury.. Hyperglycemia with uncontrolled diabetes type 2 Chronic atrial fibrillation on anticoagulation with Eliquis Coronary artery disease with exertion placement Recent fall with L3 compression fracture and minimally displaced left distal femur fracture. Discharged to rehab on 12/06/2018 Left knee suprapatellar effusion Acute Kidney injury most likely prerenal. Patient also prerenal azotemia secondary to steroids. Lasix and lisinopril on hold. GERD BN joint disease Hypertension Hyperlipidemia History of renal cancer status post nephrectomy Bilateral peripheral neuropathy psychiatric diabetes History of C. diff Plan: Patient will be continued on telemetry monitoring. Patient was started on heparin drip cardiology is planning for now and [place] at this time. 2-D echocardiogram was ordered. Patient be continued on pain management, bowel regimen and encourage incentive spirometry. Continue with insulin sliding scale and other home medications. Further admissions based on the clinical course. Discussed with family at beds [facility] in detail. Time with Patient: Greater than 30
[2018-12-16] MEDS: HYDROcodone/APAP 5-325MG 1 EACH TAB PO PRN ×2 (17:59→23:40)
[2018-12-16] MEDS ORDERED: HYDROmorphone 1 MG/ML 1 ML SYRINGE IVP PRN (20:07)
[2018-12-16] MEDS: ATORVASTATIN 80 MG TAB PO SCH (20:08)
[2018-12-16] MEDS: ASPIRIN 81 MG PO SCH (20:08)
[2018-12-16] MEDS: HYDROmorphone 1 MG/ML 1 ML SYRINGE IVP PRN (20:48)
[2018-12-16 21:25] LABS: Glucose,Whole Blood 156 mg/dL (75-99)
[2018-12-17] MEDS: HYDROmorphone 1 MG/ML 1 ML SYRINGE IVP PRN ×2 (04:09→23:15)
[2018-12-17] MEDS: SODIUM CHLORIDE 0.9% 1,000 ML IV SCH ×2 (04:09→23:09)
[2018-12-17 06:12] LABS: Glucose,Whole Blood 121 mg/dL (75-99)
[2018-12-17] MEDS: INSULIN ASPART (NovoLOG) 100 UNIT/ML VIAL SQ SCH ×4 (06:33→22:59)
[2018-12-17] MEDS: GABAPENTIN 100 MG CAP PO SCH ×2 (06:59→17:51)
[2018-12-17] MEDS: PANTOPRAZOLE 40 MG TABLET PO SCH (06:59)
[2018-12-17] MEDS: ALLOPURINOL 100 MG TAB PO SCH (08:44)
[2018-12-17] MEDS: ISOSORBIDE MONONITRATE ER 30 MG TAB.ER.24H PO SCH (08:44)
[2018-12-17] MEDS: HYDROcodone/APAP 5-325MG 1 EACH TAB PO PRN ×3 (08:44→21:29)
[2018-12-17] MEDS: APIXABAN 5 MG TAB PO SCH ×2 (08:44→23:14)
[2018-12-17 11:41] LABS: Glucose,Whole Blood 115 mg/dL (75-99)
--- NOTE | 2018-12-17 13:02 | P.PN ---
Subjective Progress Note Date: 12/17/18 This is a pleasant 77-year-old female patient who follows regularly with Dr. Mcbride in the office. She has a history of CAD with prior stenting of the LAD and 2009, chronic persistent atrial fibrillation for which she is on Eliquis, hypertension, hyperlipidemia, borderline diabetes, neuropathy, cholecystectomy, and gastric reflux. She was recently admitted earlier this month after sustaining a fall with multiple musculoskeletal injuries and has been in [facility] for rehab. She presented via EMS after finishing therapy yesterday and developing a significant burning sensation in her Epigastric area that radiated to her back. She also complained of some left arm numbness but did notice some popping in her shoulder during therapy. She did break out in a sweat and was clammy according to her. She says the discomfort started around 2 PM yesterday and lasted past 5 PM. She was apparently given nitroglycerin without relief. Laboratory values on admission showed a white blood cell count 26,000, she has been on steroids following most recent hospitalization. Other laboratory values show a sodium of 135, potassium 6, BUN of 71 and creatinine 1.43. Troponins were minimally elevated at 0.04, 0.046 and 0.045. Initial EKG showed atrial fibrillation with a heart rate of [address]-T wave abnormalities. Subsequent EKG from this morning shows atrial fibrillation with controlled ventricular response with ST-T wave changes laterally. Chest x-ray showed new mild atelectasis right lung base. Home medications included Medrol 4 mg by mouth twice a day, omeprazole 40 mg by mouth twice a day, lisinopril 10 mg by mouth twice a day, isosorbide 30 mg by mouth daily, NovoLog sliding scale, [place] 103 25 every 4 hours as needed for pain, Neurontin 100 mg by mouth twice a day, Lasix 40 mg daily, cetirizine 10 mg by mouth daily, atorvastatin 80 mg by mouth daily at bedtime, aspirin 81 mg by mouth daily at bedtime, Eliquis 2.5 mg by mouth twice a day, and allopurinol 100 mg by mouth daily. Upon examination patient is resting comfortably in bed. She continues to complain of a dull ache across her chest as well as burning in the epigastric area pain in the chest is reproducible worsening with palpation. Epigastric discomfort also worsened with palpation. She has no further complaints of diaphoresis or left arm numbness. She's had no shortness of breath, dizziness, lightheadedness, orthopnea, edema or syncope. She does complain of occasional rapid heartbeat. 12/16/2018 Patient was seen and examined this morning, complaining of generalized aches and pains in bilateral legs, her troponins came back at 0.04, 0.04, 0.03, echo showed a normal left ventricular systolic function. We will discontinue the IV heparin today and resume her Eliquis, increasing the dose of 5 mg one tablet by mouth twice a day. Blood pressure this morning 126/56, heart rate in the 80s, 96% on 2 L. White blood cell count 12.9, hemoglobin 13.7, platelet count 216. Sodium 134, potassium 5.8, BUN 57 and creatinine 1. 12/17/2018 Patient was seen and examined this morning, still complaining of some abdominal discomfort and generalized a 17 6. Hemodynamically stable, she denies any chest discomfort. Blood pressure 118/78, heart rate in the 70s. Objective - Vital Signs Vital signs: Vital Signs Temp 97.5 F L 12/17/18 04:06 Pulse 86 12/17/18 08:00 Resp 20 12/17/18 08:00 BP 117/77 12/17/18 08:00 Pulse Ox 95 12/17/18 08:00 Intake & Output 12/16/18 12/17/18 12/17/18 18:59 06:59 18:59 Intake Total 169.332 340 480 Output Total 500 1000 Balance -330.668 -660 480 Weight 116.5 kg Intake: Intake, IV Titration 69.332 Amount Heparin Sod,Pork in 0.45% 69.332 NaCl 25,000 unit In 0.45 % NaCl 1 250ml.bag @ 11 UNITS/KG/HR 10.079 mls/hr IV .Q24H [facility] Rx#: [id number] Oral 100 340 480 Output: Urine 500 1000 Other: Voiding Method Indwelling Catheter Indwelling Catheter # Voids 1 - Exam PHYSICAL EXAMINATION: HEENT: Head is atraumatic, normocephalic. Pupils equal, round. Neck is supple. There is no elevated jugular venous pressure. HEART EXAMINATION: Heart sounds irregularly irregular, S1 and S2 with a systolic murmur. CHEST EXAMINATION: Lungs are clear to auscultation anteriorly. Chest wall tenderness is noted on palpation or with deep breathing. ABDOMEN: Soft, significant tenderness and guarding noted upon palpation. Bowel sounds are heard. No organomegaly noted. EXTREMITIES: 2+ peripheral pulses with no evidence of peripheral edema and no calf tenderness noted. Brace noted to left lower extremity. NEUROLOGIC patient is awake, alert and oriented x3. - Labs CBC & Chem 7: 12/16/18 05:59 12/16/18 05:59 Labs: Abnormal Lab Results - Last 24 Hours (Table) 12/16/18 12/16/18 12/17/18 Range/Units 16:59 21:24 06:11 POC Glucose (mg/dL) 145 H 156 H 121 H (75-99) mg/dL 12/17/18 Range/Units 11:33 POC Glucose (mg/dL) 115 H (75-99) mg/dL Assessment and Plan Plan: Assessment: #1 symptoms of epigastric burning and significant abdominal tenderness on palpation, computed tomography scan ordered by primary #2 symptoms of chest discomfort, with minimally elevated troponins, not consistent with acute coronary syndrome, pain is reproducible and appears to be musculoskeletal in origin #3 history of CAD with prior stenting of the LAD in 2008 #4 chronic persistent atrial fibrillation #5 hypertension #6 hyperlipidemia #7 recent fall with multiple musculoskeletal injuries Plan From cardiology's perspective, patient may be transferred back to the nursing ho ks once cleared by primary. We will follow her along with you now on an as- needed basis only, please don't hesitate to call with any questions. DNP note has been reviewed, I agree with a documented findings and plan of care. Patient was seen and examined.
[2018-12-17 14:16] LABS: Basophils # (A) 0.1 k/uL (0-0.2); Basophils % (A) 0 %; Eosinophils # (A) 0.2 k/uL (0-0.7); Eosinophils % (A) 2 %; HCT 40.6 % (34.0-46.0); HGB 13.1 gm/dL (11.4-16.0); Lymphocytes # (A) 0.7 k/uL (1.0-4.8); Lymphocytes % (A) 5 %; MCH 33.9 pg (25.0-35.0); MCHC 32.4 g/dL (31.0-37.0); MCV 104.8 fL (80.0-100.0); Macrocytosis Moderate; Mean Platelet Volume 7.3; Monocytes # (A) 0.8 k/uL (0-1.0); Monocytes % (A) 6 %; Neutrophils # (A) 11.6 k/uL (1.3-7.7); Neutrophils % (A) 87 %; Platelet Count 193 k/uL (150-450); RBC 3.88 m/uL (3.80-5.40); RDW 14.4 % (11.5-15.5); WBC 13.4 k/uL (3.8-10.6)
[2018-12-17 14:18] LABS: Potassium 5.2 mmol/L (3.5-5.1)
[2018-12-17 15:31] VITALS: RESP 18
[2018-12-17 16:38] LABS: Glucose,Whole Blood 153 mg/dL (75-99)
[2018-12-17 21:24] LABS: Glucose,Whole Blood 114 mg/dL (75-99)
--- NOTE | 2018-12-17 23:13 | P.PN ---
Subjective Progress Note Date: 12/17/18 Principal diagnosis: Elevated troponin level possible non-ST elevated MD Generalized body aches Peripheral neuropathy Patient is a 77-year-old female with a known history of chronic atrial fibrillation on anticoagulation with Eliquis, coronary artery disease with history of stent placement, hypertension, diabetes type 2, osteoarthritis and peripheral neuropathy came to ER with the complaints of chest pain. Patient was brought to the hospital by EMS and was complaining of chest pain and epigastric pain radiating to the left retrosternal started around 2 PM yesterday. Pain lasted until 5 PM. Nitroglycerin did not really the pain. Patient was discharged from the hospital on 12/06/2018, was admitted to the hospital status post fall and L3 compression fractures as well as acute left distal femur fracture and suprapatellar effusion status post aspiration. Patient was sent to rehab. Patient was on Medrol Dosepak tapering course and is left with one last day. Patient also felt left arm numbness and shoulder pain as well. Denied any nausea or vomiting. Patient did have diaphoresis. Pain has been constant. No aggravating or relieving factors. No associated sh ortness of breath. No worsening leg swelling. Patient was found have troponin level elevated at 0.04, 0.046 and 0.045 EKG showed atrial fibrillation with [address]-T wave changes. Chest x-ray showed mild right lower lobe atelectasis. No infiltrate noted. Patient is currently complaining of abdominal pain mainly left-sided and is tender to palpation and reproducible. No rigidity. CT chest showed no acute abnormality. Previous nephrectomy changes noted otherwise. No nausea vomiting or diarrhea. No constipation. Patient did have last bowel movement yesterday. Patient otherwise denied any orthopnea or PND. Patient has left lower extremity stabilizer place. Sodium 135, potassium 6 with mild hemolysis, BUN 71 and creatinine 1.43 12/15/2018 Patient denied any complaints of chest pain or shortness of breath today. Patient's potassium level is elevated at 5.8 and insulin/D50 was given. Still complaining of abdominal tenderness with palpation and bilateral feet tenderness even with touching. Otherwise patient is being continued on heparin drip due to elevated troponin level. Cardiology is on board. No acute intervention recommended at this time. Otherwise patient is being continued on pain management and bowel regimen. WBC is trending down to 15.8 today No fever no chills. No other acute overnight issues. 12/16/2018 Patient says that her bilateral leg pain and abdominal pain/soreness is improving. Requesting her pain medications to be changed to every 5 hours. No fever no chills. WBC count is trending down to 12.9 today. Otherwise production level is still high at 5.8. Patient is being continued on IV hydration. Creatinine level improved. 2-D echocardiogram showed normal left ventricle systolic function. Cardiology is planning to change heparin IV to a Eliquis today. Patient will be continued on PT OT and anticipate discharge back to be In the next 24-48 hours. 12/17/2018 Patient denied any complaints of chest pain. Still having abdominal soreness and left-sided pain with tenderness to palpation. No complains of cough or sputum production. No shortness of breath. Lower extremity duplex scan is negative. Otherwise patient is being continued on PT OT. Leukocytosis is trending down. 13.4 today. Potassium level is 5.2. Renal function is much improved. Continue the pain management with [place], gabapentin and Dilaudid IV as needed. Possible transfer to rehab in next 24 hours. Encourage ambulation and PTOT. current medications reviewed. Objective - Vital Signs Vital signs: Vital Signs Temp 97.5 F L 12/17/18 04:06 Pulse 87 12/17/18 15:30 Resp 18 12/17/18 15:30 BP 120/67 12/17/18 15:30 Pulse Ox 94 L 12/17/18 15:30 Intake & Output 12/17/18 12/17/18 12/18/18 06:59 18:59 06:59 Intake Total 340 555 Output Total 1000 225 Balance -660 330 Weight 116.5 kg Intake: Intake, IV Titration 75 Amount Sodium Chloride 0.9% 1, 75 000 ml @ 75 mls/hr IV . [id number] [facility] Rx#:[id number] Oral 340 480 Output: Urine 1000 225 Uretheral ([place]) 225 Other: Voiding Method Indwelling Catheter # Voids 1 - Exam PHYSICAL EXAMINATION: Patient is lying in the bed comfortably, no acute distress, awake alert and oriented.. HEENT: Normocephalic. Neck is supple. Pupils reactive. Nostrils clear. Oral cavity is moist. Ears reveal no drainage. Neck reveals no JVD, carotid bruits, or thyromegaly. CHEST EXAMINATION: Trachea is central. Chest wall tenderness. Symmetrical expansion. Bibasilar diminished air entry. Lung basilio clear to auscultation and percussion. CARDIAC: Normal S1, S2 with no gallops. No murmurs . Irregular rhythm. ABDOMEN: Soft. Tenderness on the left side of the abdomen. reducible. Tenderness even with light touch. No guarding no rigidity. Bowel sounds normal. No organomegaly. No abdominal bruits. Extremities: reveal no edema. No clubbing or cyanosis patient does have a sore bilateral feet. Neurologically awake, alert, oriented x3 with well-coordinated movements. No focal deficits noted Skin: No rash or skin lesions. Psychiatric: Coperative. Nonsuicidal Musculoskeletal: No joint swelling or deformity. Normal range of motion. - Labs CBC & Chem 7: 12/17/18 13:44 12/17/18 13:44 Labs: Abnormal Lab Results - Last 24 Hours (Table) 12/17/18 12/17/18 12/17/18 Range/Units 06:11 11:33 13:44 WBC (3.8-10.6) k/uL MCV (80.0-100.0) fL Neutrophils # (1.3-7.7) k/uL Lymphocytes # (1.0-4.8) k/uL Sodium 135 L (137-145) mmol/L Potassium 5.2 H (3.5-5.1) mmol/L BUN 44 H (7-17) mg/dL Creatinine 1.12 H (0.52-1.04) mg/dL Glucose 178 H (74-99) mg/dL POC Glucose (mg/dL) 121 H 115 H (75-99) mg/dL 12/17/18 12/17/18 12/17/18 Range/Units 13:44 16:34 21:23 WBC 13.4 H (3.8-10.6) k/uL MCV 104.8 H (80.0-100.0) fL Neutrophils # 11.6 H (1.3-7.7) k/uL Lymphocytes # 0.7 L (1.0-4.8) k/uL Sodium (137-145) mmol/L Potassium (3.5-5.1) mmol/L BUN (7-17) mg/dL Creatinine (0.52-1.04) mg/dL Glucose (74-99) mg/dL POC Glucose (mg/dL) 153 H 114 H (75-99) mg/dL Assessment and Plan Assessment: Chest pain. Mainly epigastric and is reproducible. Likely musculoskeletal versus acute gastritis with steroids. CT abdomen pelvis showed no acute process. Mildly elevated troponin level. Unlikely acute MD. Chest pain is likely musculoskeletal . Leukocytosis. Due to steroids and reactive as well. Trending down without antibiotics. Follow and rule out any infection. Chest x-ray, UA negative. Hyperkalemia likely due to acute kidney injury.. Improving. Hyperglycemia with uncontrolled diabetes type 2 Chronic atrial fibrillation on anticoagulation with Eliquis Coronary artery disease with exertion placement Recent fall with L3 compression fracture and minimally displaced left distal femur fracture. Discharged to rehab on 12/06/2018 Left knee suprapatellar effusion Acute Kidney injury most likely prerenal. Patient also prerenal azotemia secondary to steroids. Lasix and lisinopril on hold. GERD BN joint disease Hypertension Hyperlipidemia History of renal cancer status post nephrectomy Bilateral peripheral neuropathy psychiatric diabetes History of C. diff Plan: Patient will be continued on telemetry monitoring. Patient was started on heparin drip cardiology is planning . Heparin DC'd and started back on Eliquis.. 2-D echocardiogram was ordered. Normal EF. Patient be continued on pain management, bowel regimen and encourage incentive spirometry. Continue with insulin sliding scale and other home medications. Further admissions based on the clinical course. Discussed with family at bedside in detail. Time with Patient: Greater than 30
[2018-12-17] MEDS: ATORVASTATIN 80 MG TAB PO SCH (23:14)
[2018-12-17] MEDS: ASPIRIN 81 MG PO SCH (23:14)
[2018-12-18] MEDS: HYDROcodone/APAP 5-325MG 1 EACH TAB PO PRN ×4 (02:35→15:56)
[2018-12-18 06:04] LABS: Glucose,Whole Blood 102 mg/dL (75-99)
[2018-12-18] MEDS: INSULIN ASPART (NovoLOG) 100 UNIT/ML VIAL SQ SCH ×3 (06:10→16:37)
[2018-12-18] MEDS: GABAPENTIN 100 MG CAP PO SCH (06:31)
[2018-12-18] MEDS: PANTOPRAZOLE 40 MG TABLET PO SCH (06:32)
[2018-12-18] MEDS: ALLOPURINOL 100 MG TAB PO SCH (07:52)
[2018-12-18] MEDS: APIXABAN 5 MG TAB PO SCH (07:52)
[2018-12-18] MEDS: ISOSORBIDE MONONITRATE ER 30 MG TAB.ER.24H PO SCH (07:52)
[2018-12-18 11:34] VITALS: BP 129/71; PULSE 74; TEMP 97.9
[2018-12-18 11:44] LABS: Glucose,Whole Blood 108 mg/dL (75-99)
--- NOTE | 2018-12-18 15:39 | P.DS ---
Providers Date of admission: 12/13/18 21:55 Expected date of discharge: 12/18/18 Attending physician: Alfa Guaman Consults: 12/13/18 21:54 Consult Physician Routine Consulting Provider: Zoran Magallanes Consult Reason/Comments: nstemi Do you want consulting provider notified?: Yes [facility] care physician: [facility] Course: Discharge diagnoses. Chest pain. Mainly epigastric and is reproducible. Likely musculoskeletal versus acute gastritis with steroids. CT abdomen pelvis showed no acute process. Patient is off heparin drip. Was on heparin drip for 48 hours Mildly elevated troponin level. Unlikely acute NH. Chest pain is likely musculoskeletal . Leukocytosis. Due to steroids and reactive as well. Trending down without antibiotics. Follow and rule out any infection. Chest x-ray, UA negative. Hyperkalemia likely due to acute kidney injury.. Improving. Hyperglycemia with uncontrolled diabetes type 2 Chronic atrial fibrillation on anticoagulation with Eliquis Coronary artery disease with exertion placement Recent fall with L3 compression fracture and minimally displaced left distal femur fracture. Discharged to rehab on 12/06/2018 Left knee suprapatellar effusion Acute Kidney injury most likely prerenal. Patient also prerenal azotemia secondary to steroids. Lasix and lisinopril on hold. GERD BN joint disease Hypertension Hyperlipidemia History of renal cancer status post nephrectomy Bilateral peripheral neuropathy psychiatric diabetes History of C. diff Hospital course Patient is a 77-year-old female with a known history of chronic atrial fibrillation on anticoagulation with Eliquis, coronary artery disease with history of stent placement, hypertension, diabetes type 2, osteoarthritis and peripheral neuropathy came to ER with the complaints of chest pain. Patient was brought to the hospital by EMS and was complaining of chest pain and epigastric pain radiating to the left retrosternal started around 2 PM yesterday. Pain lasted until 5 PM. Nitroglycerin did not really the pain. Patient was discharged from the hospital on 12/06/2018, was admitted to the hospital status post fall and L3 compression fractures as well as acute left distal femur fracture and suprapatellar effusion status post aspiration. Patient was sent to rehab. Patient was on Medrol Dosepak tapering course and is left with one last day. Patient also felt left arm numbness and shoulder pain as well. Denied any nausea or vomiting. Patient did have diaphoresis. Pain has been constant. No aggravating or relieving factors. No associated shortnes s of breath. No worsening leg swelling. Patient was found have troponin level elevated at 0.04, 0.046 and 0.045 EKG showed atrial fibrillation with [address]-T wave changes. Chest x-ray showed mild right lower lobe atelectasis. No infiltrate noted. Patient is currently complaining of abdominal pain mainly left-sided and is tender to palpation and reproducible. No rigidity. CT chest showed no acute abnormality. Previous nephrectomy changes noted otherwise. No nausea vomiting or diarrhea. No constipation. Patient did have last bowel movement yesterday. Patient otherwise denied any orthopnea or PND. Patient has left lower extremity stabilizer place. Sodium 135, potassium 6 with mild hemolysis, BUN 71 and creatinine 1.43 12/15/2018 Patient denied any complaints of chest pain or shortness of breath today. Patient's potassium level is elevated at 5.8 and insulin/D50 was given. Still complaining of abdominal tenderness with palpation and bilateral feet tenderness even with touching. Otherwise patient is being continued on heparin drip due to elevated troponin level. Cardiology is on board. No acute intervention recommended at this time. Otherwise patient is being continued on pain management and bowel regimen. WBC is trending down to 15.8 today No fever no chills. No other acute overnight issues. 12/16/2018 Patient says that her bilateral leg pain and abdominal pain/soreness is improving. Requesting her pain medications to be changed to every 5 hours. No fever no chills. WBC count is trending down to 12.9 today. Otherwise production level is still high at 5.8. Patient is being continued on IV hydration. Creatinine level improved. 2-D echocardiogram showed normal left ventricle systolic function. Cardiology is planning to change heparin IV to a Eliquis today. Patient will be continued on PT OT and anticipate discharge back to be In the next 24-48 hours. 12/17/2018 Patient denied any complaints of chest pain. Still having abdominal soreness and left-sided pain with tenderness to palpation. No complains of cough or sputum production. No shortness of breath. Lower extremity duplex scan is negative. Otherwise patient is being continued on PT OT. Leukocytosis is trending down. 13.4 today. Potassium level is 5.2. Renal function is much improved. Continue the pain management with [place], gabapentin and Dilaudid IV as needed. Possible transfer to rehab in next 24 hours. Encourage ambulation and PTOT. 12/18/2018 Patient denied any complaints of chest pain or shortness of breath. Abdominal soreness is improved. Patient did have a bowel movement. No nausea vomiting or diarrhea. Blood pressure is stable with SBP in 120s No complaints of dizziness or lightheadedness. Leg swelling is also better. Potassium level improved to 5.2 yesterday. Lasix and lisinopril have been discontinued. Patient will be continued oneliquis and metoprolol. Follow-up with primary care physician in 1-3 days and cardiology as outpatient. Discussed with the family and patient family at bedside.. Continue with [place] 5 for pain management every 4-5 hours as needed. Stool softeners as needed. Stable to be discharged to rehab today. PHYSICAL EXAMINATION: Patient is lying in the bed comfortably, no acute distress, awake alert and oriented.. HEENT: Normocephalic. Neck is supple. Pupils reactive. Nostrils clear. Oral cavity is moist. Ears reveal no drainage. Neck reveals no JVD, carotid bruits, or thyromegaly. CHEST EXAMINATION: Trachea is central. Symmetrical expansion. Lung basilio clear to auscultation and percussion. CARDIAC: Normal S1, S2 with no gallops. No murmurs ABDOMEN: Soft. Soreness of the abdominal wall. No tenderness with deep palpation. Bowel sounds normal. No organomegaly. No abdominal bruits. Extremities: reveal no edema. No clubbing or cyanosis Neurologically awake, alert, oriented x3 with well-coordinated movements. No focal deficits noted Skin: No rash or skin lesions. Psychiatric: Coperative. Nonsuicidal Musculoskeletal: No joint swelling or deformity. Normal range of motion. Vital Signs 12/18/18 12/18/18 08:00 11:00 Temperature 97.7 F 97.9 F Pulse Rate [ 90 74 Pulse Oximetery ] Respiratory 18 18 Rate Blood Pressure 116/58 129/71 [Left Arm] O2 Sat by Pulse 94 L 92 L Oximetry Total time taken greater than 35 minutes including 18 minutes for counseling and coordination of care. Patient Condition at Discharge: Fair Plan - Discharge Summary Discharge Rx Participant: No New Discharge Prescriptions: New Apixaban [Eliquis] 5 mg PO BID #60 tab HYDROcodone/APAP 5-325MG [[place] 5-325] 1 each PO Q4HR PRN #12 tab PRN Reason: Pain Continue Nitroglycerin Sl Tabs [Nitrostat] 0.4 mg SUBLINGUAL Q5M PRN PRN Reason: Chest Pain Isosorbide Mononitrate ER [Imdur] 30 mg PO DAILY Allopurinol [Zyloprim] 100 mg PO DAILY Aspirin 81 mg PO HS Atorvastatin Calcium [Lipitor] 80 mg PO HS@1999 INSULIN ASPART (NovoLOG) [NovoLOG (formulary)] See Protocol SQ ACHS Gabapentin [Neurontin] 100 mg PO BID@0700,1900 Omeprazole [PriLOSEC] 40 mg PO BID@0700,1600 Discontinued Cetirizine HCl [Zyrtec] 10 mg PO DAILY Furosemide [Lasix] 40 mg PO DAILY Apixaban [Eliquis] 2.5 mg PO BID Lisinopril [Zestril] 10 mg PO BID HYDROcodone/APAP 10-325MG [[place] 10-325] 1 tab PO Q4H PRN PRN Reason: Pain methylPREDNISolone [Medrol] 4 mg PO ONCE methylPREDNISolone [Medrol] 4 mg PO BID Discharge Medication List Isosorbide Mononitrate ER [Imdur] 30 mg PO DAILY 11/03/14 [History] Nitroglycerin Sl Tabs [Nitrostat] 0.4 mg SUBLINGUAL Q5M PRN 11/03/14 [History] Allopurinol [Zyloprim] 100 mg PO DAILY 11/29/18 [History] Aspirin 81 mg PO HS 11/29/18 [History] Atorvastatin Calcium [Lipitor] 80 mg PO HS@199911/29/18 [History] Gabapentin [Neurontin] 100 mg PO BID@0700,1900 12/13/18 [History] INSULIN ASPART (NovoLOG) [NovoLOG (formulary)] See Protocol SQ ACHS 12/13/18 [History] Omeprazole [PriLOSEC] 40 mg PO BID@0700,1600 12/13/18 [History] Apixaban [Eliquis] 5 mg PO BID #60 tab 12/18/18 [Rx] HYDROcodone/APAP 5-325MG [[place] 5-325] 1 each PO Q4HR PRN #12 tab 12/18/18 [Rx] Follow up Appointment(s)/Referral(s): Philippe Miramontes DO [Primary Care Provider] - 1-2 days Discharge Disposition: TRANSFER TO SNF/ECF
[2018-12-18 16:34] LABS: Glucose,Whole Blood 111 mg/dL (75-99)
== END 2018-12-18 18:08 | DRG 313 ==
LOC: EC 18:08 → 3SCARD 21:55
PROVIDERS: ADMIT Hospitalist; ATTEND Hospitalist
DX: R07.89 Other chest pain (principal); I48.1 Persistent atrial fibrillation; J98.11 Atelectasis; N17.9 Acute kidney failure, unspecified; D72.829 Elevated white blood cell count, unspecified; E11.42 Type 2 diabetes mellitus with diabetic polyneuropathy; E11.65 Type 2 diabetes mellitus with hyperglycemia; E78.5 Hyperlipidemia, unspecified; E87.5 Hyperkalemia; I10 Essential (primary) hypertension; R74.8 Abnormal levels of other serum enzymes; I25.10 Atherosclerotic heart disease of native coronary artery without angina pectoris; K21.9 Gastro-esophageal reflux disease without esophagitis; T38.0X5A Adverse effect of glucocorticoids and synthetic analogues, initial encounter; Z79.01 Long term (current) use of anticoagulants; Z79.4 Long term (current) use of insulin; Z79.82 Long term (current) use of aspirin; Z79.899 Other long term (current) drug therapy; Z80.41 Family history of malignant neoplasm of ovary; Z83.3 Family history of diabetes mellitus; Z85.528 Personal history of other malignant neoplasm of kidney; Z90.5 Acquired absence of kidney; Z90.710 Acquired absence of both cervix and uterus; Z95.5 Presence of coronary angioplasty implant and graft; Z87.01 Personal history of pneumonia (recurrent); M19.90 Unspecified osteoarthritis, unspecified site; M25.462 Effusion, left knee; Z88.5 Allergy status to narcotic agent; Z88.8 Allergy status to other drugs, medicaments and biological substances; Z98.42 Cataract extraction status, left eye; Z98.41 Cataract extraction status, right eye; S72.402D Unspecified fracture of lower end of left femur, subsequent encounter for closed fracture with routine healing; S32.038D Other fracture of third lumbar vertebra, subsequent encounter for fracture with routine healing
CPT/HCPCS: 36415; 71046; 74176; 80048; 80053; 81001; 82150; 83036; 83690; 83735; 83880; 84132; 84484; 85025; 85027; 85610; 85730; 93005; 93306; 93970; 96361; 96365; 96366; 96375; 99291

== ENCOUNTER → 2019-01-31 | Outpatient (CLI) | payer MEDICARE ==
--- NOTE | 2019-02-03 08:49 | XR ---
EXAM TYPE: LUMBAR SPINE X RAY SERIES COMPARISON: NONE HISTORY: Pain TECHNIQUE: 4 views are submitted. FINDINGS: Alignment is anatomic. The pedicles are intact. The transverse processes are intact. There is no s pondylolysis or spondylolisthesis. Diffuse osteopenia. Surgical clips in the abdomen noted. Vascular calcification seen. There is multilevel degenerative disc disease and facet arthropathy with grade 1 anterolisthesis L4 on L5 there is a moderate superior endplate compression fracture of L3 of indeter minate age. Mild endplate deformity of L1. IMPRESSION: 1. Superior endplate compression deformities of L1 and L3 of indeterminate age. Correlate with MRI. 2. Multilevel degenerative disc disease and facet arthropathy with grade 1 anterolisthesis of L4 on L 5..
== END | disposition home or self-care (01) ==
LOC: RADXRYALE 16:27
PROVIDERS: ATTEND Family Medicine
DX: M51.36 Other intervertebral disc degeneration, lumbar region (principal); M43.16 Spondylolisthesis, lumbar region; M46.96 Unspecified inflammatory spondylopathy, lumbar region; G95.29 Other cord compression
CPT/HCPCS: 72110

== ENCOUNTER → 2019-04-10 | Outpatient (CLI) | payer MEDICARE | END | disposition home or self-care (01) | LOC: RADUSWWP 12:44 | PROVIDERS: ATTEND Family Medicine | DX: M54.5 Low back pain (principal); M79.604 Pain in right leg; M79.605 Pain in left leg; R25.2 Cramp and spasm | CPT/HCPCS: 93922 ==

== ENCOUNTER → 2019-04-19 | Outpatient (CLI) | payer MEDICARE ==
--- NOTE | 2019-04-19 13:33 | MR ---
EXAMINATION TYPE: MR lumbar spine wo con DATE OF EXAM: 04/19/2019 COMPARISON: CT December 14, 2018. Lumbar spine x-ray January 31, 2019. HISTORY: Low back pain TECHNIQUE: Multiplanar, multisequence imaging of the lumbar spine is performed without IV contrast. FINDINGS: There is persistent mild to moderate height loss superior L3 vertebra. There is new mild he ight loss superior L5 vertebra. Persisting grade 1 anterolisthesis L4 on L5. The persistent multileve l disc desiccation. Vacuum disc phenomenon L4-L5 level. Mild to moderate disc space narrowing L5-S1 l evel. Mild to moderate multilevel anterior spurring. The conus medullaris is normal in position and s ignal ending mid L1 level. Heterogeneity of bone marrow signal intensity with low T1 and T2 signal lock perior L5 endplate. Vacuum disc phenomenon T12-L1 level with [id number] broad disc bulge minimally effacing the ant erior thecal sac. Mild facet arthropathy. Axial images at L1-L2 level show mild/moderate facet degenerative changes and ligamenta flavum hypert rophy effacing posterolateral thecal sac. Mild broad disc bulge minimally effacing anterior thecal sa c. Axial images at L2-L3 level show moderate broad-based posterior disc protrusion effaces the anterior thecal sac with [id number] facet degenerative changes and ligament flavum hypertrophy effacing posterior lateral thecal sac. There is mild bilateral anterior inferior neural foraminal narrowing. Axial images at the L3-L4 levels moderate facet degenerative changes and ligament flavum hypertrophy effacing posterior lateral thecal sac. There is mild broad disc bulge minimally effaces the anterior thecal sac. Patent bilateral neural foramina. Axial images at the L4-L5 level show advanced broad disc bulge and spondylolisthesis effacing the ant erior thecal sac and advanced facet degenerative changes and ligament flavum hypertrophy. Posterior l ateral thecal sac. Most prominent spinal canal stenosis is seen at this level axial image 11. Moderat e bilateral inferior neural foraminal narrowing is present. Axial images at L5-S1 level show mild/moderate facet degenerative changes with central disc protrusio n effacing anterior thecal sac and mild bilateral inferior neural foraminal narrowing. Left kidney is not visualized and suspected surgically absent. IMPRESSION: Since CT there is new [id number] suspected subacute chronic compression fracture lock perior L5 endplate. Spondylolisthesis and degenerative change contributes to most prominent spinal ca nal stenosis L4-L5 level. Other findings as noted above.
== END | disposition home or self-care (01) ==
LOC: RADMRIMAIN 12:41
PROVIDERS: ATTEND Family Medicine
DX: M99.73 Connective tissue and disc stenosis of intervertebral foramina of lumbar region (principal); M99.74 Connective tissue and disc stenosis of intervertebral foramina of sacral region; M48.061 Spinal stenosis, lumbar region without neurogenic claudication; M48.07 Spinal stenosis, lumbosacral region; M51.16 Intervertebral disc disorders with radiculopathy, lumbar region; M51.25 Other intervertebral disc displacement, thoracolumbar region; M43.16 Spondylolisthesis, lumbar region; M47.26 Other spondylosis with radiculopathy, lumbar region; M46.95 Unspecified inflammatory spondylopathy, thoracolumbar region; M46.96 Unspecified inflammatory spondylopathy, lumbar region
CPT/HCPCS: 72148

== ENCOUNTER 2020-08-06 20:41 | Inpatient (IN) | payer MEDICARE ==
[2020-08-06] MEDS ORDERED: ONDANSETRON 4 MG/2 ML VIAL IVP STA (21:17)
--- NOTE | 2020-08-06 21:34 | XR ---
EXAMINATION TYPE: XR chest 2V DATE OF EXAM: 08/06/2020 COMPARISON: 12/13/2018 HISTORY: Cough TECHNIQUE: 2 views FINDINGS: There is no heart failure nor confluent pneumonic infiltrate. Costophrenic angles are clear . Thoracic aorta is atheromatous. IMPRESSION: No active cardiopulmonary disease. Atheromatous aorta.
[2020-08-06 22:14] LABS: Albumin 4.1 g/dL (3.5-5.0); Total Bilirubin 0.8 mg/dL (0.2-1.3); Total Protein 7.8 g/dL (6.3-8.2)
[2020-08-06 22:25] LABS: Potassium 4.8 mmol/L (3.5-5.1)
[2020-08-06 22:33] LABS: Basophils # (A) 0.1 k/uL (0-0.2); Basophils % (A) 1 %; Eosinophils # (A) 0.1 k/uL (0-0.7); Eosinophils % (A) 1 %; HGB 14.5 gm/dL (11.4-16.0); Lymphocytes # (A) 0.7 k/uL (1.0-4.8); Lymphocytes % (A) 10 %; MCH 35.2 pg (25.0-35.0); MCHC 34.6 g/dL (31.0-37.0); MCV 101.7 fL (80.0-100.0); Macrocytosis Slight; Monocytes # (A) 0.6 k/uL (0-1.0); Monocytes % (A) 9 %; Neutrophils # (A) 5.4 k/uL (1.3-7.7); Neutrophils % (A) 78 %; Platelet Count 169 k/uL (150-450); RBC 4.13 m/uL (3.80-5.40); RDW 14.2 % (11.5-15.5); WBC 6.9 k/uL (3.8-10.6)
[2020-08-06] MEDS ORDERED: SODIUM CHLORIDE 0.9% 1,000 ML IV ONE (22:43)
[2020-08-06] MEDS ORDERED: NALOXONE 0.4 MG/ML 1 ML VIAL IV PRN (22:44)
[2020-08-06] MEDS ORDERED: ONDANSETRON 4 MG/2 ML VIAL IVP PRN (22:44)
--- NOTE | 2020-08-06 22:44 | ED ---
General Adult HPI - General Chief complaint: Nausea/Vomiting/Diarrhea Stated complaint: SOB,Vomiting Source: patient Mode of arrival: ambulatory Limitations: no limitations - History of Present Illness Initial comments: 79-year-old female past history of A. fib, renal cancer status post nephrectomy, diabetes who presents emergency Department with reported nausea and vomiting for the past 5 days. Patient reports to inability to hold down any food, water or her medications. She has had chills and body aches. Denies hematemesis. No chest pain. Denies any abdominal pain. There is concern for Covid. States that she has been tested however has not gotten results back yet. Patient is on [place] for A. fib however has not held on her medications in several days. Admits to bilateral flank pain. Has had decreased amount of urination. No other alleviating, Perceptin or modifying factors - Related Data Home Medications Medication Instructions Recorded Confirmed Isosorbide Mononitrate ER [Imdur] 30 mg PO DAILY 11/03/14 08/06/20 Nitroglycerin Sl Tabs [Nitrostat] 0.4 mg SUBLINGUAL Q5M PRN 11/03/14 08/06/20 allopurinoL [Zyloprim] 100 mg PO BID 11/29/18 08/06/20 Apixaban [Eliquis] 2.5 mg PO BID 08/06/20 08/06/20 Fluticasone Nasal [place] [Flonase 1 spray EA NOSTRIL DAILY PRN 08/06/20 08/06/20 Nasal [place]] Furosemide [Lasix] 40 mg PO BID 08/06/20 08/06/20 HYDROcodone/APAP 10-325MG [[place] 1 tab PO 5XD PRN 08/06/20 08/06/20 10-325] Rosuvastatin Calcium [Crestor] 40 mg PO DAILY 08/06/20 08/06/20 lisinopriL [Zestril] 5 mg PO BID 08/06/20 08/06/20 metFORMIN HCL 500 mg PO BID 08/06/20 08/06/20 Allergies Allergy/AdvReac Type Severity Reaction Status Date / Time propoxyphene Allergy Unknown Verified 08/06/20 20:52 [From Darvocet-N] codeine phosphate AdvReac Hallucinati Verified 08/06/20 20:52 [From Tylenol-Codeine #3] ons duloxetine [From Cymbalta] AdvReac c-diff Verified 08/06/20 20:52 meperidine HCl [From Demerol] AdvReac CHEST Verified 08/06/20 20:52 PAIN/Hallucinations pregabalin [From Lyrica] AdvReac Nausea & Verified 08/06/20 20:52 Vomiting Review of Systems ROS Statement: Those systems with pertinent positive or pertinent negative responses have been documented in the HPI. ROS Other: All systems not noted in ROS Statement are negative. Past Medical History Past Medical History: Atrial Fibrillation, Cancer, Chest Pain / Angina, Diabetes Mellitus, GERD/Reflux, Hyperlipidemia, Hypertension, Osteoarthritis (OA), Pneumonia Additional Past Medical History / Comment(s): Gout, Neuropathy, hx migraines, hx kidney cancer. History of Any Multi-Drug Resistant Organisms: C-DIFF Date of last positivie culture/infection: September 2017 MDRO Source:: stool Past Surgical History: Cholecystectomy, Heart Catheterization With Stent, Hysterectomy Additional Past Surgical History / Comment(s): Bilateral cataracts removed, left nephrectomy. Past Anesthesia/Blood Transfusion Reactions: Motion Sickness, Postoperative Nausea & Vomiting (PONV) Date of Last Stent Placement:: unknown Past Psychological History: No Psychological Hx Reported Smoking Status: Never smoker Past Alcohol Use History: None Reported Past Drug Use History: None Reported - Past Family History Father Family Medical History: Diabetes Mellitus Mother Family Medical History: Cancer Additional Family Medical History / Comment(s): Ovarian cancer. Sister(s) Family Medical History: Deep Vein Thrombosis (DVT) Brother(s) Family Medical History: Pulmonary Embolus General Exam Limitations: no limitations Course Vital Signs 08/06/20 20:47 Temperature 98.2 F Pulse Rate 85 Respiratory 18 Rate Blood Pressure 139/68 O2 Sat by Pulse 94 L Oximetry EKG Findings - EKG Comments: EKG Findings:: EKG demonstrates A. fib with a rate of 85. QRS 124. QTC of 471. No acute ST segment elevations or depressions Medical Decision Making - Medical Decision Making Upon arrival patient was placed into room 2. A thorough history and physical exam is performed. Patient is swabbed for Covid which does come back positive. She does maintain her saturations of 92-94%. Laboratory studies are conducted. Creatinine is 2.48. The patient is status post nephrectomy and therefore she is given a liter bolus of normal saline followed by 75 mL/h. Zofran is ordered. I also ordered the patient's request. Chest x-ray was performed which demonstrates no active cardiopulmonary disease. I did recommend hospital admission due to the patient's acute kidney injury for which she did agree to. Spoke with Dr. Shirley who agreed to admit the patient. Patient is currently wait ing about on the floor - Lab Data Result diagrams: 08/06/20 22:20 08/06/20 21:31 Lab Results 08/06/20 08/06/20 08/06/20 Range/Units 20:54 21:31 21:49 WBC (3.8-10.6) k/uL RBC (3.80-5.40) m/uL Hgb (11.4-16.0) gm/dL Hct (34.0-46.0) % MCV (80.0-100.0) fL MCH (25.0-35.0) pg MCHC (31.0-37.0) g/dL RDW (11.5-15.5) % Plt Count (150-450) k/uL MPV Neutrophils % % Lymphocytes % % Monocytes % % Eosinophils % % Basophils % % Neutrophils # (1.3-7.7) k/uL Lymphocytes # (1.0-4.8) k/uL Monocytes # (0-1.0) k/uL Eosinophils # (0-0.7) k/uL Basophils # (0-0.2) k/uL Macrocytosis PT (9.0-12.0) sec INR (<1.2) APTT (22.0-30.0) sec Sodium 143 (137-145) mmol/L Potassium 4.8 (3.5-5.1) mmol/L Chloride 106 (98-107) mmol/L Carbon Dioxide 24 (22-30) mmol/L Anion Gap 13 mmol/L BUN 43 H (7-17) mg/dL Creatinine 2.48 H (0.52-1.04) mg/dL Est GFR (CKD-EPI)AfAm 21 (>60 ml/min/1.73 sqM) Est GFR (CKD-EPI)NonAf 18 (>60 ml/min/1.73 sqM) Glucose 153 H (74-99) mg/dL Plasma Lactic Acid Jonh 1.4 (0.7-2.0) mmol/L Calcium 9.0 (8.4-10.2) mg/dL Magnesium 2.0 (1.6-2.3) mg/dL Total Bilirubin 0.8 (0.2-1.3) mg/dL AST 68 H (14-36) U/L ALT 36 H (4-34) U/L Alkaline Phosphatase 108 (38-126) U/L Lactate Dehydrogenase 1168 H (313-618) U/L C-Reactive Protein 1.0 H (<1.0) mg/dL Total Protein 7.8 (6.3-8.2) g/dL Albumin 4.1 (3.5-5.0) g/dL Coronavirus (PCR) Detected A (Not Detectd) 08/06/20 08/06/20 Range/Units 22:20 22:20 WBC 6.9 (3.8-10.6) k/uL RBC 4.13 (3.80-5.40) m/uL Hgb 14.5 (11.4-16.0) gm/dL Hct 42.0 (34.0-46.0) % MCV 101.7 H (80.0-100.0) fL MCH 35.2 H (25.0-35.0) pg MCHC 34.6 (31.0-37.0) g/dL RDW 14.2 (11.5-15.5) % Plt Count 169 (150-450) k/uL MPV 8.0 Neutrophils % 78 % Lymphocytes % 10 % Monocytes % 9 % Eosinophils % 1 % Basophils % 1 % Neutrophils # 5.4 (1.3-7.7) k/uL Lymphocytes # 0.7 L (1.0-4.8) k/uL Monocytes # 0.6 (0-1.0) k/uL Eosinophils # 0.1 (0-0.7) k/uL Basophils # 0.1 (0-0.2) k/uL Macrocytosis Slight PT 10.7 (9.0-12.0) sec INR 1.0 (<1.2) APTT 22.7 (22.0-30.0) sec Sodium (137-145) mmol/L Potassium (3.5-5.1) mmol/L Chloride (98-107) mmol/L Carbon Dioxide (22-30) mmol/L Anion Gap mmol/L BUN (7-17) mg/dL Creatinine (0.52-1.04) mg/dL Est GFR (CKD-EPI)AfAm (>60 ml/min/1.73 sqM) Est GFR (CKD-EPI)NonAf (>60 ml/min/1.73 sqM) Glucose (74-99) mg/dL Plasma Lactic Acid John (0.7-2.0) mmol/L Calcium (8.4-10.2) mg/dL Magnesium (1.6-2.3) mg/dL Total Bilirubin (0.2-1.3) mg/dL AST (14-36) U/L ALT (4-34) U/L Alkaline Phosphatase (38-126) U/L Lactate Dehydrogenase (313-618) U/L C-Reactive Protein (<1.0) mg/dL Total Protein (6.3-8.2) g/dL Albumin (3.5-5.0) g/dL Coronavirus (PCR) (Not Detectd) Disposition Clinical Impression: Nausea & vomiting, COVID-19, S/p nephrectomy, NIGEL (acute kidney injury) Disposition: ADMITTED IP TO THIS [facility] Condition: Serious Is patient prescribed a controlled substance at d/c from ED?: No Decision to Admit Reason: Admit from EC Decision Date: 08/06/20 Decision Time: 22:44
[2020-08-06 22:48] LABS: Partial Thromboplastin Time 22.7 sec (22.0-30.0); Prothrombin Time 10.7 sec (9.0-12.0)
[2020-08-06] MEDS ORDERED: FLUTICASONE 50MCG/SPRAY NASAL 16GM EA NOSTRIL PRN (22:49)
[2020-08-06] MEDS: APIXABAN 2.5 MG TABLET PO SCH (23:21)
[2020-08-06] MEDS: SODIUM CHLORIDE 0.9% 1,000 ML IV SCH (23:21)
[2020-08-07] MEDS ORDERED: ACETAMINOPHEN TAB 325 MG TAB PO PRN (05:19)
[2020-08-07 07:33] LABS: Basophils # (A) 0.1 k/uL (0-0.2); Basophils % (A) 1 %; Eosinophils % (A) 0 %; HCT 38.8 % (34.0-46.0); HGB 12.6 gm/dL (11.4-16.0); Lymphocytes # (A) 0.7 k/uL (1.0-4.8); Lymphocytes % (A) 10 %; MCH 33.2 pg (25.0-35.0); MCHC 32.6 g/dL (31.0-37.0); MCV 101.8 fL (80.0-100.0); Macrocytosis Slight; Mean Platelet Volume 8.3; Monocytes # (A) 0.6 k/uL (0-1.0); Monocytes % (A) 9 %; Neutrophils # (A) 5.4 k/uL (1.3-7.7); Neutrophils % (A) 79 %; Platelet Count 150 k/uL (150-450); RBC 3.81 m/uL (3.80-5.40); RDW 14.2 % (11.5-15.5); WBC 6.8 k/uL (3.8-10.6)
[2020-08-07 07:47] LABS: Calcium 7.9 mg/dL (8.4-10.2); Potassium 3.3 mmol/L (3.5-5.1)
[2020-08-07] MEDS: APIXABAN 2.5 MG TABLET PO SCH ×2 (12:23→21:02)
[2020-08-07] MEDS: HYDROcodone/APAP 10-325MG 1 EACH TAB PO PRN ×2 (12:23→21:01)
[2020-08-07] MEDS: SODIUM CHLORIDE 0.9% 1,000 ML IV SCH (12:24)
--- NOTE | 2020-08-07 16:43 | P.CNPUL ---
History of Present Illness Consult date: 08/07/20 Reason for consult: dyspnea History of present illness: 7-year-old female patient, presented to the hospital because of nausea vomiting and diarrhea and some shortness of breath. Apparently the patient was unable to hold down any food or water or medication. She was having diffuse body aches. No abdominal pain. The patient was tested and she checked positive for COVID-19 infection. As such, she was hospitalized and she was started on IV fluids. In the emergency department, the patient was afebrile and she was hemodynamic is stable with a pulse ox of 94%. The patient was found to have an acute kidney injury and intravascular volume depletion/dehydration. She was started on IV fluids. She was also given Zofran. The patient had a white cell count of 6.9 with a hemoglobin of 14.5. BUN was 43 with a creatinine of 2.4. The liver function tests are normal with an AST of 68, ALT of 36, alkaline phosphatase was normal at 108, LDH level was 1168 and the CRP level was at 1. Serum bicarb was normal, electrolytes were normal, COVID-19 testing by PCR came back positive. Coagulation profile was also normal. Chest x-ray was normal without any acute cardio pulmonary abnormalities. In terms of oxygenation, the patient was on 2 L of oxygen by nasal cannula with saturation of 97%. No reported oxygen desaturation. Comorbid conditions include history of chronic atrial fibrillation, history of renal cancer and the patient is post nephrectomy, diabetes mellitus and hyperuricemia/gout, hypertension, hyperlipidemia , CAD with stents Review of Systems All systems: negative Constitutional: Reports fatigue, Reports weakness Eyes: right as per HPI Ears: deny: decreased hearing, ear discharge, earache, tinnitus Ears, nose, mouth and throat: Reports as per HPI Breasts: absent: as per HPI, change in shape, gynecomastia, masses, nipple discharge, pain, skin changes, swelling Cardiovascular: Reports decreased exercise tolerance, Reports dyspnea on exertion Respiratory: Reports dyspnea Gastrointestinal: Reports as per HPI, Reports nausea, Reports vomiting Genitourinary: Reports as per HPI, Reports genital sores Musculoskeletal: Reports as per HPI Musculoskeletal: absent: ankle pain, ankle stiffness, ankle swelling, as per HPI, elbow pain, elbow stiffness, elbow swelling, foot pain, foot stiffness, foot swelling, hand pain, hand stiffness, hand swelling, hip pain, hip stiffness, hip swelling, knee pain, knee stiffness, knee swelling, shoulder pain, shoulder stiffness, shoulder swelling, wrist pain, wrist stiffness, wrist swelling Integumentary: Reports as per HPI Neurological: Reports weakness Psychiatric: Reports as per HPI Endocrine: Reports as per HPI, Reports fatigue Hematologic/Lymphatic: Reports as per HPI Allergic/Immunologic: Reports as per HPI Past Medical History Past Medical History: Atrial Fibrillation, Coronary Artery Disease (CAD), Cancer, Chest Pain / Angina, Diabetes Mellitus, GERD/Reflux, Hyperlipidemia, Hypertension, Osteoarthritis (OA), Pneumonia Additional Past Medical History / Comment(s): Gout, Neuropathy, hx migraines, hx kidney cancer. History of Any Multi-Drug Resistant Organisms: C-DIFF Date of last positivie culture/infection: September 2017 MDRO Source:: stool Past Surgical History: Cholecystectomy, Heart Catheterization With Stent, Hysterectomy Additional Past Surgical History / Comment(s): Bilateral cataracts removed, left nephrectomy. Past Anesthesia/Blood Transfusion Reactions: Motion Sickness, Postoperative Nausea & Vomiting (PONV) Date of Last Stent Placement:: unknown Past Psychological History: No Psychological Hx Reported Smoking Status: Never smoker Past Alcohol Use History: None Reported Past Drug Use History: None Reported - Past Family History Father Family Medical History: Diabetes Mellitus Mother Family Medical History: Cancer Additional Family Medical History / Comment(s): Ovarian cancer. Sister(s) Family Medical History: Deep Vein Thrombosis (DVT) Brother(s) Family Medical History: Pulmonary Embolus Medications and Allergies Home Medications Medication Instructions Recorded Confirmed Type Isosorbide Mononitrate ER [Imdur] 30 mg PO DAILY 11/03/14 08/07/20 History Nitroglycerin Sl Tabs [Nitrostat] 0.4 mg SUBLINGUAL Q5M PRN 11/03/14 08/07/20 History allopurinoL [Zyloprim] 100 mg PO BID 11/29/18 08/07/20 History Apixaban [Eliquis] 2.5 mg PO BID 08/06/20 08/07/20 History Fluticasone Nasal [place] [Flonase 1 spray EA NOSTRIL DAILY PRN 08/06/20 08/07/20 History Nasal [place]] Furosemide [Lasix] 40 mg PO BID 08/06/20 08/07/20 History HYDROcodone/APAP 10-325MG [[place] 1 tab PO 5XD PRN 08/06/20 08/07/20 History 10-325] Rosuvastatin Calcium [Crestor] 40 mg PO DAILY 08/06/20 08/07/20 History lisinopriL [Zestril] 5 mg PO BID 08/06/20 08/07/20 History metFORMIN HCL 500 mg PO BID 08/06/20 08/07/20 History Allergies Allergy/AdvReac Type Severity Reaction Status Date / Time propoxyphene Allergy Unknown Verified 08/06/20 20:52 [From Darvocet-N] codeine phosphate AdvReac Hallucinati Verified 08/06/20 20:52 [From Tylenol-Codeine #3] ons duloxetine [From Cymbalta] AdvReac c-diff Verified 08/06/20 20:52 meperidine HCl [From Demerol] AdvReac CHEST Verified 08/06/20 20:52 PAIN/Hallucinations pregabalin [From Lyrica] AdvReac Nausea & Verified 08/06/20 20:52 Vomiting Physical Exam Vitals: Vital Signs Temp Pulse Resp BP Pulse Ox 08/07/20 12:27 85 18 143/79 97 08/07/20 07:18 99.2 F 76 18 126/77 95 08/07/20 05:22 100.2 F H 75 18 141/69 96 08/06/20 20:47 98.2 F 85 18 139/68 94 L Intake and Output 08/06/20 08/07/20 08/07/20 22:59 06:59 14:59 Other: Weight 81.647 kg Gen. appearance the patient is nontoxic looking, calm and comfortable, looks dehydrated, not having any labored breathing BMI 32.9 Head exam was generally normal. There was no scleral icterus or corneal arcus. Mucous membranes were moist. Neck was supple and without jugular venous distension, thyromegaly, or carotid bruits. Carotids were easily palpable bilaterally. There was no adenopathy. Lungs were clear to auscultation and percussion, and with normal diaphragmatic excursion. No wheezes or rales were noted. Cardiac exam revealed the PMI to be normally situated and sized. The rhythm was regular and no extrasystoles were noted during several minutes of auscultation. The first and second heart sounds were normal and physiologic splitting of the second heart sound was noted. There were no murmurs, rubs, clicks, or gallops. Abdominal exam revealed normal bowel sounds. The abdomen was soft, non-tender, and without masses, organomegaly, or appreciable enlargement of the abdominal aorta. Examination of the extremities revealed easily palpable radial, femoral and pedal pulses. There was no cyanosis, clubbing or edema. Examination of the skin revealed no evidence of significant rashes, suspicious appearing nevi or other concerning lesions. Results - Laboratory Findings CBC and BMP: 08/07/20 06:46 08/07/20 06:46 PT/INR, D-dimer PT 10.7 sec (9.0-12.0) 08/06/20 22:20 INR 1.0 (<1.2) 08/06/20 22:20 Abnormal lab findings: Abnormal Labs 08/06/20 08/06/20 08/06/20 20:54 21:31 22:20 MCV 101.7 H MCH 35.2 H Lymphocytes # 0.7 L Potassium Chloride BUN 43 H Creatinine 2.48 H Glucose 153 H Calcium AST 68 H ALT 36 H Lactate Dehydrogenase 1168 H C-Reactive Protein 1.0 H Coronavirus (PCR) Detected A 08/07/20 08/07/20 06:46 06:46 MCV 101.8 H MCH Lymphocytes # 0.7 L Potassium 3.3 L Chloride 109 H BUN 40 H Creatinine 2.16 H Glucose 134 H Calcium 7.9 L AST ALT Lactate Dehydrogenase C-Reactive Protein Coronavirus (PCR) - Diagnostic Findings Chest x-ray: image reviewed Assessment and Plan Plan: 1 acute COVID-19 infection without clear evidence of any pneumoniaas the patient is having increased cough and shortness of breath and she has also developed some limited hypoxemia. Nevertheless, the majority of her symptoms were essentially gastrointestinal in nature 2 acute nausea and vomiting and dehydration secondary to COVID-19 infection 3 acute dehydration with intravascular volume depletion secondary to above 4 acute kidney injury secondary to above 5 coronary artery disease with previous coronary stenting 6 history of atrial fibrillation and current rhythm is still A. fib and the patient has been maintained on Eliquis on outpatient basis 7 history of kidney cancer the patient undergone previous nephrectomy. Her baseline creatinine was essentially within normal limits. 8 compression fracture of the L3 spine 9 hypertension 10 hyperlipidemia Plan IV fluids with normal saline at the rate of 75 mL an hour. Monitor urine outpu t. Monitor electrolytes. start Decadron 6 mg IV every 24 hours Monitor electrodes are renal function Continue Eliquis for now Resume all medications and keep the Zestril and the diuretics on hold
--- NOTE | 2020-08-07 17:39 | US ---
EXAMINATION TYPE: US kidneys/renal and bladder DATE OF EXAM: 08/07/2020 COMPARISON: CT CLINICAL HISTORY: RF. Left kidney removed due to CA per patient history; COVID EXAM MEASUREMENTS: Right Kidney: cm Left Kidney:surgically absent Post Void Residual Volume: not assessed on EC patient Right kidney measures 10.4 x 5.4 cm Right Kidney: lateral cortical cyst seen lower pole = 1.1 x 1.6 x 1.2cm Bladder: minimally distended There is no evidence for hydronephrosis at this point in time. No nephrolithiasis is seen. The urin lit bladder is anechoic. IMPRESSION: Small right renal cortical cysts. No evidence of solid renal mass or obstruction. Absent left kidney. Urinary bladder not well distended.
[2020-08-07] MEDS: DEXAMETHASONE SOD PHOSPHATE 10 MG/ML 1 ML VIAL IV SCH (17:42)
--- NOTE | 2020-08-07 18:05 | CONS ---
CONSULTATION REASON FOR CONSULT: Renal failure. HISTORY OF PRESENT ILLNESS: Patient is an 79-year-old female who was admitted to the hospital with complaints of weakness, not feeling well. She was also complaining of shortness of breath, some nausea and vomiting. The patient has a history of renal cell cancer, status post nephrectomy. She denied any significant urinary symptoms except for decreased output. The patient tested positive for COVID-19 PCR. Serum creatinine was 2.48 on initial admission, currently down to 2.16. The patient is receiving IV fluids. Her blood pressure has been around 130-120 mmHg systolic. She did have a temperature of 100.2 degrees Fahrenheit. Chest x-ray shows no significant acute findings. Previous creatinine was around 1.3 on 02/05/2020. PAST MEDICAL HISTORY: Significant for atrial fibrillation, coronary artery disease, history of renal cell cancer status post nephrectomy, gastroesophageal reflux disease, hypertension, osteoarthritis, history of pneumonia, history of C difficile colitis, type 2 diabetes. PAST SURGICAL HISTORY: Cholecystectomy, cataract surgery, left nephrectomy, cardiac catheterization, coronary stent placement, hysterectomy. SOCIAL HISTORY: Negative for smoking, drug abuse or alcohol abuse. MEDICATIONS: Medications prior to admission included Imdur, Nitrostat, zyloprim, Eliquis, Flonase, Lasix Crestor, Zestril, metformin, [place]. ALLERGIES: Include DARVOCET, CYMBALTA, DEMEROL, LYRICA, CODEINE #3. REVIEW OF SYSTEMS: As per HPI. Other systems negative. EXAMINATION: Patient is comfortable, awake, not in any acute distress. Blood pressure was 126/77, heart rate 76 per minute, she had a temperature of 100.2 degrees Fahrenheit. Examination shows no evidence of edema lower extremities. Abdomen is soft, nontender. Lungs and heart are not examined. [employer] exam grossly intact. Patient moving all four extremities. LAB: Show sodium 141, potassium 3.3, chloride 109, BUN 40, creatinine 2.16. CO2 is 25. PCR for coronavirus positive. Hemoglobin 12.6 g/dL. ASSESSMENT: 1. Acute kidney injury, appears to be prerenal with possible component of acute tubular necrosis, currently improved. Patient is voiding. I will check a urinalysis and will obtain an ultrasound of the kidneys as well. 2. Chronic kidney disease with previous creatinine around 1.3, NKF stage III most likely secondary to nephrosclerosis. 3. Hypokalemia associated with decreased oral intake, will replace. 4. COVID-19 infection. Chest x-ray currently showing no infiltrates. 5. History of coronary artery disease. 6. History of left nephrectomy for renal cell cancer. PLAN: Check ultrasound of the kidneys. Check urinalysis. Repeat labs in a.m. Continue with IV fluids. Avoid nephrotoxic medications. Thank you for this consultation. Will continue to follow the patient with you during her hospitalization. MMODL / IJN: [id number] /
[2020-08-08] MEDS: SODIUM CHLORIDE 0.9% 1,000 ML IV SCH ×2 (02:41→16:35)
[2020-08-08] MEDS: HYDROcodone/APAP 10-325MG 1 EACH TAB PO PRN ×4 (04:10→22:17)
[2020-08-08] MEDS: APIXABAN 2.5 MG TABLET PO SCH ×2 (08:11→19:39)
[2020-08-08] MEDS: DEXAMETHASONE SOD PHOSPHATE 10 MG/ML 1 ML VIAL IV SCH (08:11)
[2020-08-08 12:00] LABS: African American GFR (CKD) 31 (>60 ml/min/1.73 sqM); Anion Gap 9 mmol/L; Blood Urea Nitrogen 35 mg/dL (7-17); Calcium 8.3 mg/dL (8.4-10.2); Carbon Dioxide 21 mmol/L (22-30); Chloride 109 mmol/L (98-107); Glucose 198 mg/dL (74-99); Non-African American GFR(CKD) 27 (>60 ml/min/1.73 sqM); Potassium 4.1 mmol/L (3.5-5.1); Sodium 139 mmol/L (137-145)
--- NOTE | 2020-08-08 12:59 | P.HPIM ---
History of Present Illness H&P Date: 08/07/20 Chief Complaint: Nausea/vomiting/diarrhea/shortness of breath 79-year-old female past history of A. fib, renal cancer status post nephrectomy, diabetes who presents emergency Department with reported nausea and vomiting for the past 5 days. Patient reports to inability to hold down any food, water or her medications. She has had chills and body aches. Denies hematemesis. No chest pain. Denies any abdominal pain. There is concern for Covid. States that she has been tested however has not gotten results back yet. Patient is on Ahlquist for A. fib however has not held on her medications in several days. Admits to bilateral flank pain. Has had decreased amount of urination. No other alleviating, Perceptin or modifying factors In the ED patient tested positive for Covid 19; blood work revealed elevated BUN/creatinine of 43/2.4, AST 68, ALT 36, LDH of 1168 and CRP of 1 Patient is admitted to the hospital for IV fluid hydration and pulmonary evaluation and treatment Review of Systems REVIEW OF SYSTEMS: CONSTITUTIONAL: No fever, no malaise, no fatigue. HEENT: No recent visual problems or hearing problems. Denied any sore throat. CARDIOVASCULAR: No chest pain, orthopnea, PND, no palpitations, no syncope. PULMONARY: Positive for shortness of breath, no cough, no hemoptysis. GASTROINTESTINAL: Positive for diarrhea, nausea, vomiting, no abdominal pain. NEUROLOGICAL: No headaches, no weakness, no numbness. HEMATOLOGICAL: Denies any bleeding or petechiae. GENITOURINARY: Denies any burning micturition, frequency, or urgency. MUSCULOSKELETAL/RHEUMATOLOGICAL: Denies any joint pain, swelling, or any muscle pain. ENDOCRINE: Denies any polyuria or polydipsia. The rest of the 14-point review of systems is negative. Past Medical History Past Medical History: Atrial Fibrillation, Cancer, Chest Pain / Angina, Diabetes Mellitus, GERD/Reflux, Hyperlipidemia, Hypertension, Osteoarthritis (OA), Pneumonia Additional Past Medical History / Comment(s): Gout, Neuropathy, hx migraines, hx kidney cancer. History of Any Multi-Drug Resistant Organisms: C-DIFF Date of last positivie culture/infection: September 2017 MDRO Source:: stool Past Surgical History: Cholecystectomy, Heart Catheterization With Stent, Hysterectomy Additional Past Surgical History / Comment(s): Bilateral cataracts removed, left nephrectomy. Past Anesthesia/Blood Transfusion Reactions: Motion Sickness, Postoperative Nausea & Vomiting (PONV) Date of Last Stent Placement:: unknown Past Psychological History: No Psychological Hx Reported Smoking Status: Never smoker Past Alcohol Use History: None Reported Past Drug Use History: None Reported - Past Family History Father Family Medical History: Diabetes Mellitus Mother Family Medical History: Cancer Additional Family Medical History / Comment(s): Ovarian cancer. Sister(s) Family Medical History: Deep Vein Thrombosis (DVT) Brother(s) Family Medical History: Pulmonary Embolus Medications and Allergies Home Medications Medication Instructions Recorded Confirmed Type Isosorbide Mononitrate ER [Imdur] 30 mg PO DAILY 11/03/14 08/07/20 History Nitroglycerin Sl Tabs [Nitrostat] 0.4 mg SUBLINGUAL Q5M PRN 11/03/14 08/07/20 History allopurinoL [Zyloprim] 100 mg PO BID 11/29/18 08/07/20 History Apixaban [Eliquis] 2.5 mg PO BID 08/06/20 08/07/20 History Fluticasone Nasal [place] [Flonase 1 spray EA NOSTRIL DAILY PRN 08/06/20 08/07/20 History Nasal [place]] Furosemide [Lasix] 40 mg PO BID 08/06/20 08/07/20 History HYDROcodone/APAP 10-325MG [[place] 1 tab PO 5XD PRN 08/06/20 08/07/20 History 10-325] Rosuvastatin Calcium [Crestor] 40 mg PO DAILY 08/06/20 08/07/20 History lisinopriL [Zestril] 5 mg PO BID 08/06/20 08/07/20 History metFORMIN HCL 500 mg PO BID 08/06/20 08/07/20 History Allergies Allergy/AdvReac Type Severity Reaction Status Date / Time propoxyphene Allergy Unknown Verified 08/06/20 20:52 [From Darvocet-N] codeine phosphate AdvReac Hallucinati Verified 08/06/20 20:52 [From Tylenol-Codeine #3] ons duloxetine [From Cymbalta] AdvReac c-diff Verified 08/06/20 20:52 meperidine HCl [From Demerol] AdvReac CHEST Verified 08/06/20 20:52 PAIN/Hallucinations pregabalin [From Lyrica] AdvReac Nausea & Verified 08/06/20 20:52 Vomiting Physical Exam Vitals: Vital Signs Temp Pulse Resp BP Pulse Ox 08/07/20 07:18 99.2 F 76 18 126/77 95 08/07/20 05:22 100.2 F H 75 18 141/69 96 08/06/20 20:47 98.2 F 85 18 139/68 94 L Intake and Output 08/06/20 08/07/20 08/07/20 22:59 06:59 14:59 Other: Weight 81.647 kg PHYSICAL EXAMINATION: GENERAL: The patient is alert and oriented x3, not in any acute distress. Well developed, well nourished. HEENT: Pupils are round and equally reacting to light. EOMI. No scleral icterus. No conjunctival pallor. Normocephalic, atraumatic. No pharyngeal erythema. No thyromegaly. CARDIOVASCULAR: S1 and S2 present. No murmurs, rubs, or gallops. PULMONARY: Chest is clear to auscultation, no wheezing or crackles. ABDOMEN: Soft, nontender, nondistended, normoactive bowel sounds. No palpable organomegaly. MUSCULOSKELETAL: No joint swelling or deformity. EXTREMITIES: No cyanosis, clubbing, or pedal edema. NEUROLOGICAL: Gross neurological examination did not reveal any focal deficits. SKIN: No rashes. Results CBC & Chem 7: 08/07/20 06:46 08/08/20 11:24 Labs: Abnormal Lab Results - Last 24 Hours (Table) 08/06/20 08/06/20 08/06/20 Range/Units 20:54 21:31 22:20 MCV 101.7 H (80.0-100.0) fL MCH 35.2 H (25.0-35.0) pg Lymphocytes # 0.7 L (1.0-4.8) k/uL Potassium (3.5-5.1) mmol/L Chloride (98-107) mmol/L BUN 43 H (7-17) mg/dL Creatinine 2.48 H (0.52-1.04) mg/dL Glucose 153 H (74-99) mg/dL Calcium (8.4-10.2) mg/dL AST 68 H (14-36) U/L ALT 36 H (4-34) U/L Lactate Dehydrogenase 1168 H (313-618) U/L C-Reactive Protein 1.0 H (<1.0) mg/dL Coronavirus (PCR) Detected A (Not Detectd) 08/07/20 08/07/20 Range/Units 06:46 06:46 MCV 101.8 H (80.0-100.0) fL MCH (25.0-35.0) pg Lymphocytes # 0.7 L (1.0-4.8) k/uL Potassium 3.3 L (3.5-5.1) mmol/L Chloride 109 H (98-107) mmol/L BUN 40 H (7-17) mg/dL Creatinine 2.16 H (0.52-1.04) mg/dL Glucose 134 H (74-99) mg/dL Calcium 7.9 L (8.4-10.2) mg/dL AST (14-36) U/L ALT (4-34) U/L Lactate Dehydrogenase (313-618) U/L C-Reactive Protein (<1.0) mg/dL Coronavirus (PCR) (Not Detectd) Assessment and Plan Assessment: 1. Acute COVID-19 infection; patient is started on Decadron 6 mg IV daily; her pulmonary status is stable without any clear evidence of shortness of breath or hypoxemia; we will consult pulmonary for further recommendations 2. Acute onset nausea and vomiting/dehydration secondary to COVID-19; symptomatic treatment with IV fluid hydration; recommend clear liquid diet and advance as tolerated 3. Acute renal failure; IV fluid hydration with normal saline at rate of 75 mL an hour; we will monitor strict SINDHU's, daily weights, renal function and electrolytes; avoid nephrotoxic agents and hypotension 4. Coronary artery disease history of previous stenting; stable 5. Atrial fibrillation; patient has been maintained on Eliquis 6. History of renal cell carcinoma; patient is status post nephrectomy; patient's baseline creatinine is normal; we will continue with IV fluid hydration as indicated 7. Hypertension; hold sister and diuretics at this time due to acute renal injury; we will monitor blood pressure closely and plan to use IV hydralazine if systolic blood pressures greater than 160 8. Hyperlipidemia; continue with home statin therapy DVT prophylaxis; SCDs/systemic anticoagulation CODE STATUS; full code
--- NOTE | 2020-08-08 13:51 | PN ---
PROGRESS NOTE Patient is seen for followup for acute kidney injury. She has underlying COVID pneumonia. Serum creatinine has improved with creatinine going down to 1.7 from 2.48 on initial admission. Previous creatinine was 1.3 on 02/05/2020. The patient is currently maintained on IV fluids at 75 mL an hour. PHYSICAL EXAMINATION: On examination today, blood pressure 127/83, heart rate 65 per minute she is afebrile. Examination shows no evidence of edema lower extremities. Abdomen is soft, nontender. DEBUBBLIZER exam grossly intact. Patient is comfortable. LAB: Show sodium 139, potassium 4.1, chloride 109, BUN 35, creatinine 1.7. ASSESSMENT: 1. Acute kidney injury, acute tubular necrosis and some degree of volume depletion, currently improved with IV fluids. No evidence of urine retention. UA is still not available. 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 Right kidney cyst was noted and size was about 10.4 cm. 2. History of left nephrectomy for renal cell cancer. 3. COVID-19 infection with chest x-ray currently showing no infiltrate. 4. Hypokalemia associated with decreased oral intake, currently replaced. 5. Chronic kidney disease. Previous creatinine 1.3, NKF stage 3, etiology nephrosclerosis. PLAN: Check UA. Continue IV fluids. Encourage increased oral intake. MMODL / IJN: [id number] /
[2020-08-08 14:51] LABS: Appearance,Urine Cloudy (Clear); Bacteria,Urine Many /hpf; Bilirubin,Urine Negative (Negative); Blood,Urine Small (Negative); Color,Urine Yellow; Glucose,Urine (UA) 1+ (Negative); Ketones,Urine Negative (Negative); Leukocyte Esterase,Urine Large (Negative); Mucus,Urine Occasional /hpf; Nitrite,Urine Positive (Negative); PH, Urine 5.5 (5.0-8.0); Protein,Urine 1+ (Negative); RBC,Urine 3 /hpf (0-5); Specific Gravity,Urine 1.016 (1.001-1.035); Urobilinogen,Urine <2.0 mg/dL (<2.0); WBC,Urine 154 /hpf (0-5)
--- NOTE | 2020-08-08 15:29 | P.PN ---
Subjective Progress Note Date: 08/08/20 7-year-old female patient, presented to the hospital because of nausea vomiting and diarrhea and some shortness of breath. Apparently the patient was unable to hold down any food or water or medication. She was having diffuse body aches. No abdominal pain. The patient was tested and she checked positive for COVID-19 infection. As such, she was hospitalized and she was started on IV fluids. In the emergency department, the patient was afebrile and she was hemodynamic is stable with a pulse ox of 94%. The patient was found to have an acute kidney injury and intravascular volume depletion/dehydration. She was started on IV fluids. She was also given Zofran. The patient had a white cell count of 6.9 with a hemoglobin of 14.5. BUN was 43 with a creatinine of 2.4. The liver function tests are normal with an AST of 68, ALT of 36, alkaline phosphatase was normal at 108, LDH level was 1168 and the CRP level was at 1. Serum bicarb was normal, electrolytes were normal, COVID-19 testing by PCR came back positive. Coagulation profile was also normal. Chest x-ray was normal without any acute cardio pulmonary abnormalities. In terms of oxygenation, the patient was on 2 L of oxygen by nasal cannula with saturation of 97%. No reported oxygen desaturation. On today's evaluation of 08/08/2020, the patient is doing well. No specific complaints. Pulmonary status is stable. No worsening shortness of breath. She is still on 2 L of oxygen by nasal cannula. He is on IV fluids. Creatinine is improving and currently the creatinine is down to 1.7. The rest of the electrolytes are all within normal limits. The patient is pulse oxing 95% on 2 L about 2 by nasal cannula. She is afebrile. Her night was uneventful and the patient is doing well for now. The patient is Decadron 6 mg IV every 24 hours. The patient is on Eliquis 2.5 mg by mouth twice a day as the patient takes long- term anticoagulation. IV fluids are running 75 mL an hour normal saline. Objective - Vital Signs Vital signs: Vital Signs Temp 97.6 F 08/08/20 13:40 Pulse 80 08/08/20 13:40 Resp 16 08/08/20 13:40 BP 155/85 08/08/20 13:40 Pulse Ox 95 08/08/20 13:40 Intake & Output 08/07/20 08/08/20 08/08/20 18:59 06:59 18:59 Weight 81.647 kg Other: Voiding Method Bedside Commode # Voids 2 - Exam Gen. appearance the patient is nontoxic looking, calm and comfortable, looks dehydrated, not having any labored breathing BMI 32.9 Head exam was generally normal. There was no scleral icterus or corneal arcus. Mucous membranes were moist. Neck was supple and without jugular venous distension, thyromegaly, or carotid bruits. Carotids were easily palpable bilaterally. There was no adenopathy. Lungs were clear to auscultation and percussion, and with normal diaphragmatic excursion. No wheezes or rales were noted. Cardiac exam revealed the PMI to be normally situated and sized. The rhythm was regular and no extrasystoles were noted during several minutes of auscultation. The first and second heart sounds were normal and physiologic splitting of the second heart sound was noted. There were no murmurs, rubs, clicks, or gallops. Abdominal exam revealed normal bowel sounds. The abdomen was soft, non-tender, and without masses, organomegaly, or appreciable enlargement of the abdominal aorta. Examination of the extremities revealed easily palpable radial, femoral and pedal pulses. There was no cyanosis, clubbing or edema. Examination of the skin revealed no evidence of significant rashes, suspicious appearing nevi or other concerning lesions. - Labs CBC & Chem 7: 08/07/20 06:46 08/08/20 11:24 Labs: Abnormal Lab Results - Last 24 Hours (Table) 08/08/20 08/08/20 Range/Units 11:24 14:15 Chloride 109 H (98-107) mmol/L Carbon Dioxide 21 L (22-30) mmol/L BUN 35 H (7-17) mg/dL Creatinine 1.77 H (0.52-1.04) mg/dL Glucose 198 H (74-99) mg/dL Calcium 8.3 L (8.4-10.2) mg/dL Urine Appearance Cloudy H (Clear) Urine Protein 1+ H (Negative) Urine Glucose (UA) 1+ H (Negative) Urine Blood Small H (Negative) Urine Nitrite Positive H (Negative) Ur Leukocyte Esterase Large H (Negative) Urine WBC 154 H (0-5) /hpf Urine WBC Clumps Moderate H (None) /hpf Urine Bacteria Many H (None) /hpf Urine Mucus Occasional H (None) /hpf Assessment and Plan Plan: 1 acute COVID-19 infection without clear evidence of any pneumoniaas the patient is having increased cough and shortness of breath and she has also developed some limited hypoxemia. Nevertheless, the majority of her symptoms were essentially gastrointestinal in nature 2 acute nausea and vomiting and dehydration secondary to COVID-19 infection 3 acute dehydration with intravascular volume depletion secondary to above 4 acute kidney injury secondary to above 5 coronary artery disease with previous coronary stenting 6 history of atrial fibrillation and current rhythm is still A. fib and the patient has been maintained on Eliquis on outpatient basis 7 history of kidney cancer the patient undergone previous nephrectomy. Her baseline creatinine was essentially within normal limits. 8 compression fracture of the L3 spine 9 hypertension 10 hyperlipidemia Plan IV fluids with normal saline at the rate of 75 mL an hour. Monitor urine output. Monitor electrolytes. The creatinine is improving. Clinically improved. Continue Decadron 6 mg IV every 24 hours Monitor electrodes are renal function Continue Eliquis for now The patient can be potentially discharged home with the next 24-48 hours as long as there is no worsening and oxygenation. Continue IV fluids for now. Continue Decadron to be completed on outpatient basis for a total of 10 days. The need for oxygen therapy will be decided at time of discharge. Clinically stable. Pulmonary critical care services we'll sign off.
--- NOTE | 2020-08-08 17:46 | P.PN ---
Subjective Progress Note Date: 08/08/20 Principal diagnosis: Acute COVID-19 infection Acute renal failure Acute onset nausea and vomiting/dehydration 79-year-old female past history of A. fib, renal cancer status post nephrectomy, diabetes who presents emergency Department with reported nausea and vomiting for the past 5 days. Patient reports to inability to hold down any food, water or her medications. She has had chills and body aches. Denies hematemesis. No chest pain. Denies any abdominal pain. There is concern for Covid. States that she has been tested however has not gotten results back yet. Patient is on Ahlquist for A. fib however has not held on her medications in several days. Admits to bilateral flank pain. Has had decreased amount of urination. No other alleviating, Perceptin or modifying factors In the ED patient tested positive for Covid 19; blood work revealed elevated BUN/creatinine of 43/2.4, AST 68, ALT 36, LDH of 1168 and CRP of 1 Patient is admitted to the hospital for IV fluid hydration and pulmonary evaluation and treatment 08/08/2020 Patient is seen and evaluated in room at bedside; nursing staff present and room; patient denies any specific complaints Vital signs are stable with a temperature 97.6, pulse 80, respirations 16 and blood pressure of 155/85 Lab review shows sodium of 139, potassium 4.1, BUN/creatinine improving from 40/2.16 down to 35/1.77 We'll continue with slow IV fluid hydration and continue to monitor renal function and electrolytes Objective - Vital Signs Vital signs: Vital Signs Temp 97.9 F 08/08/20 08:00 Pulse 65 08/08/20 08:00 Resp 20 08/08/20 08:00 BP 127/83 08/08/20 08:00 Pulse Ox 97 08/08/20 08:53 Intake & Output 08/07/20 08/08/20 08/08/20 18:59 06:59 18:59 Weight 81.647 kg Other: Voiding Method Bedside Commode # Voids 2 - Exam PHYSICAL EXAMINATION: GENERAL: The patient is alert and oriented x3, not in any acute distress. Well developed, well nourished. HEENT: Pupils are round and equally reacting to light. EOMI. No scleral icterus. No conjunctival pallor. Normocephalic, atraumatic. No pharyngeal erythema. No thyromegaly. CARDIOVASCULAR: S1 and S2 present. No murmurs, rubs, or gallops. PULMONARY: Chest is clear to auscultation, no wheezing or crackles. ABDOMEN: Soft, nontender, nondistended, normoactive bowel sounds. No palpable organomegaly. MUSCULOSKELETAL: No joint swelling or deformity. EXTREMITIES: No cyanosis, clubbing, or pedal edema. NEUROLOGICAL: Gross neurological examination did not reveal any focal deficits. SKIN: No rashes. - Labs CBC & Chem 7: 08/07/20 06:46 08/08/20 11:24 Labs: Abnormal Lab Results - Last 24 Hours (Table) 08/08/20 Range/Units 11:24 Chloride 109 H (98-107) mmol/L Carbon Dioxide 21 L (22-30) mmol/L BUN 35 H (7-17) mg/dL Creatinine 1.77 H (0.52-1.04) mg/dL Glucose 198 H (74-99) mg/dL Calcium 8.3 L (8.4-10.2) mg/dL Assessment and Plan Assessment: 1. Acute COVID-19 infection; patient is started on Decadron 6 mg IV daily; her pulmonary status is stable without any clear evidence of shortness of breath or hypoxemia; we will consult pulmonary for further recommendations 2. Acute onset nausea and vomiting/dehydration secondary to COVID-19; symptomatic treatment with IV fluid hydration; recommend clear liquid diet and advance as tolerated 3. Acute renal failure; IV fluid hydration with normal saline at rate of 75 mL an hour; we will monitor strict SINDHU's, daily weights, renal function and electro lytes; avoid nephrotoxic agents and hypotension 4. Coronary artery disease history of previous stenting; stable 5. Atrial fibrillation; patient has been maintained on Eliquis 6. History of renal cell carcinoma; patient is status post nephrectomy; patient's baseline creatinine is normal; we will continue with IV fluid hydration as indicated 7. Hypertension; hold sister and diuretics at this time due to acute renal injury; we will monitor blood pressure closely and plan to use IV hydralazine if systolic blood pressures greater than 160 8. Hyperlipidemia; continue with home statin therapy DVT prophylaxis; SCDs/systemic anticoagulation CODE STATUS; full code
[2020-08-09] MEDS ORDERED: LORazepam 1 MG TAB PO PRN (00:17)
[2020-08-09] MEDS: ALBUTEROL HFA INHALER INHALATION PRN ×5 (03:48→21:04)
[2020-08-09] MEDS: SODIUM CHLORIDE 0.9% 1,000 ML IV SCH (04:28)
[2020-08-09] MEDS: HYDROcodone/APAP 10-325MG 1 EACH TAB PO PRN ×2 (05:40→17:50)
[2020-08-09] MEDS: ATORVASTATIN 80 MG TAB PO SCH (09:05)
[2020-08-09] MEDS: APIXABAN 2.5 MG TABLET PO SCH ×2 (09:05→20:36)
[2020-08-09] MEDS: ISOSORBIDE MONONITRATE ER 30 MG TAB.ER.24H PO SCH (09:05)
[2020-08-09] MEDS: DEXAMETHASONE SOD PHOSPHATE 10 MG/ML 1 ML VIAL IV SCH (09:05)
--- NOTE | 2020-08-09 16:01 | PN ---
PROGRESS NOTE DATE OF SERVICE: 08/09/2020 This 79-year-old who woman with a past medical history of multiple medical problems was admitted with acute COVID-19 infection. The patient was started on Decadron. The patient had significant respiratory failure last night and the patient had to be treated with BiPAP. Dr. Robertson is following the patient closely. The most recent chest x-ray is not available. The creatinine was elevated at 1.77. The patient also had a UTI. The patient was started on IV antibiotics. COVID-19 is positive. Past medical history reviewed. REVIEW OF SYSTEMS: CARDIOVASCULAR SYSTEM: No angina, palpitations. RESPIRATORY SYSTEM: As mentioned earlier. GI: As mentioned earlier. : No dysuria or retention. NERVOUS SYSTEM: No numbness, weakness. CURRENT MEDICATIONS: Reviewed. They include Tylenol, [place], Ventolin, Eliquis, Lipitor, Rocephin, Imdur, Ativan, Narcan, Zofran. PHYSICAL EXAMINATION: Patient is alert, oriented x3. Pulse is 68, blood pressure 107/64, respiration 18, temperature 97.6, pulse ox 96% on BiPAP. HEENT: Conjunctivae normal. NECK: No jugular venous distention. CARDIOVASCULAR SYSTEM: S1, S2 muffled. RESPIRATORY SYSTEM: Breath sounds diminished at the bases. Bilateral scattered rhonchi and crackles. ABDOMEN: Soft, obese, non-tender. LEGS: No edema. No swelling. NERVOUS SYSTEM: No focal deficit. LABS: WBC 6.8, MCV 101.8, potassium 3.3, and creatinine is 1.77. UA noted. ASSESSMENT: 1. Acute COVID-19 infection with possible bilateral interstitial viral pneumonia with acute hypoxic respiratory failure, on BiPAP. 2. Acute renal failure with acute tubular necrosis with possibly chronic kidney disease, stage 3 baseline. 3. Hypokalemia. 4. Elevated AST, ALT, possibly secondary to COVID-19. 5. Elevated inflammatory markers of COVID-19. 6. Acute urinary tract infection, present on admission. 7. Increased mean corpuscular volume. 8. Lymphopenia. 9. History of atrial fibrillation. 10.History of diabetes mellitus, type 2. 11.Gastroesophageal reflux disease. 12.Hypertension. 13.Hyperlipidemia. 14.History of degenerative joint disease. 15.History of pneumonia. 16.History of gout. 17.History of peripheral neuropathy. 18.History of migraine. 19.History of kidney cancer. 20.History of Clostridium difficile colitis. 21.History of coronary artery disease, stent. 22.Bilateral cataracts. 23.Obesity with body mass index of 32.9. 24.FULL CODE. RECOMMENDATIONS AND DISCUSSION: In this 79-year-old woman who presented with multiple complex medical issues, we will monitor the patient closely, continue the current medications, continue with symptomatic treatment. Otherwise, I would recommend adding antibiotics, obtain cultures, D-dimer. If the D-dimer is positive, I would also recommend CT scan of the chest without contrast as well as V/Q scan. The prognosis is guarded because of multiple complex medical issues. Further recommendations to follow. See orders for further details. Closely follow with Pulmonary. MMODL / IJN: [id number] /
--- NOTE | 2020-08-09 16:08 | XR ---
EXAMINATION TYPE: XR chest 1V portable DATE OF EXAM: 08/09/2020 COMPARISON: Chest x-ray 08/06/2020 HISTORY: Shortness of breath, Covid, TECHNIQUE: Single frontal view of the chest is obtained. FINDINGS: There is no pleural or pericardial effusion. The cardiac silhouette size is within normal limits. There are overlying leads. Patient is rotated. Interstitium is increased. There is blunting the costophrenic angle on the right. Patchy basilar density shows a similar appearance. The osseous structures are intact. IMPRESSION: Probably for pneumonia.
[2020-08-09 17:02] LABS: Glucose,Whole Blood 278 mg/dL (75-99)
[2020-08-09] MEDS: CHOLECALCIFEROL 25 MCG (1000 IU) TABLET PO SCH (17:49)
[2020-08-09] MEDS: ZINC SULFATE 220 MG CAP PO SCH (17:50)
[2020-08-09] MEDS: INSULIN ASPART (NovoLOG) 100 UNIT/ML VIAL SQ SCH ×2 (17:50→20:36)
[2020-08-09] MEDS: ASCORBIC ACID 500 MG TAB PO SCH (17:50)
--- NOTE | 2020-08-09 18:10 | PN ---
PROGRESS NOTE Patient is seen for followup for acute kidney injury associated with underlying COVID pneumonia. Her renal function has improved, with creatinine down to 1.7 from 2.48. Overall, patient denies any significant complaints. She states she is feeling better today. PHYSICAL EXAMINATION: Blood pressure was 138/77, heart rate of 60 per minute. Patient is afebrile. Examination shows no evidence of edema in the lower extremities. Abdomen is soft, obese, nontender. Lungs and heart are not examined. SAFETY INSPECTOR exam grossly intact. Patient is moving all 4 extremities. LABS: Labs 08/08/2020 show sodium 139, potassium 4.1, BUN 35, creatinine 1.7. ASSESSMENT: 1. Acute kidney injury, acute tubular necrosis, with some degree of volume depletion, improved with IV hydration. No evidence of urine retention. Ultrasound shows right kidney is unremarkable. Patient has left nephrectomy. 2. History of left nephrectomy for renal cell cancer. 3. COVID-19 infection with chest x-ray currently showing no significant infiltrates. Repeat chest x-ray done today shows evidence of underlying pneumonia with patchy basilar density. 4. Chronic kidney disease, stage 3, secondary to nephrosclerosis. Baseline creatinine about 1.3 previously. PLAN: Check urine culture. Encourage increased intake. May continue gentle IV hydration. Repeat labs in a.m. MMODL / IJN: [id number] /
[2020-08-09 18:55] LABS: ALT 22 U/L (4-34); AST 29 U/L (14-36); African American GFR (CKD) 40 (>60 ml/min/1.73 sqM); Albumin 2.9 g/dL (3.5-5.0); Alkaline Phosphatase 79 U/L (38-126); Anion Gap 9 mmol/L; Blood Urea Nitrogen 36 mg/dL (7-17); Calcium 8.5 mg/dL (8.4-10.2); Carbon Dioxide 23 mmol/L (22-30); Chloride 105 mmol/L (98-107); Glucose 277 mg/dL (74-99); Non-African American GFR(CKD) 35 (>60 ml/min/1.73 sqM); Potassium 4.2 mmol/L (3.5-5.1); Sodium 137 mmol/L (137-145); Total Bilirubin 0.4 mg/dL (0.2-1.3); Total Protein 5.9 g/dL (6.3-8.2)
[2020-08-09 20:17] LABS: Glucose,Whole Blood 265 mg/dL (75-99)
[2020-08-09] MEDS: ALBUTEROL HFA INHALER INHALATION SCH (21:04)
--- NOTE | 2020-08-09 22:36 | CT ---
EXAMINATION TYPE: CT chest wo con DATE OF EXAM: 08/09/2020 COMPARISON: Same day chest radiograph. CT abdomen pelvis 12/14/2018. HISTORY: Covid. CT DLP: 688 mGycm Automated exposure control for dose reduction was used. CONTRAST: CT scan of the chest is performed without intravenous contrast. FINDINGS: LUNGS: Multifocal patchy groundglass opacities and areas of intralobular septal thickening of the shane ateral lungs. Scattered peripheral bandlike opacities. No pleural effusion. No pneumothorax. The trac heobronchial tree is patent. MEDIASTINUM/SOFT TISSUES: No axillary, hilar, or mediastinal lymphadenopathy greater than 1 cm. Cardi ac size is enlarged. Calcified coronary artery disease. No pericardial effusion. No thoracic aortic a neurysm. UPPER ABDOMEN: No right adrenal nodule. Left adrenal gland not visualized. OSSEOUS: Decreased osseous mineralization. Increased thoracic kyphosis. A inferior thoracic superior endplate mild compression deformity appears related to degenerative Schmorl's node. IMPRESSION: Diffuse moderate opacities of the bilateral lungs characteristic of Covid 19 pneumonitis.
[2020-08-10] MEDS: SODIUM CHLORIDE 0.9% 1,000 ML IV SCH ×2 (00:58→20:47)
[2020-08-10 07:18] LABS: Glucose,Whole Blood 147 mg/dL (75-99)
[2020-08-10] MEDS: ISOSORBIDE MONONITRATE ER 30 MG TAB.ER.24H PO SCH (09:09)
[2020-08-10] MEDS: INSULIN ASPART (NovoLOG) 100 UNIT/ML VIAL SQ SCH ×4 (09:09→20:52)
[2020-08-10] MEDS: ATORVASTATIN 80 MG TAB PO SCH (09:09)
[2020-08-10] MEDS: ASCORBIC ACID 500 MG TAB PO SCH (09:09)
[2020-08-10] MEDS: APIXABAN 2.5 MG TABLET PO SCH ×2 (09:09→20:47)
[2020-08-10] MEDS: ALBUTEROL HFA INHALER INHALATION SCH ×3 (09:09→19:37)
[2020-08-10] MEDS: ZINC SULFATE 220 MG CAP PO SCH (09:09)
[2020-08-10] MEDS: CHOLECALCIFEROL 25 MCG (1000 IU) TABLET PO SCH (09:09)
[2020-08-10] MEDS: DEXAMETHASONE SOD PHOSPHATE 10 MG/ML 1 ML VIAL IV SCH (09:10)
[2020-08-10] MEDS: HYDROcodone/APAP 10-325MG 1 EACH TAB PO PRN ×2 (09:18→16:29)
[2020-08-10 10:59] LABS: Basophils # (A) 0 X 10*3/uL (0.00-0.10); Basophils % (A) 0 %; Eosinophils # (A) 0 X 10*3/uL (0.04-0.35); Eosinophils % (A) 0 %; HCT 34.4 % (37.2-46.3); HGB 11.4 g/dL (12.0-15.0); Lymphocytes # (A) 0.39 X 10*3/uL (0.90-5.00); Lymphocytes % (A) 3.9 %; MCH 34.4 pg (27.0-32.0); MCHC 33.1 g/dL (32.0-37.0); MCV 103.9 fL (80.0-97.0); Mean Platelet Volume 10.8 fL (9.5-12.2); Monocytes # (A) 0.86 X 10*3/uL (0.20-1.00); Monocytes % (A) 8.7 %; Neutrophils # (A) 8.57 X 10*3/uL (1.80-7.70); Neutrophils % (A) 86.4 %; Platelet Count 167 X 10*3/uL (140-440); RBC 3.31 X 10*6/uL (4.10-5.20); RDW 14.8 % (11.5-14.5); WBC 9.92 X 10*3/uL (4.50-10.00)
[2020-08-10 11:16] LABS: Glucose,Whole Blood 166 mg/dL (75-99)
[2020-08-10] MEDS: ALPRAZolam 0.25 MG TAB PO PRN (12:45)
--- NOTE | 2020-08-10 13:45 | P.PN ---
Subjective Progress Note Date: 08/10/20 Principal diagnosis: COVID 19 pneumonia. 79-year-old female patient, presented to the hospital because of nausea vomiting and diarrhea and some shortness of breath. Apparently the patient was unable to hold down any food or water or medication. She was having diffuse body aches. No abdominal pain. The patient was tested and she checked positive for COVID-19 infection. As such, she was hospitalized and she was started on IV fluids. In the emergency department, the patient was afebrile and she was hemodynamic is stable with a pulse ox of 94%. The patient was found to have an acute kidney injury and intravascular volume depletion/dehydration. She was started on IV f luids. She was also given Zofran. The patient had a white cell count of 6.9 with a hemoglobin of 14.5. BUN was 43 with a creatinine of 2.4. The liver function tests are normal with an AST of 68, ALT of 36, alkaline phosphatase was normal at 108, LDH level was 1168 and the CRP level was at 1. Serum bicarb was normal, electrolytes were normal, COVID-19 testing by PCR came back positive. Coagulation profile was also normal. Chest x-ray was normal without any acute cardio pulmonary abnormalities. In terms of oxygenation, the patient was on 2 L of oxygen by nasal cannula with saturation of 97%. No reported oxygen desaturation. On today's evaluation of 08/08/2020, the patient is doing well. No specific complaints. Pulmonary status is stable. No worsening shortness of breath. She is still on 2 L of oxygen by nasal cannula. He is on IV fluids. Creatinine is improving and currently the creatinine is down to 1.7. The rest of the electrolytes are all within normal limits. The patient is pulse oxing 95% on 2 L about 2 by nasal cannula. She is afebrile. Her night was uneventful and the patient is doing well for now. The patient is Decadron 6 mg IV every 24 hours. The patient is on Eliquis 2.5 mg by mouth twice a day as the patient takes long- term anticoagulation. IV fluids are running 75 mL an hour normal saline. Progress note dated 08/10/2020. 79-year-old female, with a diagnosis of coronavirus infection, and possible pneumonia/pneumonitis. The patient has been having symptoms for 10-12 days. She's currently on 4 L nasal cannula. She's not receiving any IV fluids. The patient states that she is feeling a bit better. When she was seen by my partner, the patient was only on 2 L nasal cannula. She does feel short of breath when she exerts herself. White count is 9.92, hemoglobin 11.4, hematocrit 34.4, and platelet count 167,000. Chest CT done yesterday, does reveal diffuse bilateral infiltrates, groundglass appearance, consistent with COVID 19 pneumonitis. Objective - Vital Signs Vital signs: Vital Signs Temp 97.8 F 08/10/20 08:00 Pulse 69 08/10/20 08:00 Resp 18 08/10/20 08:00 BP 138/79 08/10/20 08:00 Pulse Ox 94 L 08/10/20 13:00 Intake & Output 08/09/20 08/10/20 08/10/20 18:59 06:59 18:59 Intake Total 240 Balance 240 Intake: Oral 240 Other: Voiding Method Bedpan Bedpan Bedpan # Voids 1 1 # Bowel Movements 1 - Exam No acute distress, oriented 3. Currently on 4 L nasal cannula. No conversational dyspnea or use of accessory muscles. HEENT examination is grossly unremarkable. Neck supple. Full range of motion. No adenopathy thyromegaly or neck vein distention. Cardiovascular examination reveals regular rhythm rate. S1-S2 normal. No S3 or S4. No discernible murmur noted. Heart rate 69 bpm. Lungs reveal bilateral scattered rhonchi. No wheezes or crackles. Breath sounds equal bilaterally. Abdomen soft bowel sounds are heard. No masses or tenderness. Extremities are intact. No cyanosis clubbing or edema. Skin is without rash or lesion. Neurologic examination is brief but nonfocal. - Labs CBC & Chem 7: 08/10/20 06:22 08/09/20 18:20 Labs: Abnormal Lab Results - Last 24 Hours (Table) 08/09/20 08/09/20 08/09/20 Range/Units 17:01 18:20 20:16 RBC (4.10-5.20) X 10*6/uL Hgb (12.0-15.0) g/dL Hct (37.2-46.3) % MCV (80.0-97.0) fL MCH (27.0-32.0) pg RDW (11.5-14.5) % Immature Gran # (0.00-0.04) X 10*3/uL Neutrophils # (1.80-7.70) X 10*3/uL Lymphocytes # (0.90-5.00) X 10*3/uL Eosinophils # (0.04-0.35) X 10*3/uL BUN 36 H (7-17) mg/dL Creatinine 1.43 H (0.52-1.04) mg/dL Glucose 277 H (74-99) mg/dL POC Glucose (mg/dL) 278 H 265 H (75-99) mg/dL Total Protein 5.9 L (6.3-8.2) g/dL Albumin 2.9 L (3.5-5.0) g/dL 08/10/20 08/10/20 08/10/20 Range/Units 06:22 07:17 11:15 RBC 3.31 L (4.10-5.20) X 10*6/uL Hgb 11.4 L (12.0-15.0) g/dL Hct 34.4 L (37.2-46.3) % MCV 103.9 H (80.0-97.0) fL MCH 34.4 H (27.0-32.0) pg RDW 14.8 H (11.5-14.5) % Immature Gran # 0.10 H (0.00-0.04) X 10*3/uL Neutrophils # 8.57 H (1.80-7.70) X 10*3/uL Lymphocytes # 0.39 L (0.90-5.00) X 10*3/uL Eosinophils # 0 L (0.04-0.35) X 10*3/uL BUN (7-17) mg/dL Creatinine (0.52-1.04) mg/dL Glucose (74-99) mg/dL POC Glucose (mg/dL) 147 H 166 H (75-99) mg/dL Total Protein (6.3-8.2) g/dL Albumin (3.5-5.0) g/dL Microbiology - Last 24 Hours (Table) 08/09/20 18:51 Urine Culture - Preliminary Urine,Voided Assessment and Plan Assessment: Acute hypoxemic respiratory failure secondary to COVID 19 pneumonitis/pneumonia. Acute dehydration, with nausea and vomiting, secondary to coronavirus infection. Acute kidney injury, secondary to above. CAD with previous coronary stenting. History of chronic atrial fibrillation. History of kidney cancer, status post previous nephrectomy. L3 compression fracture. History of hypertension. History of hyperlipidemia. Plan: Plan dated 08/10/2020. The patient is currently being anticoagulated with Eliquis. Lovenox is not needed. The patient is getting vitamin C, vitamin D3, and zinc. The patient is also receiving Decadron 6 mg a day. We will continue to follow make recommendations were needed. She was outside the window for REM. She is not sick enough currently to receive TOCI. Time with Patient: Less than 30
--- NOTE | 2020-08-10 15:27 | PN ---
PROGRESS NOTE Patient is seen for followup for acute kidney injury. Renal function continues to improve with creatinine down to 1.4 yesterday from 2.48 on initial admission. The patient is being treated for COVID pneumonia. She states she is feeling better. She is currently maintained on steroids. She is maintained on gentle IV hydration as well. It appears the patient is currently eating fairly well. PHYSICAL EXAMINATION: Blood pressure 138/79, heart rate 69 per minute, she is afebrile. Examination of lower extremity shows trace edema bilaterally. COOK JELLY exam is grossly intact. LAB: Show sodium of 137, potassium 4.2, chloride 105, BUN 36, creatinine 1.43 on . ASSESSMENT: 1. Acute kidney injury, acute tubular necrosis, with some degree of volume depletion, currently improving. This is in the setting of solitary kidney as patient has had left nephrectomy. 2. History of left nephrectomy for renal cell cancer. 3. COVID-19 infection with chest x-ray initially showing no significant infiltrates but repeat chest x-ray showed some patchy basilar density. 4. Chronic kidney disease stage 3 secondary to nephrosclerosis. Baseline creatinine about 1.3. PLAN: Discontinue IV fluids. Follow up on the urine culture. MMODL / IJN: [id number] /
--- NOTE | 2020-08-10 15:43 | PN ---
PROGRESS NOTE DATE OF SERVICE: 08/10/2020 INTERVAL HISTORY: This is an 79-year-old woman with multiple medical problems was admitted with COVID-19 infection. The patient had some significant respiratory failure off BiPAP at this time. The patient is very anxious also. The patient also had UTI. Patient started on IV antibiotics as well. The patient was thought to be not a candidate for remdesivir, per Pulmonology. The most recent CT of the chest revealed diffuse interstitial pneumonia pattern which is very typical of COVID-19. PAST MEDICAL HISTORY: Reviewed. REVIEW OF SYSTEMS: CARDIOVASCULAR:As mentioned earlier. RESPIRATORY: As mentioned earlier. GI: As mentioned earlier. : No dysuria. NERVOUS SYSTEM: No numbness or weakness. CURRENT MEDICATIONS: Reviewed include Tylenol, [place], Ventolin, Xanax, Eliquis, Lipitor, Rocephin, Decadron, NovoLog. doses reviewed. PHYSICAL EXAMINATION: GENERAL: Patient is alert and oriented times three. VITAL SIGNS: Pulse 69, blood pressure 138/79, respirations 18, temperature 97.8, pulse ox 97% on BIPAP. HEENT: Conjunctivae normal. Oral mucosa moist. NECK: No jugular venous distention. No carotid bruits. No lymph node enlargement. RESPIRATORY: Breath sounds diminished at the bases. A few scattered rhonchi and crackles. HEART: S1 and S2, muffled. ABDOMEN: Soft, no tenderness. No masses palpable. EXTREMITIES: No edema, no swelling. NERVOUS: No focal deficits. LABS: WBC 9.2, hemoglobin 11.4, otherwise glucose noted. ASSESSMENT: 1. Acute COVID-19 infection with acute bilateral interstitial pneumonia with acute hypoxic respiratory failure on and off BiPAP. 2. Acute renal failure with acute tubular necrosis with possible chronic kidney disease stage 3 baseline. 3. Hypokalemia. 4. Elevated AST and ALT possibly secondary to COVID-19. 5. Acute urinary tract infection present on admission. 6. Elevated inflammatory markers of COVID-19. 7. Increased MCV. 8. Lymphopenia. 9. History atrial fibrillation. 10.History of diabetes mellitus type 2. 11.Gastroesophageal reflux disease. 12.Hypertension. 13.Hyperlipidemia. 14.History of degenerative joint disease. 15.History of pneumonia. 16.History of gout. 17.History of peripheral neuropathy. 18.History of migraines. 19.History of kidney cancer. 20.History of Clostridium difficile colitis. 21.History of *coronary artery disease with stent. 22.Bilateral cataracts. 23.Obesity with body mass index of 32.9. 24.FULL CODE. RECOMMENDATIONS AND DISCUSSION: Recommend to continue current management and continue symptomatic treatment. Continue with bronchodilators and empiric antibiotics. Follow the cultures. Monitor blood sugars closely. D-dimer is 0.28. Prognosis guarded because of multiple complex medical issues. Further recommendations to follow. MMODL / IJN: [id number] /
[2020-08-10 17:19] LABS: Glucose,Whole Blood 202 mg/dL (75-99)
[2020-08-10 20:47] LABS: Glucose,Whole Blood 254 mg/dL (75-99)
[2020-08-11 00:34] LABS: C Reactive Protein 2.7 mg/dL (0.0-0.8)
[2020-08-11] MEDS: HYDROcodone/APAP 10-325MG 1 EACH TAB PO PRN (00:46)
[2020-08-11] MEDS: ALPRAZolam 0.25 MG TAB PO PRN ×3 (01:12→21:05)
--- NOTE | 2020-08-11 06:29 | CONS ---
CONSULTATION DATE OF SERVICE: 08/10/2020 REASON FOR CONSULTATION: COVID-19 and the need for remdesivir. HISTORY OF PRESENT ILLNESS: The patient is an 79-year-old female who presented to the hospital about 4 days ago on the 06 of August for evaluation of nausea and vomiting and unable to keep anything down, water or medication. The patient also complaining of chills and bony aches. Denies any abdominal pain or any diarrhea. With concern for COVID, the patient did present to the hospital. The patient was evaluated by the ER physician. On arrival to the ER on the patient did have a low-grade fever of 100.2, so far afterwards the patient did not have any fever. The patient on admission to the hospital did have a mild hypoxemia with O2 sats of 94%, and last night she was 92%. The patient did have a normal white count with lymphopenia. D-dimer was normal. Patient did have elevated BUN and creatinine. Has been evaluated by GI and by Nephrology service and the patient has been hydrated. The patient did have elevated liver enzymes that subsequently normalized. CRP was 1. Urine was mildly positive. [place] PCR came back positive as well. The patient did have a chest x-ray shows no active cardiopulmonary disease. The patient has been hydrated. With her symptoms patient was not considered to be a candidate for remdesivir. Infectious Disease was consulted after the patient did have a chest x-ray completed last night which did show evidence of diffuse ground-glass opacity of bilateral lungs consistent with COVID-19 and the patient got hypoxic with need for BiPAP last night. However, this morning the patient is back on 2 L nasal cannula. The patient mentioned she is breathing slightly comfortably. The patient denies having any chest pain. She continued to have a cough which is moderate intensity. Remains to be dry in nature. The patient's nausea and vomiting has improved. She is able to keep some fluids down. No abdominal pain and diarrhea has resolved as well. REVIEW OF SYSTEMS: Positive points have been mentioned in HPI. Rest of systems are negative. PAST MEDICAL HISTORY: Atrial fibrillation, renal cancer status post nephrectomy, diabetes mellitus, gastroesophageal reflux disease, hypertension, hyperlipidemia, gout, neuropathy, previous history of C difficile infection. SURGICAL HISTORY: Cholecystectomy, PTCA with stent, hysterectomy, bilateral cataract surgery, left nephrectomy. SOCIAL HISTORY: No history of smoking, drinking or drug use. FAMILY HISTORY: Father with history of diabetes mellitus. Mother with history of ovarian cancer. ALLERGIES: PROPOXYPHENE, CODEINE, . MEDICATIONS: Include the patient is currently on Tylenol, [place], Ventolin, Xanax, Eliquis, vitamin C, Lipitor, Rocephin 1 g daily, dexamethasone, NovoLog, Imdur, Narcan, Zofran, zinc sulfate. PHYSICAL EXAMINATION: VITAL SIGNS: Blood pressure 132/76 with a pulse of 91, temperature 97.7, she is 95% on 4 L nasal cannula. GENERAL DESCRIPTION: Patient is an elderly female lying in bed in no distress. No tachypnea or accessory muscles of respiration use. HEENT: Examination shows slight pallor, no scleral icterus. Oral mucous membrane is dry. NECK: Trachea central, no thyromegaly. LUNGS: Unlabored breathing, coarse breath sounds bilaterally, no wheeze. HEART: S1-S2, regular rate and rhythm. ABDOMEN: Soft, no tenderness. No guarding or rigidity. EXTREMITIES: No edema of the feet. SKIN: No rash or mass palpable. NEUROLOGICAL: Patient is awake, alert, oriented times three. Mood and affect normal. LABS: Hemoglobin 11.4, white count 9.92, BUN of 36, creatinine 1.43. Admission creatinine was 2.4. Liver enzymes have improved. CRP was only 1. The patient did have positive urine, though cultures subsequently came back negative. [place] PCR is positive. DIAGNOSTIC IMPRESSION: 1. Patient present to the hospital with acute nausea, vomiting and able to keep anything down. Diarrhea secondary to COVID-19 infection. The patient did not have prominent respiratory symptoms on admission. Subsequently did have a worsening respiratory status with evidence of multifocal infiltrate. Unfortunately the patient now more than 10 days into her symptoms and will not qualify for remdesivir per [facility] policy. The patient did have hypoxemia last night, however, has recovered and this morning seemed to be breathing comfortably on nasal cannula oxygen. 2. Positive urinalysis. No urinary symptoms. Urine culture negative. Possible asymptomatic bacteriuria. PLAN: 1. Patient to continue with dexamethasone along with zinc and ascorbic acid. 2. Discontinue Rocephin. No evidence of any secondary bacterial infection. 3. We will monitor her clinical course closely. If any worsening, she may be a candidate for Actemra. 4. Droplet isolation and respiratory support. 5. We will follow on clinical condition and further adjust medication if needed. Thank you for this consultation. Will follow this patient along with you. NIK / PRETTYN: [id number] /
[2020-08-11] MEDS: ALBUTEROL HFA INHALER INHALATION SCH ×3 (07:19→21:14)
[2020-08-11 07:42] LABS: Glucose,Whole Blood 153 mg/dL (75-99)
[2020-08-11] MEDS: ZINC SULFATE 220 MG CAP PO SCH (07:43)
[2020-08-11] MEDS: CHOLECALCIFEROL 25 MCG (1000 IU) TABLET PO SCH (07:43)
[2020-08-11] MEDS: ATORVASTATIN 80 MG TAB PO SCH (07:43)
[2020-08-11] MEDS: ISOSORBIDE MONONITRATE ER 30 MG TAB.ER.24H PO SCH (07:43)
[2020-08-11] MEDS: ASCORBIC ACID 500 MG TAB PO SCH (07:43)
[2020-08-11] MEDS: DEXAMETHASONE SOD PHOSPHATE 10 MG/ML 1 ML VIAL IV SCH (07:43)
[2020-08-11] MEDS: APIXABAN 2.5 MG TABLET PO SCH ×2 (07:43→20:55)
[2020-08-11] MEDS: INSULIN ASPART (NovoLOG) 100 UNIT/ML VIAL SQ SCH ×4 (08:41→21:04)
[2020-08-11] MEDS ORDERED: LORazepam 2 MG/ML INJ ONE (09:56)
[2020-08-11] MEDS ORDERED: MORPHINE SULFATE 2 MG/ML SYRINGE IVP STA (10:11)
[2020-08-11] MEDS ORDERED: MORPHINE SULFATE 4 MG/ML SYRINGE ONE (10:12)
--- NOTE | 2020-08-11 10:23 | XR ---
EXAMINATION TYPE: XR chest 1V portable DATE OF EXAM: 08/11/2020 COMPARISON: Chest x-ray and chest CT 08/09/2020 HISTORY: Shortness of breath, chest pain TECHNIQUE: Single frontal view of the chest is obtained. FINDINGS: There is increasing airspace disease present bilaterally within the lungs. There are overl scarlett artifacts. No evident pneumothorax or pleural effusion. Cardiac mediastinal silhouette is likely stable accounting for differences in technique. IMPRESSION: Correlate for pneumonia, edema
[2020-08-11] MEDS ORDERED: LORazepam 2 MG/ML INJ IV PRN ×2 (10:27→14:38)
[2020-08-11] MEDS ORDERED: FUROSEMIDE 10 MG/ML 2 ML VIAL IV ONE (10:31)
[2020-08-11 10:35] LABS: ABG Base Excess -2.9 mmol/L; ABG HCO3 22 mmol/L (21-25); ABG Oxygen Saturation 96.6 % (94-97); ABG PCO2 34 mmHg (35-45); ABG PH 7.42 (7.35-7.45); ABG PO2 83 mmHg (83-108); ABG TCO2 23 mmol/L (19-24); Allen Test Performed? Yes
--- NOTE | 2020-08-11 10:36 | P.EN ---
I responded to a rapid response called by nursing staff with concern about increased work of breathing and hypoxia. Upon arrival to the room, patient appeared agitated and tachypnea. She was on BiPAP with setting of 10/5 and FiO2 of 50% with O2 sat around 86%. She was hemodynamically stable. She reports feeling short of breath. She was admitted to the hospital with COVID-19 pneu monia and acute kidney injury. I advised to adjust the BiPAP setting to 12/5 and increase FiO2 to 80%. O2 saturation improved to 93%. We did order a stat chest x-ray showed diffuse bilateral infiltrate suggestive of underlying COVID-19 pneumonia. I ordered one-time dose of IV Lasix 20 mg. Given her severe agitation patient was given 0.5 mg of IV Ativan that improved her overall anxiety that patient remained tachypneic with respiratory rate in the 40s. She was given 1 mg of IV morphine to improve her respiratory rate. Arterial blood gas with lactic acid ordered for further evaluation. CODE STATUS was discussed with the patient and she would like to be full code. We will continue close monitoring. Nursing staff notified attending physician for further orders.
[2020-08-11 11:22] LABS: African American GFR (CKD) 49 (>60 ml/min/1.73 sqM); Anion Gap 12 mmol/L; Blood Urea Nitrogen 35 mg/dL (7-17); Calcium 9.5 mg/dL (8.4-10.2); Carbon Dioxide 21 mmol/L (22-30); Chloride 103 mmol/L (98-107); Glucose 212 mg/dL (74-99); Non-African American GFR(CKD) 43 (>60 ml/min/1.73 sqM); Sodium 136 mmol/L (137-145)
[2020-08-11 11:28] LABS: Potassium 4.5 mmol/L (3.5-5.1)
[2020-08-11 11:30] LABS: Glucose,Whole Blood 184 mg/dL (75-99)
[2020-08-11] MEDS ORDERED: TOCILIZUMAB 640 MG in SODIUM CHLORIDE 0.9% 68 ML IV ONE (11:30)
--- NOTE | 2020-08-11 14:02 | P.PN ---
Subjective Progress Note Date: 08/11/20 Principal diagnosis: COVID 19 pneumonia. 79-year-old female patient, presented to the hospital because of nausea vomiting and diarrhea and some shortness of breath. Apparently the patient was unable to hold down any food or water or medication. She was having diffuse body aches. No abdominal pain. The patient was tested and she checked positive for COVID-19 infection. As such, she was hospitalized and she was started on IV fluids. In the emergency department, the patient was afebrile and she was hemodynamic is stable with a pulse ox of 94%. The patient was found to have an acute kidney injury and intravascular volume depletion/dehydration. She was started on IV f luids. She was also given Zofran. The patient had a white cell count of 6.9 with a hemoglobin of 14.5. BUN was 43 with a creatinine of 2.4. The liver function tests are normal with an AST of 68, ALT of 36, alkaline phosphatase was normal at 108, LDH level was 1168 and the CRP level was at 1. Serum bicarb was normal, electrolytes were normal, COVID-19 testing by PCR came back positive. Coagulation profile was also normal. Chest x-ray was normal without any acute cardio pulmonary abnormalities. In terms of oxygenation, the patient was on 2 L of oxygen by nasal cannula with saturation of 97%. No reported oxygen desaturation. On today's evaluation of 08/08/2020, the patient is doing well. No specific complaints. Pulmonary status is stable. No worsening shortness of breath. She is still on 2 L of oxygen by nasal cannula. He is on IV fluids. Creatinine is improving and currently the creatinine is down to 1.7. The rest of the electrolytes are all within normal limits. The patient is pulse oxing 95% on 2 L about 2 by nasal cannula. She is afebrile. Her night was uneventful and the patient is doing well for now. The patient is Decadron 6 mg IV every 24 hours. The patient is on Eliquis 2.5 mg by mouth twice a day as the patient takes long- term anticoagulation. IV fluids are running 75 mL an hour normal saline. Progress note dated 08/10/2020. 79-year-old female, with a diagnosis of coronavirus infection, and possible pneumonia/pneumonitis. The patient has been having symptoms for 10-12 days. She's currently on 4 L nasal cannula. She's not receiving any IV fluids. The patient states that she is feeling a bit better. When she was seen by my partner, the patient was only on 2 L nasal cannula. She does feel short of breath when she exerts herself. White count is 9.92, hemoglobin 11.4, hematocrit 34.4, and platelet count 167,000. Chest CT done yesterday, does reveal diffuse bilateral infiltrates, groundglass appearance, consistent with COVID 19 pneumonitis. Progress note dated 08/11/2020. 79-year-old female, the diagnosis of COVID 19 pneumonia, with hypoxemic respiratory failure. Currently, the patient's on BiPAP at 12/6 and 80%. She's uncomfortable and she wants a mask. I told respiratory to apply some high flow nasal O2 to her. The patient's saturations are 95%. KVO. Chest CT done 2 days ago shows diffuse bilateral infiltrates, which are groundglass appearance, consistent with coronavirus pneumonia. Blood gases show pO2 of 83, pCO2 34, and a pH is 7.42. That's on 80%. Sodium 136, potassium 4.5, chlorides 103, CO2 21, anion gap 12, BUN and creatinine were 35 and 1.1 respectively. Lactic acid is 4.9. Chest x-ray today shows diffuse bilateral airspace disease. This could be consistent with atypical/viral pneumonia or fluid overload. Objective - Vital Signs Vital signs: Vital Signs Temp 98.1 F 08/11/20 00:32 Pulse 81 08/11/20 00:32 Resp 28 H 08/11/20 00:32 BP 151/91 08/11/20 00:32 Pulse Ox 96 08/11/20 00:32 Intake & Output 08/10/20 08/11/20 08/11/20 18:59 06:59 18:59 Intake Total 400 Output Total 1 1 Balance -1 399 Intake: Intake, IV Titration 400 Amount Sodium Chloride 0.9% 1, 400 000 ml @ 50 mls/hr IV . Q20H [facility] Rx#:[id number] Output: Stool 1 1 Other: Voiding Method Bedpan Bedpan # Voids 3 2 - Exam Currently, the patient's BiPAP mask in place, and she is uncomfortable. She's complaining that she can't breathe and she is suffocating. Saturations are 95%. HEENT examination is grossly unremarkable. Neck supple. Full range of motion. No adenopathy thyromegaly or neck vein di stention. Cardiovascular examination reveals regular rhythm rate. S1-S2 normal. No S3 or S4. No discernible murmur noted. Heart rate 81 bpm. Lungs reveal bilateral scattered rhonchi. No wheezes or crackles. Breath sounds equal bilaterally. Abdomen soft bowel sounds are heard. No masses or tenderness. Extremities are intact. No cyanosis clubbing or edema. Skin is without rash or lesion. Neurologic examination is brief but nonfocal. - Labs CBC & Chem 7: 08/10/20 06:22 08/11/20 10:25 Labs: Abnormal Lab Results - Last 24 Hours (Table) 08/10/20 08/10/20 08/10/20 Range/Units 06:22 17:15 20:42 ABG pCO2 (35-45) mmHg Sodium (137-145) mmol/L Carbon Dioxide (22-30) mmol/L BUN (7-17) mg/dL Creatinine (0.52-1.04) mg/dL Glucose (74-99) mg/dL POC Glucose (mg/dL) 202 H 254 H (75-99) mg/dL Plasma Lactic Acid John (0.7-2.0) mmol/L Ferritin 684.0 H (10.0-291.0) ng/mL Lactate Dehydrogenase 286 H (120-246) U/L C-Reactive Protein 2.7 H (0.0-0.8) mg/dL 08/11/20 08/11/20 08/11/20 Range/Units 07:40 10:25 10:25 ABG pCO2 (35-45) mmHg Sodium 136 L (137-145) mmol/L Carbon Dioxide 21 L (22-30) mmol/L BUN 35 H (7-17) mg/dL Creatinine 1.21 H (0.52-1.04) mg/dL Glucose 212 H (74-99) mg/dL POC Glucose (mg/dL) 153 H (75-99) mg/dL Plasma Lactic Acid John 4.9 H* (0.7-2.0) mmol/L Ferritin (10.0-291.0) ng/mL Lactate Dehydrogenase (120-246) U/L C-Reactive Protein (0.0-0.8) mg/dL 08/11/20 08/11/20 Range/Units 10:28 11:29 ABG pCO2 34 L (35-45) mmHg Sodium (137-145) mmol/L Carbon Dioxide (22-30) mmol/L BUN (7-17) mg/dL Creatinine (0.52-1.04) mg/dL Glucose (74-99) mg/dL POC Glucose (mg/dL) 184 H (75-99) mg/dL Plasma Lactic Acid John (0.7-2.0) mmol/L Ferritin (10.0-291.0) ng/mL Lactate Dehydrogenase (120-246) U/L C-Reactive Protein (0.0-0.8) mg/dL Microbiology - Last 24 Hours (Table) 08/10/20 15:00 Gram Stain - Preliminary Sputum Sputum Culture - Preliminary 08/09/20 18:51 Urine Culture - Final Urine,Voided Assessment and Plan Assessment: Acute hypoxemic respiratory failure secondary to COVID 19 pneumonitis/pneumonia. Acute dehydration, with nausea and vomiting, secondary to coronavirus infection. Acute kidney injury, secondary to above. CAD with previous coronary stenting. History of chronic atrial fibrillation. History of kidney cancer, status post previous nephrectomy. L3 compression fracture. History of hypertension. History of hyperlipidemia. Plan: Plan dated 08/10/2020. The patient is currently being anticoagulated with Eliquis. Lovenox is not needed. The patient is getting vitamin C, vitamin D3, and zinc. The patient is also receiving Decadron 6 mg a day. We will continue to follow make recommendations were needed. She was outside the window for REM. She is not sick enough currently to receive TOCI. Plan dated 08/11/2020. Currently, the patient's on albuterol inhaler, Eliquis, vitamin C, vitamin D3, Decadron, and zinc. The patient also received TOCI, today. Additional recommendations and suggestions are forthcoming. The patient is clearly worsened since yesterday. Yesterday she was on 4 L. The patient should continue the other medications that she's currently on. We'll switch her from BiPAP to high flow nasal cannula. We will watch her closely. Prognosis is guarded. She may deteriorate any transferred to the intensive care unit, and even intubation with mechanical ventilation. Time with Patient: Less than 30
[2020-08-11 15:11] LABS: ABG Base Excess -10.8 mmol/L; ABG HCO3 16 mmol/L (21-25); ABG Oxygen Saturation 95.9 % (94-97); ABG PCO2 34 mmHg (35-45); ABG PH 7.28 (7.35-7.45); ABG PO2 92 mmHg (83-108); ABG TCO2 17 mmol/L (19-24); Allen Test Performed? Yes
[2020-08-11] MEDS: MORPHINE SULFATE 4 MG/ML SYRINGE IVP PRN (15:14)
--- NOTE | 2020-08-11 15:31 | P.EN ---
I responded to another rapid response team called by nursing staff was concerned about his work of breathing. Patient is currently on BiPAP 10/ with 100% FiO2 satting around 93%. Patient appeared more confused. Respiratory rate in the 40s. Apparently patient was taken off of BiPAP earlier as she was having difficulty keeping the mask on and was placed on a nonrebreather subsequently has more desaturation and hypoxia requiring to put the BiPAP and cough. She is clearly having increased work of breathing and using all accessory muscles to breathe. Lactic acid area was 4.9 improved to 2.9 on repeat. Lactic acidosis is secondary to increased work of breathing and accessory muscle use. I recommended that patient needed to be sedated, intubated, and mechanically ventilated. ICU nurse, Manju, called the personal financial representative to relay my recommendations and to get further advice
[2020-08-11 15:51] LABS: Glucose,Whole Blood 243 mg/dL (75-99)
[2020-08-11] MEDS ORDERED: DEXTROSE 5% IN WATER 1,000 ML with SODIUM BICARB (1 MEQ/ML) 150 ML IV SCH (16:15)
[2020-08-11] MEDS ORDERED: SODIUM CHLORIDE 0.9% 2,000 ML IV ONE (16:16)
[2020-08-11] MEDS ORDERED: SODIUM BICARB 8.4% 50 ML SYR (1 MEQ/ML) IV STA (16:17)
--- NOTE | 2020-08-11 16:21 | PN ---
PROGRESS NOTE DATE OF SERVICE: 08/11/2020 This 79-year-old woman who was admitted with acute COVID-19 infection, acute bilateral interstitial pneumonia with acute hypoxic respiratory failure. Patient on BiPAP the night before and was feeling slight better yesterday, but this morning the patient had again significant respiratory difficulties. A team was called and the patient is being closely monitored. The patient is not a candidate for remdesivir per Dr. Clay and per protocol and the patient was given one tocilizumab at this time. The patient is severely hypoxic. The patient has also been transitioned to AIRVO per Pulmonary recommendation also. PAST MEDICAL HISTORY: Reviewed. REVIEW OF SYSTEMS: Could not be taken. CURRENT MEDICATIONS: Current medications are reviewed and include Tylenol, [place], Ventolin, Xanax, Eliquis, vitamin C, Lipitor, Rocephin. PHYSICAL EXAMINATION: Patient is stuporous. Pulse is 81, blood pressure 151/91, respiration 28, temperature 98.1, pulse ox 96% on BiPAP. HEENT: Conjunctivae normal. NECK: No jugular venous distention. CARDIOVASCULAR: S1, S2 muffled. RESPIRATORY: Breath sounds diminished in the bases. A few scattered rhonchi and crackles. ABDOMEN: Soft, nontender. LEGS: No edema. No swelling. NERVOUS SYSTEM: No focal deficits. LABS: Sodium 136, creatinine is 1.21. Other labs are noted. ASSESSMENT: 1. Acute COVID-19 infection with acute bilateral interstitial pneumonia with acute hypoxic respiratory failure on and off BiPAP and on AIRVO now. 2. Acute renal failure with acute tubular necrosis with possible chronic kidney disease stage 3 baseline. 3. Hypokalemia. 4. Elevated AST, ALT with possible secondary to COVID-19. 5. Acute urinary tract infection, present on admission. 6. Elevated inflammatory markers of COVID-19. 7. Increased MCV. 8. Lymphopenia. 9. History atrial fibrillation. 10.History of diabetes mellitus type 2. 11.Gastroesophageal reflux disease. 12.Hypertension. 13.Hyperlipidemia. 14.History of degenerative joint disease. 15.History of pneumonia. 16.History of gout. 17.History of peripheral neuropathy. 18.History of migraines. 19.History of kidney cancer. 20.History of Clostridium difficile colitis. 21.History of coronary artery disease, stent. 22.Bilateral cataracts. 23.Obesity with body mass index of 32.9. 24.FULL CODE. RECOMMENDATIONS AND DISCUSSION: Recommend to continue current medications. Continue symptomatic treatment. Otherwise at this time I recommend continue with current medications, continue the antibiotics. Continue with continue current medications. D-dimer was normal on 08/09. Prognosis is extremely guarded because of multiple complex medical issues. The patient had elevated inflammatory markers of COVID-19. NT proBNP is 5250 and cultures are negative so far. The patient also received a dose of Lasix also. Prognosis guarded. Further recommendations to follow. MMODL / IJN: [id number] /
[2020-08-11 17:06] LABS: Appearance,Urine Cloudy (Clear); Bacteria,Urine Rare /hpf; Bilirubin,Urine Negative (Negative); Blood,Urine Trace (Negative); Budding Yeast,Urine Few /hpf; Color,Urine Yellow; Glucose,Urine (UA) Negative (Negative); Ketones,Urine Negative (Negative); Leukocyte Esterase,Urine Large (Negative); Mucus,Urine Rare /hpf; Nitrite,Urine Negative (Negative); Protein,Urine 1+ (Negative); RBC,Urine 4 /hpf (0-5); Specific Gravity,Urine 1.014 (1.001-1.035); Squamous Epithelial Cell,Urine 1 /hpf (0-4); Urobilinogen,Urine <2.0 mg/dL (<2.0); WBC,Urine 30 /hpf (0-5)
--- NOTE | 2020-08-11 17:15 | PN ---
PROGRESS NOTE DATE OF SERVICE: 08/11/2020 REASON FOR FOLLOWUP: COVID-19 pneumonia. INTERVAL HISTORY: Patient did have worsening respiratory distress this morning, had to go on BiPAP. The patient seemed to be anxious and worried, she could not breathe though denies any worsening chest pain or cough. No abdominal pain or diarrhea has been reported. PHYSICAL EXAMINATION: Blood pressure 150/90 with a pulse of 81, temperature 98.1. She is 96% on BiPAP. General description is an elderly female up in the bed in no distress. Respiratory system: Unlabored breathing, decreased breath sounds in the base, no wheeze. Heart S1, S2. Regular rate and rhythm. Abdomen soft, no tenderness. MMODL / IJN: [id number] /
[2020-08-11 17:33] LABS: Albumin 3.2 g/dL (3.5-5.0); Calcium 9.3 mg/dL (8.4-10.2); Potassium 4.6 mmol/L (3.5-5.1); Total Bilirubin 0.8 mg/dL (0.2-1.3); Total Protein 6.2 g/dL (6.3-8.2)
[2020-08-11 17:44] LABS: Glucose,Whole Blood 235 mg/dL (75-99)
[2020-08-11] MEDS: SODIUM CHLORIDE 0.9% 1,000 ML IV SCH (17:45)
[2020-08-11] MEDS ORDERED: FUROSEMIDE 10 MG/ML 4 ML VIAL IV STA (18:23)
[2020-08-11 19:41] LABS: Basophils # (A) 0.1 k/uL (0-0.2); Basophils % (A) 1 %; Eosinophils % (A) 0 %; HCT 39.5 % (34.0-46.0); HGB 12.4 gm/dL (11.4-16.0); Hypochromasia Slight; Lymphocytes # (A) 0.3 k/uL (1.0-4.8); Lymphocytes % (A) 2 %; MCH 33.5 pg (25.0-35.0); MCHC 31.3 g/dL (31.0-37.0); Macrocytosis Moderate; Mean Platelet Volume 8.8; Monocytes # (A) 0.8 k/uL (0-1.0); Monocytes % (A) 5 %; Neutrophils % (A) 92 %; Platelet Count 239 k/uL (150-450); RDW 15.1 % (11.5-15.5); WBC 15.3 k/uL (3.8-10.6)
[2020-08-11 19:44] LABS: MCV 106.9 fL (80.0-100.0)
[2020-08-11 21:00] LABS: Glucose,Whole Blood 263 mg/dL (75-99)
--- NOTE | 2020-08-12 00:19 | PN ---
PROGRESS NOTE The patient was seen earlier this morning when the 1st rapid response team was called. She had been anxious and was short of breath. Patient was placed on BiPAP. Her breathing has improved. Patient has been seen for followup for acute kidney injury. Renal function has been improving. Serum creatinine was down to 1.2 mg/dL this morning. PHYSICAL EXAMINATION: Blood pressure this morning was 151/91, heart rate 80 per minute. She is afebrile. Examination shows patient is on BiPAP. This was earlier this morning. Examination lower extremity shows trace edema. Abdomen is soft, nontender. [employer] exam shows patient is mildly confused. She is moving all 4 extremities. LABS: From this morning show sodium 136, potassium 4.5, chloride 103, BUN 35, creatinine 1.2. ASSESSMENT: 1. Acute kidney injury nonoliguric acute tubular necrosis, currently improved. The patient has some degree of volume depletion earlier on admission. She is currently off IV fluids. The patient has a solitary kidney. 2. History of left nephrectomy for renal cell cancer. 3. COVID-19 pneumonia. 4. Mild volume overload. 5. Chronic kidney disease stage 3 secondary to nephrosclerosis. Baseline creatinine about 1.34. PLAN: Continue off IV fluids. Monitor for further deterioration in respiratory status from Covid pneumonia. MMODL / IJN: [id number] /
[2020-08-12] MEDS: MORPHINE SULFATE 4 MG/ML SYRINGE IVP PRN ×3 (01:54→16:29)
[2020-08-12] MEDS: HYDROcodone/APAP 10-325MG 1 EACH TAB PO PRN (03:09)
[2020-08-12 04:50] LABS: Basophils % (A) 0 %; Eosinophils % (A) 0 %; HCT 37.5 % (34.0-46.0); HGB 11.9 gm/dL (11.4-16.0); Lymphocytes # (A) 0.5 k/uL (1.0-4.8); Lymphocytes % (A) 4 %; MCH 32.9 pg (25.0-35.0); MCHC 31.8 g/dL (31.0-37.0); MCV 103.4 fL (80.0-100.0); Macrocytosis Moderate; Mean Platelet Volume 8.8; Monocytes # (A) 0.5 k/uL (0-1.0); Monocytes % (A) 4 %; Neutrophils # (A) 10.5 k/uL (1.3-7.7); Neutrophils % (A) 90 %; Platelet Count 261 k/uL (150-450); RBC 3.63 m/uL (3.80-5.40); RDW 15.2 % (11.5-15.5); WBC 11.7 k/uL (3.8-10.6)
[2020-08-12 04:59] LABS: Albumin 2.7 g/dL (3.5-5.0); Calcium 8.6 mg/dL (8.4-10.2); Potassium 4.4 mmol/L (3.5-5.1); Total Bilirubin 0.5 mg/dL (0.2-1.3); Total Protein 5.6 g/dL (6.3-8.2)
[2020-08-12 06:57] LABS: Glucose,Whole Blood 154 mg/dL (75-99)
[2020-08-12] MEDS: INSULIN ASPART (NovoLOG) 100 UNIT/ML VIAL SQ SCH ×4 (07:10→23:41)
[2020-08-12] MEDS: ALBUTEROL HFA INHALER INHALATION SCH ×3 (07:55→19:44)
[2020-08-12 07:58] LABS: Glucose,Whole Blood 146 mg/dL (75-99)
[2020-08-12] MEDS: DEXAMETHASONE SOD PHOSPHATE 10 MG/ML 1 ML VIAL IV SCH (07:59)
[2020-08-12] MEDS: ATORVASTATIN 80 MG TAB PO SCH (07:59)
[2020-08-12] MEDS: CHOLECALCIFEROL 25 MCG (1000 IU) TABLET PO SCH (08:00)
[2020-08-12] MEDS: ISOSORBIDE MONONITRATE ER 30 MG TAB.ER.24H PO SCH (08:00)
[2020-08-12] MEDS: APIXABAN 2.5 MG TABLET PO SCH ×2 (08:00→21:06)
[2020-08-12] MEDS: ASCORBIC ACID 500 MG TAB PO SCH (08:00)
[2020-08-12] MEDS: ZINC SULFATE 220 MG CAP PO SCH (08:00)
--- NOTE | 2020-08-12 08:16 | XR ---
EXAMINATION TYPE: XR chest 1V portable DATE OF EXAM: 08/12/2020 COMPARISON: Chest x-ray dated 08/11/2020 HISTORY: Covid pneumonia TECHNIQUE: Single frontal view of the chest is obtained. FINDINGS: Bilateral airspace disease is again noted. No evident pneumothorax or pleural effusions. C ardiomediastinal silhouette is likely stable accounting for differences in rotation, technique. There are overlying artifacts. IMPRESSION: Correlate for pneumonia.
[2020-08-12] MEDS ORDERED: LORazepam 2 MG/ML INJ IV PRN ×2 (09:39→18:03)
[2020-08-12] MEDS: NOREPINEPHRINE 4 MG in SODIUM CHLORIDE 0.9% 250 ML IV SCH ×3 (09:43→23:40)
[2020-08-12 11:14] LABS: Glucose,Whole Blood 150 mg/dL (75-99)
[2020-08-12] MEDS: MIDODRINE 5 MG TAB PO SCH ×2 (11:27→18:08)
[2020-08-12] MEDS: SODIUM CHLORIDE 0.9% 1,000 ML IV SCH (11:27)
--- NOTE | 2020-08-12 12:34 | P.PN ---
Subjective Progress Note Date: 08/12/20 Principal diagnosis: Acute hypoxic respiratory failure secondary to COVID-19 pneumonitis. 79-year-old female patient, presented to the hospital because of nausea vomiting and diarrhea and some shortness of breath. Apparently the patient was unable to hold down any food or water or medication. She was having diffuse body aches. No abdominal pain. The patient was tested and she checked positive for COVID-19 infection. As such, she was hospitalized and she was started on IV fluids. In the emergency department, the patient was afebrile and she was hemodynamic is stable with a pulse ox of 94%. The patient was found to have an acute kidney injury and intravascular volume depletion/dehydration. She was started on IV fluids. She was also given Zofran. The patient had a white cell count of 6.9 with a hemoglobin of 14.5. BUN was 43 with a creatinine of 2.4. The liver function tests are normal with an AST of 68, ALT of 36, alkaline phosphatase was normal at 108, LDH level was 1168 and the CRP level was at 1. Serum bicarb was normal, electrolytes were normal, COVID-19 testing by PCR came back positive. Coagulation profile was also normal. Chest x-ray was normal without any acute cardio pulmonary abnormalities. In terms of oxygenation, the patient was on 2 L of oxygen by nasal cannula with saturation of 97%. No reported oxygen desaturation. On today's evaluation of 08/08/2020, the patient is doing well. No specific complaints. Pulmonary status is stable. No worsening shortness of breath. She is still on 2 L of oxygen by nasal cannula. He is on IV fluids. Creatinine is improving and currently the creatinine is down to 1.7. The rest of the e lectrolytes are all within normal limits. The patient is pulse oxing 95% on 2 L about 2 by nasal cannula. She is afebrile. Her night was uneventful and the patient is doing well for now. The patient is Decadron 6 mg IV every 24 hours. The patient is on Eliquis 2.5 mg by mouth twice a day as the patient takes long- term anticoagulation. IV fluids are running 75 mL an hour normal saline. Progress note dated 08/10/2020. 79-year-old female, with a diagnosis of coronavirus infection, and possible pneumonia/pneumonitis. The patient has been having symptoms for 10-12 days. She's currently on 4 L nasal cannula. She's not receiving any IV fluids. The patient states that she is feeling a bit better. When she was seen by my partner, the patient was only on 2 L nasal cannula. She does feel short of breath when she exerts herself. White count is 9.92, hemoglobin 11.4, hematocrit 34.4, and platelet count 167,000. Chest CT done yesterday, does reveal diffuse bilateral infiltrates, groundglass appearance, consistent with COVID 19 pneumonitis. Progress note dated 08/11/2020. 79-year-old female, the diagnosis of COVID 19 pneumonia, with hypoxemic respiratory failure. Currently, the patient's on BiPAP at 12/6 and 80%. She's uncomfortable and she wants a mask. I told respiratory to apply some high flow nasal O2 to her. The patient's saturations are 95%. KVO. Chest CT done 2 days ago shows diffuse bilateral infiltrates, which are groundglass appearance, consistent with coronavirus pneumonia. Blood gases show pO2 of 83, pCO2 34, and a pH is 7.42. That's on 80%. Sodium 136, potassium 4.5, chlorides 103, CO2 21, anion gap 12, BUN and creatinine were 35 and 1.1 respectively. Lactic acid is 4.9. Chest x-ray today shows diffuse bilateral airspace disease. This could be consistent with atypical/viral pneumonia or fluid overload. Reevaluated today on 08/12/2020, we saw the patient yesterday briefly when she was transferred to the intensive care unit. She was seen yesterday by Dr. nguyen earlier in the day yesterday, however her pulmonary status deteriorated and she required BiPAP, required higher FiO2, she was getting extremely short of breath, and her chest x-ray as well as her CT of the chest showed worsening bilateral infiltrates secondary to COVID-19 pneumonia. Patient was noted to develop worsening metabolic acidosis, hence I transferred the patient to the ICU, kept her on BiPAP, placed on bicarb drip, she was also given bicarb. And she is presently on 80% FiO2, IPAP of 12 and EPAP of 6, remains on sodium bicarb drip and will change FiO2 to 75%, may even consider placing the patient on airvo at high FiO2 and high flow. Patient is in A. fib but her rate seems to be fairly well controlled. Seems to be moaning and groaning, but not truly in severe distress at present while on BiPAP. After lites are normal bicarb is up to 28, BUN is 44 creatinine is 1.48. WBC count is 11.7 hemoglobin is 11.9. Urine culture is pending, however the patient is empirically on Rocephin. Chest x-ray showed bilateral air space disease consistent with COVID-19 normal Objective - Vital Signs Vital signs: Vital Signs Temp 97.1 F L 08/12/20 08:00 Pulse 103 H 08/12/20 11:00 Resp 21 08/12/20 11:00 BP 108/88 08/12/20 11:00 Pulse Ox 89 L 08/12/20 11:00 Intake & Output 08/11/20 08/12/20 08/12/20 18:59 06:59 18:59 Intake Total 2100 650 200 Output Total 105 735 95 Balance 1994 105 Weight 90.4 kg Intake: IV 2100 650 200 Dextrose 5% in Water 1, 50 650 200 000 ml @ 50 mls/hr IV . Q23H RUDY with Sodium Bicarb (1 Meq/ml) 150 ml Rx#:[id number] Sodium Chloride 0.9% 2, 2000 000 ml @ 999 mls/hr IV . Q2H1M ONE Rx#:[id number] cefTRIAXone 1 gm In 50 Sodium Chloride 0.9% 50 ml @ 100 mls/hr IVPB Q24H RUDY Rx#:[id number] Output: Urine 105 735 95 Other: Voiding Method Indwelling Catheter Indwelling Catheter Indwelling Catheter - Exam Physical Exam: Revealed 79-year-old female obese, on BiPAP, not in real dis tress, but she seems to be moaning and groaning. Head: Atraumatic, normocephalic. HEENT:[Neck is supple.] [No neck masses.] [No thyromegaly.] [No JVD.] Chest: [Fine crackles at the bases, no rhonchi no wheezes. Symmetrical chest expansion. Cardiac Exam: Irregular irregular rhythm. [Normal S1 and S2, no S3 gallop, no murmur.] Abdomen: Obese, [Soft, nontender, no megaly, no rebound, no guarding, normal bowel sounds.] Extremities: [No clubbing, race of bipedal edema, no cyanosis.] Neurological Exam: [No focal neurologic deficit.] Alert and oriented 3. Psychiatric: Anxious mood, blunt affect, normal mental status examination. Skin: No rashes. - Labs CBC & Chem 7: 08/12/20 04:28 08/12/20 04:28 Labs: Abnormal Lab Results - Last 24 Hours (Table) 08/11/20 08/11/20 08/11/20 Range/Units 13:32 15:05 15:49 WBC (3.8-10.6) k/uL RBC (3.80-5.40) m/uL MCV (80.0-100.0) fL Neutrophils # (1.3-7.7) k/uL Lymphocytes # (1.0-4.8) k/uL ABG pH 7.28 L (7.35-7.45) ABG pCO2 34 L (35-45) mmHg ABG HCO3 16 L (21-25) mmol/L ABG Total CO2 17 L (19-24) mmol/L Sodium (137-145) mmol/L Carbon Dioxide (22-30) mmol/L BUN (7-17) mg/dL Creatinine (0.52-1.04) mg/dL Glucose (74-99) mg/dL POC Glucose (mg/dL) 243 H (75-99) mg/dL Plasma Lactic Acid John 2.9 H* (0.7-2.0) mmol/L AST (14-36) U/L ALT (4-34) U/L Total Protein (6.3-8.2) g/dL Albumin (3.5-5.0) g/dL Urine Appearance (Clear) Urine Protein (Negative) Urine Blood (Negative) Ur Leukocyte Esterase (Negative) Urine WBC (0-5) /hpf Urine WBC Clumps (None) /hpf Urine Bacteria (None) /hpf Urine Mucus (None) /hpf Urine Yeast (Budding) (None) /hpf 08/11/20 08/11/20 08/11/20 Range/Units 16:50 16:58 16:58 WBC (3.8-10.6) k/uL RBC (3.80-5.40) m/uL MCV (80.0-100.0) fL Neutrophils # (1.3-7.7) k/uL Lymphocytes # (1.0-4.8) k/uL ABG pH (7.35-7.45) ABG pCO2 (35-45) mmHg ABG HCO3 (21-25) mmol/L ABG Total CO2 (19-24) mmol/L Sodium (137-145) mmol/L Carbon Dioxide 21 L (22-30) mmol/L BUN 38 H (7-17) mg/dL Creatinine 1.44 H (0.52-1.04) mg/dL Glucose 254 H (74-99) mg/dL POC Glucose (mg/dL) (75-99) mg/dL Plasma Lactic Acid John 6.4 H* (0.7-2.0) mmol/L AST 47 H (14-36) U/L ALT 35 H (4-34) U/L Total Protein 6.2 L (6.3-8.2) g/dL Albumin 3.2 L (3.5-5.0) g/dL Urine Appearance Cloudy H (Clear) Urine Protein 1+ H (Negative) Urine Blood Trace H (Negative) Ur Leukocyte Esterase Large H (Negative) Urine WBC 30 H (0-5) /hpf Urine WBC Clumps Few H (None) /hpf Urine Bacteria Rare H (None) /hpf Urine Mucus Rare H (None) /hpf Urine Yeast (Budding) Few H (None) /hpf 08/11/20 08/11/20 08/11/20 Range/Units 17:43 19:02 20:06 WBC 15.3 H (3.8-10.6) k/uL RBC 3.70 L (3.80-5.40) m/uL MCV 106.9 H D (80.0-100.0) fL Neutrophils # 14.0 H (1.3-7.7) k/uL Lymphocytes # 0.3 L (1.0-4.8) k/uL ABG pH (7.35-7.45) ABG pCO2 (35-45) mmHg ABG HCO3 (21-25) mmol/L ABG Total CO2 (19-24) mmol/L Sodium (137-145) mmol/L Carbon Dioxide (22-30) mmol/L BUN (7-17) mg/dL Creatinine (0.52-1.04) mg/dL Glucose (74-99) mg/dL POC Glucose (mg/dL) 235 H (75-99) mg/dL Plasma Lactic Acid John 3.0 H* (0.7-2.0) mmol/L AST (14-36) U/L ALT (4-34) U/L Total Protein (6.3-8.2) g/dL Albumin (3.5-5.0) g/dL Urine Appearance (Clear) Urine Protein (Negative) Urine Blood (Negative) Ur Leukocyte Esterase (Negative) Urine WBC (0-5) /hpf Urine WBC Clumps (None) /hpf Urine Bacteria (None) /hpf Urine Mucus (None) /hpf Urine Yeast (Budding) (None) /hpf 08/11/20 08/12/20 08/12/20 Range/Units 20:59 04:28 04:28 WBC 11.7 H (3.8-10.6) k/uL RBC 3.63 L (3.80-5.40) m/uL MCV 103.4 H (80.0-100.0) fL Neutrophils # 10.5 H (1.3-7.7) k/uL Lymphocytes # 0.5 L (1.0-4.8) k/uL ABG pH (7.35-7.45) ABG pCO2 (35-45) mmHg ABG HCO3 (21-25) mmol/L ABG Total CO2 (19-24) mmol/L Sodium 136 L (137-145) mmol/L Carbon Dioxide (22-30) mmol/L BUN 44 H (7-17) mg/dL Creatinine 1.48 H (0.52-1.04) mg/dL Glucose 139 H (74-99) mg/dL POC Glucose (mg/dL) 263 H (75-99) mg/dL Plasma Lactic Acid John (0.7-2.0) mmol/L AST 104 H (14-36) U/L ALT 73 H (4-34) U/L Total Protein 5.6 L (6.3-8.2) g/dL Albumin 2.7 L (3.5-5.0) g/dL Urine Appearance (Clear) Urine Protein (Negative) Urine Blood (Negative) Ur Leukocyte Esterase (Negative) Urine WBC (0-5) /hpf Urine WBC Clumps (None) /hpf Urine Bacteria (None) /hpf Urine Mucus (None) /hpf Urine Yeast (Budding) (None) /hpf 08/12/20 08/12/20 08/12/20 Range/Units 06:55 07:56 11:12 WBC (3.8-10.6) k/uL RBC (3.80-5.40) m/uL MCV (80.0-100.0) fL Neutrophils # (1.3-7.7) k/uL Lymphocytes # (1.0-4.8) k/uL ABG pH (7.35-7.45) ABG pCO2 (35-45) mmHg ABG HCO3 (21-25) mmol/L ABG Total CO2 (19-24) mmol/L Sodium (137-145) mmol/L Carbon Dioxide (22-30) mmol/L BUN (7-17) mg/dL Creatinine (0.52-1.04) mg/dL Glucose (74-99) mg/dL POC Glucose (mg/dL) 154 H 146 H 150 H (75-99) mg/dL Plasma Lactic Acid John (0.7-2.0) mmol/L AST (14-36) U/L ALT (4-34) U/L Total Protein (6.3-8.2) g/dL Albumin (3.5-5.0) g/dL Urine Appearance (Clear) Urine Protein (Negative) Urine Blood (Negative) Ur Leukocyte Esterase (Negative) Urine WBC (0-5) /hpf Urine WBC Clumps (None) /hpf Urine Bacteria (None) /hpf Urine Mucus (None) /hpf Urine Yeast (Budding) (None) /hpf Microbiology - Last 24 Hours (Table) 08/10/20 15:00 Gram Stain - Final Sputum Sputum Culture - Final 08/11/20 16:50 Urine Culture - Preliminary Urine,Clean Catch Assessment and Plan Assessment: Impression: Acute hypoxic respiratory failure secondary to COVID-19 pneumonia. Patient is requiring BiPAP, and the relatively high FiO2. Acute dehydration with nausea and vomiting related to her fam virus infection. Acute kidney injury. Chronic atrial fibrillation. History of previous nephrectomy secondary to kidney cancer. Benign essential hypertension. Dyslipidemia. Suspect acute urinary tract infection, cultures are pending, patient is empiric ally on Rocephin. Patient did receive anticoagulation therapy, remains on Eliquis. Continue the COVID-19 cocktail. Including Decadron 6 mg IV push daily Patient was out of the window for REM, patient did receive toci, ordered by infectious disease on the case Continue to monitor in the ICU, and we will continue to follow closely. Critical care time is over 30 minutes. Time with Patient: Greater than 30
[2020-08-12] MEDS ORDERED: AMIODARONE 360 MG in DEXTROSE 5% IN WATER 200 ML IV ONE ×2 (14:06)
[2020-08-12] MEDS ORDERED: DEXTROSE 5% IN WATER 100 ML with AMIODARONE 150 MG IV ONE (14:06)
[2020-08-12 14:36] LABS: ABG Base Excess 2.6 mmol/L; ABG HCO3 27 mmol/L (21-25); ABG Oxygen Saturation 94.8 % (94-97); ABG PCO2 41 mmHg (35-45); ABG PH 7.42 (7.35-7.45); ABG PO2 78 mmHg (83-108); ABG TCO2 28 mmol/L (19-24); Allen Test Performed? Yes
[2020-08-12] MEDS: MAGNESIUM SULFATE-D5W PMX 1 GM in DEXTROSE/WATER 1 100ML.BAG IVPB SCH ×2 (15:15→16:25)
--- NOTE | 2020-08-12 15:15 | PN ---
PROGRESS NOTE DATE OF SERVICE: 08/12/2020 INTERVAL HISTORY: This is an 79-year-old woman who was admitted with acute COVID-19 pneumonia, interstitial pneumonia as well as acute hypoxic respiratory failure. The patient has taken a turn for the worse. The patient has been transferred to ICU, being monitored. Dr. Emery is following the patient closely. BiPAP was administered. Most recent chest x-ray which I reviewed personally showed extensive bilateral pulmonary infiltrates suggestive of pulmonary pneumonia. Patient started on tocilizumab. PAST MEDICAL HISTORY: Reviewed. REVIEW OF SYSTEMS: Could not be taken. The patient is extremely short of breath. CURRENT MEDICATIONS: Reviewed include Tylenol, [place], Ventolin, amiodarone, Eliquis, vitamin C, Lipitor. Doses are reviewed. PHYSICAL EXAMINATION: GENERAL: Patient is alert and oriented times three. VITAL SIGNS: Pulse 64, blood pressure 107/70, respirations 19, temperature 97.3, pulse ox 81% on BIPAP. HEENT: Conjunctivae normal. Oral mucosa moist. NECK: No jugular venous distention. No carotid bruits. No lymph node enlargement. RESPIRATORY: Breath sounds diminished at the bases. A few scattered rhonchi and crackles. HEART: S1 and S2, muffled. ABDOMEN: Soft, no tenderness. No masses palpable. LABS: WBC 11.2, sodium 136. ASSESSMENT: 1. Acute COVID-19 infection with acute bilateral interstitial pneumonia with acute hypoxic respiratory failure on and off and on BiPAP currently. 2. Acute renal failure with acute tubular necrosis with possible chronic kidney disease stage 3, baseline. 3. Hypokalemia. 4. Elevated AST and ALT possibly secondary to COVID-19. 5. Acute urinary tract infection present on admission. 6. Elevated inflammatory markers of COVID-19. 7. Increased MCV. 8. Lymphopenia. 9. History atrial fibrillation. 10.History of diabetes mellitus type 2. 11.Gastroesophageal reflux disease. 12.Hypertension. 13.History of hyperlipidemia. 14.History of degenerative joint disease. 15.History of pneumonia. 16.History of gout. 17.History of peripheral neuropathy. 18.History of migraine. 19.History of kidney cancer. 20.History of Clostridium difficile colitis. 21.History of coronary artery disease with stent. 22.History of bilateral cataracts. 23.Obesity with body mass index of 32.9. 24.FULL CODE. RECOMMENDATIONS AND DISCUSSION: Recommend to continue current medications, continue symptomatic treatment. Otherwise at this time I recommend repeat labs. Continue with BiPAP. The patient is on apixaban at this time. Continue the antibiotics. I would also recommend cultures including sputum culture also. Tocilizumab is also being administered. Further recommendations to follow. MMODL / IJN: [id number] /
--- NOTE | 2020-08-12 15:26 | P.CRDCN ---
History of Present Illness History of present illness: HISTORY OF PRESENTING ILLNESS This is a pleasant 79-year-old female who follows in the office with Dr. Medina. She has a history of CAD with stenting of the LAD in 2008, chronic atrial fibri llation, hypertension, hyperlipidemia, borderline diabetes mellitus, neuropathy, cholecystectomy. Patient presented 08/06 secondary to nausea, vomiting, diarrhea and shortness breath. She was unable to keep any food down and had body aches and was found to have COVID-19 infection. She was placed on treatment for COVID-19 however has had worsened respiratory status currently on BiPAP, CT chest showing worsening bilateral infiltrates. Patient initially had acute kidney injury with creatinine 2.48 and this decreased to 1.2 however has increased up to 1.48 as of today. Her lactic acid has been as high as 6.4 and last one obtained last night was 3.0. Cardiology was consult that for approxima tely 30 seconds of ventricular fibrillation/torsades which occurred 08/12 at approximately 1:15 PM. She apparently was doing fine and then suddenly nurses noted V. fib. Upon review of telemetry patient had approximately 30 seconds of torsade point and then spontaneously broke into afib with bradycardia then normal rhythm. She was apparently somewhat more drowsy during this episode however no loss of pulses. Patient has somewhat been declining respiratory sterling however denies any chest pain, pressure. She does state she has "pain all over ". Patient's PaO2 is 78, pulse ox 94.8 on 100% FiO2 on BiPAP. EKG was obtained after V. fib episode with A. fib, left axis deviation, poor R-wave progression, diffuse nonspecific T-wave inversions V3 through 6 and lead 2 and aVF. Her QTC is noted to be prolonged at 513. An EKG showed somewhat similar prolonged QTC of 471. last echo from 12/14/2018 showed low normal ejection fraction 50-55%, mild mitral regurgitation. Repeat electrolytes are pending however yesterday's without any electrolyte abnormalities. REVIEW OF SYSTEMS At the time of my exam: CONSTITUTIONAL: Denies fever or chills. CARDIOVASCULAR: Denies chest pain, +shortness of breath, orthopnea, PND or palpitations. RESPIRATORY: Denies cough. GASTROINTESTINAL: Denies abdominal pain, diarrhea, constipation, nausea or vomiting. MUSCULOSKELETAL: Denies myalgias. NEUROLOGIC: Denies numbness, tingling or weakness. ENDOCRINE: Denies fatigue, weight change, polydipsia or polyurina. GENITOURINARY: Denies burning, hematuria or urgency with micturation. HEMATOLOGIC: Denies history of anemia or bleeding. PHYSICAL EXAMINATION Vitals reviewed CONSTITUTIONAL: Chronically ill appearing, lethargic on BIPAP, weak, obese HEENT: Head is normocephalic. Pupils are equal, round. Sclerae anicteric. Mucous membranes of the mouth are moist. No JVD. No carotid bruit. CHEST EXAMINATION: Lungs are clear to auscultation. No chest wall tenderness is noted on palpation or with deep breathing. HEART EXAMINATION: Irregular rate and rhythm. S1, S2 heard. No murmurs, gallops or rub. ABDOMEN: Soft, nontender. Positive bowel sounds. EXTREMITIES: 2+ peripheral pulses, no lower extremity edema and no calf tenderness. NEUROLOGIC EXAMINATION: Patient is somnolent however arousable and answering most questions appropriately. ASSESSMENT 1. V. fib/torsades 2. Prolonged QT 3. COVID-19 pneumonia 4. Acute on chronic hypoxic respiratory failure 5. Hypertension 6. Chronic atrial fibrillation 7. Coronary artery disease status post PCI 2008 PLAN Patient has been deteriorating from COVID-19 infection. She did have V. fib and surprisingly spontaneously converted to her normal atrial fibrillation. Her EKG shows prolonged QTC and we will stop Zofran and no other QT prolonging medications. Agree with amiodarone drip at this time. Check troponins to rule out ischemic etiology and check 2-D echo. Give magnesium for torsades. Prognosis guarded. Past Medical History Past Medical History: Atrial Fibrillation, Cancer, Chest Pain / Angina, Diabetes Mellitus, GERD/Reflux, Hyperlipidemia, Hypertension, Osteoarthritis (OA), Pneumonia Additional Past Medical History / Comment(s): Gout, Neuropathy, hx migraines, hx kidney cancer. History of Any Multi-Drug Resistant Organisms: C-DIFF Date of last positivie culture/infection: September 2017 MDRO Source:: stool Past Surgical History: Cholecystectomy, Heart Catheterization With Stent, Hysterectomy Additional Past Surgical History / Comment(s): Bilateral cataracts removed, left nephrectomy. Past Anesthesia/Blood Transfusion Reactions: Motion Sickness, Postoperative Nausea & Vomiting (PONV) Date of Last Stent Placement:: unknown Past Psychological History: No Psychological Hx Reported Smoking Status: Never smoker Past Alcohol Use History: None Reported Past Drug Use History: None Reported - Past Family History Father Family Medical History: Diabetes Mellitus Mother Family Medical History: Cancer Additional Family Medical History / Comment(s): Ovarian cancer. Sister(s) Family Medical History: Deep Vein Thrombosis (DVT) Brother(s) Family Medical History: Pulmonary Embolus Medications and Allergies Home Medications Medication Instructions Recorded Confirmed Type Isosorbide Mononitrate ER [Imdur] 30 mg PO DAILY 11/03/14 08/07/20 History Nitroglycerin Sl Tabs [Nitrostat] 0.4 mg SUBLINGUAL Q5M PRN 11/03/14 08/07/20 History allopurinoL [Zyloprim] 100 mg PO BID 11/29/18 08/07/20 History Apixaban [Eliquis] 2.5 mg PO BID 08/06/20 08/07/20 History Fluticasone Nasal [place] [Flonase 1 spray EA NOSTRIL DAILY PRN 08/06/20 08/07/20 History Nasal [place]] Furosemide [Lasix] 40 mg PO BID 08/06/20 08/07/20 History HYDROcodone/APAP 10-325MG [[place] 1 tab PO 5XD PRN 08/06/20 08/07/20 History 10-325] Rosuvastatin Calcium [Crestor] 40 mg PO DAILY 08/06/20 08/07/20 History lisinopriL [Zestril] 5 mg PO BID 08/06/20 08/07/20 History metFORMIN HCL 500 mg PO BID 08/06/20 08/07/20 History Allergies Allergy/AdvReac Type Severity Reaction Status Date / Time propoxyphene Allergy Unknown Verified 08/06/20 20:52 [From Darvocet-N] codeine phosphate AdvReac Hallucinati Verified 08/06/20 20:52 [From Tylenol-Codeine #3] ons duloxetine [From Cymbalta] AdvReac c-diff Verified 08/06/20 20:52 meperidine HCl [From Demerol] AdvReac CHEST Verified 08/06/20 20:52 PAIN/Hallucinations pregabalin [From Lyrica] AdvReac Nausea & Verified 08/06/20 20:52 Vomiting Physical Exam Vitals: Vital Signs Temp Pulse Resp BP Pulse Ox 08/12/20 15:00 80 22 124/75 94 L 08/12/20 14:45 71 22 90 L 08/12/20 14:30 80 20 126/84 91 L 08/12/20 14:15 91 21 114/94 95 08/12/20 14:00 76 21 86/67 92 L 08/12/20 13:45 74 19 100/53 92 L 08/12/20 13:30 79 18 100/53 91 L 08/12/20 13:15 69 18 100/53 91 L 08/12/20 13:00 64 19 107/70 90 L 08/12/20 12:00 97.3 F L 92 21 90/80 81 L 08/12/20 11:00 103 H 21 108/88 89 L 08/12/20 10:00 86 22 109/75 89 L 08/12/20 09:00 92 24 105/81 95 08/12/20 08:00 97.1 F L 82 22 98/45 94 L 08/12/20 07:00 70 19 94/68 94 L 08/12/20 06:00 78 19 104/71 92 L 08/12/20 05:00 91 24 104/71 93 L 08/12/20 04:00 98.2 F 78 20 92/67 93 L 08/12/20 03:00 87 25 H 105/64 93 L 08/12/20 02:00 99 35 H 103/77 95 08/12/20 01:00 76 29 H 114/68 94 L 08/12/20 00:01 99 30 H 103/82 95 08/12/20 00:00 97 F L 91 34 H 103/82 96 08/11/20 23:00 80 24 97/77 96 08/11/20 22:00 86 25 H 105/47 95 08/11/20 21:02 95 08/11/20 21:00 89 32 H 96/78 96 08/11/20 20:00 98.6 F 97 25 H 82/52 96 08/11/20 19:00 106 H 29 H 81/51 93 L 08/11/20 18:00 106 H 35 H 108/75 94 L 08/11/20 17:00 99.2 F 103 H 35 H 82/57 92 L 08/11/20 16:00 123 H 45 H 91 L 08/11/20 15:50 74 H Intake and Output 08/12/20 08/12/20 08/12/20 06:59 14:59 22:59 Intake Total 450 350 50 Output Total 285 165 30 Balance 165 185 20 Intake: IV 450 350 50 Dextrose 5% in Water 1, 450 200 000 ml @ 50 mls/hr IV . Q23H RUDY with Sodium Bicarb (1 Meq/ml) 150 ml Rx#:[id number] Sodium Chloride 0.9% 1, 150 50 000 ml @ 50 mls/hr IV . Q20H RUDY Rx#:[id number] Output: Urine 285 165 30 Other: Voiding Method Indwelling Catheter Indwelling Catheter Weight 90.4 kg Results 08/12/20 04:28 08/12/20 14:11 Cardiac Enzymes 08/11/20 08/12/20 Range/Units 16:58 04:28 AST 47 H 104 H (14-36) U/L CBC 08/11/20 08/12/20 Range/Units 19:02 04:28 WBC 15.3 H 11.7 H (3.8-10.6) k/uL RBC 3.70 L 3.63 L (3.80-5.40) m/uL Hgb 12.4 11.9 (11.4-16.0) gm/dL Hct 39.5 37.5 (34.0-46.0) % Plt Count 239 261 (150-450) k/uL Comprehensive Metabolic Panel 08/11/20 08/12/20 08/12/20 Range/Units 16:58 04:28 14:11 Sodium 137 136 L (137-145) mmol/L Potassium 4.6 4.4 4.8 (3.5-5.1) mmol/L Chloride 102 104 (98-107) mmol/L Carbon Dioxide 21 L 28 (22-30) mmol/L BUN 38 H 44 H (7-17) mg/dL Creatinine 1.44 H 1.48 H (0.52-1.04) mg/dL Glucose 254 H 139 H (74-99) mg/dL Calcium 9.3 8.6 (8.4-10.2) mg/dL AST 47 H 104 H (14-36) U/L ALT 35 H 73 H (4-34) U/L Alkaline Phosphatase 115 112 (38-126) U/L Total Protein 6.2 L 5.6 L (6.3-8.2) g/dL Albumin 3.2 L 2.7 L (3.5-5.0) g/dL Current Medications Generic Name Dose Route Start Last Admin Trade Name Freq PRN Reason Stop Dose Admin Acetaminophen 650 mg 08/07/20 05:19 08/07/20 05:25 Acetaminophen Tab 325 Mg Tab PO 650 mg Q4HR PRN Administration Fever and/ or Pain Hydrocodone Bitart/Acetaminophen 1 each 08/07/20 12:00 08/12/20 03:09 Hydrocodone/Apap 10-325mg 1 Each Tab PO 1 each 5XD PRN Administration Pain Albuterol Sulfate 4 puff 08/09/20 02:26 08/09/20 21:04 Albuterol Hfa Inhaler INHALATION 4 puff Q4H PRN Administration Shortness Of Breath Or Wheezing Albuterol Sulfate 2 puff 08/09/20 20:00 08/12/20 11:17 Albuterol Hfa Inhaler INHALATION 2 puff RT-TID RUDY Administration Apixaban 2.5 mg 08/06/20 23:00 08/12/20 08:00 Apixaban 2.5 Mg Tablet PO 2.5 mg BID RUDY Administration Ascorbic Acid 500 mg 08/09/20 15:15 08/12/20 08:00 Ascorbic Acid 500 Mg Tab PO 500 mg DAILY RUDY Administration Atorvastatin Calcium 80 mg 08/09/20 09:00 08/12/20 07:59 Atorvastatin 80 Mg Tab PO 80 mg DAILY RUDY Administration Cholecalciferol 25 mcg 08/09/20 15:15 08/12/20 08:00 Cholecalciferol 25 Mcg (1000 Iu) Tablet PO 25 mcg DAILY RUDY Administration Dexamethasone Sodium Phosphate 6 mg 08/07/20 16:45 08/12/20 07:59 Dexamethasone Sod Phosphate 10 Mg/Ml 1 Ml Vial IV 6 mg DAILY RUDY Administration Fluticasone Propionate 1 spray 08/06/20 22:49 Fluticasone 50mcg/[place] Nasal 16gm EA NOSTRIL DAILY PRN Allergy Symptoms Ceftriaxone Sodium 1 gm/ 50 mls @ 100 mls/hr 08/11/20 16:00 08/11/20 16:34 Sodium Chloride IVPB 100 mls/hr Q24H RUDY Administration Norepinephrine Bitartrate 4 mg 254 mls @ 15.554 mls/hr 08/11/20 16:15 08/12/20 09:44 / Sodium Chloride IV Not Given .[id number] RUDY Protocol 0.05 MCG/KG/MIN Sodium Chloride 1,000 mls @ 50 mls/hr 08/12/20 11:15 08/12/20 11:27 Saline 0.9% IV 50 mls/hr .Q20H RUDY Administration Amiodarone HCl 360 mg/ 200 mls @ 33.333 mls/hr 08/12/20 14:06 08/12/20 14:42 Dextrose/Water IV 08/12/20 20:05 1 mg/min .Q6H ONE 33.333 mls/hr Administration Protocol 1 MG/MIN Amiodarone HCl 450 mg/ 250 mls @ 16.667 mls/hr 08/12/20 20:07 Dextrose/Water IV 08/13/20 14:06 .Q15H RUDY Protocol 0.5 MG/MIN Magnesium Sulfate/Dextrose 1 100 mls @ 100 mls/hr 08/12/20 15:30 gm/ IV Solution IVPB 08/12/20 17:29 Q1H RUDY Insulin Aspart 0 unit 08/09/20 17:30 08/12/20 11:27 Insulin Aspart (Novolog) 100 Unit/Ml Vial SQ 1 unit ACHS RUDY Administration Protocol Isosorbide Mononitrate 30 mg 08/09/20 09:00 08/12/20 08:00 Isosorbide Mononitrate Er 30 Mg Tab.Er.24h PO 30 mg DAILY RUDY Administration Lorazepam 1 mg 08/12/20 09:39 08/12/20 11:31 Lorazepam 2 Mg/Ml Inj IV 1 mg Q6HR PRN Administration Anxiety Midodrine 10 mg 08/12/20 12:30 08/12/20 11:27 Midodrine 5 Mg Tab PO 10 mg AC-TID RUDY Administration Morphine Sulfate 4 mg 08/11/20 14:36 08/12/20 09:40 Morphine Sulfate 4 Mg/Ml Syringe IVP 4 mg Q4HR PRN Administration Pain Naloxone HCl 0.2 mg 08/06/20 22:44 Naloxone 0.4 Mg/Ml 1 Ml Vial IV Q2M PRN Opioid Reversal Zinc Sulfate 220 mg 08/09/20 15:15 08/12/20 08:00 Zinc Sulfate 220 Mg Cap PO 220 mg DAILY RUDY Administration Intake and Output 08/12/20 08/12/20 08/12/20 06:59 14:59 22:59 Intake Total 450 350 50 Output Total 285 165 30 Balance 165 185 20 Intake: IV 450 350 50 Dextrose 5% in Water 1, 450 200 000 ml @ 50 mls/hr IV . Q23H RUDY with Sodium Bicarb (1 Meq/ml) 150 ml Rx#:[id number] Sodium Chloride 0.9% 1, 150 50 000 ml @ 50 mls/hr IV . Q20H RUDY Rx#:[id number] Output: Urine 285 165 30 Other: Voiding Method Indwelling Catheter Indwelling Catheter Weight 90.4 kg 08/12/20 04:28 08/12/20 14:11
--- NOTE | 2020-08-12 15:30 | PN ---
PROGRESS NOTE DATE OF SERVICE: 08/12/2020 REASON FOR FOLLOWUP: COVID-19 pneumonia. INTERVAL HISTORY: The patient was transferred down to the ICU because of worsening respiratory status. The patient is currently on BiPAP dependent. Hemodynamically is stable thought. Patient remains to be anxious, but denies chest pain, abdominal pain and no diarrhea. PHYSICAL EXAMINATION: Blood pressure 107/70 with a pulse of 64, temperature 97.3. She is 90% on BiPAP. General description is an elderly female up in the bed in no distress. RESPIRATORY SYSTEM: Unlabored breathing, decreased intensity of breath sounds. No wheeze. HEART: S1, S2. Regular rate and rhythm. ABDOMEN: Soft, no tenderness. LABS: Hemoglobin is 11.9, white count 11.7, BUN of 44, creatinine 1.48. DIAGNOSTIC IMPRESSION AND PLAN: Patient with acute respiratory failure secondary to COVID-19 infection. The patient did receive a dose of Actemra yesterday and is currently being managed with Eliquis, zinc, dexamethasone and monitor clinical course closely. Continue supportive care. MMODL / IJN: [id number] / MTDD
--- NOTE | 2020-08-12 16:35 | PN ---
PROGRESS NOTE Patient is seen for followup for acute kidney injury associated with underlying COVID infection. Patient's renal function has improved, with creatinine down from 2.48 on initial admission to about 1.4 now. Patient was maintained on IV fluids. She is currently off of IV fluids. She has a solitary kidney with history of left nephrectomy. Patient was transferred to the ICU secondary to worsening respiratory status. She is currently maintained on BiPAP. She has had good urine output. PHYSICAL EXAMINATION: Blood pressure was 100/53, heart rate of about 70 per minute. Patient is afebrile. Examination shows no significant edema in lower extremities. Abdomen is soft, nontender. Lungs and heart are not examined. LICENSING REPRESENTATIVE exam shows patient is moving all 4 extremities. She is anxious. LABS: Sodium 136, potassium 4.4, BUN 44, creatinine 1.48, hemoglobin 11.9 g/dL. ASSESSMENT: 1. Acute kidney injury, acute tubular necrosis, with a component of volume depletion, currently improved post admission. Creatinine is staying about 1.4. Patient has a solitary kidney. UA suggests underlying urinary tract infection and urine culture is currently pending. No evidence of obstruction in the right kidney. 2. Status post left nephrectomy for renal cell cancer. 3. COVID pneumonia, currently maintained on BiPAP. 4. Chronic kidney disease, stage 3, with solitary kidney. Baseline creatinine 1.3 to 1.4 mg/dL. PLAN: Can discontinue the bicarb drip. Maintain patient on normal saline at about 50 mL/hour since she has not been eating. Repeat labs in a.m. MMTAINA / PRETTYN: [id number] /
[2020-08-12 18:07] LABS: Glucose,Whole Blood 215 mg/dL (75-99)
[2020-08-12] MEDS ORDERED: AMIODARONE 450 MG in DEXTROSE 5% IN WATER 250 ML IV SCH ×2 (20:07)
[2020-08-12] MEDS: HYDROmorphone 0.5 MG/0.5 ML SYRINGE IVP PRN (20:28)
[2020-08-12 23:30] LABS: Glucose,Whole Blood 181 mg/dL (75-99)
[2020-08-13] MEDS: HYDROmorphone 0.5 MG/0.5 ML SYRINGE IVP PRN ×3 (01:34→15:25)
[2020-08-13 05:34] LABS: Basophils % (A) 0 %; Eosinophils % (A) 0 %; HCT 38.4 % (34.0-46.0); Lymphocytes # (A) 0.4 k/uL (1.0-4.8); Lymphocytes % (A) 3 %; MCH 34.7 pg (25.0-35.0); MCHC 33.8 g/dL (31.0-37.0); MCV 102.6 fL (80.0-100.0); Macrocytosis Slight; Mean Platelet Volume 9.1; Monocytes # (A) 0.7 k/uL (0-1.0); Monocytes % (A) 5 %; Neutrophils # (A) 12.8 k/uL (1.3-7.7); Neutrophils % (A) 91 %; Platelet Count 239 k/uL (150-450); RBC 3.74 m/uL (3.80-5.40); RDW 14.6 % (11.5-15.5); WBC 14.1 k/uL (3.8-10.6)
[2020-08-13 05:47] LABS: Albumin 2.9 g/dL (3.5-5.0); Calcium 8.5 mg/dL (8.4-10.2); Magnesium 2.7 mg/dL (1.6-2.3); Phosphorus 4.9 mg/dL (2.5-4.5); Potassium 4.8 mmol/L (3.5-5.1); Total Bilirubin 0.6 mg/dL (0.2-1.3); Total Protein 6.1 g/dL (6.3-8.2)
[2020-08-13] MEDS: HYDROcodone/APAP 10-325MG 1 EACH TAB PO PRN (05:48)
[2020-08-13] MEDS: INSULIN ASPART (NovoLOG) 100 UNIT/ML VIAL SQ SCH ×3 (05:55→18:55)
[2020-08-13] MEDS: MIDODRINE 5 MG TAB PO SCH ×3 (06:55→17:23)
[2020-08-13] MEDS: SODIUM CHLORIDE 0.9% 1,000 ML IV SCH (06:56)
[2020-08-13] MEDS: DEXAMETHASONE SOD PHOSPHATE 10 MG/ML 1 ML VIAL IV SCH (07:35)
[2020-08-13] MEDS: CHOLECALCIFEROL 25 MCG (1000 IU) TABLET PO SCH ×2 (07:36→07:48)
[2020-08-13] MEDS: ZINC SULFATE 220 MG CAP PO SCH ×2 (07:36→07:48)
[2020-08-13] MEDS: ATORVASTATIN 80 MG TAB PO SCH ×2 (07:36→07:48)
[2020-08-13] MEDS: ISOSORBIDE MONONITRATE ER 30 MG TAB.ER.24H PO SCH (07:36)
[2020-08-13] MEDS: APIXABAN 2.5 MG TABLET PO SCH (07:36)
[2020-08-13] MEDS: ASCORBIC ACID 500 MG TAB PO SCH ×2 (07:36→07:47)
[2020-08-13] MEDS: ALBUTEROL HFA INHALER INHALATION SCH ×3 (08:07→19:21)
--- NOTE | 2020-08-13 08:31 | P.PN ---
Subjective HISTORY OF PRESENTING ILLNESS This is a pleasant 79-year-old female who follows in the office with Dr. Medina. She has a history of CAD with stenting of the LAD in 2008, chronic atrial fibrillation, hypertension, hyperlipidemia, borderline diabetes mellitus, neuropathy, cholecystectomy. Patient presented 08/06 secondary to nausea, vomiting, diarrhea and shortness breath. She was unable to keep any food down and had body aches and was found to have COVID-19 infection. She was placed on treatment for COVID-19 however has had worsened respiratory status currently on BiPAP, CT chest showing worsening bilateral infiltrates. Patient initially had acute kidney injury with creatinine 2.48 and this decreased to 1.2 however has increased up to 1.48 as of today. Her lactic acid has been as high as 6.4 and last one obtained last night was 3.0. Cardiology was consult that for approximately 30 seconds of ventricular fibrillation/torsades which occurred 08/12 at approximately 1:15 PM. She apparently was doing fine and then suddenly nurses noted V. fib. Upon review of telemetry patient had approximately 30 seconds of torsade point and then spontaneously broke into afib with bradycardia then normal rhythm. She was apparently somewhat more drowsy during this episode however no loss of pulses. Patient has somewhat been declining respiratory sterling however denies any chest pain, pressure. She does state she has "pain all over ". Patient's PaO2 is 78, pulse ox 94.8 on 100% FiO2 on BiPAP. EKG was obtained after V. fib episode with A. fib, left axis deviation, poor R-wave progression, diffuse nonspecific T-wave inversions V3 through 6 and lead 2 and aVF. Her QTC is noted to be prolonged at 513. An EKG showed somewhat similar prolonged QTC of 471. last echo from 12/14/2018 showed low normal ejection fraction 50-55%, mild mitral regurgitation. Repeat electrolytes are pending however yesterday's without any electrolyte abnormalities. 08/13 Patient seen and examined. Remains lethargic on BIPAP. No further ventricular ectopy since Vfib yesterday. Not able to answer questions appropriately. REVIEW OF SYSTEMS Unable to perform ROS PHYSICAL EXAMINATION Vitals reviewed CONSTITUTIONAL: Chronically ill appearing, lethargic on BIPAP, weak, obese HEENT: Head is normocephalic. Pupils are equal, round. Sclerae anicteric. Mucous membranes of the mouth are moist. No JVD. No carotid bruit. CHEST EXAMINATION: Lungs are clear to auscultation. No chest wall tenderness is noted on palpation or with deep breathing. HEART EXAMINATION: Irregular rate and rhythm. S1, S2 heard. No murmurs, gallops or rub. ABDOMEN: Soft, nontender. Positive bowel sounds. EXTREMITIES: 2+ peripheral pulses, no lower extremity edema and no calf tende rness. NEUROLOGIC EXAMINATION: Patient is somnolent however arousable and answering most questions appropriately. ASSESSMENT 1. V. fib/torsades 2. Prolonged QT 3. COVID-19 pneumonia 4. Acute on chronic hypoxic respiratory failure 5. Hypertension 6. Chronic atrial fibrillation 7. Coronary artery disease status post PCI 2008 8. Increased AST/ALT, may be shock liver from Vfib episode yesterday continue to trend PLAN Electrolytes remain stable other than phosphorous being mildly elevated. Increased AST and ALT noted, up to 876 and 574 over we will stop amiodarone. Check 2D echo. Troponin not drawn and we will add to blood in morning to rule out an ischemic etiology. Add small dose Metoprolol 12.5mg bid and monitor BP. Prognosis guarded. Objective - Vital Signs Vital signs: Vital Signs Temp 97.1 F L 08/13/20 08:00 Pulse 78 08/13/20 08:00 Resp 21 08/13/20 08:00 BP 102/53 08/13/20 08:00 Pulse Ox 90 L 08/13/20 08:00 Intake & Output 08/12/20 08/13/20 08/13/20 18:59 06:59 18:59 Intake Total 550 650 50 Output Total 285 310 20 Balance 265 340 30 Weight 93.1 kg Intake: IV 550 650 50 Dextrose 5% in Water 1, 200 000 ml @ 50 mls/hr IV . Q23H RUDY with Sodium Bicarb (1 Meq/ml) 150 ml Rx#:[id number] Sodium Chloride 0.9% 1, 350 650 50 000 ml @ 50 mls/hr IV . Q20H RUDY Rx#:[id number] Output: Urine 285 310 20 Other: Voiding Method Indwelling Catheter Indwelling Catheter Indwelling Catheter - Labs CBC & Chem 7: 08/13/20 03:58 08/13/20 03:58 Labs: Abnormal Lab Results - Last 24 Hours (Table) 08/12/20 08/12/20 08/12/20 Range/Units 11:12 14:34 18:06 WBC (3.8-10.6) k/uL RBC (3.80-5.40) m/uL MCV (80.0-100.0) fL Neutrophils # (1.3-7.7) k/uL Lymphocytes # (1.0-4.8) k/uL ABG pO2 78 L (83-108) mmHg ABG HCO3 27 H (21-25) mmol/L ABG Total CO2 28 H (19-24) mmol/L BUN (7-17) mg/dL Creatinine (0.52-1.04) mg/dL Glucose (74-99) mg/dL POC Glucose (mg/dL) 150 H 215 H (75-99) mg/dL Phosphorus (2.5-4.5) mg/dL Magnesium (1.6-2.3) mg/dL AST (14-36) U/L ALT (4-34) U/L Alkaline Phosphatase (38-126) U/L Total Protein (6.3-8.2) g/dL Albumin (3.5-5.0) g/dL 08/12/20 08/13/20 08/13/20 Range/Units 23:29 03:58 03:58 WBC 14.1 H (3.8-10.6) k/uL RBC 3.74 L (3.80-5.40) m/uL MCV 102.6 H (80.0-100.0) fL Neutrophils # 12.8 H (1.3-7.7) k/uL Lymphocytes # 0.4 L (1.0-4.8) k/uL ABG pO2 (83-108) mmHg ABG HCO3 (21-25) mmol/L ABG Total CO2 (19-24) mmol/L BUN 60 H (7-17) mg/dL Creatinine 1.50 H (0.52-1.04) mg/dL Glucose 159 H (74-99) mg/dL POC Glucose (mg/dL) 181 H (75-99) mg/dL Phosphorus 4.9 H (2.5-4.5) mg/dL Magnesium 2.7 H (1.6-2.3) mg/dL AST 876 H (14-36) U/L ALT 574 H (4-34) U/L Alkaline Phosphatase 139 H (38-126) U/L Total Protein 6.1 L (6.3-8.2) g/dL Albumin 2.9 L (3.5-5.0) g/dL Microbiology - Last 24 Hours (Table) 08/12/20 18:00 Gram Stain - Preliminary Sputum Sputum Culture - Preliminary 08/11/20 19:02 Blood Culture - Preliminary Blood No Growth after 24 hours 08/11/20 16:50 Urine Culture - Final Urine,Clean Catch 08/11/20 16:58 Blood Culture - Preliminary Blood No Growth after 24 hours 08/10/20 15:00 Gram Stain - Final Sputum Sputum Culture - Final
[2020-08-13] MEDS ORDERED: METOPROLOL TARTRATE 12.5 MG TAB PO SCH (09:00)
--- NOTE | 2020-08-13 09:19 | XR ---
EXAMINATION TYPE: XR chest 1V portable DATE OF EXAM: 08/13/2020 COMPARISON: Chest x-ray dated 08/12/2020 HISTORY: Covid pneumonia TECHNIQUE: Single frontal view of the chest is obtained. FINDINGS: Bilateral airspace disease shows possible improvement, patient appears kyphotic however. H ead overlies the upper chest. No evident pneumothorax or pleural effusion. There are overlying artifa cts. Cardiac mediastinal silhouette is likely stable. IMPRESSION: Findings consistent with patient's history of pneumonia. Limitations as described.
[2020-08-13 12:07] LABS: Glucose,Whole Blood 171 mg/dL (75-99)
--- NOTE | 2020-08-13 13:00 | ECHOF ---
Referral Reason:re: vfib MEASUREMENTS -------- HEIGHT: 157.5 cm WEIGHT: 90.3 kg BP: RVIDd: 4.0 cm (< 3.3) IVSd: 1.3 cm (0.6 - 1.1) LVIDd: 4.2 cm (3.9 - 5.3) LVPWd: 1.3 cm (0.6 - 1.1) IVSs: 1.4 cm LVIDs: 3.7 cm LVPWs: 1.8 cm LAESV Index (A-L): 34.64 ml/m Ao Diam: 2.8 cm (2.0 - 3.7) AV Cusp: 1.6 cm (1.5 - 2.6) LA Diam: 3.4 cm (2.7 - 3.8) MV EXCURSION: 10.412 mm (> 18.000) MV EF SLOPE: 88 mm/s (70 - 150) EPSS: 1.2 cm MV E Gordon: 0.96 m/s MV DecT: 244 ms MV A Gordon: 0.31 m/s MV E/A Ratio: 3.06 RAP: 5.00 mmHg RVSP: 34.71 mmHg FINDINGS -------- This was a technically difficult study with suboptimal views. The left ventricular size is normal. There is mild concentric left ventricular hypertrophy. Overa ll left ventricular systolic function is severely impaired with, an EF between 25 - 30 %. Increased LAP Grade 2 Diastolic Dysfunction. The right ventricle is moderately enlarged. LA is moderately dilated 34-39 ml/m2 RA appears enlarged. Lumason used The aortic valve is trileaflet and appears structurally normal. The mitral valve is normal. [id number] mitral regurgitation is present. The tricuspid valve appears structurally normal. [id number] tricuspid regurgitation present. There is mild pulmonary hypertension. The right ventricular systolic pressure, as measured by Dop pler, is 34.71mmHg. There is no pulmonic regurgitation present. The aortic root size is normal. IVC Not well visulized. There is no pericardial effusion. CONCLUSIONS -------- 1. The left ventricular size is normal. 2. There is mild concentric left ventricular hypertrophy. 3. Overall left ventricular systolic function is severely impaired with, an EF between 25 - 30 %. 4. Increased LAP Grade 2 Diastolic Dysfunction. 5. The right ventricle is moderately enlarged. 6. LA is moderately dilated 34-39 ml/m2 7. RA appears enlarged. 8. Ehyv-hh-muhwwxxm mitral regurgitation is present. 9. Yjid-kl-jiahfbns tricuspid regurgitation present. 10. There is mild pulmonary hypertension. 11. The right ventricular systolic pressure, as measured by Doppler, is 34.71mmHg. 12. There is no pericardial effusion. COMB TENDER: Renee Chawla RDCS
[2020-08-13 13:44] VITALS: TEMP 98.2
--- NOTE | 2020-08-13 13:52 | P.PN ---
Subjective Progress Note Date: 08/13/20 Principal diagnosis: Acute hypoxic respiratory failure secondary to COVID-19 pneumonitis. 79-year-old female patient, presented to the hospital because of nausea vomiting and diarrhea and some shortness of breath. Apparently the patient was unable to hold down any food or water or medication. She was having diffuse body aches. No abdominal pain. The patient was tested and she checked positive for COVID-19 infection. As such, she was hospitalized and she was started on IV fluids. In the emergency department, the patient was afebrile and she was hemodynamic is stable with a pulse ox of 94%. The patient was found to have an acute kidney injury and intravascular volume depletion/dehydration. She was started on IV fluids. She was also given Zofran. The patient had a white cell count of 6.9 with a hemoglobin of 14.5. BUN was 43 with a creatinine of 2.4. The liver function tests are normal with an AST of 68, ALT of 36, alkaline phosphatase was normal at 108, LDH level was 1168 and the CRP level was at 1. Serum bicarb was normal, electrolytes were normal, COVID-19 testing by PCR came back positive. Coagulation profile was also normal. Chest x-ray was normal without any acute cardio pulmonary abnormalities. In terms of oxygenation, the patient was on 2 L of oxygen by nasal cannula with saturation of 97%. No reported oxygen desaturation. On today's evaluation of 08/08/2020, the patient is doing well. No specific complaints. Pulmonary status is stable. No worsening shortness of breath. She is still on 2 L of oxygen by nasal cannula. He is on IV fluids. Creatinine is improving and currently the creatinine is down to 1.7. The rest of the e lectrolytes are all within normal limits. The patient is pulse oxing 95% on 2 L about 2 by nasal cannula. She is afebrile. Her night was uneventful and the patient is doing well for now. The patient is Decadron 6 mg IV every 24 hours. The patient is on Eliquis 2.5 mg by mouth twice a day as the patient takes long- term anticoagulation. IV fluids are running 75 mL an hour normal saline. Progress note dated 08/10/2020. 79-year-old female, with a diagnosis of coronavirus infection, and possible pneumonia/pneumonitis. The patient has been having symptoms for 10-12 days. She's currently on 4 L nasal cannula. She's not receiving any IV fluids. The patient states that she is feeling a bit better. When she was seen by my partner, the patient was only on 2 L nasal cannula. She does feel short of breath when she exerts herself. White count is 9.92, hemoglobin 11.4, hematocrit 34.4, and platelet count 167,000. Chest CT done yesterday, does reveal diffuse bilateral infiltrates, groundglass appearance, consistent with COVID 19 pneumonitis. Progress note dated 08/11/2020. 79-year-old female, the diagnosis of COVID 19 pneumonia, with hypoxemic respiratory failure. Currently, the patient's on BiPAP at 12/6 and 80%. She's uncomfortable and she wants a mask. I told respiratory to apply some high flow nasal O2 to her. The patient's saturations are 95%. KVO. Chest CT done 2 days ago shows diffuse bilateral infiltrates, which are groundglass appearance, consistent with coronavirus pneumonia. Blood gases show pO2 of 83, pCO2 34, and a pH is 7.42. That's on 80%. Sodium 136, potassium 4.5, chlorides 103, CO2 21, anion gap 12, BUN and creatinine were 35 and 1.1 respectively. Lactic acid is 4.9. Chest x-ray today shows diffuse bilateral airspace disease. This could be consistent with atypical/viral pneumonia or fluid overload. Reevaluated today on 08/12/2020, we saw the patient yesterday briefly when she was transferred to the intensive care unit. She was seen yesterday by Dr. nguyen earlier in the day yesterday, however her pulmonary status deteriorated and she required BiPAP, required higher FiO2, she was getting extremely short of breath, and her chest x-ray as well as her CT of the chest showed worsening bilateral infiltrates secondary to COVID-19 pneumonia. Patient was noted to develop worsening metabolic acidosis, hence I transferred the patient to the ICU, kept her on BiPAP, placed on bicarb drip, she was also given bicarb. And she is presently on 80% FiO2, IPAP of 12 and EPAP of 6, remains on sodium bicarb drip and will change FiO2 to 75%, may even consider placing the patient on airvo at high FiO2 and high flow. Patient is in A. fib but her rate seems to be fairly well controlled. Seems to be moaning and groaning, but not truly in severe distress at present while on BiPAP. After lites are normal bicarb is up to 28, BUN is 44 creatinine is 1.48. WBC count is 11.7 hemoglobin is 11.9. Urine culture is pending, however the patient is empirically on Rocephin. Chest x-ray showed bilateral air space disease consistent with COVID-19 normal Patient was reevaluated today on 08/13/2020, patient remains on BiPAP, she is in the ICU, she is now on IPAP of 12 and EPAP of 600% FiO2, and her O2 sat showed 96%. Patient went on amiodarone last night because nonsustained ventricular fibrillation. A search with hypotension. Remains in atrial fibrillation today, she is confused, agitated, moaning and groaning. CODE STATUS has been changed to DO NOT RESUSCITATE, and I believe the family is considering comfort care measures on this patient. Patient was seen by cardiology for her cardiac arrhythmia. Overall the patient is not a great energy count is 14.1 hemoglobin is 13. Chest x-ray continues to show evidence of bilateral pneumonia consistent with COVID-19 pneumonia. Echocardiogram showed LV dysfunction with ejection fraction of 25%. And mild to moderate mitral regurgitation. Ju[employer] Officer felt that the patient had ventricular fibrillation/torsade, added metoprolol 12.5 mg twice a day patient was also noted to have prolonged QTc interval. Objective - Vital Signs Vital signs: Vital Signs Temp 97.1 F L 08/13/20 08:00 Pulse 78 08/13/20 08:00 Resp 21 08/13/20 08:00 BP 102/53 08/13/20 08:00 Pulse Ox 90 L 08/13/20 08:00 Intake & Output 08/12/20 08/13/20 08/13/20 18:59 06:59 18:59 Intake Total 550 650 300 Output Total 285 310 150 Balance 265 340 150 Weight 93.1 kg Intake: IV 550 650 300 Dextrose 5% in Water 1, 200 000 ml @ 50 mls/hr IV . Q23H [facility] with Sodium Bicarb (1 Meq/ml) 150 ml Rx#:[id number] Sodium Chloride 0.9% 1, 350 650 300 000 ml @ 50 mls/hr IV . Q20H [facility] Rx#:[id number] Output: Urine 285 310 150 Other: Voiding Method Indwelling Catheter Indwelling Catheter Indwelling Catheter - Exam Physical Exam: Revealed 79-year-old female obese, on BiPAP, moaning and groaning, but does not seem to be in distress Head: Atraumatic, normocephalic. HEENT:[Neck is supple.] [No neck masses.] [No thyromegaly.] [No JVD.] Chest: [Fine crackles at the bases, no rhonchi no wheezes. Symmetrical chest expansion. Cardiac Exam: Irregular irregular rhythm. [Normal S1 and S2, no S3 gallop, no murmur.] Abdomen: Obese, [Soft, nontender, no megaly, no rebound, no guarding, normal bowel sounds.] Extremities: [No clubbing, race of bipedal edema, no cyanosis.] Neurological Exam: [No focal neurologic deficit.] Alert and oriented 3. Psychiatric: Anxious mood, blunt affect, normal mental status examination. Skin: No rashes. - Labs CBC & Chem 7: 08/13/20 03:58 08/13/20 03:58 Labs: Abnormal Lab Results - Last 24 Hours (Table) 08/12/20 08/12/20 08/12/20 Range/Units 14:34 18:06 23:29 WBC (3.8-10.6) k/uL RBC (3.80-5.40) m/uL MCV (80.0-100.0) fL Neutrophils # (1.3-7.7) k/uL Lymphocytes # (1.0-4.8) k/uL ABG pO2 78 L (83-108) mmHg ABG HCO3 27 H (21-25) mmol/L ABG Total CO2 28 H (19-24) mmol/L BUN (7-17) mg/dL Creatinine (0.52-1.04) mg/dL Glucose (74-99) mg/dL POC Glucose (mg/dL) 215 H 181 H (75-99) mg/dL Phosphorus (2.5-4.5) mg/dL Magnesium (1.6-2.3) mg/dL AST (14-36) U/L ALT (4-34) U/L Alkaline Phosphatase (38-126) U/L Troponin I (0.000-0.034) ng/mL Total Protein (6.3-8.2) g/dL Albumin (3.5-5.0) g/dL 08/13/20 08/13/20 08/13/20 Range/Units 03:58 03:58 08:48 WBC 14.1 H (3.8-10.6) k/uL RBC 3.74 L (3.80-5.40) m/uL MCV 102.6 H (80.0-100.0) fL Neutrophils # 12.8 H (1.3-7.7) k/uL Lymphocytes # 0.4 L (1.0-4.8) k/uL ABG pO2 (83-108) mmHg ABG HCO3 (21-25) mmol/L ABG Total CO2 (19-24) mmol/L BUN 60 H (7-17) mg/dL Creatinine 1.50 H (0.52-1.04) mg/dL Glucose 159 H (74-99) mg/dL POC Glucose (mg/dL) (75-99) mg/dL Phosphorus 4.9 H (2.5-4.5) mg/dL Magnesium 2.7 H (1.6-2.3) mg/dL AST 876 H (14-36) U/L ALT 574 H (4-34) U/L Alkaline Phosphatase 139 H (38-126) U/L Troponin I 0.111 H* (0.000-0.034) ng/mL Total Protein 6.1 L (6.3-8.2) g/dL Albumin 2.9 L (3.5-5.0) g/dL 08/13/20 Range/Units 12:05 WBC (3.8-10.6) k/uL RBC (3.80-5.40) m/uL MCV (80.0-100.0) fL Neutrophils # (1.3-7.7) k/uL Lymphocytes # (1.0-4.8) k/uL ABG pO2 (83-108) mmHg ABG HCO3 (21-25) mmol/L ABG Total CO2 (19-24) mmol/L BUN (7-17) mg/dL Creatinine (0.52-1.04) mg/dL Glucose (74-99) mg/dL POC Glucose (mg/dL) 171 H (75-99) mg/dL Phosphorus (2.5-4.5) mg/dL Magnesium (1.6-2.3) mg/dL AST (14-36) U/L ALT (4-34) U/L Alkaline Phosphatase (38-126) U/L Troponin I (0.000-0.034) ng/mL Total Protein (6.3-8.2) g/dL Albumin (3.5-5.0) g/dL Microbiology - Last 24 Hours (Table) 08/12/20 18:00 Gram Stain - Preliminary Sputum Sputum Culture - Preliminary 08/11/20 19:02 Blood Culture - Preliminary Blood No Growth after 24 hours 08/11/20 16:50 Urine Culture - Final Urine,Clean Catch 08/11/20 16:58 Blood Culture - Preliminary Blood No Growth after 24 hours 08/10/20 15:00 Gram Stain - Final Sputum Sputum Culture - Final Assessment and Plan Assessment: Impression: Acute hypoxic respiratory failure secondary to COVID-19 pneumonia. Patient is requiring BiPAP, and the relatively high FiO2. Acute dehydration with nausea and vomiting related to her fam virus infection. Acute kidney injury. Chronic atrial fibrillation. History of previous nephrectomy secondary to kidney cancer. Benign essential hypertension. Dyslipidemia. Ventricular fibrillation, possible torsade, being addressed by cardiology. Recommendation: Continue present supportive care measures. Continue BiPAP. Consider transferring the patient to a cardiac floor since the patient is DO NOT RESUSCITATE CODE STATUS, Consider discussing with the family comfort care measures. Suspect acute urinary tract infection, cultures are pending, patient is empirically on Rocephin. Patient did receive anticoagulation therapy, remains on Eliquis. Continue the COVID-19 cocktail. Including Decadron 6 mg IV push daily Patient was out of the window for REM, patient did receive toci, prognosis is extremely poor.
--- NOTE | 2020-08-13 14:55 | CDI ---
Documentation Clarification Form Date: 08/13/2020 02:40:31 PM From: Rosanna Edouard CCS, CCDS Admit Date: 08/09/2020 01:33:00 PM Patient Name: Maite Garces Visit Number: [id number] Discharge Date: ATTENTION: The Clinical Documentation Specialists (CDI) and [facility] Coding Staff appreciate your assistance in clarifying documentation. Please respond to the clarification below the line at the bottom and electronically sign. The CDI & [facility] Coding staff will review the response and follow-up if needed. Please note: Queries are made part of the Legal Health Record. If you have any questions, please contact the author of this message via ITS. Dr. Alfa Guaman: The patient presented with the following clinical indicators. Additional clarification regarding the etiology/cause of the clinical indicators is requested. History/Risk Factors per the 08/07 H/P Past Medical History: Atrial Fibrillation, Chest pain/Angina, Diabetes Mellitus, GERD, Hyperlipidemia, Hypertension, Osteoarthritis, Pneumonia, Kidney Cancer status post Nephrectomy & C Diff. Clinical Indicators: Presented to the ED on 08/06 with Nausea, vomiting, diarrhea & SOB, chills, body aches, bilateral flank pain. Admitted to an Observation Status for Acute Kidney Injury & COVID 19. 08/06 VS: 98.2 (08/07: 100.2), P 85, R 18, BP 139/68, PO 94 RA - 96 2Lc, BMI: 37.5 08/06 LAB: WBC 6.9, Neut 5.4, Lymph 0.7, BUN 43, Cr 2.48, Lactic Acid 1.4, AST 68, ALT 36, LDH 1168, CRP 1.0 08/06 COVID POSITIVE 08/06 CXR: No heart failure of pneumonic infiltrate. Treatment: IV Zofran, IV fluid 1,000 mls @ 999 mls/hr q1H x1, 08/09 Inpatient Admission: Per the 08/09 Attending Progress Note: Acute COVID 19 and Acute Hypoxic Respiratory Failure 08/09 VS: T 97.6, P 68 - 80, R 18, BP 107/66, PO 92 4Lnc 08/09 LAB: D Dimer 0.28, BUN 36, Cr 1.43, Total Protein 5.9, Albumin 2.9. 08/08 UA: Cloudy, 1+ protein, 1+ glucose, Sm blood, Positive Nitrite, Large Esterase, WBC 154 08/09 CXR: Probable pneumonia. Treatment: po Ativan, INH Ventolin, IV Rocephin 08/11 LAB: WBC 15.3, Neut 14.0, Lymph 0.33, Lactic Acid 2.9, 6.4, 3.0. 08/11 Blood gas: ABG: pH 7.28, pCO2 34, HCO3 16, Total CO2 17 Treatment: IV Morphine, IV Ativan, IV Lasix, IV Actemra, IV Rocephin, IV Dextrose/Water w/Na Bicarb, BiPAP. In your professional opinion, please clarify if these findings signify one of the following conditions: [ ] Sepsis POA [ ] Sepsis, Not POA [ ] Sepsis ruled out [ ] Severe Sepsis with organ failure [ ] Septic Shock [ ] Other, please specify [ ] Unable to determine (Template Last Reviewed: May 2020) Sepsis POA MTDD
[2020-08-13] MEDS ORDERED: HYDROmorphone 0.5 MG/0.5 ML SYRINGE IVP PRN (15:26)
--- NOTE | 2020-08-13 15:35 | PN ---
PROGRESS NOTE DATE OF SERVICE: 08/13/2020 This 79-year-old woman was admitted with significant COVID-19 infection pneumonia initially had GI features, but the patient has taken a turn for the worse and monitored in the ICU. The patient also had an episode of atrial fibrillation. Patient will be closely monitored. Patient also had significant pain issues as well. The patient is confused. Multiple consultants are following the patient closely. The patient received tocilizumab. PAST MEDICAL HISTORY: Reviewed. REVIEW OF SYSTEMS: Review of system could not be taken, the patient is confused. CURRENT MEDICATIONS: Current medications are reviewed and include: Tylenol, Ventolin, Eliquis, vitamin C, Rocephin Ativan, Levophed, ProAmatine, zinc oxide. PHYSICAL EXAMINATION: Patient is confused. Pulse 78, blood pressure 102/52, respiration 21, temperature 97.1, pulse ox 98% on BiPAP. HEENT: Conjunctivae normal. NECK: No jugular venous distention. CARDIOVASCULAR: S1, S2 muffled. RESPIRATORY: Breath sounds diminished at the bases. A few scattered rhonchi and crackles. ABDOMEN: Soft, obese, nontender. LEGS: No edema, no swelling. NERVOUS SYSTEM: Higher function as mentioned earlier. Moves all 4 limbs. No focal motor or sensory deficits. LYMPHATICS: No lymphadenopathy of the neck, axillae or groin. SKIN: No ulcer, rash or bleeding. JOINTS: No active deforming arthropathy. LABS: WBC 14.1, hemoglobin 13, sodium 137, potassium 4.8, creatinine is 1.50. AST 876, ALT is 574. Troponin 0.111. ASSESSMENT: 1. Acute COVID-19 infection with acute bilateral interstitial pneumonia with acute hypoxic respiratory failure on BiPAP. 2. Acute renal failure with acute tubular necrosis with possibly chronic kidney disease stage 3 baseline. 3. Hypokalemia. 4. Elevated AST, ALT possibly secondary to COVID-19. 5. Early multiorgan dysfunction. 6. Acute on chronic pain syndrome. 7. Acute urinary tract infection, present on admission. 8. Elevated inflammatory markers of COVID-19. 9. Increased MCV. 10.Lymphopenia. 11.History atrial fibrillation. 12.History of diabetes mellitus type 2. 13.Gastroesophageal reflux disease. 14.Hypertension. 15.Hyperlipidemia. 16.History of degenerative joint disease. 17.History of pneumonia. 18.History of gout. 19.History of peripheral neuropathy. 20.History of migraine. 21.History of kidney cancer. 22.History of Clostridium difficile colitis. 23.History of coronary artery disease, stent. 24.History of bilateral cataracts. 25.Obesity with body mass index of 32.9. 26.FULL CODE. RECOMMENDATIONS AND DISCUSSION: Recommend to continue current medications, continues treatment. Otherwise at this time, Dr. Emery has recommended comfort measures. We will talk with the family and with the family will continue with comfort measures. Prognosis is extremely guarded because of multiple complex medical issues. A copy of this dictation is being forwarded to Dr. Miramontes who is the primary physician. This patient admitted with COVID-19, but had developed multiple complications and worsening day-by-day and not responding to the aggressive treatment including transfer to ICU and involvement with multiple consultants. As mentioned earlier, prognosis extremely guarded. Further recommendations to follow. Please refer to the multiple notes for information. MMODL / IJN: [id number] / [email or web address]
[2020-08-13] MEDS: NOREPINEPHRINE 4 MG in SODIUM CHLORIDE 0.9% 250 ML IV SCH (15:59)
[2020-08-13 17:13] VITALS: BP 104/77; PULSE 68; RESP 18
--- NOTE | 2020-08-13 17:59 | PN ---
PROGRESS NOTE Patient is seen for followup for acute kidney injury associated with underlying COVID infection and some degree of volume depletion on initial admission. Renal function has improved; however, patient's respiratory status has declined. She is currently NO CODE, NO INTUBATION code status. She is maintained on BiPAP. PHYSICAL EXAMINATION: On examination this morning, blood pressure was 114/67, heart rate 82 per minute. She is afebrile. The patient is confused. She does respond to some degree to verbal stimuli but does not follow commands. Abdomen is soft, nontender. Examination of lower extremities shows trace edema. LABS: Sodium 137, potassium 4.8, chloride 104, BUN 60, serum creatinine 1.5, hemoglobin 13.0 g/dL. ASSESSMENT: 1. Acute kidney injury, acute tubular necrosis and some degree of volume depletion on initial admission. Patient also has a solitary kidney with history of left nephrectomy. Renal function has improved and currently fairly stable. 2. Status post left nephrectomy of renal cell cancer. 3. COVID pneumonia, currently on BiPAP with worsening respiratory status, currently NO CODE NO INTUBATION code status. 4. Chronic kidney disease, stage 3B, with solitary kidney. Baseline creatinine 1.3 to 1.4. PLAN: Continue with the saline at 50 mL/hour. Overall prognosis is guarded. Continue with empiric antibiotics. Continue with the steroids. MMODL / IJN: [id number] /
--- NOTE | 2020-08-14 00:03 | P.PN ---
Progress Note - Text Progress Note Date: 08/13/20 REASON FOR FOLLOWUP: COVID-19 pneumonia. INTERVAL HISTORY: The patient remains to be afebrile .The patient is currently on BiPAP dependent. Hemodynamically is stable, did have issues with cardiac arrhythmia. Patient remains to be anxious, but denies chest pain, abdominal pain and no diarrhea. PHYSICAL EXAMINATION: Blood pressure 110/70 with a pulse of 64, temperature 97.3. She is 90% on BiPAP. General description is an elderly female up in the bed in no distress. RESPIRATORY SYSTEM: Unlabored breathing, decreased intensity of breath sounds. No wheeze. HEART: S1, S2. Regular rate and rhythm. ABDOMEN: Soft, no tenderness. LABS: reviewed DIAGNOSTIC IMPRESSION AND PLAN: Patient with acute respiratory failure secondary to COVID-19 infection. The patient did receive a dose of Actemra and is currently being managed with Eliquis, zinc, dexamethasone, with cardiac arrthymia and worsening status , possible palliative care is being considered by family.
--- NOTE | 2020-08-15 01:00 | DS ---
DISCHARGE SUMMARY DATE OF SERVICE: 08/14/2020. PRIMARY CAUSE OF : Acute COVID-19 infection with acute bilateral interstitial pneumonia with acute hypoxic respiratory failure on BiPAP. OTHER DIAGNOSES: 1. Acute renal failure with acute tubular necrosis with possibly chronic kidney stage 3 baseline. 2. Hypokalemia. 3. Elevated AST/ALT possibly secondary to Covid 19. 4. Yearly multiorgan dysfunction. 5. Acute on chronic pain syndrome. 6. Acute urinary tract infection present on admission. 7. Elevated inflammatory markers of COVID-19. 8. Increased MCV. 9. Lymphopenia. 10.History of atrial fibrillation. 11.History of diabetes type 2. 12.Gastroesophageal reflux disease. 13.Hypertension. 14.Hyperlipidemia. 15.History of degenerative joint disease. 16.History of pneumonia. 17.History of gout. 18.History of peripheral neuropathy. 19.History of migraines. 20.History of kidney cancer. 21.History of Clostridium difficile colitis. 22.History of coronary artery disease, stent. 23.History of bilateral cataracts. 24.Obesity with body mass index of 32.9. 25.FULL CODE. HISTORY OF PRESENT ILLNESS: This 79-year-old woman with a past medical history of multiple medical problems, being followed by Dr. Miramontes in the outpatient setting, admitted with acute Covid 19 infection with acute bilateral interstitial pneumonia and acute hypoxic respiratory failure. The patient was closely monitored. Despite intensive treatment, the patient's condition worsened and the patient was monitored in ICU. Patient did not improve. Patient was on BiPAP and because of lack of improvement, the case discussed by the Pulmonary team with the family and the family decided to go with hospice and comfort measures. Patient succumbed to her above mentioned complex medical illnesses. During the hospitalization, patient's condition remained extremely critical and please refer to the multiple progress notes and consultations for further details. MMODL / IJN: [id number] /
== END 2020-08-13 21:03 | disposition hospice, inpatient (51) | DRG 871 ==
LOC: EC 20:41 → 4SSUR 22:44 → 6NMEDSUR 08-07 14:48 → OBSVTOIN 08-09 13:33 → 2SICU 08-11 15:55 → 4SSUR 08-13 19:59
PROVIDERS: ADMIT Internal Medicine; ATTEND Internal Medicine
PROC: 3E0333Z Introduction of Anti-inflammatory into Peripheral Vein, Percutaneous Approach (ICD-10-PCS; 2020-08-07)
PROC: 5A09557 Assistance with Respiratory Ventilation, Greater than 96 Consecutive Hours, Continuous Positive Airway Pressure (ICD-10-PCS; 2020-08-09)
PROC: XW033H5 Introduction of Tocilizumab into Peripheral Vein, Percutaneous Approach, New Technology Group 5 (ICD-10-PCS; principal; 2020-08-11)
PROC: 5A0935A Assistance with Respiratory Ventilation, Less than 24 Consecutive Hours, High Flow/Velocity Cannula (ICD-10-PCS; 2020-08-11)
PROC: 3E033XZ Introduction of Vasopressor into Peripheral Vein, Percutaneous Approach (ICD-10-PCS; 2020-08-11)
DX: A41.89 Other specified sepsis (principal); U07.1 COVID-19; J12.82 Pneumonia due to coronavirus disease 2019; N17.0 Acute kidney failure with tubular necrosis; J96.21 Acute and chronic respiratory failure with hypoxia; I49.01 Ventricular fibrillation; I48.20 Chronic atrial fibrillation, unspecified; M48.56XA Collapsed vertebra, not elsewhere classified, lumbar region, initial encounter for fracture; Z51.5 Encounter for palliative care; N39.0 Urinary tract infection, site not specified; A08.39 Other viral enteritis; E87.2 Acidosis; E11.22 Type 2 diabetes mellitus with diabetic chronic kidney disease; E11.36 Type 2 diabetes mellitus with diabetic cataract; E11.42 Type 2 diabetes mellitus with diabetic polyneuropathy; Z66 Do not resuscitate; E87.70 Fluid overload, unspecified; E86.0 Dehydration; D72.810 Lymphocytopenia; E87.6 Hypokalemia; I12.9 Hypertensive chronic kidney disease with stage 1 through stage 4 chronic kidney disease, or unspecified chronic kidney disease; I25.10 Atherosclerotic heart disease of native coronary artery without angina pectoris; G43.909 Migraine, unspecified, not intractable, without status migrainosus; N28.1 Cyst of kidney, acquired; E78.5 Hyperlipidemia, unspecified; K21.9 Gastro-esophageal reflux disease without esophagitis; I34.0 Nonrheumatic mitral (valve) insufficiency; G89.4 Chronic pain syndrome; M10.9 Gout, unspecified; M19.90 Unspecified osteoarthritis, unspecified site; E66.9 Obesity, unspecified; Z68.32 Body mass index [BMI] 32.0-32.9, adult; Z90.49 Acquired absence of other specified parts of digestive tract; Z95.5 Presence of coronary angioplasty implant and graft; Z90.710 Acquired absence of both cervix and uterus; Z90.5 Acquired absence of kidney; Z98.42 Cataract extraction status, left eye; Z98.41 Cataract extraction status, right eye; Z88.5 Allergy status to narcotic agent; Z88.8 Allergy status to other drugs, medicaments and biological substances; Z79.899 Other long term (current) drug therapy; Z79.01 Long term (current) use of anticoagulants; Z79.84 Long term (current) use of oral hypoglycemic drugs; Z85.528 Personal history of other malignant neoplasm of kidney; Z87.01 Personal history of pneumonia (recurrent); Z86.19 Personal history of other infectious and parasitic diseases; Z83.3 Family history of diabetes mellitus; Z80.41 Family history of malignant neoplasm of ovary; Z83.2 Family history of diseases of the blood and blood-forming organs and certain disorders involving the immune mechanism; N18.32 Chronic kidney disease, stage 3b; E11.40 Type 2 diabetes mellitus with diabetic neuropathy, unspecified
CPT/HCPCS: 36415; 36600; 71045; 71046; 71250; 76770; 80048; 80053; 81001; 82533; 82728; 82805; 83605; 83615; 83735; 83880; 84100; 84132; 84145; 84484; 85025; 85379; 85610; 85730; 86140; 87040; 87070; 87086; 87205; 87635; 93005; 93306; 94640; 94660; 94760; 96374; 99285

== ENCOUNTER 2020-08-13 18:32 | Inpatient (IN) | payer MEDICAID ==
[2020-08-13] MEDS ORDERED: ONDANSETRON 4 MG/2 ML VIAL IVP PRN (18:34)
[2020-08-13] MEDS ORDERED: LORazepam 2 MG/ML INJ IV PRN (18:34)
[2020-08-13] MEDS ORDERED: GLYCOPYRROLATE 0.2 MG/ML 2 ML VIAL IVP PRN (18:34)
[2020-08-13] MEDS ORDERED: ACETAMINOPHEN SUPPOSITORY 650 MG SUPP RECTAL PRN (18:34)
[2020-08-13] MEDS ORDERED: MORPHINE SULFATE 2 MG/ML SYRINGE IV PRN (18:34)
[2020-08-13] MEDS ORDERED: ATROPINE OPHTH SOLN 1% 5ML BTL SUBLINGUAL PRN (18:34)
[2020-08-13] MEDS ORDERED: MORPHINE SULFATE (100 MG/2 ML) 100 MG in SODIUM CHLORIDE 0.9% 100 ML IV SCH (19:00)
[2020-08-13] MEDS ORDERED: SCOPOLAMINE 1.5MG/72HR PATCH TRANSDERM SCH (19:00)
== END 2020-08-14 07:32 | disposition expired | DRG 951 ==
LOC: UNDOADMIN 21:03 → 4SSUR 21:03
PROVIDERS: ADMIT Internal Medicine; ATTEND Internal Medicine
DX: Z51.5 Encounter for palliative care (principal); U07.1 COVID-19; J12.82 Pneumonia due to coronavirus disease 2019; C64.9 Malignant neoplasm of unspecified kidney, except renal pelvis